=== PATIENT | female | born 1950 | race Caucasian/White ===

== ENCOUNTER → 2020-08-30 09:12 | Outpatient (BNV) | payer MEDICARE, SELFPAY | PROVIDERS: PCP Internal Medicine; Visit Provider Internal Medicine Medical Oncology | DX: E83.110 Hereditary hemochromatosis (principal); I82.511 Chronic embolism and thrombosis of right femoral vein; Z86.2 Personal history of diseases of the blood and blood-forming organs and certain disorders involving the immune mechanism | CPT/HCPCS: 99204; 99212; 99214 ==

== ENCOUNTER 2020-12-17 10:29 | Outpatient (REF) | payer MEDICARE, SELFPAY ==
--- NOTE | ~2020-12-17 | MM_ITS ---
EXAMINATION: MM SCREENING DIGITAL BREAST TOMOSYNTHESIS, BILATERAL CLINICAL INFORMATION: Screening. Asymptomatic. The lifetime risk of breast cancer based on the Tyrer-Cuzick Model is 4%. COMPARISON: Mammography: 10/07/2019, 09/24/2018, 09/21/2017 TECHNIQUE: Digital breast tomosynthesis is performed in both the craniocaudal and mediolateral oblique views along with computer-aided detection (CAD). Synthesized 2D images are generated from the tomosynthesis. Additional bilateral CC views are provided. FINDINGS: There are scattered areas of fibroglandular density (ACR BI-RADS breast composition Category b). There are no significant masses, abnormal calcifications, or other abnormalities. Parenchymal pattern is similar to prior exams. There is no developing density. Incidental small oil cyst with peripheral rim calcification again noted anterior upper outer left breast. There is scattered bilateral benign round and rim calcifications again seen. No significant changes. MM/MM tomosynthesis screening BI IMPRESSION: No mammographic evidence of malignancy. ASSESSMENT: BI-RADS 2: Benign RECOMMENDATION: Routine annual mammography screening. This patient's information was entered into a reminder system with a target due date for their next mammogram.
== END 2020-12-17 10:30 | disposition home or self-care (01) ==
LOC: HO.MAMMO 10:29
PROVIDERS: PCP Internal Medicine; Visit Provider Internal Medicine
DX: Z12.31 Encounter for screening mammogram for malignant neoplasm of breast (principal)
CPT/HCPCS: 77063; 77067

== ENCOUNTER 2021-02-26 08:37 | Outpatient (REF) | payer MEDICARE, SELFPAY ==
--- NOTE | ~2021-02-26 | MM_ITS ---
EXAMINATION: BONE DENSITOMETRY CLINICAL INDICATION: Postmenopausal, estrogen deficient. COMPARISON: This is the patient's baseline examination. TECHNIQUE: Using a [employer] DXA System (software version: 13.1) manufactured by [employer], dual-energy x-ray absorptiometry was performed of the lumbar spine and left hip. The images are of good technical quality. Summary results are attached. FINDINGS: AP SPINE L1-L4: BMD 1.382 g/cm2, Z-score 2.5, T-score 1.7, normal. LEFT FEMUR, NECK: BMD 1.069 g/cm2, Z-score 1.4, T-score 0.2, normal. LEFT FEMUR, TOTAL: BMD 1.094 g/cm2, Z-score 1.7, T-score 0.7, normal. IDENTIFIED RISK FACTORS: Recurrent falls, height loss, thiazide, menopause. HISTORY OF FRACTURE: None listed. MEDICATIONS: Calcium supplements or multivitamin, vitamin D. MM/XR DEXA axial skeleton IMPRESSION: 1. DIAGNOSIS: Normal bone density based on the lowest T-score value of 0.2 in the femoral neck applying World Health Organization criteria. 2. 10-YEAR FRACTURE RISK PREDICTION, FRAX: Major osteoporotic fracture (clinical spine, forearm, hip or shoulder) 6.4%. Hip fracture 0.3%. 3. Treatment Recommendations: NOF guidelines recommend consideration for treatment in postmenopausal women and men age 50 and older presenting with the following: -A hip or vertebral (clinical or morphometric) fracture. -T-score less than or equal to -2.5 at the femoral neck or spine after appropriate evaluation to exclude secondary causes. -Low bone mass at the hip or spine and a 10-year fracture probability by FRAX of greater than or equal to 3% for hip fracture or greater than or equal to 20% for major osteoporotic fracture based on the [place] adapted WHO algorithm. 4. Other Recommendations: All treatment decisions require clinical judgment and consideration of individual patient factors, including patient preferences, comorbidities, previous drug use, risk factors not captured in the FRAX model (e.g. frailty, falls, vitamin D deficiency, increased bone turnover, interval significant decline in bone density) and possible under or overestimation of fracture risk by FRAX. FUTURE SCAN RECOMMENDATION: People with diagnosed cases of osteoporosis or at high risk for fracture should have regular bone mineral density tests. For patients eligible for Medicare, routine testing is allowed once every 2 years. The testing frequency can be increased to one year for patients who have rapidly progressing disease, those who are receiving or discontinuing medical therapy to restore bone mass, or have additional risk factors.
== END 2021-02-26 08:38 | disposition home or self-care (01) ==
LOC: HO.MAMMO 08:37
PROVIDERS: PCP Internal Medicine; Visit Provider Internal Medicine
DX: Z13.820 Encounter for screening for osteoporosis (principal); R29.890 Loss of height; Z79.899 Other long term (current) drug therapy; Z78.0 Asymptomatic menopausal state
CPT/HCPCS: 77080

== ENCOUNTER 2021-04-09 11:53 | Outpatient (REF) | payer MEDICARE, SELFPAY ==
[2021-04-09 12:38] LABS: Basophils Percent Auto 0.5 % (0-2); Imm Gran Abs Auto 0.01 X10*3/uL (0.00-0.03); Imm Gran Pct Auto 0.2 % (0.0-0.4); MANUAL DIFF FLAG SCAN; PLT CLUMP 1; Red Cell Distribution Width 12.7 % (11.0-16.0); SCAN SMEAR FLAG 1
[2021-04-09 12:40] LABS: Eosinophils Absolute Auto 0.1 X10*3/uL (0.0-0.4); Eosinophils Percent Auto 1.9 % (0-4); Hematocrit 42.9 % (37-47); Hemoglobin 14.9 g/dl (12.0-16.0); Lymphocytes Absolute Auto 2.4 X10*3/uL (1.2-4.9); Lymphocytes Percent Auto 37.5 % (20-40); Mean Corpuscular HGB Conc 34.7 g/dl (31.0-35.0); Mean Corpuscular Hemoglobin 31.9 pg (27.0-33.0); Mean Corpuscular Volume 91.9 fL (80-98); Mean Platelet Volume 11.3 fL (9.4-12.3); Monocytes Absolute Auto 0.5 X10*3/uL (0.1-1.2); Monocytes Percent Auto 7.5 % (2-11); Neutrophils Absolute Auto 3.4 X10*3/uL (2.0-8.3); Neutrophils Percent Auto 52.4 % (45-73); Platelet Count 131 X10*3/uL (160-400); Red Blood Count 4.67 X10*6/uL (4.20-5.50); White Blood Count 6.4 X10*3/uL (4.8-10.8)
[2021-04-09 13:39] LABS: Alanine Aminotransferase 25 U/L (0-31); Albumin Level 4.4 g/dL (3.5-5.0); Alkaline Phosphatase 97 U/L (39-117); Anion Gap 13 (12-20); Aspartate Amino Transferase 34 U/L (5-31); Blood Urea Nitrogen 22 mg/dL (9-16); Calcium 9.6 mg/dL (8.4-10.2); Carbon Dioxide 26 mmol/L (22-29); Chloride 105 mmol/L (96-108); Estimated Glomerular Filt Rate 50; Glucose Random 104 mg/dL (60-115); Potassium 4.7 mmol/L (3.3-5.1); Sodium 139 mmol/L (135-145); Total Protein 7.9 g/dL (6.5-8.0)
[2021-04-09 14:01] LABS: Free T4 (Free Thyroxine) 1.02 ng/dL (0.71-1.85); Thyroid Stimulating Hormone 2.16 uIU/mL (0.32-4.0)
[2021-04-10 14:41] LABS: Lyme Abs Screen <0.90 index
== END 2021-04-09 11:54 | disposition home or self-care (01) ==
LOC: HO.LAB 11:53
PROVIDERS: PCP Internal Medicine; Visit Provider Internal Medicine
DX: Z20.822 Contact with and (suspected) exposure to COVID-19 (principal); R53.81 Other malaise; R53.83 Other fatigue; E66.09 Other obesity due to excess calories; Z68.37 Body mass index [BMI] 37.0-37.9, adult; I10 Essential (primary) hypertension
CPT/HCPCS: 80053; 84439; 84443; 85025; 86617; 86618; U0003; U0005

== ENCOUNTER 2021-12-18 10:26 | Outpatient (REF) | payer MEDICARE, SELFPAY ==
--- NOTE | ~2021-12-18 | MM_ITS ---
EXAMINATION: MM SCREENING DIGITAL BREAST TOMOSYNTHESIS, BILATERAL CLINICAL INFORMATION: Screening. Asymptomatic. The lifetime risk of breast cancer based on the Tyrer-Cuzick Model is 4%. COMPARISON: Mammography: 12/17/2020, 10/07/2019, 09/24/2018 TECHNIQUE: Digital breast tomosynthesis is performed in both the craniocaudal and mediolateral oblique views along with computer-aided detection (CAD). Synthesized 2D images are generated from the tomosynthesis. Additional right cleavage view is provided. FINDINGS: There are scattered areas of fibroglandular density (ACR BI-RADS breast composition Category b). There are no significant masses, abnormal calcifications, or other abnormalities. Parenchymal pattern is similar to prior studies and there is no interval developing density or architectural abnormality. Left breast again has incidental oil cyst anterior upper outer quadrant with some scattered rim calcification. There are no significant changes. MM/MM tomosynthesis screening BI IMPRESSION: No mammographic evidence of malignancy. ASSESSMENT: BI-RADS 2: Benign RECOMMENDATION: Routine annual mammography screening. This patient's information was entered into a reminder system with a target due date for their next mammogram.
== END 2021-12-18 10:27 | disposition home or self-care (01) ==
LOC: HO.MAMMO 10:26
PROVIDERS: PCP Internal Medicine; Visit Provider Internal Medicine
DX: Z12.31 Encounter for screening mammogram for malignant neoplasm of breast (principal)
CPT/HCPCS: 77063; 77067

== ENCOUNTER 2022-05-26 05:44 | Outpatient (REF) | payer MEDICARE, SELFPAY ==
--- NOTE | ~2022-05-26 | CT_ITS ---
EXAMINATION: CT ABDOMEN AND PELVIS WITH CONTRAST CLINICAL INFORMATION: Epigastric pain. COMPARISON: None TECHNIQUE: Multidetector volumetric images were obtained from the superior aspect of the liver through the pubic symphysis following administration 85 mL of Omnipaque 350 intravenous contrast. Sagittal and coronal reformatted images were obtained on the technologist's workstation. Oral contrast: No This CT examination was performed using dose optimization techniques as appropriate, variously including the following: *Automated exposure control *Adjustment of mA and/or kV according to patient size (this includes techniques or standardized protocols for targeted exams where dose is matched to indication/reason for exam; i.e. extremities or head) *Use of iterative reconstruction technique DLP: 567 mGy-cm. FINDINGS: LUNG BASES: The heart size is normal. There is subpleural reticular stranding in both lower lobes. There is no consolidation. LIVER, GALLBLADDER, AND BILIARY TREE: The liver is normal in size, shape, and attenuation. No focal hepatic lesion or biliary ductal dilatation is present. The gallbladder is unremarkable with no evidence of radiopaque gallstones, gallbladder wall thickening, or obvious pericholecystic inflammatory changes. PANCREAS: Unremarkable. SPLEEN: Unremarkable. ADRENAL GLANDS: Unremarkable. KIDNEYS AND URETERS: The kidneys are normal in size, shape, and attenuation. No hydronephrosis, hydroureter, or calculi seen. No perinephric stranding. BLADDER: Unremarkable. GASTROINTESTINAL TRACT: Oral contrast opacified small bowel loops and colon appears unremarkable. Appendix is normal caliber. The stomach is nondistended. ABDOMINAL WALL: No significant hernia is appreciated. LYMPH NODES: Normal. VASCULAR: Unremarkable. PELVIC VISCERA: There is no free air or free fluid. The uterus is anteverted and appears unremarkable. No adnexal mass or abnormal size lymph nodes seen. OSSEOUS STRUCTURES: There is vacuum disc phenomena L2-L3, L4-L5 L5/S1 disc level with severe loss of L2-L3 disc height and ventral spondylosis. No aggressive lytic or sclerotic process seen. CT/CT abdomen pelvis w IV con IMPRESSION: No acute intra-abdominal process seen. Degenerative disc changes L2-L3, L4-L5 and L5-S1 disc levels. Fleischner guidelines were followed.
[2022-05-26] MEDS: iohexoL 350 MG/ML 100 ML INFUS..BTL IV (08:53)
[2022-05-26] MEDS: Barium Sulfate Oral (Berry) 450 ML ORAL.SUSP 900 ML PO (08:54)
== END 2022-05-26 05:45 | disposition home or self-care (01) ==
LOC: HO.CT 05:44
PROVIDERS: PCP Internal Medicine; Visit Provider Internal Medicine
DX: R13.10 Dysphagia, unspecified (principal); R83.4 Abnormal immunological findings in cerebrospinal fluid
CPT/HCPCS: 74177; Q9967

== ENCOUNTER 2022-06-30 12:36 | Outpatient (REF) | payer MEDICARE, SELFPAY ==
--- NOTE | ~2022-06-30 | CT_ITS ---
EXAMINATION: CT CHEST WITHOUT CONTRAST CLINICAL INFORMATION: Interstitial lung disease COMPARISON: Previous chest CT and chest x-ray August 2017 TECHNIQUE: Multidetector volumetric CT imaging of the chest was done. Axial MIP volume rendering provided. Sagittal and coronal reformatted images were obtained. This CT examination was performed using dose optimization techniques as appropriate, variously including the following: *Automated exposure control *Adjustment of mA and/or kV according to patient size (this includes techniques or standardized protocols for targeted exams where dose is matched to indication/reason for exam; i.e. extremities or head) *Use of iterative reconstruction technique DLP: 147 mGy-cm FINDINGS: LUNGS: There are increased peripheral interstitial markings with increased peripheral reticulation. This is seen diffusely throughout the lungs but greatest at the lung bases. There is mild traction bronchiolectasis in the lower lobes. There is mild honeycombing seen in the left lower lobe. This is difficult to compare with 2018 exam due to the presence of small left pleural effusion and lingular and left lower lobe atelectasis/airspace disease but is probably slightly increased.. There is question of a a heterogeneous or semisolid partially groundglass attenuation nodule in the left lower lobe. This is best appreciated on sagittal and coronal reconstructed images measuring approximately 1 cm for example coronal reconstructed image 37 and sagittal reconstructed image 38 and axial image 128. This is difficult to compare with previous exam due to atelectasis/consolidation as well. MEDIASTINUM: The mediastinum is normal. CORONARY ARTERY CALCIFICATION: None visualized on this study. PLEURA: There is no pleural effusion. No pleural mass or thickening. AXILLA: No lymphadenopathy. UPPER ABDOMEN: Unremarkable. OSSEOUS STRUCTURES: Degenerative changes of the spine. CT/CT chest wo IV con IMPRESSION: Interstitial lung disease. Appearance would be consistent with IPF/UIP. It is difficult to compare with previous exam from 2018 but is probably slightly increased. Question 1 cm heterogeneous partially groundglass partially solid left lower lobe nodule. Chest CT follow-up in 6 months recommended. Fleischner guidelines were followed.
== END 2022-06-30 12:37 | disposition home or self-care (01) ==
LOC: HO.CT 12:36
PROVIDERS: Visit Provider Internal Medicine
DX: J84.9 Interstitial pulmonary disease, unspecified (principal)
CPT/HCPCS: 71250

== ENCOUNTER 2023-01-21 08:58 | Outpatient (REF) | payer MEDICARE, SELFPAY ==
--- NOTE | ~2023-01-21 | MM_ITS ---
EXAMINATION: MM SCREENING DIGITAL BREAST TOMOSYNTHESIS, BILATERAL CLINICAL INFORMATION: Screening. Asymptomatic. The lifetime risk of breast cancer based on the Tyrer-Cuzick Model is 3%. COMPARISON: Mammography: 12/18/2021, 12/17/2020, 09/29/2019 TECHNIQUE: Digital breast tomosynthesis is performed in both the craniocaudal and mediolateral oblique views along with computer-aided detection (CAD). Synthesized 2D images are generated from the tomosynthesis. FINDINGS: There are scattered areas of fibroglandular density (ACR BI-RADS breast composition Category b). There are no significant masses, abnormal calcifications, or other abnormalities. No architectural abnormality or developing density or significant change from prior studies. The axilla and skin contours are unremarkable. MM/MM tomosynthesis screening BI IMPRESSION: No mammographic evidence of malignancy. ASSESSMENT: BI-RADS 2: Benign RECOMMENDATION: Routine annual mammography screening. This patient's information was entered into a reminder system with a target due date for their next mammogram.
== END 2023-01-21 08:59 | disposition home or self-care (01) ==
LOC: HO.MAMMO 08:58
PROVIDERS: PCP Internal Medicine; Visit Provider Internal Medicine
DX: Z12.31 Encounter for screening mammogram for malignant neoplasm of breast (principal)
CPT/HCPCS: 77063; 77067

== ENCOUNTER 2023-03-13 07:18 | Outpatient (REF) | payer MEDICARE, SELFPAY ==
--- NOTE | ~2023-03-13 | XR_ITS ---
EXAMINATION: XR LUMBOSACRAL SPINE CLINICAL INFORMATION: Numbness and tingling in the lower extremities. Lumbar radiculopathy. COMPARISON: CT abdomen and pelvis 05/26/2022. TECHNIQUE: Four views of the lumbosacral spine. FINDINGS: Again seen is a scoliosis convex to the left. Degenerative changes are present in the spine with disc space narrowing predominantly at L2-L3 with milder narrowing elsewhere. Degenerative changes are present at the facet joints at L4-L5. No bony destructive lesions. Appearances are unchanged when compared to 05/26/2022. XR/XR lumbar spine 2-3V IMPRESSION: Degenerative changes and scoliosis as described above.
== END 2023-03-13 07:19 | disposition home or self-care (01) ==
LOC: HO.XRAY 07:18
PROVIDERS: PCP Internal Medicine; Visit Provider Internal Medicine
DX: R20.0 Anesthesia of skin (principal); R20.2 Paresthesia of skin; M54.16 Radiculopathy, lumbar region
CPT/HCPCS: 72100

== ENCOUNTER 2024-01-25 08:42 | Outpatient (REF) | payer MEDICARE, SELFPAY | END 2024-01-25 08:43 | disposition home or self-care (01) | LOC: HO.MAMMO 08:42 | PROVIDERS: PCP Internal Medicine; Visit Provider Internal Medicine | DX: Z12.31 Encounter for screening mammogram for malignant neoplasm of breast (principal) | CPT/HCPCS: 77063; 77067 ==

== ENCOUNTER → 2024-01-25 09:00 | Outpatient (BNV) | payer MEDICARE, SELFPAY | PROVIDERS: PCP Internal Medicine; Visit Provider Radiology Diagnostic Radiology | DX: Z12.31 Encounter for screening mammogram for malignant neoplasm of breast (principal) | CPT/HCPCS: 77063; 77067 ==

== ENCOUNTER 2024-05-04 11:18 | Emergency (ER) | payer MEDICARE, SELFPAY ==
--- NOTE | ~2024-05-04 | US_ITS ---
EXAMINATION: US ABDOMEN LIMITED CLINICAL INFORMATION: Postprandial pain/vomiting. COMPARISON: Ultrasound abdomen 11/11/2018 TECHNIQUE: Real-time imaging of the gallbladder and common bile duct. FINDINGS: GALLBLADDER: The gallbladder is physiologically distended without evidence of stones, sludge, polyps, wall thickening or pericholecystic fluid. Small intramural echogenic focus with probable comet tail artifact, series 1 image 9. Negative sonographic Angel sign. COMMON BILE DUCT: Normal in caliber measuring 0.4 cm in diameter. US/US abdomen limited IMPRESSION: 1. No cholelithiasis or sonographic evidence of acute cholecystitis. 2. 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 Electronically signed by: Doug Alvarado MD 05/05/2024 09:53 AM EDT
--- NOTE | 2024-05-04 11:24 | ED.NAVMDI ---
HPI - Nausea/Vomiting/Diarrhea General Chief complaint: Nausea/Vomiting/Diarrhea Stated complaint: vomiting-nausea Time Seen by Provider: 05/04/24 19:29 Source: patient Limitations: no limitations History of Present Illness ED Provider: Mounika Hernandez PA-C HPI Narrative: 73-year-old female with a history of chronic abdominal discomfort with chronic nausea and vomiting, ITP, right DVT on rivaroxaban presents with nausea vomiting. Patient states she has been having issues for ?years?. Patient states she has been seen by Gastroenterology, she has been on a PPI intermittently, she states when she stops using the medication she developed symptoms. At this time patient has no abdominal pain, she is here because she states she ?can not eat?. Patient tries to eat any type of food or drink, then subsequently vomits. Denies postprandial pain. Denies fever. Patient has not followed up with her primary care or her prescription benefit specialist for her ongoing issues. Essentially, there was no change in her current symptoms. Associated nausea: Yes Related Data Home Medications ?Medication ?Instructions ?Recorded ?Confirmed ascorbic acid (vitamin C) 500 mg 500 mg PO DAILY 08/30/20 09/02/21 tablet (Vitamin C) bupropion HCl 150 mg 24 hr tablet, 150 tab PO DAILY 08/30/20 09/02/21 extended release bupropion HCl 300 mg 24 hr tablet, 300 tab PO DAILY 08/30/20 09/02/21 extended release cholecalciferol (vitamin D3) 25 25 mcg PO DAILY 08/30/20 09/02/21 mcg (1,000 unit) tablet (Vitamin D3) lisinopril 20 mg tablet 1 tab PO DAILY 08/30/20 09/02/21 magnesium oxide 500 mg PO DAILY 08/30/20 09/02/21 timolol maleate 0.5 % eye drops 1 drp ophthalmic (eye) BID 08/30/20 09/02/21 vitamin B complex 1 cap PO DAILY 08/30/20 09/02/21 amlodipine 5 mg tablet (Norvasc) 5 mg PO DAILY 02/28/21 09/02/21 BuSpar 0.5 tab PO DAILY 09/02/21 09/02/21 Previous Rx's ?Medication ?Instructions ?Recorded rivaroxaban 10 mg tablet 10 mg PO DAILY #90 tabs 12/10/20 Allergies Allergy/AdvReac Type Severity Reaction Status Date / Time ibuprofen [IBUPROFEN] Allergy Unknown HIVES Verified 05/04/24 11:27 Review of Systems Review of Systems: Yes all other systems are reviewed and are negative Constitutional: Constitutional: Denies fatigue and Denies fever(s) Cardiovascular: Cardiovascular: Denies chest pain and Denies dyspnea Respiratory: Respiratory: Denies dyspnea Gastrointestinal: Gastrointestinal: Denies abdominal pain, Reports nausea and Reports vomiting Endocrine: Endocrine: Denies fatigue [facility] Past Medical History Attestation statement: The following information was validated with the patient. Medical History (Updated 05/05/24 @ 00:01 by Sheeba Garay) Glaucoma Chronic idiopathic thrombocytopenia Left ACL tear Depression HTN (hypertension) Right leg DVT Surgical History Hx of tonsillectomy Hx of cataract extraction Family History Family History Mother Heart disease HTN (hypertension) Diabetes Maternal Aunt H/O heart bypass surgery HTN (hypertension) Diabetes Brother S/P triple vessel bypass Stroke Social History Social History Alcohol intake: current Alcohol intake frequency: 0-2 drinks per day Alcohol type: hard liquor Physical Exam Vital Signs: Vital Signs: Last Vital Signs Temp 98.0 F 05/04/24 23:18 Pulse 76 05/04/24 23:18 Resp 18 05/04/24 23:18 BP 156/81 H 05/04/24 23:18 Pulse Ox 98 05/04/24 23:18 O2 Del Method Nasal Cannula 05/04/24 23:18 BMI result Body Mass Index 28.3 Const: Other: Alert, well in appearance Orientation/consciousness: patient oriented x3 Resp: Effort & Inspection: normal respiratory effort Cardio: Other: Normal peripheral perfusion GI: Other: Abdomen is soft, nondistended, obese, no tenderness no guarding Skin: Other: Warm dry no rash Neuro: General: patient oriented x3, no focal motor deficits and CN's II-XI intact bilaterally Psych: Other: Hostile and belligerent Course Course Course Narrative: This is a Rapid Medical Exam performed in triage by Sierra Silva PA-C. Full HPI, ROS and PE to be performed by primary ED provider. 73 yo F w/pmhx ITP, DVT on Xarelto presenting to the ED c/o nausea, vomiting, and abdominal discomfort x few days. +dry mouth. Admits to similar sx over the past few months, was on pills that worked until they didn't. denies suspicious food intake, travel, diarrhea, constipation, Abx use PE: abdomen soft & nontender nondidtended Plan: labs, UA Reevaluation(s) Reevaluation #1: Patient is choosing to leave without completing her assessment. Time: 23:03 Medical Decision Making Medical Decision Making MDM Narrative: 73-year-old female with a history of chronic abdominal discomfort with chronic nausea and vomiting, ITP, right DVT on rivaroxaban presents with nausea vomiting. Patient states she has been having issues for ?years?. Patient states she has been seen by Gastroenterology, she has been on a PPI intermittently, she states when she stops using the medication she developed symptoms. At this time patient has no abdominal pain, she is here because she states she ?can not eat?. Patient tries to eat any type of food or drink, then subsequently vomits. Denies postprandial pain. Denies fever. Patient has not followed up with her primary care or her prescription benefit specialist for her ongoing issues. Essentially, there was no change in her current symptoms. Problem: Ongoing nausea vomiting History: Per patient I have considered the following differential diagnoses: Biliary colic, cholecystitis, gastritis, dysphagia, esophageal dysmotility, esophageal stricture Plan: The patient is clearly eating, she is obese. To note, her assessment began from RME, screening labs obtained and are completely normal. She is not clinically dehydrated and she has no electrolyte abnormalities to suggest starvation. Given she is having postprandial symptoms, I am considering biliary colic, we will order a right upper quadrant ultrasound, it would be atypical given there was no pain associated when she eats. She has not actively refluxing, she does not describe that she is unable to swallow food or drink, a stricture or overall dysmotility is less likely. However, if her assessment is negative, I have already advised that she needs to follow up with her prescription benefit specialist for further assessment, likely endoscopy. She verbalizes understanding I have independently reviewed the following tests: Labs: No leukocytosis, not anemic , No electrolyte abnormality ultrasound right upper quadrant: Patient left before her ultrasound resulted, she stated ?I am sick of waiting?, she was told she could reach out to medical records for results. Lab Data 05/04/24 11:49 05/04/24 11:49 Labs: Lab Results 05/04/24 Range/Units 11:49 WBC 4.7 L (4.8-10.8) X10*3/uL RBC 4.10 L (4.20-5.50) X10*6/uL Hgb 13.8 (12.0-16.0) g/dl Hct 36.9 L (37.0-47.0) % MCV 90.0 (80.0-98.0) fL MCH 33.7 H (27.0-33.0) pg MCHC 37.4 H (31.0-35.0) g/dl RDW 12.1 (11.0-16.0) % Plt Count 127 L (160-400) X10*3/uL MPV 10.2 (9.4-12.3) fL Immature Gran % (Auto) 0.2 (0.0-0.4) % Neut % (Auto) 61.5 (45-73) % Lymph % (Auto) 29.2 (20-40) % [place] % (Auto) 8.0 (2-11) % Eos % (Auto) 0.9 (0-4) % Baso % (Auto) 0.2 (0-2) % Lymph # (Auto) 1.4 (1.2-4.9) X10*3/uL [place] # (Auto) 0.4 (0.1-1.2) X10*3/uL Eos # (Auto) 0.0 (0.0-0.4) X10*3/uL Baso # (Auto) 0.0 (0.0-0.2) X10*3/uL Abs Immat Gran (auto) 0.01 (0.00-0.03) X10*3/uL Absolute Neuts (auto) 2.9 (2.0-8.3) x10*3/uL Absolute Nucleated RBC 0.000 (0.0-0.012) X10*3/uL Nucleated RBC % (auto) 0.0 (0.0-0.2) /100WBC Sodium 141 (135-145) mmol/L Potassium 3.6 (3.3-5.1) mmol/L Chloride 104 (96-108) mmol/L Carbon Dioxide 29 (22-29) mmol/L Anion Gap 12 (12-20) BUN 12 (9-16) mg/dL Creatinine 1.23 (0.5-1.4) mg/dL Estim Creat Clear Calc 34.9 Estimated GFR 43 Random Glucose 119 H (60-115) mg/dL Calcium 9.4 (8.4-10.2) mg/dL Magnesium 2.1 (1.6-2.6) mg/dL Total Bilirubin 0.8 (0.0-1.0) mg/dL Direct Bilirubin 0.3 (0.0-0.5) mg/dL AST 27 (5-31) U/L ALT 14 (0-31) U/L Alkaline Phosphatase 81 (39-117) U/L Total Protein 8.0 (6.5-8.0) g/dL Albumin 4.1 (3.5-5.0) g/dL Lipase 34 (8-78) U/L Discharge Plan Discharge Clinical Impression: Vomiting Patient Disposition: Left Against Medical Advice Prescriptions: No Action rivaroxaban 10 mg Tablet 10 mg PO DAILY Qty: 90 4RF lisinopril 20 mg tablet 1 tab PO DAILY ascorbic acid (vitamin C) [Vitamin C] 500 mg Tablet 500 mg PO DAILY magnesium oxide 500 mg Tablet 500 mg PO DAILY timolol maleate 0.5 % drops 1 drp ophthalmic (eye) BID vitamin B complex Capsule 1 cap PO DAILY bupropion HCl 300 mg tablet extended release 24 hr 300 tab PO DAILY Rx Instructions: 300 mg tab + 150 mg tab = 450 mg total dose bupropion HCl 150 mg tablet extended release 24 hr 150 tab PO DAILY Rx Instructions: 300 mg tab + 150 mg tab = 450 mg total dose cholecalciferol (vitamin D3) [Vitamin D3] 25 mcg (1,000 unit) Tablet 25 mcg PO DAILY amlodipine [Norvasc] 5 mg Tablet 5 mg PO DAILY BuSpar 7.5 mg tablet 0.5 tab PO DAILY Stand Alone Forms: Against Medical Advice Interventions: ED Discharge Assessment Last Done: 05/04/24 23:18 Discharge Date/Time: 05/04/24 23:19 Print Language: Maldivian
[2024-05-04 11:25] VITALS: BP 151/88; PULSE 78; RESP 18; TEMP 36.6; O2SAT 98; BMI 28.3
--- NOTE | 2024-05-04 11:28 | ECG_ITS ---
Test Reason : N, ABD PAIN Blood Pressure : / mmHG Vent. Rate : 069 BPM Atrial Rate : 069 BPM P-R Int : 208 ms QRS Dur : 086 ms QT Int : 412 ms P-R-T Axes : 064 -17 -06 degrees QTc Int : 441 ms Normal sinus rhythm Minimal voltage criteria for LVH, may be normal variant ( R in aVL ) Nonspecific T wave abnormality Inferior infarct (cited on or before 14-AUG-2017) Abnormal ECG When compared with ECG of 14-AUG-2017 18:54, Nonspecific T wave abnormality now evident in Anterior leads Referred By: Sierra Silva Electronically Signed By:DENZEL PAEZ
[2024-05-04 11:53] LABS: MANUAL DIFF FLAG NO
[2024-05-04 12:00] LABS: Basophils Percent Auto 0.2 % (0-2); Eosinophils Percent Auto 0.9 % (0-4); Hematocrit 36.9 % (37.0-47.0); Hemoglobin 13.8 g/dl (12.0-16.0); Imm Gran Abs Auto 0.01 X10*3/uL (0.00-0.03); Imm Gran Pct Auto 0.2 % (0.0-0.4); Lymphocytes Absolute Auto 1.4 X10*3/uL (1.2-4.9); Lymphocytes Percent Auto 29.2 % (20-40); Mean Corpuscular HGB Conc 37.4 g/dl (31.0-35.0); Mean Corpuscular Hemoglobin 33.7 pg (27.0-33.0); Mean Platelet Volume 10.2 fL (9.4-12.3); Monocytes Absolute Auto 0.4 X10*3/uL (0.1-1.2); Neutrophils Absolute Auto 2.9 x10*3/uL (2.0-8.3); Neutrophils Percent Auto 61.5 % (45-73); Platelet Count 127 X10*3/uL (160-400); Red Cell Distribution Width 12.1 % (11.0-16.0); White Blood Count 4.7 X10*3/uL (4.8-10.8)
[2024-05-04 12:10] LABS: Alanine Aminotransferase 14 U/L (0-31); Albumin Level 4.1 g/dL (3.5-5.0); Alkaline Phosphatase 81 U/L (39-117); Anion Gap 12 (12-20); Aspartate Amino Transferase 27 U/L (5-31); Bilirubin Direct 0.3 mg/dL (0.0-0.5); Bilirubin Total 0.8 mg/dL (0.0-1.0); Blood Urea Nitrogen 12 mg/dL (9-16); Calcium 9.4 mg/dL (8.4-10.2); Carbon Dioxide 29 mmol/L (22-29); Chloride 104 mmol/L (96-108); Creatinine Clr Calc Pharmacy 34.9; Estimated Glomerular Filt Rate 43; Glucose Random 119 mg/dL (60-115); Lipase 34 U/L (8-78); Magnesium 2.1 mg/dL (1.6-2.6); Potassium 3.6 mmol/L (3.3-5.1); Sodium 141 mmol/L (135-145)
[2024-05-04 19:30] VITALS: BP 175/81; PULSE 80; RESP 18; O2SAT 97
--- NOTE | 2024-05-04 20:22 | PC.NURSE ---
pt declined urine sample, provider aware.
[2024-05-04 22:00] VITALS: BP 156/81; PULSE 76; RESP 18; TEMP 36.7; O2SAT 98
--- NOTE | 2024-05-04 23:17 | PC.NURSE ---
pt left AMA due to waiting for 12 hours w/o u/s results, provider aware, AMA paperwork signed. explained to pt that she would not be contacted with u/s results but she was welcome to call medical records to get her results and discuss the w PCP/GI specialist.
[2024-05-04 23:18] VITALS: BP 156/81; PULSE 76; RESP 18; TEMP 36.7; O2SAT 98
== END 2024-05-04 23:19 | disposition left against medical advice (07) ==
PROVIDERS: Physician Assistant; Emergency Provider Emergency Medicine; PCP Internal Medicine
DX: R11.2 Nausea with vomiting, unspecified (principal); I10 Essential (primary) hypertension; Z86.718 Personal history of other venous thrombosis and embolism; Z79.01 Long term (current) use of anticoagulants; Z53.29 Procedure and treatment not carried out because of patient's decision for other reasons
CPT/HCPCS: 36415; 76705; 80048; 80076; 83690; 83735; 85025; 93005; 99284; 99285

== ENCOUNTER 2024-05-09 11:23 | Outpatient (REF) | payer MEDICARE, SELFPAY ==
[2024-05-09 12:29] VITALS: BP 133/67; PULSE 71; RESP 16; TEMP 36.5; O2SAT 97
[2024-05-09 12:30] VITALS: BMI 27.6
== END 2024-05-09 11:24 | disposition home or self-care (01) ==
LOC: HO.MS 11:23
PROVIDERS: PCP Internal Medicine; Visit Provider Ophthalmology
PROC: (CPT 66821; principal; 2024-05-09 13:20)
DX: H26.492 Other secondary cataract, left eye (principal)
CPT/HCPCS: 66821

== ENCOUNTER 2024-05-19 13:29 | Emergency (ER) | payer MEDICARE, SELFPAY ==
[2024-05-19] VITALS (10 sets, daily range): BP systolic 89–175; BP diastolic 53–90; PULSE 68–95; RESP 16–28; TEMP 36.6–36.8; O2SAT 81–98; BMI 29.4
--- NOTE | ~2024-05-19 | CT_ITS ---
EXAMINATION: CT HEAD WITHOUT CONTRAST CLINICAL INFORMATION: Dizziness. On blood thinner. COMPARISON: None available. TECHNIQUE: Contiguous axial imaging was performed from the skull base to vertex without intravenous administration of contrast. This CT examination was performed using dose optimization techniques as appropriate, variously including the following: *Automated exposure control *Adjustment of mA and/or kV according to patient size (this includes techniques or standardized protocols for targeted exams where dose is matched to indication/reason for exam; i.e. extremities or head) *Use of iterative reconstruction technique DLP: 608 mGy-cm FINDINGS: There is no acute intracranial hemorrhage. There is no evidence of acute/subacute cerebral or cerebellar infarction. There is no midline shift or mass effect. There is no extra-axial fluid collection. The ventricles are normal in size. The paranasal sinuses and mastoid air cells are clear. CT/CT head/brain wo IV con IMPRESSION: No acute intracranial pathology. Electronically signed by: Tarik Couch DO 05/19/2024 03:37 PM EDT
--- NOTE | ~2024-05-19 | CT_ITS ---
EXAMINATION: CT ABDOMEN AND PELVIS WITH CONTRAST CLINICAL INFORMATION: Chronic nausea and abdominal pain. COMPARISON: CT scan abdomen and pelvis May 26, 2022 TECHNIQUE: Multidetector volumetric images were obtained from the superior aspect of the liver through the pubic symphysis following administration 85 mL of Omnipaque 350 intravenous contrast. Sagittal and coronal reformatted images were obtained on the technologist's workstation. Oral contrast: No This CT examination was performed using dose optimization techniques as appropriate, variously including the following: *Automated exposure control *Adjustment of mA and/or kV according to patient size (this includes techniques or standardized protocols for targeted exams where dose is matched to indication/reason for exam; i.e. extremities or head) *Use of iterative reconstruction technique DLP: 675 mGy-cm FINDINGS: LUNG BASES: Coarse interstitial lung markings in lung bases. Mild bronchial wall thickening at lung bases. No acute airspace disease. LIVER, GALLBLADDER, AND BILIARY TREE: The liver is normal in size, shape, and attenuation. No focal hepatic lesion or biliary ductal dilatation is present. The gallbladder is unremarkable with no evidence of radiopaque gallstones, gallbladder wall thickening, or obvious pericholecystic inflammatory changes. PANCREAS: Unremarkable. SPLEEN: Unremarkable. ADRENAL GLANDS: Unremarkable. KIDNEYS AND URETERS: The kidneys are normal in size, shape, and attenuation. No hydronephrosis, hydroureter, or calculi seen. No perinephric stranding. Small cortical cyst upper pole right kidney. No follow-up imaging recommended. BLADDER: Unremarkable. GASTROINTESTINAL TRACT: No acute abnormality. There is no bowel wall thickening /edema. There is no bowel obstruction. There is a moderate to large volume of stool in the colon. The appendix is normal . The small bowel loops are unremarkable. The stomach is normal. There is no hiatal hernia. ABDOMINAL WALL: No significant hernia is appreciated. LYMPH NODES: Normal. VASCULAR: Unremarkable. PELVIC VISCERA: Unremarkable. OSSEOUS STRUCTURES: Multilevel degenerative spondylosis spine. CT/CT abdomen pelvis w IV con IMPRESSION: 1. No acute abnormality CT scan abdomen pelvis. 2. Moderate to large volume of stool in colon. No acute abnormality of the bowel. Fleischner guidelines were followed. Electronically signed by: Mirza Aparicio MD 05/19/2024 07:59 PM EDT
--- NOTE | 2024-05-19 13:46 | ECG_ITS ---
Test Reason : DIZZINESS Blood Pressure : / mmHG Vent. Rate : 072 BPM Atrial Rate : 072 BPM P-R Int : 204 ms QRS Dur : 082 ms QT Int : 418 ms P-R-T Axes : 074 -17 020 degrees QTc Int : 457 ms Normal sinus rhythm Inferior infarct (cited on or before 14-AUG-2017) Cannot rule out Anterior infarct , age undetermined Abnormal ECG When compared with ECG of 04-MAY-2024 11:37, No significant change was found Referred By: Missy Rojo Electronically Signed By:TEREZA BOCANEGRA MD
--- NOTE | 2024-05-19 14:00 | PC.NURSE ---
pt biba from PCP d/t nausea/dizziness w/unsteady gait x 1 month. made appt w/ pcp - sent by pcp to ED to r/o stroke. upon ED arrival - a&ox4. vss and up to date aside from being slightly hypertensive. nsr on the night monitor. pt pt verbalizes intermittent dizziness that worsens w/ movement, ringing in ears bilaterally, extremely unsteady gait, nausea and decreased PO intake x 1 month. 20gIV placed in the right AC via EMS - IV patent/intact. labs obtained/sent to lab. ekg performed by tech. when pt stood up to ambulate to the restroom, extremely unsteady gait noted. pt took two steps and entire body drifted to the right side. pt held by this RN as well as tech. 2:1 assist needed to ambulate pt to the restroom. UA then obtained/sent to lab. no sob/wob noted. respirations even/unlabored. plan of care ongoing. call rodrigues placed within reach.
--- NOTE | 2024-05-19 14:12 | PC.NURSE ---
pt to CT at this time. plan of care ongoing.
--- NOTE | 2024-05-19 14:16 | ED.DIZZY ---
HPI - Dizziness General Chief Complaint: Dizziness Stated Complaint: NAUSEA/DIZZINESS X 1 MONTH PER EMS Time Seen by Provider: 05/19/24 13:32 Source: patient, EMS and old records reviewed Mode of arrival: EMS Limitations: no limitations History of Present Illness ED Provider: VENECIA GALLARDO Narrative: 73 yo female with PMH of HLD, HTN, chronic ITP, depression, remote DVT in 2018 not on xarelto any longer - at this time here with 1 month of dizziness, bilateral non pulsatile ringing in the ears, and difficulty walking. She has fallen. She has a mild frontal headache as well. No CP/SOB. No preceding event or illness she can think to trigger it. Walking makes it worse. MD elicited complaint: dizziness Onset (ago): month(s) (1) Timing: sudden onset and intermittent Severity: moderate Description: room spinning , off-balance and difficulty walking Context: change in body position History of similar symptoms: No Exacerbating factors: movement/ambulation and change in body position Relieving factors: remaining still Associated symptoms: nausea Associated neuro symptoms: other (difficulty walking) Related Data Home Medications ?Medication ?Instructions ?Recorded ?Confirmed ascorbic acid (vitamin C) 500 mg 500 mg PO DAILY 08/30/20 09/02/21 tablet (Vitamin C) bupropion HCl 150 mg 24 hr tablet, 150 tab PO DAILY 08/30/20 09/02/21 extended release bupropion HCl 300 mg 24 hr tablet, 300 tab PO DAILY 08/30/20 09/02/21 extended release cholecalciferol (vitamin D3) 25 25 mcg PO DAILY 08/30/20 09/02/21 mcg (1,000 unit) tablet (Vitamin D3) lisinopril 20 mg tablet 1 tab PO DAILY 08/30/20 09/02/21 magnesium oxide 500 mg PO DAILY 08/30/20 09/02/21 timolol maleate 0.5 % eye drops 1 drp ophthalmic (eye) BID 08/30/20 09/02/21 vitamin B complex 1 cap PO DAILY 08/30/20 09/02/21 amlodipine 5 mg tablet (Norvasc) 5 mg PO DAILY 02/28/21 09/02/21 BuSpar 0.5 tab PO DAILY 09/02/21 09/02/21 Previous Rx's ?Medication ?Instructions ?Recorded rivaroxaban 10 mg tablet 10 mg PO DAILY #90 tabs 12/10/20 ondansetron 4 mg disintegrating 4 mg PO Q8H PRN nausea and 05/19/24 tablet vomiting #20 tabs Allergies Allergy/AdvReac Type Severity Reaction Status Date / Time ibuprofen [IBUPROFEN] Allergy Unknown HIVES Verified 05/19/24 13:35 Review of Systems Review of Systems: Constitutional : No Fever, No Chills, No Fatigue ENT/Mouth : No sore throat, No Rhinorrhea Eyes: No Eye Pain, No Swelling, No Redness Cardiovascular : No Chest Pain, No SOB, No Dyspnea on Exertion Respiratory : No Cough, No Sputum Gastrointestinal : pos Nausea, No Vomiting, No Diarrhea, No abdominal Pain Genitourinary : No Dysuria, No Urinary Frequency, No Hematuria, Musculoskeletal : No joint pain, No Myalgias, No Joint Swelling Skin : No Skin Lesions, No rash Neuro : No Weakness, No Numbness, pos Dizziness, no Headache Psych : No Anxiety/Panic, No Depression All other systems reviewed and are negative PMFSH Past Medical History Attestation statement: The following information was validated with the patient. Source: old records reviewed Medical History Glaucoma Chronic idiopathic thrombocytopenia Left ACL tear Depression HTN (hypertension) Right leg DVT Surgical History Hx of tonsillectomy Hx of cataract extraction Family History Family History Mother Heart disease HTN (hypertension) Diabetes Maternal Aunt H/O heart bypass surgery HTN (hypertension) Diabetes Brother S/P triple vessel bypass Stroke Social History Social History Alcohol intake: current Alcohol intake frequency: 0-2 drinks per day Alcohol type: hard liquor Smoked in Last 30 Days: No Use of substances other than those prescribed or required for medical reasons: No Advance Directives: No Advance Directives Information Provided: Yes Do you have a plan to hurt others: No Plan Physical Exam Vital Signs: Vital Signs: Last Vital Signs Temp 97.8 F 05/19/24 13:43 Pulse 78 05/19/24 14:23 Resp 16 05/19/24 13:43 BP 113/67 05/19/24 14:23 Pulse Ox 96 05/19/24 13:43 O2 Del Method Room Air 05/19/24 13:43 BMI result Body Mass Index 29.4 Appearance: Alert. Oriented X3. No acute distress. Eyes: Pupils R 3mm, L 4mm she states prior surgery on L eye ENT: Pharynx normal. Neck: Normal inspection. Neck supple. CVS: Normal heart rate and rhythm. Pulses normal. Respiratory: No respiratory distress. Breath sounds normal. Abdomen: Soft and nontender. Skin: Skin warm and dry. Normal skin color. Normal skin turgor. Extremities: No lower extremity edema. No calf ttp abrasion and contusion R elbow Neuro: Oriented X 3. No motor deficit. No sensory deficit. + romberg sign Course Course Course Narrative: + orthostatic hypotension possible cause - will halve her lisinopril to 10mg and her amlodipine to 2.5mg 1 month of symptoms at this time can follow up with PCP for further work up including carotid vessels, ECHO, MRI CT head negative for stroke at this time Reevaluation(s) Reevaluation #1: on discharge patient very nervous about chronic abdominal pain will obtain CT scan Reevaluation #2: signed out to Shira HOGAN Medical Decision Making Medical Decision Making MDM Narrative: 73 yo female with PMH of HLD, HTN, chronic ITP, depression, remote DVT in 2018 no longer on xarelto here with c/o dizziness and ringing in both ears that make it difficult to walk with nausea. She has fallen. She has a persistent frontal headache as well. No GIB symptoms. No CP/SOB. Her PCP saw her today and sent her to ED for stroke work up. At this time will obtain labs, EKG, ortho VS, CT head for mass/ICH, symptoms x 1 month would anticipate seeing a lesion Differential Diagnosis Differential Diagnoses: The differential diagnosis associated with the presentation includes stroke, vertigo, meniere's, orthostatic hypotension, anemia, dizziness Admission/Observation Consideration of admission/observation: Escalation of care including admission/observation considered 1 month of symptoms able to walk - no stroke on CT scan PCP can obtain MRI, ECHO, carotid study - no indication for acute admission Lab Data [facility] Lab Attestation statement: I reviewed the patient's lab results. 05/19/24 13:57 05/19/24 13:57 Labs: Lab Results 10/10/24 Range/Units 13:57 WBC 5.8 (4.8-10.8) X10*3/uL RBC 4.95 D (4.20-5.50) X10*6/uL Hgb 16.3 H (12.0-16.0) g/dl Hct 45.8 D (37.0-47.0) % MCV 92.5 (80.0-98.0) fL MCH 32.9 (27.0-33.0) pg MCHC 35.6 H (31.0-35.0) g/dl RDW 12.4 (11.0-16.0) % Plt Count 131 L (160-400) X10*3/uL MPV 11.1 (9.4-12.3) fL Immature Gran % (Auto) 0.5 H (0.0-0.4) % Neut % (Auto) 48.9 (45-73) % Lymph % (Auto) 40.5 H (20-40) % [place] % (Auto) 8.7 (2-11) % Eos % (Auto) 0.7 (0-4) % Baso % (Auto) 0.7 (0-2) % Lymph # (Auto) 2.3 (1.2-4.9) X10*3/uL [place] # (Auto) 0.5 (0.1-1.2) X10*3/uL Eos # (Auto) 0.0 (0.0-0.4) X10*3/uL Baso # (Auto) 0.0 (0.0-0.2) X10*3/uL Abs Immat Gran (auto) 0.03 (0.00-0.03) X10*3/uL Absolute Neuts (auto) 2.8 (2.0-8.3) x10*3/uL Absolute Nucleated RBC 0.000 (0.0-0.012) X10*3/uL Nucleated RBC % (auto) 0.0 (0.0-0.2) /100WBC Sodium 139 (135-145) mmol/L Potassium 4.6 D (3.3-5.1) mmol/L Chloride 103 (96-108) mmol/L Carbon Dioxide 26 (22-29) mmol/L Anion Gap 15 (12-20) BUN 12 (9-16) mg/dL Creatinine 1.20 (0.5-1.4) mg/dL Estim Creat Clear Calc 37.8 Estimated GFR 44 Random Glucose 87 (60-115) mg/dL Calcium 9.9 (8.4-10.2) mg/dL Magnesium 2.4 (1.6-2.6) mg/dL Total Bilirubin 0.8 (0.0-1.0) mg/dL Direct Bilirubin 0.2 (0.0-0.5) mg/dL AST 40 H (5-31) U/L ALT 20 (0-31) U/L Alkaline Phosphatase 85 (39-117) U/L Troponin I High Sens 3.7 (<3.5-17.0) ng/L Total Protein 8.8 H (6.5-8.0) g/dL Albumin 4.4 (3.5-5.0) g/dL Urine Color Dark Yellow Urine Appearance Clear Urine pH 7.0 (5.0-9.0) Ur Specific [place] <= 1.005 (1.005-1.025) Urine Protein Negative (Neg-Trace) mg/dL Urine Glucose (UA) Negative (Negative) mg/dL Urine Ketones Negative (Negative) mg/dL Urine Blood Negative (Negative) Urine Nitrite Negative (Negative) Ur Leukocyte Esterase Negative (Negative) Independent Interpretation I performed an independent interpretation of an: EKG and CT Scan (no stroke) Interpretation: Rate: 72 Rhythm: NSR [place]: left Normal P waves. Normal ELEANOR. Normal QRS complex. ST T wave : no KIERSTEN, nonspecific ST T wave changes V3-V4 qTC: 457 prior studies: no sig ischemia The study has been interpreted contemporaneously by me. . Radiology Impression Discussion of test interpretation with radiology: I have reviewed the radiologist's reading. Independent Historian Clinical information obtained from an independent historian. History obtained from or confirmed by: [facility] External Record Review External record reviewed: Outpatient record Discharge Plan Discharge Clinical Impression: Orthostatic hypotension, Dizziness, Nausea Patient Disposition: Still a Patient Instructions: Hypotension (ED), Dizziness (ED) Additional Instructions: labs reassuring plt 131 please follow up with your doctor for outpatient ECHO, carotid studies, MRI of the brain at this time your blood pressure is dropping when you stand cut down lisinopril to 10mg daily and amlodipine 2.5mg daily return for any worsening symptoms or concerns. Prescriptions: New ondansetron 4 mg tablet,disintegrating 4 mg PO Q8H PRN (Reason: nausea and vomiting) Qty: 20 0RF No Action rivaroxaban 10 mg Tablet 10 mg PO DAILY Qty: 90 4RF lisinopril 20 mg tablet 1 tab PO DAILY ascorbic acid (vitamin C) [Vitamin C] 500 mg Tablet 500 mg PO DAILY magnesium oxide 500 mg Tablet 500 mg PO DAILY timolol maleate 0.5 % drops 1 drp ophthalmic (eye) BID vitamin B complex Capsule 1 cap PO DAILY bupropion HCl 300 mg tablet extended release 24 hr 300 tab PO DAILY Rx Instructions: 300 mg tab + 150 mg tab = 450 mg total dose bupropion HCl 150 mg tablet extended release 24 hr 150 tab PO DAILY Rx Instructions: 300 mg tab + 150 mg tab = 450 mg total dose cholecalciferol (vitamin D3) [Vitamin D3] 25 mcg (1,000 unit) Tablet 25 mcg PO DAILY amlodipine [Norvasc] 5 mg Tablet 5 mg PO DAILY BuSpar 7.5 mg tablet 0.5 tab PO DAILY Print Language: Sudanese
[2024-05-19 14:22] LABS: MANUAL DIFF FLAG NO
[2024-05-19 14:26] LABS: Appearance Urine Clear; Color Urine Dark Yellow; Glucose Urine UA Negative (Negative); Leukocyte Esterase Urine Negative (Negative); Nitrite Urine Negative (Negative); Specific Gravity - Urine <= 1.005 (1.005-1.025); Urine Blood Negative (Negative); Urine Ketones Negative (Negative); Urine Protein Negative (Neg-Trace)
[2024-05-19 14:28] LABS: Basophils Percent Auto 0.7 % (0-2); Eosinophils Percent Auto 0.7 % (0-4); Hematocrit 45.8 % (37.0-47.0); Hemoglobin 16.3 g/dl (12.0-16.0); Imm Gran Abs Auto 0.03 X10*3/uL (0.00-0.03); Imm Gran Pct Auto 0.5 % (0.0-0.4); Lymphocytes Absolute Auto 2.3 X10*3/uL (1.2-4.9); Lymphocytes Percent Auto 40.5 % (20-40); Mean Corpuscular HGB Conc 35.6 g/dl (31.0-35.0); Mean Corpuscular Hemoglobin 32.9 pg (27.0-33.0); Mean Corpuscular Volume 92.5 fL (80.0-98.0); Mean Platelet Volume 11.1 fL (9.4-12.3); Monocytes Absolute Auto 0.5 X10*3/uL (0.1-1.2); Monocytes Percent Auto 8.7 % (2-11); Neutrophils Absolute Auto 2.8 x10*3/uL (2.0-8.3); Neutrophils Percent Auto 48.9 % (45-73); Platelet Count 131 X10*3/uL (160-400); Red Blood Count 4.95 X10*6/uL (4.20-5.50); Red Cell Distribution Width 12.4 % (11.0-16.0); White Blood Count 5.8 X10*3/uL (4.8-10.8)
[2024-05-19 14:48] LABS: Troponin-I High Sensitivity 3.7 ng/L (<3.5-17.0)
[2024-05-19 14:52] LABS: Alanine Aminotransferase 20 U/L (0-31); Albumin Level 4.4 g/dL (3.5-5.0); Alkaline Phosphatase 85 U/L (39-117); Anion Gap 15 (12-20); Aspartate Amino Transferase 40 U/L (5-31); Bilirubin Direct 0.2 mg/dL (0.0-0.5); Bilirubin Total 0.8 mg/dL (0.0-1.0); Blood Urea Nitrogen 12 mg/dL (9-16); Calcium 9.9 mg/dL (8.4-10.2); Carbon Dioxide 26 mmol/L (22-29); Chloride 103 mmol/L (96-108); Creatinine Clr Calc Pharmacy 37.8; Estimated Glomerular Filt Rate 44; Glucose Random 87 mg/dL (60-115); Magnesium 2.4 mg/dL (1.6-2.6); Potassium 4.6 mmol/L (3.3-5.1); Sodium 139 mmol/L (135-145); Total Protein 8.8 g/dL (6.5-8.0)
--- NOTE | 2024-05-19 17:04 | PC.NURSE ---
pt to CT at this time.
[2024-05-19] MEDS: iohexoL 350 MG/ML 100 ML INFUS..BTL IV (17:09)
== END 2024-05-19 20:48 | disposition home or self-care (01) ==
PROVIDERS: Emergency Provider Emergency Medicine; PCP Internal Medicine
DX: I95.1 Orthostatic hypotension (principal); R42 Dizziness and giddiness; R94.31 Abnormal electrocardiogram [ECG] [EKG]; R11.2 Nausea with vomiting, unspecified; R26.2 Difficulty in walking, not elsewhere classified; R10.2 Pelvic and perineal pain; R51.9 Headache, unspecified; Z79.899 Other long term (current) drug therapy
CPT/HCPCS: 36415; 70450; 74177; 80048; 80076; 81003; 83735; 84484; 85025; 93005; 99284; 99285; Q9967

== ENCOUNTER → 2024-05-19 13:46 | Outpatient (BNV) | payer MEDICARE, SELFPAY | PROVIDERS: Emergency Provider Emergency Medicine; PCP Internal Medicine; Visit Provider Internal Medicine Cardiovascular Disease | DX: R94.31 Abnormal electrocardiogram [ECG] [EKG] (principal) | CPT/HCPCS: 93010 ==

== ENCOUNTER 2024-06-06 10:12 | Outpatient (REF) | payer MEDICARE, SELFPAY ==
[2024-06-06 10:56] VITALS: BP 128/81; PULSE 72; RESP 16; TEMP 36.2; O2SAT 98; BMI 25.4
== END 2024-06-06 10:13 | disposition home or self-care (01) ==
LOC: HO.MS 10:12
PROVIDERS: PCP Internal Medicine; Visit Provider Ophthalmology
PROC: (CPT 66821; principal; 2024-06-06 11:30)
DX: H26.491 Other secondary cataract, right eye (principal)
CPT/HCPCS: 66821

== ENCOUNTER 2024-07-19 16:20 | Emergency (ER) | payer MEDICARE, SELFPAY ==
[2024-07-19] VITALS (7 sets, daily range): BP systolic 128–173; BP diastolic 78–92; PULSE 77–96; RESP 16–18; TEMP 36.2–36.8; O2SAT 97–99; BMI 27.5
--- NOTE | ~2024-07-19 | CT_ITS ---
EXAMINATION: CT HEAD WITHOUT CONTRAST CLINICAL INFORMATION: Transient ischemic attack. Patient on Xarelto. COMPARISON: CT head from 05/19/2024. TECHNIQUE: Contiguous axial imaging was performed from the skull base to vertex without intravenous administration of contrast. This CT examination was performed using dose optimization techniques as appropriate, variously including the following: *Automated exposure control. *Adjustment of mA and/or kV according to patient size (this includes techniques or standardized protocols for targeted exams where dose is matched to indication/reason for exam; i.e. extremities or head). *Use of iterative reconstruction technique. DLP: 673 mGy-cm FINDINGS: There is no evidence of acute intracranial hemorrhage or edematous territorial infarction. Gonzalez-white matter differentiation is preserved. Scattered and partially confluent hypoattenuation in the periventricular and deep white matter are consistent with moderate microangiopathy. Proportional prominence of the ventricles and sulcal spaces without evidence of obstructive hydrocephalus. No abnormal mass effect or midline shift. No extra-axial fluid collections. Calcific atherosclerotic disease of the intracranial internal carotid and vertebral arteries. No hyperdense vessel sign. No acute soft tissue or osseous abnormalities. Mild mucosal thickening of the paranasal sinuses. The mastoid air cells and middle ear cavities are clear. Bilateral lens extractions. CT/CT head/brain wo IV con IMPRESSION: 1. No evidence of acute intracranial hemorrhage or edematous territorial infarction. 2. Moderate underlying microangiopathy and generalized cerebral volume loss. Electronically signed by: Parish Frey DO 07/19/2024 06:26 PM [facility]
--- NOTE | 2024-07-19 16:39 | ECG_ITS ---
Test Reason : WEAKNESS Blood Pressure : / mmHG Vent. Rate : 074 BPM Atrial Rate : 074 BPM P-R Int : 216 ms QRS Dur : 084 ms QT Int : 388 ms P-R-T Axes : 060 -18 000 degrees QTc Int : 430 ms Sinus rhythm with 1st degree A-V block Minimal voltage criteria for LVH, may be normal variant ( R in aVL ) Inferior infarct , age undetermined Abnormal ECG No previous ECGs available Referred By: Generic ED Physician Electronically Signed By:TEREZA BOCANEGRA MD
--- NOTE | 2024-07-19 16:52 | ED.AMS ---
HPI - Altered Mental Status General Chief Complaint: Altered Mental Status Stated Complaint: CONFUSED ,NAUSEA PER EMS Time Seen by Provider: 07/19/24 16:43 Source: patient History of Present Illness ED Provider: HPI narrative: Patient is 73 years old with history of ITP, depression, glaucoma, hypotension, DVT in the right leg taking Xarelto comes here for increased confusion was confused how to use the TV remote been feeling dizzy and confused patient does have orthostatic hypotension patient recently had [facility] for same on arrival in the ER patient feel spacey no recent fall no headache Related Data Home Medications ?Medication ?Instructions ?Recorded ?Confirmed ascorbic acid (vitamin C) 500 mg 500 mg PO DAILY 08/30/20 09/02/21 tablet (Vitamin C) bupropion HCl 150 mg 24 hr tablet, 150 tab PO DAILY 08/30/20 09/02/21 extended release bupropion HCl 300 mg 24 hr tablet, 300 tab PO DAILY 08/30/20 09/02/21 extended release cholecalciferol (vitamin D3) 25 25 mcg PO DAILY 08/30/20 09/02/21 mcg (1,000 unit) tablet (Vitamin D3) lisinopril 20 mg tablet 1 tab PO DAILY 08/30/20 09/02/21 magnesium oxide 500 mg PO DAILY 08/30/20 09/02/21 timolol maleate 0.5 % eye drops 1 drp ophthalmic (eye) BID 08/30/20 09/02/21 vitamin B complex 1 cap PO DAILY 08/30/20 09/02/21 amlodipine 5 mg tablet (Norvasc) 5 mg PO DAILY 02/28/21 09/02/21 BuSpar 0.5 tab PO DAILY 09/02/21 09/02/21 Previous Rx's ?Medication ?Instructions ?Recorded rivaroxaban 10 mg tablet 10 mg PO DAILY #90 tabs 12/10/20 ondansetron 4 mg disintegrating 4 mg PO Q8H PRN nausea and 05/19/24 tablet vomiting #20 tabs Allergies Allergy/AdvReac Type Severity Reaction Status Date / Time ibuprofen [IBUPROFEN] Allergy Unknown HIVES Verified 07/19/24 16:57 Review of Systems Review of Systems: Yes all other systems are reviewed and are negative PMFSH Past Medical History Medical History Glaucoma Chronic idiopathic thrombocytopenia Left ACL tear Depression HTN (hypertension) Right leg DVT Surgical History Hx of tonsillectomy Hx of cataract extraction Family History Family History Mother Heart disease HTN (hypertension) Diabetes Maternal Aunt H/O heart bypass surgery HTN (hypertension) Diabetes Brother S/P triple vessel bypass Stroke Social History Social History Alcohol intake: current Alcohol intake frequency: 0-2 drinks per day Alcohol type: hard liquor Advance Directives: No Advance Directives Information Provided: No Physical Exam ED Vital Signs: Vital Signs - 24 hr 07/19/24 16:51 07/19/24 17:14 07/19/24 17:14 Temperature 97.2 F Pulse Rate 77 96 82 Respiratory Rate 18 Blood Pressure 173/87 H 154/79 H 162/89 H Pulse Oximetry 99 Oxygen Delivery Method Room Air 07/19/24 17:14 07/19/24 18:52 07/19/24 19:57 Temperature 97.9 F 98.2 F Pulse Rate 90 78 77 Respiratory Rate 16 18 Blood Pressure 128/86 130/82 146/78 H Pulse Oximetry 97 97 Oxygen Delivery Method Room Air Room Air 07/19/24 21:26 07/19/24 21:26 07/19/24 21:28 Temperature Pulse Rate 83 83 89 Respiratory Rate Blood Pressure 168/92 H 147/86 H 136/79 Pulse Oximetry Oxygen Delivery Method 07/19/24 22:34 Temperature 98.3 F Pulse Rate 89 Respiratory Rate 16 Blood Pressure 136/79 Pulse Oximetry 98 Oxygen Delivery Method Room Air BMI result Body Mass Index 27.5 Appearance: Alert. Oriented X3. No acute distress. Eyes: PERRLA, No Nystagmus ENT: Pharynx normal. Oral Mucosa moist Neck: Normal inspection. Neck supple. CVS: Normal heart rate and rhythm. Pulses normal. Respiratory: No respiratory distress. Equal air entry bilateral, no wheezing/rales/rhonchi Abdomen: Soft and nontender. Bowel sounds are present, no mass palpable, no CVA tenderness Skin: Skin warm and dry. Normal skin color. Normal skin turgor. Extremities: No lower extremity edema. No calf tenderness Neuro: Oriented X 3. No motor deficit. No sensory deficit.No cerebellar signs , cranial nerves II-XII intact shaky on her feet NIH Stroke Scale Internal: Initial- Upon Arrival Level of Consciousness: Alert Level of Consciousness Questions: Answers both questions correctly Level of Consciousness Commands: Performs both tasks correctly Best Gaze: Normal Visual: No visual loss Facial Palsy: Normal Motor Arm (Right): No drift Motor Arm (Left): No drift Motor Leg (Right): No drift Motor Leg (Left): No drift Limb Ataxia: Absent Sensory: Normal Best Language: No aphasia Dysarthia: Normal Extinction and Inattention: No abnormality Score: 0 Medications Administered Discontinued Medications Generic Name Dose Route Start Last Admin Trade Name Freq PRN Reason Stop Dose Admin Sodium Chloride 1,000 mls @ 999 mls/hr 07/19/24 17:53 07/19/24 20:30 Ns IV 07/19/24 18:53 Infused .Q1H1M ONE Infusion Medical Decision Making Medical Decision Making [facility] Narrative: Patient orthostatic hypotension received IV fluids felt much better history of same in the past prefer to keep the patient for rehab placement as patient lives alone patient does not want to go to rehab or senior care repeat orthostatics much better patient ambulatory to the bathroom without any dizziness at this time patient advised to sit for some time before getting up to go to bathroom also advised to drink plenty of fluids Lab Data [facility] Lab Attestation statement: I reviewed the patient's lab results. 07/19/24 17:23 07/19/24 17:23 Labs: Lab Results 07/19/24 07/19/24 07/19/24 Range/Units 16:58 17:23 18:55 WBC 5.1 (4.8-10.8) X10*3/uL RBC 4.33 (4.20-5.50) X10*6/uL Hgb 14.4 (12.0-16.0) g/dl Hct 39.1 (37.0-47.0) % MCV 90.3 (80.0-98.0) fL MCH 33.3 H (27.0-33.0) pg MCHC 36.8 H (31.0-35.0) g/dl RDW 12.3 (11.0-16.0) % Plt Count 131 L (160-400) X10*3/uL MPV 10.4 (9.4-12.3) fL Immature Gran % (Auto) 0.2 (0.0-0.4) % Neut % (Auto) 61.9 (45-73) % Lymph % (Auto) 29.2 (20-40) % [place] % (Auto) 7.1 (2-11) % Eos % (Auto) 1.2 (0-4) % Baso % (Auto) 0.4 (0-2) % Lymph # (Auto) 1.5 (1.2-4.9) X10*3/uL [place] # (Auto) 0.4 (0.1-1.2) X10*3/uL Eos # (Auto) 0.1 (0.0-0.4) X10*3/uL Baso # (Auto) 0.0 (0.0-0.2) X10*3/uL Abs Immat Gran (auto) 0.01 (0.00-0.03) X10*3/uL Absolute Neuts (auto) 3.1 (2.0-8.3) x10*3/uL Absolute Nucleated RBC 0.000 (0.0-0.012) X10*3/uL Nucleated RBC % (auto) 0.0 (0.0-0.2) /100WBC PT 11.6 (10.9-12.4) SEC INR 1.0 (0.9-1.1) Sodium 138 (135-145) mmol/L Potassium 3.9 (3.3-5.1) mmol/L Chloride 103 (96-108) mmol/L Carbon Dioxide 25 (22-29) mmol/L Anion Gap 14 (12-20) BUN 14 (9-16) mg/dL Creatinine 1.11 (0.5-1.4) mg/dL Estim Creat Clear Calc 42.8 Estimated GFR 48 POC Glucose 119 H (60-115) mg/dL Random Glucose 127 H (60-115) mg/dL Calcium 9.5 (8.4-10.2) mg/dL Total Bilirubin 0.7 (0.0-1.0) mg/dL AST 33 H (5-31) U/L ALT 20 (0-31) U/L Alkaline Phosphatase 88 (39-117) U/L Total Protein 7.8 (6.5-8.0) g/dL Albumin 4.2 (3.5-5.0) g/dL Urine Color Yellow Urine Appearance Clear Urine pH 8.0 (5.0-9.0) Ur Specific [place] 1.010 (1.005-1.025) Urine Protein Negative (Neg-Trace) mg/dL Urine Glucose (UA) Negative (Negative) mg/dL Urine Ketones Negative (Negative) mg/dL Urine Blood Negative (Negative) Urine Nitrite Negative (Negative) Ur Leukocyte Esterase Trace H (Negative) Urine RBC 0-2 (0-2) /HPF Urine WBC 0-5 (0-5) /HPF Ur Squamous Epith Cells 0-2 (0-2) /HPF Urine Bacteria None Seen (None Seen) Hyaline Casts 0-2 (0-2) /LPF Independent Interpretation I performed an independent interpretation of an: EKG and CT Scan Interpretation: Normal sinus rhythm heart rate 74 beats per minute normal interval normal axis no acute STT wave changes no acute ischemia Radiology Impression Discussion of test interpretation with radiology: I have reviewed the radiologist's reading. Radiologist Impression: [place] [id number] CT Scan Report Signed Patient: Audrey Minor MR#: [id number] : 1950 Acct:[id number] Age/Sex: 73 / F ADM Date: 07/19/24 Loc: .ED Attending Dr: Ordering Physician: Papo Ang MD Date of Service: 07/19/24 Procedure(s): CT head/brain wo IV con Accession Number(s): [id number] cc: Physician,Unknown ; Papo Ang MD~ EXAMINATION: CT HEAD WITHOUT CONTRAST CLINICAL INFORMATION: Transient ischemic attack. Patient on Xarelto. COMPARISON: CT head from 05/19/2024. TECHNIQUE: Contiguous axial imaging was performed from the skull base to vertex without intravenous administration of contrast. This CT examination was performed using dose optimization techniques as appropriate, variously including the following: *Automated exposure control. *Adjustment of mA and/or kV according to patient size (this includes techniques or standardized protocols for targeted exams where dose is matched to indication/reason for exam; i.e. extremities or head). *Use of iterative reconstruction technique. DLP: 673 mGy-cm FINDINGS: There is no evidence of acute intracranial hemorrhage or edematous territorial infarction. Gonzalez-white matter differentiation is preserved. Scattered and partially confluent hypoattenuation in the periventricular and deep white matter are consistent with moderate microangiopathy. Proportional prominence of the ventricles and sulcal spaces without evidence of obstructive hydrocephalus. No abnormal mass effect or midline shift. No extra-axial fluid collections. Calcific atherosclerotic disease of the intracranial internal carotid and vertebral arteries. No hyperdense vessel sign. No acute soft tissue or osseous abnormalities. Mild mucosal thickening of the paranasal sinuses. The mastoid air cells and middle ear cavities are clear. Bilateral lens extractions. CT/CT head/brain wo IV con IMPRESSION: 1. No evidence of acute intracranial hemorrhage or edematous territorial infarction. 2. Moderate underlying microangiopathy and generalized cerebral volume loss. Electronically signed by: Parish Frey DO 07/19/2024 06:26 PM [facility] Discharge Plan Discharge Clinical Impression: Dizziness Patient Disposition: Home, Self-Care Instructions: Dizziness (ED) Additional Instructions: Do not stand up quickly Drink plenty of fluids Follow up with your PCP Prescriptions: No Action rivaroxaban 10 mg Tablet 10 mg PO DAILY Qty: 90 4RF lisinopril 20 mg tablet 1 tab PO DAILY ascorbic acid (vitamin C) [Vitamin C] 500 mg Tablet 500 mg PO DAILY magnesium oxide 500 mg Tablet 500 mg PO DAILY timolol maleate 0.5 % drops 1 drp ophthalmic (eye) BID vitamin B complex Capsule 1 cap PO DAILY bupropion HCl 300 mg tablet extended release 24 hr 300 tab PO DAILY Rx Instructions: 300 mg tab + 150 mg tab = 450 mg total dose bupropion HCl 150 mg tablet extended release 24 hr 150 tab PO DAILY Rx Instructions: 300 mg tab + 150 mg tab = 450 mg total dose cholecalciferol (vitamin D3) [Vitamin D3] 25 mcg (1,000 unit) Tablet 25 mcg PO DAILY amlodipine [Norvasc] 5 mg Tablet 5 mg PO DAILY BuSpar 7.5 mg tablet 0.5 tab PO DAILY ondansetron 4 mg tablet,disintegrating 4 mg PO Q8H PRN (Reason: nausea and vomiting) Qty: 20 0RF Interventions: ED Discharge Assessment Last Done: 07/19/24 22:34 Discharge Date/Time: 07/19/24 22:34 Print Language: Sri Lankan
[2024-07-19 17:04] LABS: Glucose, Whole Blood 119 mg/dL (60-115)
[2024-07-19 17:26] LABS: MANUAL DIFF FLAG NO
[2024-07-19 17:46] LABS: Basophils Percent Auto 0.4 % (0-2); Eosinophils Absolute Auto 0.1 X10*3/uL (0.0-0.4); Eosinophils Percent Auto 1.2 % (0-4); Hematocrit 39.1 % (37.0-47.0); Hemoglobin 14.4 g/dl (12.0-16.0); Imm Gran Abs Auto 0.01 X10*3/uL (0.00-0.03); Imm Gran Pct Auto 0.2 % (0.0-0.4); Lymphocytes Absolute Auto 1.5 X10*3/uL (1.2-4.9); Lymphocytes Percent Auto 29.2 % (20-40); Mean Corpuscular HGB Conc 36.8 g/dl (31.0-35.0); Mean Corpuscular Hemoglobin 33.3 pg (27.0-33.0); Mean Corpuscular Volume 90.3 fL (80.0-98.0); Mean Platelet Volume 10.4 fL (9.4-12.3); Monocytes Absolute Auto 0.4 X10*3/uL (0.1-1.2); Monocytes Percent Auto 7.1 % (2-11); Neutrophils Absolute Auto 3.1 x10*3/uL (2.0-8.3); Neutrophils Percent Auto 61.9 % (45-73); Platelet Count 131 X10*3/uL (160-400); Red Blood Count 4.33 X10*6/uL (4.20-5.50); Red Cell Distribution Width 12.3 % (11.0-16.0); White Blood Count 5.1 X10*3/uL (4.8-10.8)
[2024-07-19 17:50] LABS: Albumin Level 4.2 g/dL (3.5-5.0); Anion Gap 14 (12-20); Aspartate Amino Transferase 33 U/L (5-31); Bilirubin Total 0.7 mg/dL (0.0-1.0); Blood Urea Nitrogen 14 mg/dL (9-16); Calcium 9.5 mg/dL (8.4-10.2); Carbon Dioxide 25 mmol/L (22-29); Chloride 103 mmol/L (96-108); Creatinine Clr Calc Pharmacy 42.8; Estimated Glomerular Filt Rate 48; Glucose Random 127 mg/dL (60-115); Potassium 3.9 mmol/L (3.3-5.1); Sodium 138 mmol/L (135-145); Total Protein 7.8 g/dL (6.5-8.0)
[2024-07-19 18:12] LABS: Alanine Aminotransferase 20 U/L (0-31); Alkaline Phosphatase 88 U/L (39-117)
[2024-07-19] MEDS: 0.9 % Sodium Chloride 1,000 ML 999 ML IV (18:53)
--- NOTE | 2024-07-19 18:57 | PC.NURSE ---
vss and up to date at this time. nsr on the secured entrance monitor. pt verbalizing she has to urinate - 2:1 assist out of bed w/ unsteady gait. pt verbalizes no use of assistive devices at home - stating, i use furniture to get around. pt assisted back into bed. bed lujan utilized - UA obtained/sent to lab. IVF administered per provider order. on RA w/o difficulty. no sob/wob noted. respirations even/unlabored. plan of care ongoing. call rodrigues placed within reach.
[2024-07-19 19:03] LABS: Appearance Urine Clear; Color Urine Yellow; Glucose Urine UA Negative (Negative); Leukocyte Esterase Urine Trace (Negative); Nitrite Urine Negative (Negative); UMIC TRIGGER UACC YES; Urine Blood Negative (Negative); Urine Ketones Negative (Negative); Urine Protein Negative (Neg-Trace)
[2024-07-19 19:08] LABS: Bacteria Urine None Seen (None Seen); Hyaline Casts Urine 0-2 /LPF (0-2); RBC Urine 0-2 /HPF (0-2); Squamous Epithelial Cell Urine 0-2 /HPF (0-2); WBC Urine 0-5 /HPF (0-5)
--- NOTE | 2024-07-19 20:03 | MHC.EDTECH ---
This tech took over care of pt at 1900,rounded and introduced self to pt,patient placed on the bedpan,pt urinated a large amount,sagar-care given,vitals taken,pt repositioned to comfort,call rodrigues on reach
--- NOTE | 2024-07-19 21:32 | PC.NURSE ---
repeat orthostatic vs performed. pt tolerated well. denies feeling dizzy/lightheaded w/ exertion/change of position. provider notified/aware of results.
[2024-07-19 21:53] LABS: Prothrombin Time 11.6 SEC (10.9-12.4)
--- OUTSIDE RECORDS SUMMARY | 2024-07-20 22:30 | XMS_ITS ---
Author Organization [facility] Address [address] [place] [address] Care Team Providers Care Satin Finisher Name Role Phone Hernan Cheek MD Primary Care Provider Lenin Duggan Jr [phone] REASON FOR VISIT Patient presents today for vomitting Encounters Encounter Location Date Provider Diagnosis [facility] [address] [place] [address] 05/19/2024 Lenin Doyle Jr PLAN OF TREATMENT Next Appt Details Provider Name:Lenin redd Jr, 09/05/2024 10:40:00 AM, [address], [address], [place], [address],
--- OUTSIDE RECORDS SUMMARY | 2024-07-20 22:30 | XMS_ITS ---
Author Organization [facility] Address [address] [place] [address] Care Team Providers Care Power Equipment Technology Instructor Name Role Phone Hernan Cheek MD Primary Care Provider Lenin Duggan Jr [phone] REASON FOR VISIT Pt no show Encounters Encounter Location Date Provider Diagnosis [facility] [address] [place] [address] 05/19/2024 Lenin Doyle Jr PLAN OF TREATMENT Next Appt Details Provider Name:Lenin redd Jr, 09/05/2024 10:40:00 AM, [address], [address], [place], [address],
--- OUTSIDE RECORDS SUMMARY | 2024-07-20 22:31 | XMS_ITS ---
Author Organization [facility] Address [address] [place] [address] Care Team Providers Care Gasfitter Name Role Phone Hernan Cheek MD Primary Care Provider Lenin Duggan Jr REASON FOR VISIT Patient presents today for epigastric pain Encounters Encounter Location Date Provider Diagnosis [facility] [address] [place] [address] 07/13/2023 Lenin Doyle Jr PLAN OF TREATMENT Next Appt Details Provider Name:Lenin redd Jr, 09/05/2024 10:40:00 AM, [address], [address], [place], [address],
--- OUTSIDE RECORDS SUMMARY | 2024-07-20 22:31 | XMS_ITS | Patient Health Record ---
Author Organization [facility] Address [address] [place] [address] Care Team Providers Care Heel Reducer Name Role Phone Hernan Cheek MD Primary Care Provider Lenin Duggan Jr Unavailable [phone] ALLERGIES Allergen (clinical drug ingredient) Drug/Non Drug Allergy documented on EMR Reaction Allergy Type Onset Date Status ibuprofen Ibuprofen hives Drug Allergy Active REASON FOR REFERRAL Referring Provider First Name Hernan Referring Provider Last Name Ham Referring Provider Speciality Internal M edicine Referred Organization [facility] Referred Provider Lenin Doyle Jr Referred Address [address],[place], [place],[address], Referred Provider Specialty Gastroentero logy Referral Priority Routine MEDICATIONS Medication SIG (Take, Route, Frequency, Duration) Notes Start Date End Date Status buPROPion HCl ER (XL) 450 MG 1 tablet Orally Once a day Active Lisinopril 20 MG 1 tablet Orally Once a day Active Xarelto 10 MG 1 tablet with food O rally Once a day Active Vitamin C 500 MG as directed Orally O nce a day Active NexIUM 40 MG 1 capsule Orally Onc e a day for 30 day(s) 02/17/2023 Active Vitamin D 1000 UNIT 1 tablet Orally Once a day for 30 day(s) Active Vitamin B Complex - as directed Orally o nce a day Active Pantoprazole Sodium 40 MG 1 tablet Orall y Once a day for 30 day(s) 11/14/2022 Active Magnesium 500 MG 1 tablet with a meal Orally Once a day for 30 day(s) Active BuSpar Active IMMUNIZATIONS Vaccine Route Administration Date Status Comme nts Influenza Unknown 11/10/2018 Refused Influenza Unknown 05/25/2019 Refused Influenza Unknown 11/23/2019 Refused Influenza Unknown 07/14/2022 Refused SOCIAL HISTORY Tobacco Use: Social History Observation Description Date Details (start date - stop date) Never Smoker NA - NA Sex Assigned At : Social History Observation Description Sex Assigned At Unknown Tobacco Use/Smoking Question Answer Notes Patient is a nonsmoker Alcohol Screen Question Answer Notes Did you have a drink contain ing alcohol in the past year? Yes How often did you have a dri nk containing alcohol in the past year? 4 or more times a week (4 points) How many drinks did you have on a typical day when you were drinking in the past year? 1 or 2 drinks (0 point) How often did you have 6 or more drinks on one occasion in the past year? Never (0 point) Points 4 Interpretation Positive PROBLEMS Problem Type ICD Code Onset Dates Problem Status W/U Status Risk SNOMED Code Notes Problem Colon cancer screening (Z12.11) Active confirmed 225533126 Problem Epigastric pain (R10.13) Active confirmed 71910856 Problem Gastroesophageal reflux disease with esophagitis (K21.0) Active confirmed 034610971 Encounters Encounter Location Date Provider Diagnosis [facility] [address] [place] [address] [place] [phone] 05/19/2024 Lenin Doyle Jr [facility] [address] [place] [address] [place] [phone] 05/19/2024 Lenin Doyle Jr PLAN OF TREATMENT Future Test Test Name Order Date COLONOSCOPY 06/07/2014 UPPER GI ENDOSCOPY 11/10/2018 Next Appt Details Provider Name:Lenin redd Jr, 09/05/2024 10:40:00 AM, [address] [place] [address], [address], [place], [address], Insurance Providers Payer Name Payer Address Payer Phone Subscriber Number Group Number Insured Name Patient Relationship to Insured Coverage Start Date Coverage End Date [employer] PREF[employer]ED [address] [place] [phone] [id number] [place]OVE Self - patient is the insured MEDICAL (GENERAL) HISTORY Medical History History ICD Code hypertension depression 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
== END 2024-07-19 22:34 | disposition home or self-care (01) ==
PROVIDERS: Emergency Provider Internal Medicine
DX: R42 Dizziness and giddiness (principal); I82.401 Acute embolism and thrombosis of unspecified deep veins of right lower extremity; Z79.01 Long term (current) use of anticoagulants; Z79.899 Other long term (current) drug therapy; Z86.73 Personal history of transient ischemic attack (TIA), and cerebral infarction without residual deficits
CPT/HCPCS: 36415; 70450; 80053; 81001; 82947; 85025; 85610; 93005; 96360; 96361; 99284

== ENCOUNTER → 2024-07-19 16:39 | Outpatient (BNV) | payer MEDICARE, SELFPAY | PROVIDERS: Emergency Provider Internal Medicine; Visit Provider Internal Medicine Cardiovascular Disease | DX: R94.31 Abnormal electrocardiogram [ECG] [EKG] (principal) | CPT/HCPCS: 93010 ==

== ENCOUNTER 2025-01-31 13:26 | Outpatient (REF) | payer MEDICARE, SELFPAY ==
--- NOTE | ~2025-01-31 | XR_ITS ---
EXAMINATION: XR FOOT 3 OR MORE VIEWS RIGHT HISTORY: PAIN IN JOINT INVOLVING RT FOOT AND ANKLE m25.571 COMPARISON: There are no prior studies available for comparison. FINDINGS: Three views of the right foot are submitted. Osseous mineralization is normal. There is a mildly displaced oblique fracture of the 5th metatarsal. No additional fracture is seen. There is no dislocation. 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 The soft tissues are unremarkable. XR/XR foot RT min 3V IMPRESSION: Mildly displaced oblique fracture of the 5th metatarsal. Electronically signed by: Cecil Barbosa MD 01/31/2025 03:04 PM EDT
--- OUTSIDE RECORDS SUMMARY | 2025-01-31 15:31 | XMS_ITS | Patient Health Record ---
Author Organization [facility] Address [address] [place] [address] Care Team Providers Care Paperhanger Supervisor Name Role Phone Hernan Cheek MD Primary Care Provider Lenin Duggan Jr Unavailable Allergies Allergen (clinical drug ingredient) Drug/Non Drug Allergy documented on EMR Reaction Allergy Type Onset Date Status ibuprofen Ibuprofen hives Drug Allergy Active Reason For Referral Referring Provider First Name Hernan Referring Provider Last Name Ham Referring Provider Speciality Internal M edicine Referred Organization [facility] Referred Provider Lenin Doyle Jr Referred Address [address] [facility],[place], [place],[address], Referred Provider Specialty Gastroentero logy Referral Priority Routine Medications Medication SIG (Take, Route, Frequency, Duration) Notes [...] day for 30 day(s) Active BuSpar Active Immunizations Vaccine Route Administration Date Status Comme nts Influenza Unknown 11/10/2018 Refused Influenza Unknown 05/25/2019 Refused Influenza Unknown 11/23/2019 Refused Influenza Unknown 07/14/2022 Refused Social History Tobacco Use: Social History Observation Description Date Details (start date - stop date) Never Smoker NA - NA Tobacco Use/Smoking Question Answer Notes Patient is [...] Never (0 point) Points 4 Interpretation Positive Problems Problem Type SNOMED Code ICD Code Onset Dates Problem Status W/U Status Risk Notes Problem 848738428 Colon cancer screening (Z12.11) Active confirmed Problem 03397839 Epigastric pain (R10.13) Active confirmed Problem 980329276 Gastroesophageal reflux disease with esophagitis (K21.0) Active confirmed Encounters Encounter Location Date Provider Diagnosis [facility] [address] [place] [phone] 05/19/2024 Lenin Doyle Jr [facility] [address] [place] [phone] 09/05/2024 Lenin Doyle Jr Plan Of Treatment Future Test Test Name Order Date COLONOSCOPY 06/07/2014 UPPER GI ENDOSCOPY 11/10/2018 Insurance Providers Payer Name Payer Address Payer Phone Subscriber Number Group Number Insured Name Patient Relationship to Insured Coverage Start Date Coverage End Date [employer] PREF[employer] [address] [place] [id number] MENDOZA GROVE Self - patient is the insured Medical (General) History Medical History History ICD Code hypertension depression 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
[2025-01-31 16:10] LABS: MANUAL DIFF FLAG NO
[2025-01-31 16:16] LABS: Basophils Percent Auto 0.4 % (0-2); Eosinophils Absolute Auto 0.2 X10*3/uL (0.0-0.4); Eosinophils Percent Auto 3.1 % (0-4); Hematocrit 36.7 % (37.0-47.0); Hemoglobin 12.8 g/dl (12.0-16.0); Imm Gran Abs Auto 0.01 X10*3/uL (0.00-0.03); Imm Gran Pct Auto 0.2 % (0.0-0.4); Lymphocytes Percent Auto 36.9 % (20-40); Mean Corpuscular HGB Conc 34.9 g/dl (31.0-35.0); Mean Corpuscular Volume 91.8 fL (80.0-98.0); Mean Platelet Volume 11.9 fL (9.4-12.3); Monocytes Absolute Auto 0.4 X10*3/uL (0.1-1.2); Monocytes Percent Auto 7.5 % (2-11); Neutrophils Absolute Auto 2.8 x10*3/uL (2.0-8.3); Neutrophils Percent Auto 51.9 % (45-73); Platelet Count 138 X10*3/uL (160-400); Red Cell Distribution Width 12.9 % (11.0-16.0); White Blood Count 5.4 X10*3/uL (4.8-10.8)
[2025-01-31 16:42] LABS: Alanine Aminotransferase 14 U/L (0-31); Albumin Level 3.9 g/dL (3.5-5.0); Alkaline Phosphatase 85 U/L (39-117); Anion Gap 15 (12-20); Aspartate Amino Transferase 33 U/L (5-31); Bilirubin Total 0.6 mg/dL (0.0-1.0); Blood Urea Nitrogen 14 mg/dL (9-16); Calcium 9.4 mg/dL (8.4-10.2); Carbon Dioxide 24 mmol/L (22-29); Chloride 106 mmol/L (96-108); Estimated Glomerular Filt Rate 46; Glucose Random 90 mg/dL (60-115); Iron 74 mcg/dL (30-160); Percent Iron Saturation 34 % (15-50); Potassium 4.1 mmol/L (3.3-5.1); Sodium 141 mmol/L (135-145); Total Iron Binding Capacity 217 mcg/dL (228-428); Total Protein 7.6 g/dL (6.5-8.0); Unsaturated Iron Binding 143 ug/dL
[2025-01-31 16:50] LABS: Ferritin 503 ng/mL (10-250); TSH reflex Free T4 1.51 uIU/mL (0.32-4.0)
[2025-01-31 16:58] LABS: Vitamin B12 440 pg/mL (200-900)
== END 2025-01-31 13:27 | disposition home or self-care (01) ==
LOC: HO.HMGCX 13:26
PROVIDERS: PCP Internal Medicine; Visit Provider Internal Medicine
DX: S92.354A Nondisplaced fracture of fifth metatarsal bone, right foot, initial encounter for closed fracture (principal); M25.571 Pain in right ankle and joints of right foot; I10 Essential (primary) hypertension; R42 Dizziness and giddiness; D64.9 Anemia, unspecified; Z91.81 History of falling; X58.XXXA Exposure to other specified factors, initial encounter; Y93.9 Activity, unspecified; Y92.9 Unspecified place or not applicable; Y99.9 Unspecified external cause status
CPT/HCPCS: 36415; 73630; 80053; 82607; 82728; 83540; 84443; 85025; 99202

== ENCOUNTER → 2025-01-31 13:39 | Outpatient (BNV) | payer MEDICARE, SELFPAY | PROVIDERS: PCP Internal Medicine; Visit Provider Radiology Diagnostic Radiology | DX: S92.351A Displaced fracture of fifth metatarsal bone, right foot, initial encounter for closed fracture (principal) | CPT/HCPCS: 73630 ==

== ENCOUNTER 2025-01-31 14:05 | Outpatient (AMB) | payer MEDICARE, SELFPAY ==
--- NOTE | 2025-01-31 14:29 | AM.OFFWIN_ITS ---
Intake Vital Signs 01/31/25 14:40 Height 5 ft 1 in Weight 144 lb 5 oz BMI 27.3 BP 126/62 Blood Pressure Location Rt brachial Position Sitting Respiration 80 H Pulse 80 Temp 97.3 F Temp Source Oral Pulse Oximetry (%) 97 Oxygen Delivery Method Room Air Intake Visit Reasons: EP Pain & swollen RT foot Patient Tobacco Use Status: Never used Tobacco Electronic Service Technician Required: No Allergies ibuprofen (IBUPROFEN) Allergy (Unknown, Verified 01/31/25 14:44) HIVES HPI HPI Comments History of Present Illness Details History of Present Illness - The patient is a 74-year-old female pr esenting with right foot injury with suspected fracture. - patient is here with her brother who d rove her today. - the injury happened last evening and t he patient happened to have a appointment with her primary care doctor this morning which she went to. At that appointment, he ordered an x-ray which was done at this office. The x-ray tech notified the patient's primary care doctor and they recommended she come to the walk-in for follow-up on the x-ray. - The patient reported a balance problem , which led to an incident where she planted her foot flat and turned the other foot/right foot, resulting in severe pain and limping. - The patient has no known history of os teoporosis or osteopenia. - She initially wrapped the foot herself and later had an x-ray confirming the fracture. Physical Exam General: Cooperative, healthy appearing, comfortable, no acute distress and well developed Orientation: Patient oriented x3 Limitations: Limping due to right foot injury Head: Normal to inspection Ears: Hearing grossly normal bilaterally Nose: Normal External nose present Face and sinus: Normal facial exam Eyes: Appearance normal, both eyes and all related structures Neck: Normal visual inspection and Yes full ROM Respiratory: Normal respiratory effort and able to speak in complete sentences. Skin: as below Neuro: Patient oriented x3, limping gait Extremities: 2cm x 5cm area of ecchymosis lateral side right foot; tenderness to palpation of the distal 5th metatarsal, full range of motion in the ankle and the toes, toes are all neurovascularly intact. [facility] Medical History Glaucoma Chronic idiopathic thrombocytopenia Left ACL tear Depression HTN (hypertension) Right leg DVT Surgical History Hx of tonsillectomy Hx of cataract extraction Family History Mother Heart disease HTN (hypertension) Diabetes Maternal Aunt H/O heart bypass surgery HTN (hypertension) Diabetes Brother S/P triple vessel bypass Stroke Social History Alcohol intake: current Alcohol intake frequency: 0-2 drinks per day Alcohol type: hard liquor Patient Tobacco Use Status: Never used Tobacco Review of Systems Const All systems reviewed & are unremarkable except as noted in HPI and below Physical Exam Vital Signs: Last Vital Signs Temp 97.3 F 01/31/25 14:40 Pulse 80 01/31/25 14:40 Resp 80 H 01/31/25 14:40 BP 126/62 01/31/25 14:40 Pulse Ox 97 01/31/25 14:40 Oxygen Delivery Method Room Air 01/31/25 14:40 BMI result Body Mass Index 27.3 Assessment & Plan Assessment & Plan (1) Fracture of fifth metatarsal bone of right foot: Code(s): S92.351A - Displaced fracture of fifth metatarsal bone, right foot, initial encounter for closed fracture Qualifiers: Encounter type: initial encounter Fracture alignment: nondisplaced Fracture type: closed Qualified Code(s): S92.354A - Nondisplaced fracture of fifth metatarsal bone, right foot, initial encounter for closed fracture Plan: Plan - The patient was fitted with an Ortho boot to provide support and aid in healing. - Follow-up with an travel specialist is recommended in one to two weeks to ensure proper healing of the fracture. Pt was advised to call her PCP for this referral. - The patient is advised to use ice and rest the foot, and to avoid weight- bearing activities that could exacerbate the injury. - Tylenol is recommended for pain management due to an allergy to ibuprofen. - The patient is instructed to perform twice daily range of motion exercises to maintain joint flexibility. - Wean off boot over next 1-2 weeks, as tolerated and advised by Orthopedics. - Patient was advised not to drive with the boot and was advised to use extreme caution when showering and I recommended borrowing or purchasing a shower chair for safety. Patient was informed and verbally consented to the use of an ambient scribe for clinic note documentation during this visit. Medications: Discontinued rivaroxaban Discontinued Reason: Patient no longer taking 10 mg PO DAILY 90 tabs 4RF ondansetron Discontinued Reason: Patient no longer taking 4 mg PO Q8H PRN 20 tabs 0RF n ausea and vomiting Coding Level of Care Code New Pt Level 4 (50495) Diagnoses Closed nondisplaced fracture of fifth metatarsal bone of right foot, initial encounter S92.354A Encounter type: initial encounter Fracture alignment: nondisplaced Fracture type: closed
[2025-01-31 14:40] VITALS: BP 126/62; PULSE 80; RESP 80; TEMP 36.3; O2SAT 97; BMI 27.3
== END 2025-01-31 15:32 | disposition home or self-care (01) ==
PROVIDERS: PCP Internal Medicine; Visit Provider Physician Assistant
DX: S92.354A Nondisplaced fracture of fifth metatarsal bone, right foot, initial encounter for closed fracture (principal)

== ENCOUNTER 2025-02-14 08:55 | Outpatient (AMB) | payer MEDICARE, SELFPAY ==
--- OUTSIDE RECORDS SUMMARY | 2025-02-14 09:12 | XMS_ITS | Patient Health Record ---
Author Organization [facility] Address [address] [place] [address] Care Team Providers Care Sheep Farm Worker Name Role Phone Hernan Cheek MD Primary Care Provider Lenin Duggan Jr Unavailable Allergies Allergen (clinical drug ingredient) Drug/Non Drug Allergy documented on EMR Reaction Allergy Type Onset Date Status ibuprofen Ibuprofen hives Drug Allergy Active Reason For Referral Referring Provider First Name Hernan Referring Provider Last Name Ham Referring Provider Speciality Internal M edicine Referred Organization [facility] Referred Provider Lenin Doyle Jr Referred Address [address] [facility],[place],[address], Referred Provider Specialty Gastroentero logy Referral Priority [...] Problem Status W/U Status Risk Notes Problem [id number] Colon cancer screening (Z12.11) Active confirmed Problem 11937099 Epigastric pain (R10.13) Active confirmed Problem 649030187 Gastroesophageal reflux disease with esophagitis (K21.0) Active confirmed Encounters Encounter Location Date Provider Diagnosis [facility] [address] [place] [phone] 05/19/2024 Lenin Doyle Jr [facility] [address] [place] [phone] 09/05/2024 Lenin Doyle Jr Plan Of Treatment Future Test Test Name Order Date COLONOSCOPY 06/07/2014 UPPER GI ENDOSCOPY 11/10/2018 Insurance Providers Payer Name Payer Address Payer Phone Subscriber Number Group Number Insured Name Patient Relationship to Insured Coverage Start Date Coverage End Date [employer] PREF[employer]ED [address] [place] [phone] [id number] MENDOZA GROVE Self - patient is the insured Medical (General) History Medical History History ICD Code hypertension depression 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
--- OUTSIDE RECORDS SUMMARY | 2025-02-14 09:13 | XMS_ITS | Data Portability ---
Author Organization [place] [facility] Address [address] [place] [phone] Care Team Providers Care Supervisor Waterproofing Name Role Phone RADHA NAIK Primary Care Provider [phone] Assessment Encounter Date Assessment Date Assessment LastModified by Organization Details LastModified Time 12/21/2024 12/21/2024 Patient with chronic balance disturbance of likely multifactorial etiology. Patient does seem to have an issue with coordination of her lower extremities based on her Romberg and attempts at Fukuda step testing today. Testing is negative for BPPV. She did have lightheadedness upon sitting upright with Hallpike testing indicative of some element of postural hypotension. Overall, I do not suspect that this represents an inner ear etiology. I think that referral to a neurologist for evaluation of possible movement disorder would be best next step. In addition, reconsideration of her blood pressure medication regimen may also be of use. Would strongly recommend against use of vestibular suppressant such as meclizine as this will only accentuate the problem. I recommended that she work on the vestibular and balance exercises that she was provided by her vestibular therapist as this will help with lower extremity strengthening and improve her balance. [email or web address] Not available 12/21/2024 10:52:55 Plan of Treatment Reminders Order Date Submit Date Provider Last Modified By Organization Details Last Modified Time Details Appointments None record ed. Lab None record ed. Referral None record ed. Procedures None record ed. Surgeries None record ed. Imaging None record ed. Medication Orders None record ed. Patient TargetsNo targets recorded. Patient InstructionsNo instructions recorded. Reason for Referral None Reported. Results Created Date Observation Date Name Description Value Unit Range Abnormal Flag Note LastModifiedBy Organization Detail LastModifiedTime 12/22/1905/28/2024 MRI, brain + brain stem, w/o contr ast No observ ation record ed. [email or web address] Not Available 12/08 10:58:21 12/22/19 25 audio gram No observ ation record ed. BARCODE Not Available 2024 12:04:23 Result Notes None recorded. Problems Name Problem SNOMED Code Status Onset Date Resolution Date Notes Provider Name and Address Organization Details Recorded Time Impacted cerumen in right ear 4592663083042 103 Active 2024 BRET HERNANDEZ MD [address] [facility] [facility], [place], [phone], [facility] 10:19:32 Unsteady when walking 23593388 Active 2024 BRET HERNANDEZ MD [address] [facility], [address] [facility], [place], [address], [place] - [facility] 10:22:13 Sensorineur al hearing loss of bilateral ears 786541646 Active 2024 CHRISTIAN RICHTER [address] [facility],[address] [facility], [place], [address], [place] - [facility] 10:27:06 Bilateral tinnitus 6955794137199 Active 2024 BRET HERNANDEZ MD [address] [facility],[address] [facility], [place], [address], [place] - [facility] 10:47:46 Problem Notes None recorded. Procedures Surgical History Date Name Laterality Status Provider Name and Address Organization Details Recorded Time Comp Audio with Tymps - 82563 & 24814 completed CHRISTIAN RICHTER [address] [facility] [place] [address], [place], [address], [facility] - [facility] 12/21/2024 10:26:54 Cerumen removal with microscope right completed BRET HERNANDEZ MD [address] [facility] [place] [address], [place], [address], [facility] - [facility] 12/21/2024 10:19:23 Imaging Results None recorded. Procedure Notes None recorded. Medical Equipment None Reported. Allergies No known drug allergies Medications Name Sig Start Date Stop Date Status Note LastModified by Organization Details LastModified Time lisinopril 20 mg tablet TAKE ONE TABLET BY MOUTH EVERY DAY 12/19 completed Not Available Not Available Not Available meclizine 12.5 mg tablet TAKE 1 OR 2 TABLETS BY MOUTH EVERY 8 HOURS NEEDED FOR VERTIGO. 12/19 completed Not Available Not Available Not Available amlodipine 5 mg tablet TAKE ONE TABLET BY MOUTH 5MG) EVERY DAY IN THE MORNING active Not Available Not Available No t Available prednisolon e acetate 1 % eye drops,suspe nsion INSTILL 1 DROP IN SURGICAL EYE 4 TIMES A DAY FOR 4 DAYS; BRING MEDICATIO N UNOPENED TO SURGERY. 12/19 completed Not Available Not Available Not Available dextroamphe tamine-amph etamine ER 20 mg 24hr capsule,ext end release TAKE 1 CAPSULE BY MOUTH DAILY 12/19 completed Not Available Not Available Not Available meclizine 25 mg tablet TAKE ONE TABLET BY MOUTH EVERY 6 HOURS NEEDED FOR DIZZINESS 12/19 completed Not Available Not Available Not Available lisinopril 10 mg tablet TAKE ONE TABLET BY MOUTH EVERY DAY active Not Available Not Available No t Available dextroamphe tamine-amph etamine ER 10 mg 24hr capsule,ext end release TAKE 1 CAPSULE BY MOUTH DAILY 12/19 completed Not Available Not Available Not Available timolol maleate 0.5 % eye drops INSTILL 1 DROP INTO IN EACH EYE EVERY MORNING active Not Available Not Available No t Available ondansetron 4 mg disintegrat ing tablet DISSOLVE ONE TABLET BY MOUTH EVERY 8 HOURS NEEDED FOR NAUSEA 12/19 completed Not Available Not Available Not Available Sodium Fluoride 5000 Plus 1.1 % dental cream BRUSH FOR 2 MINUTES AT BEDTIME. SPIT OUT, DO NOT RINSE 12/19 completed Not Available Not Available Not Available Vitals Date Recorded Body height Body weight Provider Name and Address Organization Details Last Updated DateTime 12/21/2024 157.48 cm 44034 g Demi Butcher [place] [facility] 12/21/2024 10:02:19 Social History None recorded. Functional Status None recorded. Mental Status None recorded. Family History Nothing Reported. Medical History Condition Response Hearing Loss N Hypertension Y Gynecological HistoryNo gynecological history recorded. Obstetrics History GPAL:G 0 P 0 0 0 0 Past Encounters Encounter ID Performer Location Encounter Start Date Encounter Closed Date Diagnosis/Indication Diagnosis SNOMED-CT Code Diagnosis ICD10 Code Diagnosis Note [id number] BRET HERNANDEZ MD [facility] [address] [address] 12/21/2024 08:39:50 12/21/2024 11:38:46 Impacted cerumen in right ear [id number] 917599 H61.21 Excess cerumen disimpacte d from the right ear canal. Unsteady when walking 22 937851 R26.81 Sensorineu ral hearing loss of bilateral ears 941048400 H90.3 Audiologic al evaluation results: Mild to moderate sensorineu ral hearing loss with fair word recognitio n, bilaterall y.Tympanom etry:Right Ear:Type ALeft Ear:Type APatient's audiogram shows bilateral moderate sensorineu ral hearing loss with well maintained speech discrimina tion. There is enough hearing loss to affect day-to-day hearing performanc e. We discussed in detail the pros and cons of amplificat ion (hearing aids). We discussed the connection between untreated hearing loss and increased risk of dementia, falling and accidents. After full discussion , the patient expressed interest in learning more about amplificat ion options. Accordingl y we will set them up for a hearing aid evaluation . Patient is medically cleared for amplificat ion bilaterall y. Bilateral tinnitus 51492 66758 102 H93.13 Today we discussed the pathophysi ology of tinnitus and the absence of consistent ly successful pharmacolo gic treatments for tinnitus. We discussed masking strategies to decrease awareness of the tinnitus, including using a white noise machine, music, or television . We discussed how exposure to loud noise can worsen tinnitus so I recommende d hearing protection . We also discussed other ways to potentiall y help reduce awareness of tinnitus including avoidance of caffeine, salty meals and NSAIDs.In light of the underlying sensorineu ral hearing loss, the patient may want to further consider amplificat ion. This would not only help with hearing, but can also be instrument al in acting as a masking source to help reduce the awareness of tinnitus. Health Concerns Section Related Observation LastModified by Organization Detai ls LastModified Time None Recorded Concern Status LastModified by Organization Details LastModified Time None Recorded Advance Directives Directive None Recorded Payers Insurance Date Sequence Insurance Name Policy Number Policy Juarez Covered Member ID Juarez Member ID Guarantor Name 01/23/2025 1 [facility] - MEDICARE PREFERRED (MEDICARE REPLACEMENT HMO) ALMITA Minor [id number] Audrey Garcia [place] Notes Date Note Type Note Provider Name and Address Organization Details Recorded Time 12/21/2024 text/html Patient referred for evaluation of balance disturbance. Patient has been evaluated at [facility] in the past for vestibular therapy. Patient did go through a course of vestibular therapy. She was okay about doing her exercises at home but she is not doing them anymore.Patient reports that she has been having problems with her balance for about 10 months. She finds that her symptoms mostly occur while she is up on her feet and ambulatory. She has sensation that she will occasionally have dizziness that will make her fall. When she is walking around the house she has to hold onto furniture so that she does not tip over. She denies any numbness, tingling, or pain in her lower back, lower extremities or feet. Patient finds that she is mostly symptomatic while she is up on her feet, though she will still have some residual sensation of motion when she is sitting down. She reports difficulty with rapid head movements in general, feeling like her eyes have to catch up when she moves her head quickly. She does notice a sensation of lightheadedness and wooziness when she stands up too quickly.Patient did have MRI scan of the brain without contrast back in May 2024 which was negative for intracranial pathology other than some white matter changes consistent with her age. BRET HERNANDEZ MD [address] [place] [address], [phone], [facility] - [facility] 12/21/2024 10:53:40 OBGyn Episode No OBEpisode recorded.
--- OUTSIDE RECORDS SUMMARY | 2025-02-14 09:13 | XMS_ITS | Clinical Summary ---
Author Organization [facility] Address [address] [place] [address] Care Team Providers Care Shipping Weigher Name Role Phone Unavailable Primary Care Provider Unavailabl e Social History Tobacco Use Types Packs/Day Years Used Date Smoking Tobacco: Never Assessed Comments Unknown Sex and Gender Information Value Date Recorded Sex Assigned at Not on file Legal Sex Female 4:19 PM EDT Gender Identity Not on file Sexual Orientation Not on file Plan of Treatment Health Maintenance Due Date Last Done Comments Hepatitis C Virus Screening 1950 DTaP/Tdap/Td Vaccines (1 - Tdap) 1967 Pneumococcal Vaccines 50+ (1 of 1 - PCV) 1998 Zoster (Shingles) Vaccine (1 of 2) 1998 RSV Vaccine 60 years and older and Patients (1 - 1-dose 75+ series) 2023 COVID-19 Vaccine ( - 2023-2 5 season) 2024 11/01/2020, 10/04/2020 Hepatitis B Vaccines Aged Out No long er eligible based on patient's age to complete this topic
--- NOTE | 2025-02-14 09:21 | MHC.OFFVIS ---
Vital Signs 02/14/25 09:23 Height 5 ft 1 in Weight 144 lb BMI 27.2 Handedness Right Intake Visit Reasons: FC-RT foot metatarsal displaced fx Intake Note: Audrey is a 74 year old female who presents today for a evaluation of her right foot injury, DOI 01/31/25. Patient reports that her foot turned when she was getting up from a sitting position. She mentions that she is not having pain, however on the top of her foot is tender. IMPRESSION: Mildly displaced oblique fracture of the 5th metatarsal. Allergies ibuprofen (IBUPROFEN) Allergy (Unknown, Verified 02/14/25 09:27) HIVES HPI HPI FC-RT foot metatarsal displaced fx: Details: Ms. Minor is a 74 year old female who presents today for a evaluation of a right foot injury that she sustained on 01/31/25. Patient reports that her ankle inverted when she was getting up from a seated position. She mentions that she is not having pain, but reports some discomfort or sensitivity on the top of the foot. IMPRESSION: Mildly displaced oblique fracture of the 5th metatarsal. [facility] Medical History Glaucoma Chronic idiopathic thrombocytopenia Left ACL tear Depression HTN (hypertension) Right leg DVT Surgical History Hx of tonsillectomy Hx of cataract extraction Family History Mother Heart disease HTN (hypertension) Diabetes Maternal Aunt H/O heart bypass surgery HTN (hypertension) Diabetes Brother S/P triple vessel bypass Stroke Social History (Updated 02/14/25 @ 09:23 by Geoffrey Kingston) Alcohol intake: current Alcohol intake frequency: 0-2 drinks per day Alcohol type: hard liquor Patient Tobacco Use Status: Never used Tobacco Current occupational status: retired Review of Systems Const All systems reviewed & are unremarkable except as noted in HPI and below Physical Exam Vital Signs: BMI result Body Mass Index 27.2 Extrem Other: Right ankle: Mild edema and resolving ecchymosis on the top of the foot. Patient is able to demonstrate dorsiflexion, plantar flexion, pronation and supination. Negative anterior drawer. Sensation intact. Pedal Pulse intact. Office Procedures AMB Fracture Care Fracture Billing Code: Fracture Billing Code Assessment & Plan Assessment & Plan (1) Fracture of fifth metatarsal bone of right foot: Code(s): S92.351A - Displaced fracture of fifth metatarsal bone, right foot, initial encounter for closed fracture Category: Medical Qualifiers: Encounter type: initial encounter Fracture type: closed Fracture alignment: nondisplaced Qualified Code(s): S92.354A - Nondisplaced fracture of fifth metatarsal bone, right foot, initial encounter for closed fracture Plan Ms. Minor is a 74 year old female who presents today for a evaluation of a right foot injury that she sustained on 01/31/25. Patient reports that her ankle inverted when she was getting up from a seated position. She mentions that she is not having pain, but reports some discomfort or sensitivity on the top of the foot. While the office today, the patient is not experiencing any pain with ambulation. She does have some sensitivity to the top of the foot. There is no evidence of an open fracture at this time. She reports that the short walking boot that was given to her is causing some discomfort involving the top of her foot. I recommended that she can switch to a supportive walking sneaker. Should she have any increase in pain she should revert back to using the walking boot. I would like to see her back in 4 weeks with repeat x-rays, sooner if needed. X-rays of the right foot obtained on 01/31/2025 IMPRESSION: Mildly displaced oblique fracture of the 5th metatarsal. Orders: Orders XR foot RT min 3V Today M79.673 - Pain in unspecified foot Coding Level of Care Code New Pt Level 4 (38865) Diagnoses Closed nondisplaced fracture of fifth metatarsal bone of right foot, initial encounter S92.354A Encounter type: initial encounter Fracture type: closed Fracture alignment: nondisplaced CPT Codes Fracture Care - Fracture Billing Code: Fracture Billing Code ([id number])
[2025-02-14 09:23] VITALS: BMI 27.2
== END 2025-02-14 09:53 | disposition home or self-care (01) ==
LOC: HO.HOS 08:55
PROVIDERS: PCP Internal Medicine; Visit Provider Physician Assistant
DX: S92.354A Nondisplaced fracture of fifth metatarsal bone, right foot, initial encounter for closed fracture (principal)
CPT/HCPCS: 99203

== ENCOUNTER → 2025-02-14 08:58 | Outpatient (BNV) | payer MEDICARE, SELFPAY | PROVIDERS: Visit Provider Radiology Diagnostic Radiology | DX: S92.351A Displaced fracture of fifth metatarsal bone, right foot, initial encounter for closed fracture (principal) | CPT/HCPCS: 73630 ==

== ENCOUNTER 2025-02-14 10:28 | Outpatient (REF) | payer MEDICARE, SELFPAY ==
--- NOTE | ~2025-02-14 | XR_ITS ---
CLINICAL HISTORY: M79.673 - Pain in unspecified foot 3 view right foot Comparison: CR/SR - XR FOOT RT MIN 3V - 01/31/25 13:52 EDT Findings: Oblique fracture of the diaphysis and neck of the 5th metatarsal. Mild displacement at the fracture site, similar to the prior study. No interval changes of healing. 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 No ankle effusion. No radiopaque foreign body. IMPRESSION: Subacute fracture of the 5th metatarsal without interval changes of healing. This document has been electronically signed by: Lyubov Ortiz MD on 02/15/2025 16:32:00
--- OUTSIDE RECORDS SUMMARY | 2025-02-15 11:20 | XMS_ITS | Patient Health Record ---
Author Organization [facility] Address [address] [place] [address] Care Team Providers Care Perinatal Educator Name Role Phone Hernna Cheek MD Primary Care Provider Lenin Duggan Jr Unavailable [phone] Allergies Allergen (clinical drug ingredient) Drug/Non Drug Allergy documented on EMR Reaction Allergy Type Onset Date Status ibuprofen Ibuprofen hives Drug Allergy Active Reason For Referral Referring Provider First Name Hernan Referring Provider Last Name Ham Referring Provider Speciality Internal M edicine Referred Organization [facility] Referred Provider Lenin Doyle Jr Referred Address [address] [facility],[place], [place],[address], Referred Provider Specialty Gastroentero logy Referral Priority [...] Problem Status W/U Status Risk Notes Problem 917301097 Colon cancer screening (Z12.11) Active confirmed Problem 27306228 Epigastric pain (R10.13) Active confirmed Problem 113065252 Gastroesophageal reflux disease with esophagitis (K21.0) Active confirmed Encounters Encounter Location Date Provider Diagnosis [facility] [address] [place] [phone] 05/19/2024 Lenin Doyle Jr [facility] [address] [place] [phone] 09/05/2024 Lenin Doyle Jr Plan Of Treatment Future Test Test Name Order Date COLONOSCOPY 06/07/2014 UPPER GI ENDOSCOPY 11/10/2018 Insurance Providers Payer Name Payer Address Payer Phone Subscriber Number Group Number Insured Name Patient Relationship to Insured Coverage Start Date Coverage End Date [employer] P[employer] [address] [place] [phone] [id number] MENDOZA GROVE Self - patient is the insured Medical (General) History Medical History History ICD Code hypertension depression 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
--- OUTSIDE RECORDS SUMMARY | 2025-02-15 11:21 | XMS_ITS | Clinical Summary ---
Author Organization [facility] Address [address] [place] [address] Care Team Providers Care Sales Agent Protective Service Name Role Phone Unavailable Primary Care Provider [...]
--- OUTSIDE RECORDS SUMMARY | 2025-02-15 11:21 | XMS_ITS ---
Author Name [facility] Organization Unknown Problems Problem Status Onset Date Problem Type Date of Resoluti on Source Dizziness and giddiness active EncounterDiagnosisAct [facility]
--- OUTSIDE RECORDS SUMMARY | 2025-02-15 11:21 | XMS_ITS | Data Portability ---
Author Organization [place] [facility] Address [address] [place] [phone] Care Team Providers Care Grommet Man Name Role Phone RADHA NAIK Primary Care Provider [phone] Assessment Encounter Date Assessment Date Assessment LastModified [...] lower extremity strengthening and improve her balance. [email or web address] Not available 12/21/2024 10:52:55 Plan of Treatment [...] contr ast No observ ation record ed. [email or web address] Not Available 12/08 10:58:21 12/22/19 25 audio gram No observ ation record ed. BARCODE Not Available 2024 12:04:23 Result Notes None recorded. Problems Name Problem SNOMED Code Status Onset Date Resolution Date Notes Provider Name and Address Organization Details Recorded Time Impacted cerumen in right ear [id number] 103 Active 2024 BRET HERNANDEZ MD [address] [facility] [facility], [place], [address], [facility] [place] 10:19:32 Unsteady when walking 11727354 Active 2024 BRET HERNANDEZ MD [address] [facility] [facility], [place], [address], [place] [facility] [place] 10:22:13 Sensorineur al hearing loss of bilateral ears 806493283 Active 2024 CHRISTIAN RICHTER [address] [facility] [facility], [place], [address], [place] - [facility] 10:27:06 Bilateral tinnitus 2897098839573 Active 2024 BRET HERNANDEZ MD [address] [facility] [facility], [place], [address], [place] [facility] 10:47:46 Problem Notes None recorded. Procedures Surgical History Date Name Laterality Status Provider Name and Address Organization Details Recorded Time Comp Audio with Tymps - 21749 & 42836 completed CHRISTIAN RICHTER [address] [facility] [place] [address], [place], [address], [facility] 12/21/2024 10:26:54 Cerumen removal with microscope right completed BRET HERNANDEZ MD [address] [facility] [place] [address], [place], [address], [facility] [place] 12/21/2024 10:19:23 Imaging Results None recorded. Procedure [...] Details Last Updated DateTime 12/21/2024 157.48 cm 53236 g Demi Butcher [place] [facility] 12/21/2024 10:02:19 Social History None recorded. Functional Status None recorded. Mental Status None recorded. Family History Nothing Reported. Medical History Condition Response Hearing Loss N Hypertension Y Gynecological HistoryNo gynecological history recorded. Obstetrics History GPAL:G 0 P 0 0 0 0 Past Encounters Encounter ID Performer Location Encounter Start Date Encounter Closed Date Diagnosis/Indication Diagnosis SNOMED-CT Code Diagnosis ICD10 Code Diagnosis Note [id number] BRET HERNANDEZ MD [facility] [address] [address] 12/21/2024 08:39:50 12/21/2024 11:38:46 Impacted cerumen in right ear [id number] 282095 H61.21 Excess cerumen disimpacte d from the right ear canal. Unsteady when walking 22 706753 R26.81 Sensorineu ral hearing loss of bilateral ears 830592808 H90.3 Audiologic al evaluation results: Mild to [...] for amplificat ion bilaterall y. Bilateral tinnitus 63315 61585 102 H93.13 Today we discussed the pathophysi [...] Juarez Member ID Guarantor Name 01/23/2025 1 [facility] - MEDICARE PREFERRED (MEDICARE REPLACEMENT HMO) ALMITA Minor [id number] Audrey Garcia [place] Notes Date Note Type Note Provider Name and Address Organization Details Recorded Time 12/21/2024 text/html Patient referred for evaluation of balance disturbance. Patient has been evaluated at [facility] in the past for vestibular [...] consistent with her age. BRET HERNANDEZ MD [address] [place] [address], [phone], [facility] 12/21/2024 10:53:40 OBGyn Episode No OBEpisode recorded.
== END 2025-02-14 10:29 | disposition home or self-care (01) ==
LOC: HO.HOSX 10:28
PROVIDERS: Visit Provider Physician Assistant
DX: M79.671 Pain in right foot (principal); S92.354A Nondisplaced fracture of fifth metatarsal bone, right foot, initial encounter for closed fracture; X50.9XXA Other and unspecified overexertion or strenuous movements or postures, initial encounter
CPT/HCPCS: 73630; 99202

== ENCOUNTER 2025-03-17 08:03 | Outpatient (REF) | payer MEDICARE, SELFPAY ==
--- NOTE | ~2025-03-17 | XR_ITS ---
CLINICAL HISTORY: M79.673 - Pain in unspecified foot Radiographs of the right foot, 3 views Comparison: DX - XR FOOT RT MIN 3V - 02/14/25 08:58 EDT CR/SR - XR FOOT RT MIN 3V - 01/31/25 13:52 EDT Findings: Obliquely oriented fracture of the 5th metatarsal involving the diaphysis and distal metaphysis. Displacement measures up to 3 mm, unchanged. There is some callus formation. No dislocation. Moderate degenerative change. Small calcaneal spur. Bone mineralization is normal. Soft tissue swelling. Impression: Healing fracture of the 5th metatarsal. This document has been electronically signed by: Skylar Vasquez MD on 03/17/2025 17:06:25
== END 2025-03-17 08:04 | disposition home or self-care (01) ==
LOC: HO.HOSX 08:03
PROVIDERS: Visit Provider Physician Assistant
DX: S92.354A Nondisplaced fracture of fifth metatarsal bone, right foot, initial encounter for closed fracture (principal)
CPT/HCPCS: 73630; 99212

== ENCOUNTER 2025-03-17 11:34 | Outpatient (AMB) | payer MEDICARE, SELFPAY ==
--- OUTSIDE RECORDS SUMMARY | 2025-03-17 11:37 | XMS_ITS | Patient Health Record ---
Author Organization [facility] Address [address] [place] [address] Care Team Providers Care Hospital Nurse Name Role Phone Hernan Cheek MD Primary Care Provider Lenin Duggan Jr Unavailable Allergies Allergen (clinical drug ingredient) Drug/Non Drug Allergy documented on EMR Reaction Allergy Type Onset Date Status ibuprofen Ibuprofen hives Drug Allergy Active Reason For Referral Referring Provider First Name Hernan Referring Provider Last Name Ham Referring Provider Speciality Internal M edicine Referred Organization [facility] Referred Provider Lenin Doyle Jr Referred Address [address] [facility],[place], [place],[address], Referred Provider Specialty Gastroentero logy Referral Priority [...] Problem Status W/U Status Risk Notes Problem 907420801 Colon cancer screening (Z12.11) Active confirmed Problem 50031683 Epigastric pain (R10.13) Active confirmed Problem 234898632 Gastroesophageal reflux disease with esophagitis (K21.0) Active confirmed Encounters Encounter Location Date Provider Diagnosis [facility] [address] [place] [phone] 05/19/2024 Lenin Doyle Jr [facility] [address] [place] [phone] 09/05/2024 Lenin oDyle Jr Plan Of Treatment Future Test Test Name Order Date COLONOSCOPY 06/07/2014 UPPER GI ENDOSCOPY 11/10/2018 Insurance Providers Payer Name Payer Address Payer Phone Subscriber Number Group Number Insured Name Patient Relationship to Insured Coverage Start Date Coverage End Date [employer] PREF[employer]ED [address] [place] [phone] [id number] MENDOZA GROVE Self - patient is the insured Medical (General) History Medical History History ICD Code hypertension depression 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
--- OUTSIDE RECORDS SUMMARY | 2025-03-17 11:37 | XMS_ITS | Clinical Summary ---
Author Organization [facility] Address [address] [place] [address] Care Team Providers Care Digester Capper Name Role Phone Unavailable Primary Care Provider [...]
--- NOTE | 2025-03-17 11:39 | MHC.OFFVIS ---
Vital Signs 03/17/25 11:40 Height 5 ft 1 in Weight 144 lb BMI 27.2 Intake Visit Reasons: OV-Right foot metatarsal displaced FX-w/xrays Intake Note: Audrey is a 74 year old female who presents today for a evaluation of her right fifth metatarsal bone fx, DOI 01/31/25. Patient reports she is doing better and she is not having pain at the moment. Allergies ibuprofen (IBUPROFEN) Allergy (Unknown, Verified 03/17/25 11:40) HIVES HPI HPI OV-Right foot metatarsal displaced FX-w/xrays: Details: Patient is a 74-year-old female who presents to the office today for routine follow-up status post right foot 5th metatarsal fracture. She presents today in a sandal. She is not experiencing any pain at this time. She has mostly resume back to normal activities. No additional complaints. [facility] Medical History Glaucoma Chronic idiopathic thrombocytopenia Left ACL tear Depression HTN (hypertension) Right leg DVT Surgical History Hx of tonsillectomy Hx of cataract extraction Family History Mother Heart disease HTN (hypertension) Diabetes Maternal Aunt H/O heart bypass surgery HTN (hypertension) Diabetes Brother S/P triple vessel bypass Stroke Social History Alcohol intake: current Alcohol intake frequency: 0-2 drinks per day Alcohol type: hard liquor Patient Tobacco Use Status: Never used Tobacco Current occupational status: retired Review of Systems Const All systems reviewed & are unremarkable except as noted in HPI and below Physical Exam Vital Signs: BMI result Body Mass Index 27.2 Extrem Other: Right ankle: Mild edema and resolving ecchymosis on the top of the foot. No tenderness to palpation of the 5th metatarsal over the fracture site. Patient is able to demonstrate dorsiflexion, plantar flexion, pronation and supination. Negative anterior drawer. Sensation intact. Pedal Pulse intact. Assessment & Plan Assessment & Plan (1) Fracture of fifth metatarsal bone of right foot: Code(s): S92.351A - Displaced fracture of fifth metatarsal bone, right foot, initial encounter for closed fracture Category: Medical Qualifiers: Encounter type: initial encounter Fracture type: closed Fracture alignment: nondisplaced Qualified Code(s): S92.354A - Nondisplaced fracture of fifth metatarsal bone, right foot, initial encounter for closed fracture Plan Patient is a 74-year-old female who presents to the office today for routine follow-up status post right foot 5th metatarsal fracture. She presents today in a sandal. She is not experiencing any pain at this time. She has mostly resume back to normal activities. No additional complaints. While in the office today, patient is not experiencing any pain and physical exam is benign. She may resume back to normal activities as tolerated using pain as her guide. Should she experiencing any increase in pain she will reach out to our office. Otherwise she will follow up PRN. X-rays of the right foot which were obtained while in the office today and were reviewed by me, Teresa Helton PA-C, revealed routine healing 5th metatarsal fracture. Orders: Orders XR foot RT min 3V Today M79.673 - Pain in unspecified foot Coding Level of Care Code Est Pt Level 3 (06351) Diagnoses Closed nondisplaced fracture of fifth metatarsal bone of right foot, initial encounter S92.354A Encounter type: initial encounter Fracture type: closed Fracture alignment: nondisplaced
[2025-03-17 11:40] VITALS: BMI 27.2
== END 2025-03-17 12:01 | disposition home or self-care (01) ==
LOC: HO.HOS 11:35
PROVIDERS: PCP Internal Medicine; Visit Provider Physician Assistant
DX: S92.354A Nondisplaced fracture of fifth metatarsal bone, right foot, initial encounter for closed fracture (principal)
CPT/HCPCS: 99213

== ENCOUNTER → 2025-03-17 11:36 | Outpatient (BNV) | payer MEDICARE, SELFPAY | PROVIDERS: Visit Provider Radiology Diagnostic Radiology | DX: S92.351A Displaced fracture of fifth metatarsal bone, right foot, initial encounter for closed fracture (principal) | CPT/HCPCS: 73630 ==

== ENCOUNTER 2025-05-10 06:59 | Inpatient (IN) | payer MEDICARE, SELFPAY ==
--- OUTSIDE RECORDS SUMMARY | 2024-05-19 09:35 | XMS_ITS ---
Author Organization [facility] Address [address] [place] [phone] Care Team Providers Care Tile Helper Name Role Phone Ham TAVERAS, Hernan Primary Care Provider Lenin Duggan Jr REASON FOR VISIT Patient presents today for vomitting Encounters Encounter Location Date Provider Diagnosis [facility] [address] [place] [phone] 05/19/2024 Lenin Doyle Jr Plan Of Treatment No Information Progress Notes * CRISTINAANTMENDOZA NAQVI CDOB: (74 yo F)Acc No.[id number]:05/19/2024 Progress Notes Patient: MENDOZA FLORES Provider: Ashley Doyle MD :1950 A ge:73 Y S ex:Female Date:05/19/2024 Address:[address] [place] [address], [id number] Pcp:Hernan Cheek MD Subjective: * Chief Complaints: * 1 . Patient presents today for vomitting. * Medical History: Objective: * Vitals: Assessment: Plan: * Treatment: * * The named appointment provid er may or may not be the originator of this progress note, and it is not deemed complete until electronically signed by the appointment provider. Sign off status: Pending * Provider: Ashley Doyle MD Date: Generated for Printi ng/Faxing/eTransmitting on: 07:48 AM EDT
--- OUTSIDE RECORDS SUMMARY | 2024-09-05 06:40 | XMS_ITS ---
Author Organization [facility] Address [address] [place] [address] Care Team Providers Care Public Relations Specialist Name Role Phone Ham TAVERAS, Hernan Primary Care Provider Lenin Duggan Jr REASON FOR VISIT Patient presents today for epigastric pain Encounters Encounter Location Date Provider Diagnosis [facility] [address] [place] [phone] 09/05/2024 Lenin Doyle Jr Plan Of Treatment No Information Progress Notes * MENDOZA YUN CDOB: (74 yo F)Acc No.[id number]:09/05/2024 Progress Notes Patient: MENDOZA FLORES Provider: Ashley Doyle MD :1950 A ge:74 Y S ex:Female Date:09/05/2024 Address:[address] [place] [address], [id number] Pcp:Hernan Cheek MD Subjective: * Chief Complaints: [...] 0 09/05/2024 Generated for Anaya devi/Juliana/eTransmitting on: 07:47 AM EDT
--- NOTE | ~2025-05-10 | MR_ITS ---
CLINICAL HISTORY: Worsening jaundice after ERCP, R O CBD stone MR abdomen without contrast MR MRCP Comparison: 05/10/2025 Findings: Interval resolution of common bile duct dilatation. There is new pneumobilia including gas within the common bile duct. There is no residual common bile duct stone or common bile duct dilatation. There are multiple gallstones within the gallbladder. There is gas within the gallbladder lumen. Gallbladder is poorly distended. There is prominence of the gallbladder wall. There is no pericholecystic fluid. There is edema of the pancreatic mesentery. No associated fluid collection or pancreatic duct dilatation. Unremarkable liver, spleen, adrenal glands and kidneys. No bowel edema or dilatation. No focal bone lesion. Impression: 1. There is pneumobilia, compatible with recent ERCP. 2. No biliary dilatation or choledocholithiasis. 3. There is edema of the pancreatic mesentery suggesting a mild degree of pancreatitis. 4. There is cholelithiasis. There is associated thickening of the gallbladder wall which may be on the basis of underdistention but acute cholecystitis is also considered. This document has been electronically signed by: Lyubov Ortiz MD on 05/13/2025 18:31:44
--- NOTE | ~2025-05-10 | MR_ITS ---
EXAMINATION: MRCP HISTORY: gallstone pancreatitis COMPARISON: Correlation is made with abdominal CT and ultrasound examinations performed earlier in the day. TECHNIQUE: Axial gradient echo in and out of phase T1, axial T2 and fat suppressed T2, and coronal haste T2 with fat saturation images were obtained through the abdomen. 3D MRCP Reconstructed images and thick slab imaging of the biliary tree were obtained. FINDINGS: The examination is somewhat degraded by patient motion. There is no significant signal loss within the liver on opposed phase imaging to suggest steatosis. There is mild intrahepatic biliary ductal dilatation. The gallbladder is distended and demonstrates intraluminal calculi. There is a small amount pericholecystic fluid. The common bile duct is dilated measuring up to 9 mm in diameter. There is a suggestion of a hypointense calculus at the ampulla. The spleen, pancreas, and adrenals are unremarkable without intravenous contrast material. There is a 10 mm probable cyst at the upper pole of the right kidney. There is a small amount of perinephric fluid bilaterally. No ascites or retroperitoneal lymphadenopathy is identified in the upper abdomen. MR/MR MRCP IMPRESSION: 1. Cholelithiasis and pericholecystic fluid. Findings may represent acute cholecystitis. Please see report of the abdominal ultrasound examination performed earlier in the day. 2. Dilated common bile duct with probable choledocholithiasis at the ampulla. Electronically signed by: Cecil Barbosa MD 05/10/2025 03:30 PM EDT
--- NOTE | ~2025-05-10 | XR_ITS ---
CLINICAL HISTORY: SEPSIS [place] 1 view chest x-ray Comparison: None provided Findings: Evaluation of the lungs is mildly limited by rotation. There is no consolidative process. Relative haziness overlying the left lower lung is felt to most likely be secondary to rotation and overlying soft tissues. Normal size heart. No acute fracture. IMPRESSION: 1. No acute findings. This document has been electronically signed by: Lyubov Ortiz MD on 05/14/2025 17:37:09
--- NOTE | ~2025-05-10 | XR_ITS ---
CLINICAL HISTORY: fever sepsis workup 1 view abdomen Comparison: CT/[place]/SR - CT ABDOMEN PELVIS WITH IV CONTRAST - 05/10/25 08:37 EDT Findings: No pneumoperitoneum or pneumatosis. No bowel dilatation. Minimal fecal retention within the colon. No abnormal calcifications. No acute fractures. IMPRESSION: Nonspecific bowel gas pattern without evidence of an obstructive process. This document has been electronically signed by: Lyubov Ortiz MD on 05/14/2025 17:35:51
--- NOTE | ~2025-05-10 | US_ITS ---
EXAMINATION: US ABDOMEN LIMITED CLINICAL INFORMATION: Emesis, abnormal laboratory results. COMPARISON: None available. TECHNIQUE: Real-time imaging of the right upper quadrant abdominal viscera. FINDINGS: LIVER: The liver is normal in size. The liver contour is normal. Parenchymal echogenicity is normal. No focal hepatic lesion. There is no intrahepatic biliary duct dilatation seen. Main portal vein is patent with normal direction of flow. Demonstrates a continuous venous waveform. GALLBLADDER: The gallbladder wall measures 7 millimeters thick. There is trace pericholecystic fluid. There is an echogenic focus with posterior acoustic shadowing consistent with gallstone. COMMON BILE DUCT: Normal in caliber measuring 0.8 cm in diameter. US/US abdomen limited IMPRESSION: Possible cholecystitis. There is cholelithiasis, gallbladder wall thickening, and pericholecystic fluid. The extrahepatic bile duct is 8 mm diameter which is borderline enlarged for patient age. Electronically signed by: Vidal Carpenter MD 05/10/2025 10:46 AM EDT
--- NOTE | ~2025-05-10 | FL_ITS ---
EXAMINATION: FL GUIDANCE ONLY HISTORY: ERCP COMPARISON: Correlation is made with an MRCP dated 05/10/2025. TECHNIQUE: Fluoroscopy time: 3 minutes, 20.7 seconds. Cumulative Dose: 41.204 mGy. DAP: 17.923 Gycm2 Images: 12. FINDINGS: Fluoroscopic spot films from an ERCP demonstrate a normal caliber common bile duct. No definite filling defects are identified. Multiple balloon sweeps were made. FL/FL guidance in OR IMPRESSION: Fluoroscopy during procedure. Please see procedure report for additional information. Electronically signed by: Cecil Barbosa MD 05/12/2025 07:14 AM EDT
--- NOTE | ~2025-05-10 | CT_ITS ---
EXAMINATION: CT ABDOMEN PELVIS WITH IV CONTRAST HISTORY: upper abd tenderness, vomiting COMPARISON: Comparison is made with the prior examination dated 05/19/2024. TECHNIQUE: CT scan of the abdomen and pelvis was performed following administration of 85 mL Omnipaque 350 using standard departmental protocol. Coronal and sagittal reformatted images were generated and reviewed. Oral contrast material was not administered at the request of the referring physician. This CT exam was performed with one or more of the following dose reduction techniques: automated exposure control, adjustment of the mA and/or kV according to patient size, use of iterative reconstruction technique. DLP: 520 mGy-cm FINDINGS: LOWER CHEST: The visualized lung bases are clear. There is no pleural effusion. CARDIOVASCULATURE: The heart is normal in size. There is no pericardial effusion. LIVER: The liver is normal in size and contour. No liver mass is identified. The hepatic and portal veins are patent. GALLBLADDER / BILE DUCTS: The gallbladder is distended. There are no calcified gallstones. There is a small amount of pericholecystic fluid. There is mild intra and extrahepatic biliary ductal dilatation. SPLEEN: The spleen is normal in size. No focal splenic lesion is identified. PANCREAS: The pancreas is unremarkable in appearance. ADRENAL GLANDS: Within normal limits. KIDNEYS/RETROPERITONEUM: No renal calculi are identified. There is no hydronephrosis. There is a probable subcentimeter cyst at the upper pole of the right kidney. LYMPH NODES: No abdominal or pelvic lymphadenopathy. VASCULATURE: The abdominal aorta is normal in caliber. MESENTERY/PERITONEUM: No free fluid. No masses. There is no free intraperitoneal gas. STOMACH: The stomach is collapsed, limiting evaluation. SMALL BOWEL: The small bowel is normal in caliber. COLON: The colon is unremarkable. APPENDIX: Normal. URINARY BLADDER/PELVIC ORGANS: The urinary bladder is collapsed, limiting evaluation. The uterus is unremarkable. BONES / SOFT TISSUES: There is levoscoliosis and degenerative disc disease of the spine. CT/CT abdomen pelvis w IV con IMPRESSION: Distended gallbladder a small amount of pericholecystic fluid. Mild intra and extrahepatic biliary ductal dilatation. Findings could represent acute cholecystitis or choledocholithiasis. Abdominal ultrasound and/or MRCP should be considered. Electronically signed by: Cecil Barbosa MD 05/10/2025 09:03 AM EDT RP
--- NOTE | 2025-05-10 06:59 | ED.GENADULT ---
HPI - General Adult General Chief complaint: Nausea/Vomiting/Diarrhea Stated complaint: VOMITTING SINCE LAST NIGHT Source: patient, EMS, RN notes reviewed and old records reviewed Mode of arrival: EMS Limitations: no limitations History of Present Illness ED Provider: Ha GALLARDO narrative: Patient is a 74-year-old female with history of chronic abdominal pain, ITP, HTN, DVT in the past not currently anticoagulated presenting to the emergency department with complaint of upper abdominal pain, nausea and vomiting after eating chicken eriki masala last night. She reports that she had multiple bowel movements but states they were all normal and were not diarrhea. Denies fevers. Denies hematemesis, hematochezia, melena. States current symptoms feel different from her chronic abdominal pain and vomiting. complaint: abdominal pain Onset (ago): hour(s) Related Data Home Medications ?Medication ?Instructions ?Recorded ?Confirmed bupropion HCl 300 mg 24 hr tablet, 300 tab PO DAILY 08/30/20 09/02/21 extended release cholecalciferol (vitamin D3) 25 25 mcg PO DAILY 08/30/20 09/02/21 mcg (1,000 unit) tablet (Vitamin D3) lisinopril 20 mg tablet 1 tab PO DAILY 08/30/20 09/02/21 magnesium oxide 500 mg PO DAILY 08/30/20 09/02/21 timolol maleate 0.5 % eye drops 1 drp ophthalmic (eye) BID 08/30/20 09/02/21 vitamin B complex 1 cap PO DAILY 08/30/20 09/02/21 Allergies Allergy/AdvReac Type Severity Reaction Status Date / Time ibuprofen (IBUPROFEN) Allergy Unknown HIVES Verified 05/10/25 07:06 Review of Systems Review of Systems: As per HPI Yes all other systems are reviewed and are negative Constitutional: Constitutional: Reports as per HPI PMFSH Past Medical History Medical History Glaucoma Chronic idiopathic thrombocytopenia Left ACL tear Depression HTN (hypertension) Right leg DVT Surgical History Hx of tonsillectomy Hx of cataract extraction Family History Family History Mother Heart disease HTN (hypertension) Diabetes Maternal Aunt H/O heart bypass surgery HTN (hypertension) Diabetes Brother S/P triple vessel bypass Stroke Social History Social History Alcohol intake: current Alcohol intake frequency: 0-2 drinks per day Alcohol type: hard liquor Patient Tobacco Use Status: Never used Tobacco Smoked in Last 30 Days: No Use of substances other than those prescribed or required for medical reasons: No Advance Directives: Yes Advance Directives Information Provided: No Advance Directives on File: No Current occupational status: retired Physical Exam ED Vital Signs: Vital Signs - 24 hr 05/10/25 07:03 05/10/25 07:50 05/10/25 09:52 Temperature 97.9 F Pulse Rate 72 70 96 Respiratory Rate 18 16 18 Blood Pressure 176/80 H 175/72 H 125/68 Pulse Oximetry 99 96 97 Oxygen Delivery Method Room Air Room Air Room Air 05/10/25 11:09 Temperature Pulse Rate Respiratory Rate 20 Blood Pressure Pulse Oximetry Oxygen Delivery Method BMI result Body Mass Index 27.4 Vital signs have been reviewed and appear to be correct. Blood pressure elevated. Heart rate normal. Respiratory rate normal. Temperature normal. Oxygen saturation normal. Const General: cooperative, healthy appearing and no acute distress Orientation/consciousness: oriented to person, oriented to place, oriented to time and patient oriented x3 Limitations: no limitations HENMT Head: Yes normocephalic and Yes atraumatic Ears: external ears normal General nose exam: Normal external nose present Face and sinus: Yes face symmetric Mouth: oropharynx normal and moist mucous membranes Throat: Yes uvula midline Eyes Pupils: Equal, round and reactive pupils present Neck Neck: Yes normal visual inspection and Yes supple Resp Effort & Inspection: normal respiratory effort and able to speak in complete sentences Auscultation: clear to auscultation bilaterally Cardio Rate: regular rate Rhythm: regular rhythm Heart sounds: S1 normal heart sound present and S2 normal heart sound present GI Palpation (GI): Soft to palpation, Tenderness to palpation present (GI) in the LUQ, no guarding and No Rebound tenderness present Auscultation: normoactive bowel sounds General: Yes no CVA tenderness Back/Spine/Pelvis Back: no CVA tenderness Skin General skin exam: elasticity normal and turgor normal Neuro General: oriented to person, oriented to place, oriented to time, patient oriented x3, moves all extremities, no focal motor deficits and CN's II-XI intact bilaterally Cranial nerves: Yes Equal, round and reactive pupils present Cognition (Neuro): normal cognition Extrem General: Yes full ROM, Yes no pedal edema and Yes no calf tenderness Psych Mental Status: mental status grossly normal Affect: normal affect Thought process: Normal thought process present Medications Administered Discontinued Medications Generic Name Dose Route Start Last Admin Trade Name Woodq PRN Reason Stop Dose Admin Hydromorphone HCl 0.5 mg 05/10/25 11:02 05/10/25 11:09 Hydromorphone Hcl 0.5 Mg/0.5 Ml Syringe IVPUSH 05/10/25 11:03 0.5 mg ONCE ONE Administration Protocol Sodium Chloride 1,000 mls @ 999 mls/hr 05/10/25 07:30 05/10/25 09:35 Ns IV 05/10/25 08:30 Infused .Q1H1M JENNA Infusion Acetaminophen 1,000 mg in 100 mls @ 400 mls/hr 05/10/25 07:22 05/10/25 08:26 Ofirmev IV 05/10/25 07:36 Infused ONCE ONE Infusion Iohexol 85 ml 05/10/25 08:48 05/10/25 08:52 Iohexol 350 Mg/Ml 100 Ml Infus..Btl IV 05/10/25 08:49 85 ml ONCE ONE Administration Morphine Sulfate 4 mg 05/10/25 08:40 05/10/25 09:00 Morphine Sulfate 4 Mg/Ml Cartridge IVPUSH 05/10/25 08:41 4 mg ONCE ONE Administration Protocol Ondansetron HCl 4 mg 05/10/25 07:22 05/10/25 07:28 Ondansetron Hcl 4 Mg/2 Ml Vial IVPUSH 05/10/25 07:23 4 mg ONCE ONE Administration Medical Decision Making Medical Decision Making MDM Narrative: Patient is a 74-year-old female with history of chronic abdominal pain, ITP, HTN, DVT in the past not currently anticoagulated presenting to the emergency department with complaint of upper abdominal pain, nausea and vomiting after eating chicken tiki masala last night. On exam patient is awake, A+Ox3, BP elevated, VS otherwise WNL, afebrile, normal neurological exam without focal deficits, physical exam findings as above. Given reported symptoms and physical exam findings, initial differential includes but is not limited to food poisoning, gastroenteritis, GERD. Less likely pancreatitis but will obtain CT abdomen pelvis due to left upper quadrant tenderness. Labs notable for leukocytosis, elevated Tbili, elevated transaminases, elevated alk phos and elevated lipase raising concern for possible cholecystitis, cholelithiasis/choledocolithiasis. Less likely cholangitis as patient is afebrile, no jaundice noted. CT A/P notable for noteable for GB distention with pericholecystic fluid and ductal dilatation. My interpretation is in agreement with the radiologist's interpretation. RUQ U/S ordered. U/S notable for cholelithiasis, GB wall thickening, and pericholecystic fluid, 8mm extrahepatic bile duct. [place] text to guerrero Mclaughlin. Patient seen by guerrero Mclaughlin who is recommending medical admission with surgical consult, MRCP and possible ERCP. Patient initially requesting transfer to [facility] due to her insurance, however, discussed with patient that [facility] cannot perform ERCP. Patient ultimately agreeable to admission here. Differential Diagnosis Differential Diagnoses: The differential diagnosis associated with the presentation includes as per [facility] Admission/Observation Consideration of admission/observation: Escalation of care including admission/observation considered Consult Healthcare Provider Management of the patient was discussed with: Hospitalist and Head Of Insight (guerrero Mclaughlin) Lab Data [facility] Lab Attestation statement: I reviewed the patient's lab results. as per [facility] 05/10/25 07:12 05/10/25 07:12 Labs: Lab Results 05/10/25 05/10/25 05/10/25 Range/Units 07:12 09:11 10:51 WBC 15.7 H (4.8-10.8) X10*3/uL RBC 4.42 (4.20-5.50) X10*6/uL Hgb 14.6 (12.0-16.0) g/dl Hct 39.0 (37.0-47.0) % MCV 88.2 (80.0-98.0) fL MCH 33.0 (27.0-33.0) pg MCHC 37.4 H (31.0-35.0) g/dl RDW 12.8 (11.0-16.0) % Plt Count 161 (160-400) X10*3/uL MPV 10.8 (9.4-12.3) fL Immature Gran % (Auto) 0.4 (0.0-0.4) % Neut % (Auto) 86.2 H (45-73) % Lymph % (Auto) 7.0 L (20-40) % [place] % (Auto) 6.3 (2-11) % Eos % (Auto) 0.0 (0-4) % Baso % (Auto) 0.1 (0-2) % Lymph # (Auto) 1.1 L (1.2-4.9) X10*3/uL [place] # (Auto) 1.0 (0.1-1.2) X10*3/uL Eos # (Auto) 0.0 (0.0-0.4) X10*3/uL Baso # (Auto) 0.0 (0.0-0.2) X10*3/uL Abs Immat Gran (auto) 0.07 H (0.00-0.03) X10*3/uL Absolute Neuts (auto) 13.5 H (2.0-8.3) x10*3/uL Absolute Nucleated RBC 0.000 (0.0-0.012) X10*3/uL Nucleated RBC % (auto) 0.0 (0.0-0.2) /100WBC PT 11.4 (10.9-12.4) SEC INR 1.0 (0.9-1.1) Sodium 141 (135-145) mmol/L Potassium 3.7 (3.3-5.1) mmol/L Chloride 103 (96-108) mmol/L Carbon Dioxide 25 (22-29) mmol/L Anion Gap 17 (12-20) BUN 20 H (9-16) mg/dL Creatinine 0.83 (0.5-1.4) mg/dL Estim Creat Clear Calc 50.1 Estimated GFR > 60 Random Glucose 155 H (60-115) mg/dL Calcium 9.4 (8.4-10.2) mg/dL Magnesium 1.8 (1.6-2.6) mg/dL Total Bilirubin 3.9 H (0.0-1.0) mg/dL Direct Bilirubin 2.4 H (0.0-0.5) mg/dL AST 1505 H (5-31) U/L ALT 1376 H (0-31) U/L Alkaline Phosphatase 313 H (39-117) U/L Troponin I High Sens 5.3 (<3.5-17.0) ng/L Total Protein 8.2 H (6.5-8.0) g/dL Albumin 4.2 (3.5-5.0) g/dL Lipase 113 H (8-78) U/L Urine Color Dark Yellow Urine Appearance Clear Urine pH 6.0 (5.0-9.0) Ur Specific [place] >= 1.030 H (1.005-1.025) Urine Protein Trace (Neg-Trace) mg/dL Urine Glucose (UA) Negative (Negative) mg/dL Urine Ketones Negative (Negative) mg/dL Urine Blood Negative (Negative) Urine Nitrite Negative (Negative) Ur Leukocyte Esterase Negative (Negative) COVID-19 (ANDREW) Negative (Negative) COVID-19 Clin Com See Note Hepatitis A IgM Ab Nonreactive (Nonreactive) Hep Bs Antigen Negative (Negative) Hep Bs Antibody NONREACTIVE (Nonreactive) Hep B Core Total Ab Nonreactive (Nonreactive) Hepatitis C Ab (EIA) Nonreactive (Nonreactive) Influenza Type A (DUNCAN) Negative (Negative) Influenza Type B (DUNCAN) Negative (Negative) Influenza A & B Note See Note Independent Interpretation I performed an independent interpretation of an: Ultrasound and CT Scan Interpretation: CT A/P noteable for GB distention with pericholecystic fluid and ductal dilatation. U/S notable for cholelithiasis, GB wall thickening, and pericholecystic fluid, 8mm extrahepatic bile duct Radiology Impression Discussion of test interpretation with radiology: I have reviewed the radiologist's reading. Radiologist Impression: CT/CT abdomen pelvis w IV con IMPRESSION: Distended gallbladder a small amount of pericholecystic fluid. Mild intra and extrahepatic biliary ductal dilatation. Findings could represent acute cholecystitis or choledocholithiasis. Abdominal ultrasound and/or MRCP should be considered. US/US abdomen limited IMPRESSION: Possible cholecystitis. There is cholelithiasis, gallbladder wall thickening, and pericholecystic fluid. The extrahepatic bile duct is 8 mm diameter which is borderline enlarged for patient age. External Record Review External record reviewed: Inpatient record, Office record and Outpatient record Critical Care Time Critical Care Time Critical Care Time: Yes Total Critical Care Time: 47 Attestation: I have personally provided critical care time exclusive of time spent on separately billable procedures. Time includes review of lab data, radiology results, discussion with consultants, and monitoring for potential decompensation. Intervention performed as documented. Discharge Plan Discharge Patient Disposition: Admitted As Inpatient Print Language: Faroese
[2025-05-10 07:03] VITALS: BP 168/92; BP 176/80; PULSE 72; PULSE 74; RESP 18; TEMP 36.6; O2SAT 100; O2SAT 99; BMI 27.4
--- NOTE | 2025-05-10 07:03 | ECG_ITS ---
Test Reason : abd pain Blood Pressure : */* mmHG Vent. Rate : 75 BPM Atrial Rate : * BPM P-R Int : * ms QRS Dur : 86 ms QT Int : 382 ms P-R-T Axes : * -24 -9 degrees QTcB Int : 426 ms Normal sinus rhythm Minimal voltage criteria for LVH, may be normal variant ( R in aVL ) Nonspecific T wave abnormality Abnormal ECG When compared with ECG of 19-Jul-2024 16:51, Nonspecific T wave abnormality now evident in Anterior leads Referred By: Kely Bonner Electronically Signed By: RUBY SAENZ
[2025-05-10 07:20] LABS: Hematocrit 39.0 % (37.0-47.0); Hemoglobin 14.6 g/dl (12.0-16.0); Imm Gran Abs Auto 0.07 X10*3/uL (0.00-0.03); Imm Gran Pct Auto 0.4 % (0.0-0.4); Lymphocytes Absolute Auto 1.1 X10*3/uL (1.2-4.9); MANUAL DIFF FLAG NO; Mean Corpuscular HGB Conc 37.4 g/dl (31.0-35.0); Mean Corpuscular Hemoglobin 33.0 pg (27.0-33.0); Mean Corpuscular Volume 88.2 fL (80.0-98.0); NRBC Abs Auto 0.000 X10*3/uL (0.0-0.012); NRBC Pct Auto 0.0 /100WBC (0.0-0.2); Platelet Count 161 X10*3/uL (160-400); Red Blood Count 4.42 X10*6/uL (4.20-5.50); White Blood Count 15.7 X10*3/uL (4.8-10.8)
[2025-05-10 07:29] LABS: INTERNATIONAL NORM RATIO 1.0 (0.9-1.1); Prothrombin Time 11.4 SEC (10.9-12.4)
[2025-05-10 07:38] LABS: COVID-19 Test Negative (Negative); IDNOW Serial# 55D5AD1C; IDNOW Serial# 58CA691E; Influenza B2 Negative (Negative)
[2025-05-10 07:44] LABS: Troponin-I High Sensitivity 5.3 ng/L (<3.5-17.0)
--- OUTSIDE RECORDS SUMMARY | 2025-05-10 07:48 | XMS_ITS | Data Portability ---
Author Organization [place] [facility], Allergy Address [address] [place] [phone] Care Team Providers Care Tactical/Mobile Watch Officer Name Role Phone RADHA NAIK Primary Care Provider Assessment Encounter Date Assessment Date Assessment LastModified [...] lower extremity strengthening and improve her balance. Not available 12/21/2024 10:52:55 Plan of Treatment [...] contr ast No observ ation record ed. [email or web address] Not Available 12/08 10:58:21 12/22/19 25 audio gram No observ ation record ed. BARCODE Not Available 2024 12:04:23 Result Notes None recorded. Problems Name Problem SNOMED Code Status Onset Date Resolution Date Notes Provider Name and Address Organization Details Recorded Time Impacted cerumen in right ear 5308356106820 103 Active 2024 BRET HERNANDEZ MD [address] [facility],[address] [facility], [place], [address], [facility] - [facility] [place] 10:19:32 Unsteady when walking 96866679 Active 2024 BRET HERNANDEZ MD [address] [facility], [address] [facility], [place], [address], [place] - [facility] [place] 10:22:13 Sensorineur al hearing loss of bilateral ears 482251879 Active 2024 CHRISTIAN RICHTER [address] [facility],[address] [facility], [place], [address], [place] - [facility] [place] 10:27:06 Bilateral tinnitus 3676784943412 Active 2024 BRET HERNANDEZ MD [address] [facility],[address] [facility], [place], [address], [place] [facility] [place] 10:47:46 Problem Notes None recorded. Procedures Surgical History Date Name Laterality Status Provider Name and Address Organization Details Recorded Time Comp Audio with Tymps - 13819 & 73325 completed CHRISTIAN RICHTER [address] [facility] [address], [place], [address], [facility] - [facility] [place] 12/21/2024 10:26:54 Cerumen removal with microscope right completed BRET HERNANDEZ MD [address] [facility] [place] [address], [place], [address], [facility] - [facility] [place] 12/21/2024 10:19:23 Imaging Results None recorded. Procedure [...] Details Last Updated DateTime 12/21/2024 157.48 cm 43416 g Demi Butcher [place] [facility] 12/21/2024 10:02:19 Social History None recorded. Functional Status None recorded. Mental Status None recorded. Family History Nothing Reported. Medical History Condition Response Hearing Loss N Hypertension Y Gynecological HistoryNo gynecological history recorded. Obstetrics History GPAL:G 0 P 0 0 0 0 Past Encounters Encounter ID Performer Location Encounter Start Date Encounter Closed Date Diagnosis/Indication Diagnosis SNOMED-CT Code Diagnosis ICD10 Code Diagnosis IMO Codes Diagnosis Note [id number] BRET HERNANDEZ MD [facility] [address] [address] 12/21/2024 08:39:50 12/21/2024 11:38:46 Impacted cerumen in right ear 8848367534 055817 H61.21 8480410 Excess cerumen disimpacte d from the right ear canal. Unsteady when walking 22 096241 R26.81 8564013020 Sensorineu ral hearing loss of bilateral ears 401400738 H90.3 88400822 Audiologic al evaluation results: Mild to moderate [...] for amplificat ion bilaterall y. Bilateral tinnitus 40863 54941 102 H93.13 [id number] Today we discussed the pathophysi ology of [...] Juarez Member ID Guarantor Name 01/23/2025 1 [facility] - MEDICARE PREFERRED (MEDICARE REPLACEMENT HMO) ALMITA Garcia Guadalupeantonino [id number] 01 Audrey Garcia Iván Notes Date Note Type Note Provider Name and Address Organization Details Recorded Time 12/21/2024 text/html Patient referred for evaluation of balance disturbance. Patient has been evaluated at [facility] in the past for vestibular therapy. Patient [...] consistent with her age. BRET HERNANDEZ MD [address] [place] [address], [address], [place] - [facility] 12/21/2024 10:53:40 OBGyn Episode No OBEpisode recorded.
--- OUTSIDE RECORDS SUMMARY | 2025-05-10 07:48 | XMS_ITS | Encounter Summary ---
Author Organization [facility] Address [address] [facility] [address] [place] [phone] Phone Care Team Providers Care Mask Layout Designer Name Role Phone Hernan Cheek MD Primary Care Provider [phone] Sydni Parr MD Unavailable Enmanuel Abel MD Unavailable Ros Joseph MD Unavailable Rod Kowalski MD Unavailable Encounter Details Date Type Department Care Team (Late st Contact Info) Description 04/19/2024 Procedure Pass [facility], [address] [address] Social History Tobacco Use Types Packs/Day Years Used Date Smoking Tobacco: Never Smokeless Tobacco: Never Alcohol Use Standard Drinks/Week Comments Yes 0 (1 standard drink = 0.6 oz pure alcohol) 2 glasses kahlua every 2-3 nights Education Answer Date Recorded Are you interested in more education? Not on ai e 12/05/2022 Are you concerned about learning? Not on file 12/05/2022 No 12/05/2022 No 12/05/2022 Digital Access Answer Date Recorded No 01/02/2023 No 01/02/2023 Reliable internet access at home? Not on file 01/02/2023 Device with a working camera? Not on file Intimate Partner Violence Answer Date R ecorded Denied Basic Needs Not on file 10/23/2023 In the past 12 months have y ou been in a relationship with a person who hurts, threatens, or tries to control you? No 10/23/2023 Worried food would run out Not on file 10/22 In the past 12 months have y ou been in a relationship with a person who hurts, threatens, or tries to control you? No 10/23/2023 Comments No Sex and Gender Information Value Date Recorded Sex Assigned at Not on file Legal Sex Female 10:05 PM EDT Gender Identity Not on file Sexual Orientation Not on file documented as of this encounter Plan of Treatment Upcoming Encounters Date Type Department Care Team (Late st Contact Info) Description 07/07/2025 2:30 PM EST Office Visit [facility] [place] Internal Medicine [address] [place] [address] Hernan Cheek MD [address] [place] [address] documented as of this encounter Visit Diagnoses Not on filedocumented in this encounter Additional Health Concerns Assessment Noted Time PHQ-2 Depression Total Score: 0 10/23/19 24 9:43 AM EDT documented as of this encounter Care Teams Mask Layout Designer Relationship Specialty Start Date End Date Hernan Cheek MD [address] [place] [address] PCP - General Internal Medicine 05/24/20 Sydni Parr MD [address] [place] [address] Ophthalmology 07/30/20 Enmanuel Abel MD [address] [place] [address] Dr BURCH [address] [place] [address] Ophthalmology 07/30/20 Ros Joseph MD [address] [place] [address] Internal Medicine 07/30/20 Rod Kowalski MD [address] [place] [address], [address] [place] [address] [email or web address] Psychiatry 07/30/20 documented as of this encounter Additional Source Comments The information contained in this document represents components of the legal health record. It is not the complete legal health record.[facility]
--- OUTSIDE RECORDS SUMMARY | 2025-05-10 07:48 | XMS_ITS | Encounter Summary ---
Author Organization [facility] Address [address] [facility] [address] [place] [address] Phone Care Team Providers Care Acquisitions Logistics Analyst Name Role Phone Hernan Cheek MD Primary Care Provider Kaiser Hernandez Unavailable [phone] Hernan Cheek MD Unavailable Brice Thibodeaux MD Unavailable Cha Thomas MEDICAL INSURANCE COLLECTOR Unavailable [phone] Delmy Russell MEDICAL INSURANCE COLLECTOR Unavailable [phone] Miguel Martinez MD Unavailable Hernan Cheek MD Primary Care Provider [phone] Sydni Parr MD Unavailable Enmanuel Abel MD Unavailable Ros Joseph MD Unavailable Rod Kowalski MD Unavailable Encounter Details Date Type Department Care Team (Latest Contact Info) Description 09/29/2017 Transcribe Orders [facility] [address] [place] [address] Toby Antoine MD [address] [facility], [address] [place], [place] [id number] [email or web address] Interstitial lung disease (Primary Dx) Social History Tobacco Use Types Packs/Day Years Used Date Smoking Tobacco: Never Smokeless Tobacco: Never Alcohol Use Standard Drinks/Week Comments Yes 5 (1 standard drink = 0.6 oz pur e alcohol) Comments Unknown Sex and Gender Information Value Date Recorded Sex Assigned at Not on file Legal Sex Female 10:05 PM EDT Gender Identity Not on file Sexual Orientation Not on file documented as of this encounter Plan of Treatment Upcoming Encounters Date Type Department Care Team (Late st Contact Info) Description 07/07/2025 2:30 PM EST Office Visit [facility] Internal Medicine [address] [place], [place] [phone] Hernan Cheek MD [address] [place] [id number] [email or web address] documented as of this encounter Visit Diagnoses Diagnosis Interstitial lung disease- Primary Postinflammatory pulmonary fibrosis documented in this encounter Additional Health Concerns Infection Onset Date Last Indicated Resolved Time CoV-Risk 04/09/2021 04/09/2021 04/19/2021 1:24 AM EDT CoV-Presumed 05/14/2022 05/14/2022 06/04/2022 1:23 AM EDT Assessment Noted Time PHQ-2 Depression Total Score: 0 08/28/19 18 3:32 PM EST documented as of this encounter Care Teams Acquisitions Logistics Analyst Relationship Specialty Start Date End Date Hernan Cheek MD [address] [place] [address] PCP - General 05/26/17 05/23/20 Hernan Cheek MD [address] [place] [address] PCP - General Internal Medicine 05/24/20 Kaiser Hernandez PA [address] [place] [address] Historical LMR Provider 05/28/17 Hernan Cheek MD [address] [place] [address] Historical LMR Provider 05/28/17 02/28/19 Brice Thibodeaux MD [address] [place] [address] Historical LMR Provider 05/28/1704/08 Cha Thomas NP [address] [place] [address] Historical LMR Provider 05/28/17 Delmy Russell NP [address] [place] [address] [address] [place] [address] Historical LMR Provider 05/28/17 02/28/19 [place] [address] Historical LMR Provider 05/28/17 1 Sydni Parr MD [address] [place] [address] Ophthalmology 07/30/20 Enmanuel Abel MD [address] [place] [address] Ophthalmology 07/30/20 Ros Joseph MD [address] [place] [address] Internal Medicine 07/30/20 Rod Kowalski MD [address] [place] [address], [address] [place] [address] [email or web address] Psychiatry 07/30/20 documented as of this encounter Additional Source Comments The information contained in this document represents components of the legal health record. It is not the complete legal health record.[facility]
--- OUTSIDE RECORDS SUMMARY | 2025-05-10 07:48 | XMS_ITS | Encounter Summary ---
Author Organization [facility] Address [address] [facility] [address] [place] [address] Phone Care Team Providers Care Gear Technician Name Role Phone Hernan Cheek MD Primary Care Provider [phone] Sydni Parr MD Unavailable Enmanuel Abel MD Unavailable Ros Joseph MD Unavailable Rod Kowalski MD Unavailable Encounter Details Date Type Department Care Team (Late st Contact Info) Description 08/18/2024 Procedure Pass Non-Invasive Cardiology [address] [place] [address] Social History Tobacco Use Types Packs/Day Years Used Date Smoking Tobacco: Never Smokeless Tobacco: Never Alcohol Use Standard Drinks/Week Comments Yes 0 (1 standard drink = 0.6 oz pur e alcohol) 2-3 Kahlua nightly Education Answer Date Recorded Are you interested [...] Description 07/07/2025 2:30 PM EST Office Visit [facility] Internal Medicine [address] [place] [address] Hernan Cheek MD 40 [place] [address] documented as of this encounter Visit Diagnoses Not on filedocumented in this encounter Additional Health Concerns Assessment Noted Time PHQ-2 Depression Total Score: 0 10/23/19 24 9:43 AM EDT documented as of this encounter Care Teams Gear Technician Relationship Specialty Start Date End Date Hernan Cheek MD [address] [place] [address] PCP - General Internal Medicine 05/24/20 Sydni Parr MD [address] [place] [address] Ophthalmology 07/30/20 Enmanuel Abel MD [address] [place] [address] [place] [address] Ophthalmology 07/30/20 Ros Joseph MD [address] [place] [address] Internal Medicine 07/30/20 Rod Kowalski MD [address] [place] [address], [address] [place] [address] [email or web address] Psychiatry 07/30/20 documented as of this encounter Additional Source Comments The information contained in this document represents components of the legal health record. It is not the complete legal health record.[facility]
--- OUTSIDE RECORDS SUMMARY | 2025-05-10 07:48 | XMS_ITS | Patient Health Record ---
Author Organization [facility] Address [address] [place] [address] Care Team Providers Care Lot Worker Name Role Phone Hernan Cheek MD Primary Care Provider Lenin Duggan Jr Unavailable [phone] Allergies Allergen (clinical drug ingredient) Drug/Non Drug Allergy documented on EMR Reaction Allergy Type Onset Date Status ibuprofen Ibuprofen hives Drug Allergy Active Reason For Referral Referring Provider First Name Hernan Referring Provider Last Name Ham Referring Provider Speciality Internal M edicine Referred Organization [facility] Referred Provider Lenin Doyle Jr Referred Address [address] [facility],[place], [place],[address], Referred Provider Specialty Gastroentero logy Referral Priority [...] Problem Status W/U Status Risk Notes Problem [id number] Colon cancer screening (Z12.11) Active confirmed Problem [id number] Epigastric pain (R10.13) Active confirmed Problem [id number] Gastroesophageal reflux disease with esophagitis (K21.0) Active confirmed Encounters Encounter Location Date Provider Diagnosis [facility] [address] [place] [phone] 05/19/2024 Lenin Doyle Jr [facility] [address] [place] [phone] 09/05/2024 Lenin Doyle Jr Plan Of Treatment Future Test Test Name Order Date COLONOSCOPY 06/07/2014 UPPER GI ENDOSCOPY 11/10/2018 Insurance Providers Payer Name Payer Address Payer Phone Subscriber Number Group Number Insured Name Patient Relationship to Insured Coverage Start Date Coverage End Date [employer] PREF[employer]ED [address] [place] [phone] [id number] [place] Self - patient is the insured Medical (General) History Medical History History ICD Code hypertension depression 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
--- OUTSIDE RECORDS SUMMARY | 2025-05-10 07:49 | XMS_ITS | Encounter Summary ---
Author Organization [facility] Address [address] [facility] [address] [place] [address] Phone Care Team Providers Care Catalytic Converter Operator Name Role Phone Hernan Cheek MD Primary Care Provider [phone] Sydni Parr MD Unavailable Enmanuel Abel MD Unavailable Ros Joseph MD Unavailable [phone] Rod Kowalski MD Unavailable Encounter Details Date Type Department Care Team (Late st Contact Info) Description 07/13/2023 Transcribe Orders [facility] Lab [address] [place] [address] Ricardo Thompson MD [address] [place] [phone] [email or web address] Social History Tobacco Use Types Packs/Day Years [...] with a working camera? Not on file Comments No Sex and Gender Information Value Date Recorded Sex Assigned at Not on file Legal Sex Female 10:05 PM EDT Gender Identity Not on file Sexual Orientation Not on file documented as of this encounter Plan of Treatment Upcoming Encounters Date Type Department Care Team (Late st Contact Info) Description 07/07/2025 2:30 PM EST Office Visit [facility] Internal Medicine [address] [place], [place] [id number] Hernan Cheek MD 40 [place] [address] [email or web address] documented as of this encounter Visit Diagnoses Not on filedocumented in this encounter Additional Health Concerns Assessment Noted Time PHQ-2 Depression Total Score: 0 09/01/19 23 9:06 AM EST documented as of this encounter Care Teams Catalytic Converter Operator Relationship Specialty Start Date End Date Hernan Cheek MD 40 [place] [address] [email or web address] PCP - General Internal Medicine 05/24/20 Sydni Parr MD [address] [place] [address] Ophthalmology 07/30/20 Enmanuel Abel MD [address] [place] [address] [phone] Ophthalmology 07/30/20 Ros Joseph MD [address] [place] [address] Internal Medicine 07/30/20 Rod Kowalski MD [address] [place] [address], [address] [place] [address] [email or web address] Psychiatry 07/30/20 documented as of this encounter Additional Source Comments The information contained in this document represents components of the legal health record. It is not the complete legal health record.[facility]
--- OUTSIDE RECORDS SUMMARY | 2025-05-10 07:49 | XMS_ITS | Encounter Summary ---
Author Organization [facility] Address [address] [facility] [address] [place] [address] Phone Care Team Providers Care Radarman Name Role Phone Hernan Cheek MD Primary Care Provider [phone] Sydni Parr MD Unavailable Enmanuel Abel MD Unavailable [phone] Ros Joseph MD Unavailable [phone] Rod Kowalski MD Unavailable [phone] Encounter Details Date Type Department Care Team (Late st Contact Info) Description 04/28/2025 Orders Only [facility] Internal Medicine [address] [place] [address] Provider, MD Adry [address] [place] [address] Social History Tobacco Use Types Packs/Day Years Used Date Smoking Tobacco: Never Smokeless Tobacco: Never Alcohol Use Standard Drinks/Week Comments Not Currently 0 (1 standard drink = 0.6 oz pur e alcohol) last drink 08/2024 Education Answer Date Recorded Are you interested in more education? Not on ai e 12/05/2022 Are you concerned about learning? Not on file 12/05/2022 No 12/05/2022 No 12/05/2022 Digital Access Answer Date Recorded No 01/02/2023 No 01/02/2023 Reliable internet access at home? Not on file 01/02/2023 Device with a working camera? Not on file Intimate Partner Violence Answer Date R ecorded Are you denied basic needs s uch as food, clothing, or medical care? No 01/16/2025 In the past 12 months have y ou been in a relationship with a person who hurts, threatens, or tries to control you? No 01/16/2025 Are you denied basic needs s uch as food, clothing, or medical care? No 01/16/2025 In the past 12 months have y ou been in a relationship with a person who hurts, threatens, or tries to control you? No 01/16/2025 Comments No Sex and Gender Information Value Date Recorded Sex Assigned at Not on file Legal Sex Female 10:05 PM EDT Gender Identity Not on file Sexual Orientation Not on file documented as of this encounter Plan of Treatment Upcoming Encounters Date Type Department Care Team (Late st Contact Info) Description 07/07/2025 2:30 PM EST Office Visit [facility] Internal Medicine [address] [place] [address] Hernan Cheek MD 40 [place] [address] [email or web address] documented as of this encounter Procedures Procedure Name Priority Date/Time Associated Diagnosis Comments OUTSIDE XR SPINE REPORT ONLY Routine 04/25/2025 1:52 PM EDT documented in this encounter Results * Outside XR Spine Report Only (04/25/2025 1:52 PM EDT) us Historical Provider MD LARSON XR SPINE Final Res ult documented in this encounter Visit Diagnoses Not on filedocumented in this encounter Additional Health Concerns Assessment Noted Time PHQ-2 Depression Total Score: 0 10/23/19 24 9:43 AM EDT documented as of this encounter Care Teams Radarman Relationship Specialty Start Date End Date Hernan Cheek MD [address] [place] [address] PCP - General Internal Medicine 05/24/20 Sydni Parr MD [address] [address] Ophthalmology 07/30/20 Enmanuel Abel MD [address] [place] [address] Ophthalmology 07/30/20 Ros Joseph MD [address] [place] [address] Internal Medicine 07/30/20 Rod Kowalski MD [address] [place] [address], [facility] [address] [place] [address] [email or web address] Psychiatry 07/30/20 documented as of this encounter Additional Source Comments The information contained in this document represents components of the legal health record. It is not the complete legal health record.[facility]
--- OUTSIDE RECORDS SUMMARY | 2025-05-10 07:49 | XMS_ITS | Encounter Summary ---
Author Organization [facility] Address [address] [facility] [address] [place] [address] Phone Care Team Providers Care Capture Manager Name Role Phone Hernan Cheek MD Primary Care Provider Sydni Parr MD Unavailable Enmanuel Abel MD Unavailable Ros Joseph MD Unavailable Rod Kowalski MD Unavailable [phone] Encounter Details Date Type Department Care Team (Late st Contact Info) Description 01/16/2025 Procedure Pass [facility] Endoscopy Admitting Dept Virtual Department [address] [place] [address] Social History Tobacco Use Types Packs/Day Years Used Date Smoking Tobacco: Never Smokeless Tobacco: Never Alcohol Use Standard Drinks/Week Comments Yes 0 (1 standard drink = 0.6 oz pur e alcohol) 2-3 x weekly [employer] Education Answer Date Recorded Are you interested [...] Description 07/07/2025 2:30 PM EST Office Visit [facility] Internal Medicine [address] [place] [address] Hernan Cheek MD [address] [place] [address] documented as of this encounter Visit Diagnoses Not on filedocumented in this encounter Additional Health Concerns Assessment Noted Time PHQ-2 Depression Total Score: 0 10/23/19 24 9:43 AM EDT documented as of this encounter Care Teams Capture Manager Relationship Specialty Start Date End Date Hernan Cheek MD [address] [place] [address] PCP - General Internal Medicine 05/24/20 Sydni Parr MD [address] [place] [address] Ophthalmology 07/30/20 Enmanuel Abel MD [address] [place] [address] [facility] [place] [address] Ophthalmology 07/30/20 Ros Joseph MD [address] [place] [address] Internal Medicine 07/30/20 Rod Kowalski MD [address] [place] [address], [facility] [address] [place] [address] [email or web address] Psychiatry 07/30/20 documented as of this encounter Additional Source Comments The information contained in this document represents components of the legal health record. It is not the complete legal health record.[facility]
--- OUTSIDE RECORDS SUMMARY | 2025-05-10 07:49 | XMS_ITS | Clinical Summary ---
Author Organization [facility] Address [address] [facility] [address] [place] [phone] Phone Care Team Providers Care Guide Cruise Name Role Phone Hernan Cheek MD Primary Care Provider [phone] Sydni Parr MD Unavailable Enmanuel Abel MD Unavailable Ros Joseph MD Unavailable [phone] Rod Kowalski MD Unavailable Allergies Active Allergy Reactions Criticality Noted Date Comments Ibuprofen Hives 08/27/2017 Medications buPROPion (WELLBUTRIN XL) 300 MG ER 24 hr tablet Take 600 mg by mouth every morning. Active b complex vitamins capsule Take 1 capsule by mouth daily. Active timolol (TIMOPTIC) 0.5 % ophthalmic solutionIndicatio ns:malignant glaucoma Place 1 drop into each eye daily. 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 Active magnesium citrate 125 mg Cap Take 250 mg by mouth daily. Active meclizine (ANTIVERT) 25 mg tabletIndications :Dizzy TAKE ONE TABLET BY MOUTH EVERY 6 HOURS NEEDED FOR DIZZINESS 30 tablet 1 Active SODIUM FLUORIDE 5000 PLUS 1.1 % Crea 024 Active ondansetron (ZOFRAN-ODT) 4 MG disintegrating tabletIndications :Nausea and vomiting, unspecified vomiting type Take 1 tablet (4 mg total) by mouth every 8 (eight) hours as needed for nausea. 30 tablet 1 025 Active omeprazole (PRILOSEC) 20 MG tablet Take 20 mg by mouth every morning. Active dextroamphetamine /amphetamine (ADDERALL ORAL) Take 10-20 mg by mouth daily as needed. Active amLODIPine (NORVASC) 2.5 MG tabletIndications :Essential hypertension Take 1 tablet (2.5 mg total) by mouth daily. 30 tablet 2 025 Active gabapentin (NEURONTIN) 100 MG capsule Take 100 mg by mouth nightly at bedtime. 025 Active cyclobenzaprine (FLEXERIL) 5 MG tabletIndications :Cervicalgia Take 1 tablet (5 mg total) by mouth 2 (two) times a day as needed (neck pain). 20 tablet 025 Active lidocaine (LIDODERM) 5 %Indications:Cerv icalgia Place 1 patch onto the skin daily. Remove & Discard patch within 12 hours or as directed by 10 patch 025 Active predniSONE (DELTASONE) 10 MG tabletIndications :Cervicalgia 4 tablets daily with food for 5 days 20 tablet 025 Active oxyCODONE 5 MG immediate release tabletIndications :Cervicalgia,Arth ralgia of shoulder, unspecified laterality Partial fill ok 2 tablets p.o. q8 hours prn neck and shoulder pain 30 tablet 025 Active lisinopril (ZESTRIL) 10 MG tabletIndications :Essential hypertension 10mg (1 tablet) in the morning and 10mg (1 tablet) in the afternoon. 90 tablet 025 Active lisinopril (PRINIVIL,ZESTRIL ) 20 MG tabletIndications :Essential hypertension Take 1 tablet (20 mg total) by mouth daily. 90 tablet 3 024 Discontinued(D ose adjustment) lisinopril (ZESTRIL) 10 MG tabletIndications :Essential hypertension 10mg (1 tablet) in the morning and 10mg (1 tablet) in the afternoon. 90 tablet 3 025 2024 Discontinued(R eorder) oxyCODONE 5 MG immediate release tabletIndications :Cervicalgia Take 1 tablet (5 mg total) by mouth 2 (two) times a day as needed for pain (specific location in comments) (in neck). Partial fill ok 15 tablet 025 2024 Discontinued Active Problems Problem Noted Date Diagnosed Date Postmenopausal 03/30/2025 Assessment & Plan (03/30/2025 10:37 AM EDT): She notes a recent toe fracture for which a DEXA scan was ordered by her PCP for osteoporosis screening. She is not sure if she should continue forward with a DEXA screening. Discussed indications for bone density screening including being a postmenopausal female over the age of 65. Discussed the risk versus benefits of getting it done. Discussed the risk versus benefits of treatment of osteoporosis. Advised that she can always do calcium and vitamin D3 supplementation and weightbearing exercises. She is planning on moving forward with getting the DEXA scan. Mitral valve insufficiency 01/31/2025 Dehydration 05/19/2024 Assessment & Plan (05/19/2024 12:39 PM EDT): She has been vomiting for several day. Now orthostatic- [place] [facility] [place] Falling 05/19/2024 Assessment & Plan (05/19/2024 1:58 PM EDT): This is a 73 yr old female who previously was well living along in the community who pres for eval for falling N/V for several days dating back to approx 05/04/24. She is dehydrated, falling at home. + romberg on exam. Gait abnormality. Some poor memory- not recalling that I am concerned for a stroke and why we are sending to ER- We need to rule out for acute CVA, she will go to ER via ambulance [place] [facility] Dizzy 05/19/2024 Assessment & Plan (05/19/2024 1:58 PM EDT): She is orthostatic and falling at home- was previously healthy and well living alone in the community. Sending via ambulance to ED, [facility] [place] for acute CVA, IVF and further work up Hearing loss of right ear due to cerumen impacti on 10/22/2022 Assessment & Plan (10/22/2022 10:00 AM EDT): Cerumen impaction positive right ear and with the patient's consent irrigation plus instrumentation performed to remove stringy dry elastic wax strands. There was not a large amount but after the wax was removed and no bleeding within the ear canal, eardrum could be seen behind a thin layer of wax. Patient advised on the right ear to apply 5 drops of hydrogen peroxide 3% solution and let sit for 30 minutes repeat daily for 3 to 4 days. She can do the same on the left-hand side and it is less necessary on that side but will reduce the wax buildup that was there which was minimal. Bronchospasm with bronchitis, acute 10/22/2022 Assessment & Plan (10/22/2022 10:02 AM EDT): Bronchitis with bronchospasm and some. Sinus pressure, Z-Brian prescribed, albuterol 2 puffs every 6 hours as needed, patient may also take the albuterol scheduled at night. Recommend Robitussin-DM 4-5 times a day as needed to break up phlegm and suppress cough. No rales heard so we will hold off on getting a chest x-ray, she has an appointment with her provider in February and then she had remarked also with pulmonology regarding PFTs that were taken previously. Interestingly her hearing improved remarkably when cerumen was removed though I told her it might improve even more once her upper respiratory symptoms subside given eustachian tube dysfunction with hearing impairment. So once the respiratory illness is completely subsided her hearing will be 100%. Obesity, Class II, BMI 35-39.9 01/28/2021 Cellulitis of left lower extremity 05/24/2020 Acute deep vein thrombosis ( DVT) of proximal vein of lower extremity 12/18/2017 Impaired fasting glucose 12/18/2017 Age-related cataract of both eyes 10/16/2017 Malaise and fatigue 10/16/2017 Cough 08/28/2017 Depression 08/28/2017 Essential hypertension 08/28/2017 Assessment & Plan (03/30/2025 10:36 AM EDT): She has had recent blood pressure medication adjustments and is currently taking lisinopril 10 mg in the morning and 10 mg before bed and it continues to note that her blood pressure is elevated. She did bring in her blood pressure cuff into the office today and we compared her blood pressure cuff reading to the an office blood pressure cuff reading and they were consistent. She is placing the blood pressure cuff appropriately on her arm. Blood pressure in the office today was 156/92. Given her consistent elevated blood pressure readings at home with systolics ranging between the 130s to 140s and diastolics in the high 80s and low 90s, I do believe that making a medication adjustment is appropriate. We discussed increasing her lisinopril dosage versus adding on an additional medication at this time she would like to initiate amlodipine 2.5 mg daily. Advised that she should continue monitoring her blood pressure at home and be cautious of symptoms of hypotension which include dizziness and syncope. Will follow-up in 4 weeks to see how she is doing on this new blood pressure medication regimen. Side effects of amlodipine including lower extremity edema discussed, she has been on this medication before and tolerated it well. Gastroesophageal reflux disease 08/28/2017 History of sleep apnea 08/28/2017 Old anterior cruciate ligament disruption 2017 Disorder involving thrombocytopenia 08/28/2017 Peripheral venous insufficiency 08/28/2017 Tendinitis of right wrist 08/28/2017 Resolved Problems Problem Noted Date Diagnosed Date Resolved Date Chronic renal failure, stage 3 (moderate) 08/28/2017 07/30/2020 Encounters Date Type Department Care Team Description 05/01/2025 4:30 PM EDT Office Visit [facility] Internal Medicine [address] [place] [address] Hernan Cheek MD Essential hypertension (Primary Dx); Impaired fasting glucose; Gastroesophageal reflux disease without esophagitis 05/01/2025 3:37 PM EDT - 05/01/2025 11:59 PM EDT Hospital Encounter [facility] [address] [place] [address] Hernan Cheek MD Discharge Disposition: Home or Self Care 04/30/2025 Refill [facility] Internal Medicine [address] [place] [address] Hernan Cheek MD Medication Refill 04/28/2025 Orders Only [facility] Internal Medicine [address] [place] [address] ProviderAdry MD 04/26/2025 Telephone [facility] Internal [facility] [address] [place] [address] Hernan Cheek MD Referral (Ophthalmology ) 04/25/2025 Telephone [facility] Internal [facility] [address] [place] [address] Mary Jo Woodson, [facility] memory problems 04/24/2025 Telephone [facility] Internal [facility] [address] [place] [address] Mary Jo Woodson, [facility] Dizziness; off balance 04/20/2025 Telephone [facility] [address] [place] [address] Hernan Cheek MD Right shoulder pain 04/20/2025 Telephone [facility] Internal [facility] [address] [place] [address] Gutierrez, Leon Medication Prior Authorization (Lidocaine 5% patches.) 04/18/2025 Telephone [facility] [address] [place] [address] Mary Jo Woodson, [facility] Follow-up 04/17/2025 3:30 PM EDT Office Visit [facility] Internal [facility] [address] [place] [address] Hernan Cheek MD Cervicalgia (Primary Dx); Benign essential hypertension 04/05/2025 9:51 AM EDT - 04/05/2025 11:59 PM EDT Hospital Encounter [facility] [address] [place] [address] Michele Kowalski MD Discharge Disposition: Home or Self Care 03/30/2025 10:20 AM EDT Office Visit [facility] Internal Medicine [address] [place] [address] Lacie Goodrich PA-C Essential hypertension (Primary Dx); Postmenopausal 03/16/2025 Telephone [facility] Internal Medicine [address] [place] [address] Hernan Cheek MD bone density 02/17/2025 7:09 AM EDT - 02/17/2025 11:59 PM EDT Hospital Encounter [address] [address] Hernan Cheek MD Discharge Disposition: Home or Self Care 02/17/2025 Telephone [facility] Internal Medicine [address] [place] [address] Hernan Cheek MD [facility] gastro referral request 02/08/2025 Telephone [facility] Internal Medicine [address] [place] [address] Ruby Stroud, RN referrals 01/31/2025 Procedure Pass [address] [address] from Last 3 Months Immunizations Immunization Administration Dates Next Due COVID-19 (Pre-06/01) Moderna Vaccine, mRNA, PF 0 11/01/2020,10/04/2020 Pneumococcal conjugate PCV13 09/27/2014 Pneumococcal polysaccharide PPSV23 09/08/2016 RSV Vaccine (monovalent, adjuvanted) 10/26/2023 Tdap 09/15/2022,11/18/2011 Zoster live 11/18/2011 Zoster recombinant 06/25/2023,04/22/2023 Family History Medical History Relation Comments Diabetes Father from complications of diabetes Heart failure Maternal Aunt Cardiovascular disease Mother Diabetes Mother Hypertension Mother at age 83 Breast cancer Niece Liver cancer Niece Relation Status Comments Brother Alive Father Maternal Aunt Alive Mother Niece Alive Social History Tobacco Use Types Packs/Day Years Used Date Smoking Tobacco: Never Smokeless Tobacco: Never Tobacco Cessation:Counseling Given: Not Answered Alcohol Use Standard Drinks/Week Comments Not Currently [...] on file Sexual Orientation Not on file Last Filed Vital Signs Vital Sign Reading Time Taken Comments Blood Pressure 124/82 05/01/2025 4:27 PM EDT Pulse 80 05/01/2025 4:27 PM EDT Temperature 36.2 C (97.2 F) 05/01/2025 4:27 PM EDT Respiratory Rate 13 05/01/2025 4:27 PM EDT Oxygen Saturation 98% 05/01/2025 4:27 PM EDT Inhaled Oxygen Concentration - - Weight 67.3 kg (148 lb 6.4 oz) 05/01/2025 4:27 P M EDT Height 152.4 cm (5') 05/01/2025 4:27 PM EDT Body Mass Index 28.98 05/01/2025 4:27 PM EDT Plan of Treatment Upcoming Encounters Date Type Department Care Team (Late st Contact Info) Description 07/07/2025 2:30 PM EST Office Visit [facility] Internal Medicine [address] [place] [address] Hernan Cheek MD [address] [place] [address] [email or web address] Health Maintenance Due Date Last Done Comments DEPRESSION SCREENING 10/22/2024 10/23/2023 COVID-19 VACCINE ( season) 2025 11/20/2022, 06/11/2021, 11/01/2020, Additional history exists CREATININE LEVEL 10/27/2025 10/27/2024, 11/2024, 05/04/2024, Additional history exists POTASSIUM LEVEL 10/27/2025 10/27/2024, 11/2024, 05/04/2024, Additional history exists BLOOD PRESSURE 10/29/2025 05/01/2025 LIPID PANEL 10/22/2028 10/23/2023, 08/11, 02/13/2022, Additional history exists FOLLOW UP BONE DENSITY TESTING 03/17/2030 03/17/2025, 02/26/2021, 08/21/1999 Adult Td,Tdap Booster 09/15/2032 09/15/2022, 012 PNEUMOCOCCAL VACCINES (50+ years) Completed 09/08/2016, 09/27/2014 HEPATITIS C SCREENING Completed 07/24/2020, 018 ZOSTER VACCINES Completed 06/25/2023, 04/10, 11/18/2011 RSV VACCINE Completed 10/26/2023 OSTEOPOROSIS SCREENING INITIAL (ONE-TIME) Completed 03/17/2025, 02/26/2021, 08/21/1999 SMOKING STATUS SCREENING (Once After 26 Yrs) Completed 05/01/2025 HEPATITIS A VACCINES Aged Out No long er eligible based on patient's age to complete this topic HIB VACCINES Aged Out No longer eligi ble based on patient's age to complete this topic MENINGOCOCCAL VACCINES (ACWY) Aged Out No longer eligible based on patient's age to complete this topic MENINGOCOCCAL VACCINES (B) Aged Out N o longer eligible based on patient's age to complete this topic Medical Devices Not on file Procedures Procedure Name Priority Date/Time Associated Diagnosis Comments LYME SCREEN WITH REFLEX TO WESTERN BLOT, BLOOD Routine 05/01/2025 3:38 PM EDT Dizziness Pain in joints OUTSIDE XR SPINE REPORT ONLY Routine 04/25/2025 1:52 PM EDT MONOCLONAL PROTEIN STUDY, SERUM Routine 04/05/2025 10:13 AM EDT Neuropathy TISSUE TRANSGLUTAMINASE IGA Routine 04/05/2025 10:13 AM EDT Neuropathy BD DXA SCREENING Routine 03/17/2025 7:16 PM EDT Postmenopausal estrogen deficiency MRI BRAIN (INTERNAL AUDITORY CANAL) WITH AND WITHOUT CONTRAST Routine 02/17/2025 9:35 AM EDT Dizziness and giddiness [place] BASIC METABOLIC PANEL Routine 10/27/2024 11:29 AM EDT Primary hypertension LIPID PANEL Routine 10/23/2023 11:44 AM EDT Essential hypertension HEPATITIS C ANTIBODY, QUALITATIVE Routine 07/24/2020 8:27 AM EST Need for hepatitis C screening test from Last 3 Months or Most Recently Relevant to Health Maintenance Results * Lyme Screen with Reflex to Immunoblot, Blood (05/01/2025 3:38 PM EDT) Lyme AB IgG Negative Negative [facility] Lyme AB IgM Negative Negative [facility] Blood 05/01/2025 3:38 PM EDT 05/01/2025 3:40 PM EDT us Hernan Cheek MD LAB BLOOD ORDERABLES Final Re sult [facility] [address] [place] [address] * Outside XR Spine Report Only (04/25/2025 1:52 PM EDT) us Historical Provider [place] XR SPINE Final Res ult * (ABNORMAL) Monoclonal protein study, serum (04/05/2025 10:13 AM EDT) M-protein GK Test component not applicable or not reported. g/dL [facility]/[address] M-protein GL Test component not applicable or not reported. g/dL [facility]/[address] M-protein AK Test component not applicable or not reported. g/dL [facility] DR M-protein AL Test component not applicable or not reported. g/dL [facility] DR M-protein MK Test component not applicable or not reported. g/dL [facility]/[address] M-protein ML Test component not applicable or not reported. g/dL [facility] DR Glycosylation Test component not applicable or not reported. [facility] DR Flag, M-protein Isotype Negative Negative [facility] DR QMPTS Interpretation No monoclonal protein detected. [facility] Comment: (NOTE) ADDITIONAL INFORMATION The submitted sample was assayed by five separate immunopurifications for IgG, IgA, IgM, kappa and lambda. The result reflects the findings of either no monoclonal protein detected or those monoclonal immunoglobulins that were detected. This test was developed and its performance characteristics determined by [facility] in a manner consistent with CLIA requirements. This test has not been cleared or approved by the U.S. Food and Drug Administration. IgA 530(H) 61 - 356 mg/dL [facility] DR IgM 177 37 - 286 mg/dL [facility] DR IgG 1,520 767 - 1,590 mg/dL [facility] DR Therapeutic Antibody Administered? Unknown [facility] Comment:Corrected on 04/07 A T 1127: previously reported as [facility] Blood 04/05/2025 10:1 3 AM EDT 04/05/2025 10:20 AM EDT Michele Kowalski MD LAB BLOOD ORDERABLES Edited Result - Final Performing Organization Address City/[facility]/ZIP Co de Phone Number [facility] [place] [address] * Tissue transglutaminase IgA (04/05/2025 10:13 AM EDT) TTG IGA ANTIBODY <1.2 <4.0 (Negative) U/mL [facility] Blood 04/05/2025 10:1 3 AM EDT 04/05/2025 10:20 AM EDT us Michele Kowalski MD LAB BLOOD ORDERABLES Final R esult Performing Organization Address [facility] Co de Phone Number [facility] [place] [address] * MRI BRAIN (INTERNAL AUDITORY CANAL) WITH AND WITHOUT CONTRAST (02/17/2025 9:35 AM EDT) Anatomical Region Laterality Modality Head Magnetic Resonan ce 02/17/2025 4:23 PM EDT Impressions 02/17/2025 4:32 PM EDT 1. No cochlear or retrocochlear mass lesion or abnormal enhancement. 2. Probable moderate chronic small vessel disease similar to May 28, 2024. Narrative 02/17/2025 4:32 PM EDT MRI BRAIN (INTERNAL AUDITORY CANAL) WITH AND WITHOUT CONTRAST Referring clinician's provided indication for this examination in [facility]: * Dizziness, persistent/recurrent, cardiac or vascular cause suspected; * Vertigo, central TECHNIQUE: Multi-sequence, multi-planar MRI of the brain including high resolution images of the temporal bones was performed before and after intravenous contrast. COMPARISON: MRI brain May 28, 2024 FINDINGS: Internal Auditory Canals, Cerebellopontine Angles, and Intracranial 7th and 8th Nerve Complexes: Normal. No cerebellopontine angle or internal auditory canal mass. Inner Ear Structures: Normal. Preserved signal in the labyrinth. No MRI evidence for an inner ear anomaly. Brain Parenchyma: No evidence of acute infarct, mass, hemorrhage or abnormal enhancement. There are scattered foci of T2 hyperintensity in the white matter, likely a manifestation of chronic small vessel disease. Ventricular System and Extra-Axial Spaces: Normal. No evidence of midline shift or hydrocephalus. Miscellaneous: None. Procedure Note Tavo Pierre, DO - 02/17/2025 MRI BRAIN (INTERNAL AUDITORY CANAL) WITH AND WITHOUT CONTRAST Referring clinician's provided indication for this examination in Epic: *Dizziness, persistent/recurrent, cardiac or vascular cause suspected; *Vertigo, central TECHNIQUE: Multi-sequence, multi-planar MRI of the brain including highresolution images of the temporal bones was performed before and afterintravenous contrast. COMPARISON: MRI brain May 28, 2024 FINDINGS: Internal Auditory Canals, Cerebellopontine Angles, and Intracranial 7thand 8th Nerve Complexes: Normal. No cerebellopontine angle or internalauditory canal mass. Inner Ear Structures: Normal. Preserved signal in the labyrinth. No MRIevidence for an inner ear anomaly. Brain Parenchyma: No evidence of acute infarct, mass, hemorrhage orabnormal enhancement. There are scattered foci of T2 hyperintensity in thewhite matter, likely a manifestation of chronic small vessel disease. Ventricular System and Extra-Axial Spaces: Normal. No evidence of midlineshift or hydrocephalus. Miscellaneous: None. IMPRESSION: 1. No cochlear or retrocochlear mass lesion or abnormal enhancement. 2. Probable moderate chronic small vessel disease similar to May. Hernan Cheek MD IM MR HEAD/NECK Final Result * (ABNORMAL) Basic metabolic panel (10/27/2024 11:29 AM EDT) SODIUM 142 133 - 146 mmol/L [facility] CHLORIDE 102 96 - 108 mmol/L [facility] POTASSIUM 4.0 3.3 - 5.1 mmol/L [facility] CO2 29 21 - 35 mmol/L [facility] BUN 14 6 - 19 mg/dL [facility] CREATININE 1.10 0.5 - 1.5 mg/dL [facility] GLUCOSE 93 70 - 99 mg/dL [facility] CALCIUM 9.7 8.4 - 10.3 mg/dL [facility] EGFR 52(L) >59 mL/min/1.7 3m2 [facility] Comment:Estimated glomerular filtration rate calculated using the CKD-EPI refit equation. ANION GAP 15 10 - 20 mmol/L [facility] Blood 10/27/2024 11:2 9 AM EDT 10/27/2024 11:33 AM EDT us Hernan Cheek MD LAB BLOOD ORDERABLES Final Re sult Performing Organization Address City/[facility]/ZIP Co de Phone Number [address] [phone] * (ABNORMAL) Lipid panel (10/23/2023 11:44 AM EDT) HDL 58 mg/dL [facility] Comment: Interpretation <40 mg/dL: Low HDL cholesterol (major risk factor for CHD) Greater than or equal to 60 mg/dL: High HDL cholesterol ( negative risk factor for CHD) HDL - cholesterol is affected by a number of factors, e.g. smoking, excerise, hormones, sex and age. CHOLESTEROL 175 0 - 240 mg/dL [facility] TRIGLYCERIDES 112 30 - 160 mg/dL [facility] LDL 95 50 - 129 mg/dL [facility] Comment: LDL levels in terms of risk for coronary heart disease: <100 mg/dL: Optimal 100-129 mg/dL: Near or above optimal 130-159 mg/dL: Borderline high 160-189 mg/dL: High >190 mg/dL: Very High CARDIAC RISK RATIO 3.0(L) 3.3 - 4.4 [facility] Blood 10/23/2023 11:4 4 AM EDT 10/23/2023 11:46 AM EDT us Hernan Cheek MD LAB BLOOD ORDERABLES Final Re sult Performing Organization Address City/[facility]/ZIP Co de Phone Number [address] [address] * DXA Screening (02/26/2021) Anatomical Region Laterality Modality Bone Density Bone Density us Hernan Cheek MD IMG BD BONE DENSITY DEXA Edit ed Result - Final * Hepatitis C antibody, qualitative (07/24/2020 8:27 AM EST) HCV NON-REACTIV E NON-REACTI VE [facility] Blood 07/24/2020 8:27 AM EST 07/24/2020 8:31 AM EST us Hernan Cheek MD LAB BLOOD ORDERABLES Final Re sult [facility] Organization Address City/State/ZIP Co de Phone Number [address] [address] from Last 3 Months or Most Recently Relevant to Health Maintenance Insurance [employer] Care Teams Guide Cruise Relationship Specialty Start Date End Date Hernan Cheek MD [address] [place] [address] PCP - General Internal Medicine 05/24/20 Sydni Parr MD [address] [place] [address] Ophthalmology 07/30/20 Enmanuel Abel MD [address] [place] [address] Ophthalmology 07/30/20 Ros Joseph MD [address] [place] [address] Internal Medicine 07/30/20 Rod Kowalski MD [address] [place] [address], [address] [place] [address] Psychiatry 07/30/20 Additional Source Comments The information contained in this document represents components of the legal health record. It is not the complete legal health record.[facility]
--- OUTSIDE RECORDS SUMMARY | 2025-05-10 07:49 | XMS_ITS | Encounter Summary ---
Author Organization [facility] Address [address] [facility] [address] [place] [phone] Phone Care Team Providers Care Mandolin Repair Person Name Role Phone Hernan Cheek MD Primary Care Provider Sydni Parr MD Unavailable Enmanuel Abel MD Unavailable Ros Joseph MD Unavailable [phone] Rod Kowalski MD Unavailable [phone] Encounter Details Date Type Department Care Team (Late st Contact Info) Description 01/31/2025 Procedure Pass [facility], [address] [address] Social History Tobacco Use Types Packs/Day Years [...] Description 07/07/2025 2:30 PM EST Office Visit [facility] Internal Medicine [address] [place] [address] Hernan Cheek MD [address] [place] [address] documented as of this encounter Visit Diagnoses Not on filedocumented in this encounter Additional Health Concerns Assessment Noted Time PHQ-2 Depression Total Score: 0 10/23/19 24 9:43 AM EDT documented as of this encounter Care Teams Mandolin Repair Person Relationship Specialty Start Date End Date Hernan Cheek MD [address] [place] [address] PCP - General Internal Medicine 05/24/20 Sydni Parr MD [address] [place] [address] Ophthalmology 07/30/20 Enmanuel Abel MD [address] [place] [address] [facility] [address] Ophthalmology 07/30/20 Ros Joseph MD [address] [place] [address] Internal Medicine 07/30/20 Rod Kowalski MD [address] [place] [address], [facility] [address] [place] [address] [email or web address] Psychiatry 07/30/20 documented as of this encounter Additional Source Comments The information contained in this document represents components of the legal health record. It is not the complete legal health record.[facility]
--- OUTSIDE RECORDS SUMMARY | 2025-05-10 07:49 | XMS_ITS | Encounter Summary ---
Author Organization [facility] Address [address] [facility] [address] [place] [address] Phone Care Team Providers Care Automatic Developer Name Role Phone Hernan Cheek MD Primary Care Provider Sydni Parr MD Unavailable Enmanuel Abel MD Unavailable Ros Joseph MD Unavailable [phone] Rod Kowalski MD Unavailable Encounter Details Date Type Department Care Team (Late st Contact Info) Description 12/08/2022 Procedure Pass [facility], Ct Scan - [address] [address] Social History Tobacco Use Types Packs/Day Years [...] on file 12/05/2022 No 12/05/2022 No 12/05/2022 Comments No Sex and Gender Information Value Date Recorded Sex Assigned at Not on file Legal Sex Female 10:05 PM EDT Gender Identity Not on file Sexual Orientation Not on file documented as of this encounter Plan of Treatment Upcoming Encounters Date Type Department Care Team (Late st Contact Info) Description 07/07/2025 2:30 PM EST Office Visit [facility] Internal Medicine [address] [place], [place] [phone] Hernan Cheek MD [address] [place] [address] documented as of this encounter Visit Diagnoses Not on filedocumented in this encounter Additional Health Concerns Assessment Noted Time PHQ-2 Depression Total Score: 0 09/01/19 23 9:06 AM EST documented as of this encounter Care Teams Automatic Developer Relationship Specialty Start Date End Date Hernan Cheek MD [address] [place] [address] PCP - General Internal Medicine 05/24/20 Sydni Parr MD [address] [place] [address] Ophthalmology 07/30/20 Enmanuel Abel MD [address] [place] [address] Ophthalmology 07/30/20 Ros Joseph MD [address] [place] [address] Internal Medicine 07/30/20 Rod Kowalski MD [address] [place] [address], [address] [place] [address] Psychiatry 07/30/20 documented as of this encounter Additional Source Comments The information contained in this document represents components of the legal health record. It is not the complete legal health record.[facility]
--- OUTSIDE RECORDS SUMMARY | 2025-05-10 07:49 | XMS_ITS | Clinical Summary ---
Author Organization [facility] Address [address] [place] [address] Care Team Providers Care Care Aid Name Role Phone Unavailable Primary Care Provider Unavailabl e Social History Tobacco Use Types Packs/Day Years Used Date Smoking Tobacco: Never Assessed Comments Unknown Sex and Gender Information Value Date Recorded Sex Assigned at Not on file Legal Sex Female 4:19 PM EDT Gender Identity Not on file Sexual Orientation Not on file Plan of Treatment Health Maintenance Due Date Last Done Comments Advance Care Planning 1950 Hepatitis C Virus Screening 1950 DTaP/Tdap/Td Vaccines (1 - Tdap) 1967 Pneumococcal Vaccines 50+ (1 of 1 - PCV) 1998 Zoster (Shingles) Vaccine (1 of 2) 1998 RSV Vaccine 60 years and older and Patients (1 - 1-dose 75+ series) 2023 COVID-19 Vaccine (3 - 2024-2 6 season) 2025 11/01/2020, 10/04/2020 Hepatitis B Vaccines Aged Out No long er eligible based on patient's age to complete this topic
--- OUTSIDE RECORDS SUMMARY | 2025-05-10 07:49 | XMS_ITS | Encounter Summary ---
Author Organization [facility] Address [address] [facility] [address] [place] [address] Phone Care Team Providers Care Informatic[employer] Mdm Developer Name Role Phone Hernan Cheek MD Primary Care Provider Sydni Parr MD Unavailable [phone] Enmanuel Abel MD Unavailable Ros Joseph MD Unavailable [phone] Rod Kowalski MD Unavailable Encounter Details Date Type Department Care Team (Late st Contact Info) Description 10/27/2024 Procedure Pass [facility] [address] [place] [address] Social History Tobacco Use Types Packs/Day Years [...] Description 07/07/2025 2:30 PM EST Office Visit [facility] Internal Medicine [address] [place], [place] [phone] Hernan Cheek MD [address] [place] [address] documented as of this encounter Visit Diagnoses Not on filedocumented in this encounter Additional Health Concerns Assessment Noted Time PHQ-2 Depression Total Score: 0 10/23/19 24 9:43 AM EDT documented as of this encounter Care Teams Informatic[employer] Mdm Developer Relationship Specialty Start Date End Date Hernan Cheek MD [address] [place] [address] PCP - General Internal Medicine 05/24/20 Sydni Parr MD [address] [place] [address] Ophthalmology 07/30/20 Enmanuel Abel MD [address] [place] [address] [place] [address] Ophthalmology 07/30/20 Ros Joseph MD [address] [place] [address] Internal Medicine 07/30/20 Rod Kowalski MD [address] [place] [address], [address] [place] [address] [email or web address] Psychiatry 07/30/20 documented as of this encounter Additional Source Comments The information contained in this document represents components of the legal health record. It is not the complete legal health record.[facility]
[2025-05-10 07:50] VITALS: BP 175/72; PULSE 70; RESP 16; O2SAT 96
[2025-05-10 07:53] LABS: Alanine Aminotransferase 1376 U/L (0-31); Albumin Level 4.2 g/dL (3.5-5.0); Alkaline Phosphatase 313 U/L (39-117); Anion Gap 17 (12-20); Aspartate Amino Transferase 1505 U/L (5-31); Blood Urea Nitrogen 20 mg/dL (9-16); Calcium 9.4 mg/dL (8.4-10.2); Carbon Dioxide 25 mmol/L (22-29); Chloride 103 mmol/L (96-108); Creatinine Clr Calc Pharmacy 50.1; Estimated Glomerular Filt Rate > 60; Lipase 113 U/L (8-78); Magnesium 1.8 mg/dL (1.6-2.6); Potassium 3.7 mmol/L (3.3-5.1); Sodium 141 mmol/L (135-145); Total Protein 8.2 g/dL (6.5-8.0)
[2025-05-10] MEDS: iohexoL 350 MG/ML 100 ML INFUS..BTL 85 ML IV (08:52)
[2025-05-10 09:52] VITALS: BP 125/68; PULSE 96; RESP 18; O2SAT 97
[2025-05-10 09:54] LABS: HBS Num1 0.00 mIU/mL (0-7.99); HBc Num1 0.10 S/CO (0.00-0.79); HBsAGNum1 0.38 S/CO (0.00-0.99); Hepatitis A Antibody IgM 0.17 Index (0-0.79); Hepatitis B Surface Antigen Negative (Negative); ~HepC Num1 0.08 S/CO (0.00-0.79); ~Hepatitis A Antibody IgM Nonreactive (Nonreactive); ~Hepatitis B Surface Antibody NONREACTIVE (Nonreactive); ~Hepatitis C Antibody Nonreactive (Nonreactive)
--- NOTE | 2025-05-10 10:18 | PC.NURSE ---
Presents from home via EMS for N/V and upper ABD pain that started after dinner last night. Reporting frequent BMs but not diarrhea. Alert and oriented, ambulatory at home with no assistive devices. Denying fevers, CP, SOB.
[2025-05-10 11:06] LABS: Appearance Urine Clear; Glucose Urine UA Negative (Negative); PH 6.0 (5.0-9.0); Specific Gravity - Urine >= 1.030 (1.005-1.025)
[2025-05-10 11:09] VITALS: RESP 20
--- NOTE | 2025-05-10 11:47 | PM.CNGS ---
History of Present Illness Consult details Consult date: 05/10/25 Requesting physician: Kely Bonner Narrative: 74-year-old female with history of chronic abdominal pain, ITP, HTN, DVT in the past not currently anticoagulated who presented to the ED with complaints of upper abdominal pain and vomiting. She reports she ate tinae neves from [employer] last night for dinner and shortly developed epigastric abdominal pain. She then developed nausea and vomiting. She was unable to keep any oral intake down including pepto bismol and tylenol she was trying to take for the pain. She reports having a few normal bowel movements last night. She denies fevers, chills, diarrhea, hematemesis. Due to the severity of the pain and inability to tolerate oral intake she presented to the ED for evaluation. Work up in the ED included CBC, BMP, LFTs which was significant for a leukocytosis of 15.7, and significantly elevated liver enzymes with total/direct bilirubin of 3.9/2.4, AST/ALT 1505/1376, lipase 113. CT scan abd pelvis showed cholelithiasis, mild gallbladder wall thickening and pericholecystic fluid with dilated intra and extrahepatic ducts. This was confirmed with ABD US. Hepatitis panel negative. She reports feeling improved with pain meds here and currently denies abd pain. She denies prior episodes of similar pain. She does report chronic nausea. She had an upper endoscopy at [facility] two months ago which she states was unrevealing. Her GI provider started her on omeprazole which she reports has not been helping her symptoms. She denies prior abdominal surgery. [facility] Past Medical History Medical History Glaucoma Chronic idiopathic thrombocytopenia Left ACL tear Depression HTN (hypertension) Right leg DVT Family History Family History Mother Heart disease HTN (hypertension) Diabetes Maternal Aunt H/O heart bypass surgery HTN (hypertension) Diabetes Brother S/P triple vessel bypass Stroke Surgical History Surgical History Hx of tonsillectomy Hx of cataract extraction Social History Social History Alcohol intake: current Alcohol intake frequency: 0-2 drinks per day Alcohol type: hard liquor Patient Tobacco Use Status: Never used Tobacco Smoked in Last 30 Days: No Use of substances other than those prescribed or required for medical reasons: No Advance Directives: Yes Advance Directives Information Provided: No Advance Directives on File: No Current occupational status: retired Meds Allergies Allergy/AdvReac Type Severity Reaction Status Date / Time ibuprofen (IBUPROFEN) Allergy Unknown HIVES Verified 05/10/25 07:06 Home Medications ?Medication ?Instructions ?Recorded ?Confirmed ?Last Taken ?Type bupropion HCl 300 mg 24 hr tablet, 300 tab PO DAILY 08/30/20 09/02/21 Unknown History extended release cholecalciferol (vitamin D3) 25 25 mcg PO DAILY 08/30/20 09/02/21 Unknown History mcg (1,000 unit) tablet (Vitamin D3) lisinopril 20 mg tablet 1 tab PO DAILY 08/30/20 09/02/21 Unknown History magnesium oxide 500 mg PO DAILY 08/30/20 09/02/21 Unknown History timolol maleate 0.5 % eye drops 1 drp ophthalmic (eye) BID 08/30/20 09/02/21 Unknown History vitamin B complex 1 cap PO DAILY 08/30/20 09/02/21 Unknown History Physical Exam Vital Signs: Vital Signs: Last Vital Signs Temp 97.9 F 05/10/25 07:03 Pulse 96 05/10/25 09:52 Resp 20 05/10/25 11:09 BP 125/68 05/10/25 09:52 Pulse Ox 97 05/10/25 09:52 O2 Del Method Room Air 05/10/25 09:52 BMI result Body Mass Index 27.4 Const: General: comfortable, no acute distress and alert Orientation/consciousness: patient oriented x3 Eyes: Sclerae: scleral abnormal (icteric) Resp: Effort & Inspection: normal respiratory effort, able to speak in complete sentences and not tachypneic GI: Other: markedly corpulent abdomen Inspection: No distended and No scar Palpation (GI): Soft to palpation, nontender, no guarding and not rigid Percussion: Yes normal to percussion Skin: General skin exam: no rashes or lesions noted Neuro: General: patient oriented x3 and moves all extremities Results Labs 05/10/25 07:12 05/10/25 07:12 Labs: Abnormal lab results 05/10/25 05/10/25 Range/Units 07:12 10:51 WBC 15.7 H (4.8-10.8) X10*3/uL MCHC 37.4 H (31.0-35.0) g/dl Neut % (Auto) 86.2 H (45-73) % Lymph % (Auto) 7.0 L (20-40) % Lymph # (Auto) 1.1 L (1.2-4.9) X10*3/uL Abs Immat Gran (auto) 0.07 H (0.00-0.03) X10*3/uL Absolute Neuts (auto) 13.5 H (2.0-8.3) x10*3/uL BUN 20 H (9-16) mg/dL Random Glucose 155 H (60-115) mg/dL Total Bilirubin 3.9 H (0.0-1.0) mg/dL Direct Bilirubin 2.4 H (0.0-0.5) mg/dL AST 1505 H (5-31) U/L ALT 1376 H (0-31) U/L Alkaline Phosphatase 313 H (39-117) U/L Total Protein 8.2 H (6.5-8.0) g/dL Lipase 113 H (8-78) U/L Ur Specific [place] >= 1.030 H (1.005-1.025) Short CBC 05/10/25 Range/Units 07:12 WBC 15.7 H (4.8-10.8) X10*3/uL Hgb 14.6 (12.0-16.0) g/dl Hct 39.0 (37.0-47.0) % Plt Count 161 (160-400) X10*3/uL BMP 05/10/25 07:12 Sodium 141 Potassium 3.7 Chloride 103 Carbon Dioxide 25 BUN 20 H Creatinine 0.83 Calcium 9.4 Liver Function 05/10/25 Range/Units 07:12 Total Bilirubin 3.9 H (0.0-1.0) mg/dL Direct Bilirubin 2.4 H (0.0-0.5) mg/dL AST 1505 H (5-31) U/L ALT 1376 H (0-31) U/L Alkaline Phosphatase 313 H (39-117) U/L Albumin 4.2 (3.5-5.0) g/dL Urine 05/10/25 Range/Units 10:51 Urine Color Dark Yellow Urine Appearance Clear Urine pH 6.0 (5.0-9.0) Ur Specific [place] >= 1.030 H (1.005-1.025) Urine Protein Trace (Neg-Trace) mg/dL Urine Glucose (UA) Negative (Negative) mg/dL All other labs normal. Imaging Abdomen CT scan report/results: report reviewed and image reviewed Abdominal ultrasound report/results: report reviewed and image reviewed Additional studies: labs reviewed Assessment and Plan (1) Gallstone pancreatitis: Status: Acute Plan 74-year-old female with history of chronic abdominal pain, ITP, HTN, DVT in the past not currently anticoagulated presenting with epigastric abd pain and vomiting found to have gallstones, dilated biliary ducts with significantly elevated LFTs and mildly elevated lipase suggestive of gallstone pancreatitis. Recommend admission to hospitalist service with MRI and GI consult for possible ERCP pending results, trending LFTs. She does have mild gallbladder wall thickening on imaging however her abdomen is currently benign and nontender. Unsure if this is due to to acute cholecystitis or secondary. She did state [facility] is out of network and she has to be admitted to [facility] and this was discussed with the ED provider. Will continue to follow if she is admitted to [facility]. Procedures Date of Service Date of Service: 05/10/25
--- NOTE | 2025-05-10 13:24 | P.DS_ITS ---
DS: Providers Provider Date of Service: 05/10/25 Date of discharge: 05/10/25 Primary care physician: Hernan Cheek MD DS: Diagnosis Discharge Diagnosis (1) Gallstone pancreatitis: Status: Acute Physical Exam Vital Signs: Vital Signs: Last Vital Signs Temp 97.9 F 05/10/25 07:03 Pulse 96 05/10/25 09:52 Resp 20 05/10/25 11:09 BP 125/68 05/10/25 09:52 Pulse Ox 97 05/10/25 09:52 O2 Del Method Room Air 05/10/25 09:52 BMI result Body Mass Index 27.4 DS: Data Data Completed and Pending Labs on day of discharge: Laboratory Results - last 24 hr 05/10/25 05/10/25 05/10/25 07:12 09:11 10:51 WBC 15.7 H RBC 4.42 Hgb 14.6 Hct 39.0 MCV 88.2 MCH 33.0 MCHC 37.4 H RDW 12.8 Plt Count 161 MPV 10.8 Immature Gran % (Auto) 0.4 Neut % (Auto) 86.2 H Lymph % (Auto) 7.0 L [place] % (Auto) 6.3 Eos % (Auto) 0.0 Baso % (Auto) 0.1 Lymph # (Auto) 1.1 L [place] # (Auto) 1.0 Eos # (Auto) 0.0 Baso # (Auto) 0.0 Abs Immat Gran (auto) 0.07 H Absolute Neuts (auto) 13.5 H Absolute Nucleated RBC 0.000 Nucleated RBC % (auto) 0.0 PT 11.4 INR 1.0 Sodium 141 Potassium 3.7 Chloride 103 Carbon Dioxide 25 Anion Gap 17 BUN 20 H Creatinine 0.83 Estim Creat Clear Calc 50.1 Estimated GFR > 60 Random Glucose 155 H Calcium 9.4 Magnesium 1.8 Total Bilirubin 3.9 H Direct Bilirubin 2.4 H AST 1505 H ALT 1376 H Alkaline Phosphatase 313 H Troponin I High Sens 5.3 Total Protein 8.2 H Albumin 4.2 Lipase 113 H Urine Color Dark Yellow Urine Appearance Clear Urine pH 6.0 Ur Specific [place] >= 1.030 H Urine Protein Trace Urine Glucose (UA) Negative Urine Ketones Negative Urine Blood Negative Urine Nitrite Negative Ur Leukocyte Esterase Negative COVID-19 (ANDREW) Negative COVID-19 Clin Com See Note Hepatitis A IgM Ab Nonreactive Hep Bs Antigen Negative Hep Bs Antibody NONREACTIVE Hep B Core Total Ab Nonreactive Hepatitis C Ab (EIA) Nonreactive Influenza Type A (DUNCAN) Negative Influenza Type B (DUNCAN) Negative Influenza A & B Note See Note Discharge Plan Discharge Clinical Impression: Pancreatitis due to biliary obstruction Patient Disposition: Admitted As Inpatient Print Language: Burkinan
--- NOTE | 2025-05-10 13:25 | P.HPHOSP_ITS ---
<Statement entered by Maral Barragan MD - 05/10/25 21:32> Pt has obstructive pathophysiology and MRCP suggestive of Choledocholithiasis 2/2 biiliary obs Pt agreeable to staying in pt and getting rx here GI consulted Surgery consulted Escalate abx to Zosyn Aggressive fluid hydration NPO form midnight for possible ERCP in the AM Daily trend LFTs Will check Synthetic liver dysfunction with INR daily HTN Hold all home meds in the setting of sepsis , will resume when appropriate History of Present Illness Date of Service: 05/10/25 Chief Complaint: abdominal pain 74-year-old woman with a history of chronic abdominal pain presenting to the ER with complaints of upper abdominal pain with accompanying nausea and vomiting after eating chicken T, Dunia last night. She reported that she had multiple bowel movements but were not watered and she would not consider them diarrhea. She denied any fever, chills, chest pain, shortness of breath. Abdominal ultrasound showing possible cholecystitis with bile duct of 8 mm diameter. She was noted to have an elevated, total bilirubin 3.9, AST 1505, ALT 1376, alk phos 313, lipase 113. Patient was treated with IV fluids, Zofran, Tylenol, morphine, hydromorphone in the ER. Plan will be to admit patient for further management and treatment of gallstone pancreatitis Review of Systems 2 Review of Systems: Denies any recent fever chills or decrease in appetite respiratory denies any shortness of breath or cough cardiovascular denied chest pain gastrointestinal see HPI genitourinary denies any dysuria frequency or hematuria musculoskeletal denies any joint pain or swelling neuropsych denies any weakness or seizures all other systems reviewed are negative [facility] Medical History Glaucoma Chronic idiopathic thrombocytopenia Left ACL tear Depression HTN (hypertension) Right leg DVT Family History Mother Heart disease HTN (hypertension) Diabetes Maternal Aunt H/O heart bypass surgery HTN (hypertension) Diabetes Brother S/P triple vessel bypass Stroke Surgical History Hx of tonsillectomy Hx of cataract extraction Social History Household Members: None Housing: Condominium Do you presently have visiting nurse or other home services: No Alcohol intake: current Alcohol intake frequency: 0-2 drinks per day Alcohol type: hard liquor Patient Tobacco Use Status: Never used Tobacco Smoked in Last 30 Days: No Use of substances other than those prescribed or required for medical reasons: No Currently Displaying Signs/Symptoms of Drug Intoxication Withdrawal: No Have you been hit, kicked, punched, or otherwise hurt by someone within the past year? If so, by whom?: No Do you feel safe in your current relationship?: No Current Relationship Is there a partner from a previous relationship who is making you feel unsafe now?: No Are you made to feel afraid or neglected: No Advance Directives: Yes Advance Directives Information Provided: No Advance Directives on File: No Advance Directives Date on File: 05/10/25 Do you have a plan to hurt others: No Plan Recently lost weight without trying: No How much weight loss: Not applicable Eating poorly because of decreased appetite: No Nutrition screen score: 0 Nutrition Risks: No Nutritional Risk Patient : No : No Poor oral hygiene: No Current occupational status: retired [employer] Allergies Allergy/AdvReac Type Severity Reaction Status Date / Time ibuprofen (IBUPROFEN) Allergy Unknown HIVES Verified 05/10/25 07:06 Active Medications: Current Medications Acetaminophen (Acetaminophen 325 Mg Tablet) 650 mg PO Q6H PRN PRN Reason: Pain, Mild 1-3,fever,headache Ondansetron HCl (Ondansetron Hcl 4 Mg/2 Ml Vial) 4 mg IVPUSH Q8H PRN PRN Reason: Nausea and Vomiting Home Medications ?Medication ?Instructions ?Recorded ?Confirmed ?Last Taken ?Type bupropion HCl 300 mg 24 hr tablet, 600 mg PO DAILY 05/10/25 05/09/25 History extended release cholecalciferol (vitamin D3) 25 25 mcg PO DAILY 05/10/25 05/09/25 History mcg (1,000 unit) tablet (Vitamin D3) timolol maleate 0.5 % eye drops 1 drp ophthalmic (eye) DAILY 08/30/20 05/10/25 05/09/25 History vitamin B complex 1 cap PO DAILY 08/30/20 1009/0305/09/25 History amlodipine 2.5 mg tablet 2.5 mg PO DAILY 05/10/2509/0305/09/25 History bismuth subsalicylate 262 mg/15 mL 524 mg PO Q30M PRN Abdominal 05/10/25 05/10/25 Unknown History oral suspension (Pepto-Bismol) Discomfort gabapentin 100 mg capsule 100 mg PO BEDTIME 05/10/25 1 05/09/25 History lisinopril 10 mg tablet 10 mg PO BID 05/10/2505/09/25 History magnesium oxide 250 mg PO DAILY 05/10/2509/0305/09/25 History omeprazole 20 mg capsule,delayed 20 mg PO DAILY@0630 1 05/10/25 05/09/25 History release Physical Exam 2 Vital Signs and Narrative: Vital Signs: Last Vital Signs Temp 97.9 F 05/10/25 07:03 Pulse 96 05/10/25 09:52 Resp 20 05/10/25 11:09 BP 125/68 05/10/25 09:52 Pulse Ox 97 05/10/25 09:52 O2 Del Method Room Air 05/10/25 09:52 BMI result Body Mass Index 27.4 Appearing in no acute distress head is normocephalic atraumatic eyes pupils are PERRLA sclera is anicteric mouth throat mucous membranes are intact and moist neck is supple no lymphadenopathy, no JVD noted lung sounds are clear to auscultation heart regular rate rhythm, clear S1, S2 positive bowel sounds, abdomen is soft, diffuse tenderness neuro patient is alert x3, no focal deficits Results Labs 05/10/25 07:12 05/10/25 07:12 Labs: Laboratory Results - last 24 hr 05/10/25 05/10/25 05/10/25 07:12 09:11 10:51 MCV 88.2 MCH 33.0 MCHC 37.4 H RDW 12.8 Plt Count 161 MPV 10.8 Immature Gran % (Auto) 0.4 Neut % (Auto) 86.2 H Lymph % (Auto) 7.0 L Wayne % (Auto) 6.3 Eos % (Auto) 0.0 Baso % (Auto) 0.1 Lymph # (Auto) 1.1 L Wayne # (Auto) 1.0 Eos # (Auto) 0.0 Baso # (Auto) 0.0 Abs Immat Gran (auto) 0.07 H Absolute Neuts (auto) 13.5 H Absolute Nucleated RBC 0.000 Nucleated RBC % (auto) 0.0 PT 11.4 INR 1.0 Anion Gap 17 Estim Creat Clear Calc 50.1 Estimated GFR > 60 Random Glucose 155 H Calcium 9.4 Magnesium 1.8 Total Bilirubin 3.9 H Direct Bilirubin 2.4 H AST 1505 H ALT 1376 H Alkaline Phosphatase 313 H Troponin I High Sens 5.3 Total Protein 8.2 H Albumin 4.2 Lipase 113 H Urine Color Dark Yellow Urine Appearance Clear Urine pH 6.0 Ur Specific Stevenson >= 1.030 H Urine Protein Trace Urine Glucose (UA) Negative Urine Ketones Negative Urine Blood Negative Urine Nitrite Negative Ur Leukocyte Esterase Negative COVID-19 (ANDREW) Negative COVID-19 Clin Com See Note Hepatitis A IgM Ab Nonreactive Hep Bs Antigen Negative Hep Bs Antibody NONREACTIVE Hep B Core Total Ab Nonreactive Hepatitis C Ab (EIA) Nonreactive Influenza Type A (DUNCAN) Negative Influenza Type B (DUNCAN) Negative Influenza A & B Note See Note Imaging Radiologist's Impressions: Impressions Abdomen/Pelvis CT 05/10/25 08:37 IMPRESSION: Distended gallbladder a small amount of pericholecystic fluid. Mild intra and extrahepatic biliary ductal dilatation. Findings could represent acute cholecystitis or choledocholithiasis. Abdominal ultrasound and/or MRCP should be considered. Electronically signed by: Cecil Barbosa MD 05/10/2025 09:03 AM [employer] [facility] [employer] Abdomen Ultrasound 05/10/25 10:07 IMPRESSION: Possible cholecystitis. There is cholelithiasis, gallbladder wall thickening, and pericholecystic fluid. The extrahepatic bile duct is 8 mm diameter which is borderline enlarged for patient age. Electronically signed by: Vidal Carpenter MD 05/10/2025 10:46 AM EDT [facility] [employer] [facility] Assessment and Plan (1) Gallstone pancreatitis: Status: Acute Plan 74-year-old woman admitted with abdominal pain secondary to gallstone pancreatitis Gallstone pancreatitis Abdominal ultrasound showing cholecystitis with 8 mm bile duct GI consultation Keep NPO for MRCP Pain management Trend liver enzymes Empiric Rocephin Leukocytosis Likely secondary to cholecystitis, no sepsis Hypertension Continue amlodipine, lisinopril Glaucoma Continue timolol GERD Continue PPI Mental health Continue home medications DVT prophylaxis with pneumatic compression boots Full code Quality Stroke Does the patient have a stroke diagnosis?: No VTE Prior VTE?: No VTE Risk Level:: Medical - moderate - high VTE Device Contraindication: N/A - Device Ordered VTE Drug Contraindication: Treatment Not Indicated
--- NOTE | 2025-05-10 14:34 | PHA.MEDREC ---
Addendum entered by Lily Mejia RPh 05/10/25 14:51: reviewed by [facility] Original Note: Pharmacy Consult ? Medication Reconciliation Pharmacy has completed the medication reconciliation. Spoke with pt and she confirmed her medications.
--- NOTE | 2025-05-10 14:41 | PC.NURSE ---
Pt off unit at MRI
[2025-05-10 15:43] VITALS: BMI 27.7
[2025-05-10 16:00] VITALS: BP 114/72; PULSE 101; RESP 18; TEMP 36.2; O2SAT 97
--- NOTE | 2025-05-10 18:18 | ECG_ITS ---
Test Reason : sepsis workup Blood Pressure : */* mmHG Vent. Rate : 111 BPM Atrial Rate : 111 BPM P-R Int : 200 ms QRS Dur : 78 ms QT Int : 326 ms P-R-T Axes : 47 -22 37 degrees QTcB Int : 443 ms Sinus tachycardia with Premature atrial complexes Minimal voltage criteria for LVH, may be normal variant ( R in aVL ) Inferior infarct , age undetermined Possible Anterior infarct , age undetermined Abnormal ECG When compared with ECG of 10-May-2025 07:14, Increase in ventricular rate Referred By: Maral Barragan Electronically Signed By: RUBY SAENZ
[2025-05-10 19:31] LABS: INTERNATIONAL NORM RATIO 1.2 (0.9-1.1); Prothrombin Time 13.3 SEC (10.9-12.4)
[2025-05-10 20:00] VITALS: BP 106/54; PULSE 99; RESP 18; TEMP 36.4; O2SAT 97
--- NOTE | 2025-05-10 20:06 | PHA.PROG ---
Admission Date/Time: May 10, 2025 13:21 Indication: Empiric therapy Weight in k.6 kg Adjusted body weight in Kg: [place] body weight in Kg: Obesity Dosing Indication % IBW: Serum Creatinine - Last 168 Hours 05/10/25 07:12 Creatinine 0.83 Estimated CrCl and GFR - Last 168 Hours 05/10/25 07:12 Estim Creat Clear Calc 50.1 Estimated GFR > 60 Vancomycin Loading Dose: 1500 mg Current Vancomycin Dosing Regimen: 1250 mg Q24H Vancomycin Monitoring using AUC goal of 400 - 600 range with trough as surrogate marker: Predicted AUC 482 and trough 13.7 Date and Time for next Vancomycin Level to be drawn: 05/12 @1800 after the second dose Pharmacist Comments on Vancomycin Plan: Vancomycin dosing will take advantage of [employer] as a clinical decision support tool that uses Bayesian modeling to calculate individual patient's pharmacokinetic parameters and forecast the patient's drug concentration time course with the target goal AUC 24 range of 400 - 600 mg/L/hr.
[2025-05-11] VITALS (8 sets, daily range): BP systolic 119–165; BP diastolic 58–88; PULSE 83–99; RESP 14–18; TEMP 36.1–36.6; O2SAT 94–100
[2025-05-11 06:12] LABS: MANUAL DIFF FLAG NO
[2025-05-11 06:22] LABS: Hematocrit 29.8 % (37.0-47.0); Hemoglobin 10.9 g/dl (12.0-16.0); Imm Gran Abs Auto 0.15 X10*3/uL (0.00-0.03); Imm Gran Pct Auto 1.0 % (0.0-0.4); Lymphocytes Absolute Auto 1.8 X10*3/uL (1.2-4.9); Mean Corpuscular HGB Conc 36.6 g/dl (31.0-35.0); Mean Corpuscular Hemoglobin 32.7 pg (27.0-33.0); Mean Corpuscular Volume 89.5 fL (80.0-98.0); NRBC Abs Auto 0.000 X10*3/uL (0.0-0.012); NRBC Pct Auto 0.0 /100WBC (0.0-0.2); Platelet Count 80 X10*3/uL (160-400); Red Blood Count 3.33 X10*6/uL (4.20-5.50); White Blood Count 15.6 X10*3/uL (4.8-10.8)
[2025-05-11 06:27] LABS: INTERNATIONAL NORM RATIO 1.4 (0.9-1.1); Prothrombin Time 16.5 SEC (10.9-12.4)
[2025-05-11 06:37] LABS: Alanine Aminotransferase 708 U/L (0-31); Albumin Level 2.8 g/dL (3.5-5.0); Alkaline Phosphatase 221 U/L (39-117); Anion Gap 12 (12-20); Aspartate Amino Transferase 394 U/L (5-31); Blood Urea Nitrogen 19 mg/dL (9-16); Calcium 7.8 mg/dL (8.4-10.2); Carbon Dioxide 25 mmol/L (22-29); Chloride 106 mmol/L (96-108); Creatinine Clr Calc Pharmacy 39.4; Estimated Glomerular Filt Rate 50; Lipase 35 U/L (8-78); Magnesium 1.7 mg/dL (1.6-2.6); Potassium 4.1 mmol/L (3.3-5.1); Sodium 139 mmol/L (135-145); Total Protein 5.5 g/dL (6.5-8.0)
--- NOTE | 2025-05-11 06:41 | PM.PNGS ---
Subjective Subjective Date of Service: 05/11/25 <Ginna Chin - Last Filed: 05/11/25 07:30> 05/11/25 <Lissette Monique PA-C - Last Filed: 05/11/25 08:02> 05/11/25 <Michele Wilhelm MD - Last Filed: 05/11/25 15:28> Interval history: Patient is a 74 year old female with PMHx of chronic ITP, HTN, history of DVT not currently anticoagulanted who presented to ER on 05/10/25 with 1 day history of nausea, vomiting, and epigastric ABD pain and subsequently admitted for acute gallstone pancreatitis and cholecystitis on 05/10. She reports she slept well overnight, though has a mild headache, she frequently has tension headaches at baseline. Reports no abdominal pain since admission yesterday 05/10. Denies nausea, vomiting, or diarrhea since her admission. Her last BM was 05/09 at home. She has been passing gas. Urinating without issue. Ambulating OOB with walker. Denies feeling fevers, chills, shortness of breath, chest pain, or any other symptoms. She states that [facility] [place] her is no longer a concern; she is amenable to being treated here. <Ginna Chin Last Filed: 05/11/25 07:30> Physical Exam Exam: Exam: Comfortable, sitting in recliner, in no acute distress. <Ginna Chin Last Filed: 05/11/25 07:30> Vital Signs: Vital Signs: Last Vital Signs Temp 97.3 F 05/11/25 03:20 Pulse 98 05/11/25 03:20 Resp 18 05/11/25 03:20 BP 119/58 L 05/11/25 03:20 Pulse Ox 95 05/11/25 03:20 O2 Del Method Room Air 05/11/25 03:20 BMI result Body Mass Index 27.7 <Ginna Chin Last Filed: 05/11/25 07:30> Const: Orientation/consciousness: patient oriented x3 <Ginna [facility] Last Filed: 05/11/25 07:30> Eyes: Sclerae: scleral abnormal (icteric) <Lissette Monique PA-C - Last Filed: 05/11/25 08:02> Resp: Effort & Inspection: normal respiratory effort and able to speak in complete sentences <gopal [facility] Last Filed: 05/11/25 07:30> GI: Inspection: Yes normal to inspection and No distended <[facility] Last Filed: 05/11/25 07:30> Palpation (GI): Soft to palpation, not firm, nontender, no guarding and not rigid <[facility] Last Filed: 05/11/25 07:30> Skin: General skin exam: no rashes or lesions noted <[facility] Last Filed: 05/11/25 07:30> General skin exam: jaundice <Lissette Monique PA-C - Last Filed: 05/11/25 08:02> Neuro: General: patient oriented x3 <gopal [facility] Last Filed: 05/11/25 07:30> Objective Data Active Medications Acetaminophen (Acetaminophen 325 Mg Tablet) 650 mg PO Q6H PRN PRN Reason: Pain, Mild 1-3,fever,headache Bupropion HCl (Bupropion Hcl Xl 300 Mg Tab.Er.24h) 600 mg PO DAILY [facility] Gabapentin (Gabapentin 100 Mg Capsule) 100 mg PO BEDTIME [facility] Last Admin: 05/10/25 20:29 Dose: 100 mg Documented By: RONAN Hydromorphone HCl (Hydromorphone Hcl 0.5 Mg/0.5 Ml Syringe) 0.5 mg IVPUSH Q3H PRN; Protocol PRN Reason: Pain, Severe (Pain Scale 7-10) Last Admin: 05/10/25 16:10 Dose: 0.5 mg Documented By: MILTON Sodium Chloride (Ns) 1,000 mls @ 100 mls/hr IVCONT .Q10H [facility] Last Infusion: 05/11/25 06:09 Dose: 0 mls/hr Documented By: RONAN Piperacillin Sod/Tazobactam (Sod 3.375 gm/ Sodium Chloride) 50 mls @ 100 mls/hr IV Q6H [facility] Last Infusion: 05/11/25 06:39 Dose: Infused Documented By: MADELAINE Vancomycin HCl 1,250 mg/ (Sodium Chloride) 250 mls @ 166.667 mls/hr IV Q24H [facility] Omeprazole (Omeprazole 20 Mg Capsule.) 20 mg PO DAILY@0630 [facility] Last Admin: 05/11/25 06:05 Dose: 20 mg Documented By: RONAN Ondansetron HCl (Ondansetron Hcl 4 Mg/2 Ml Vial) 4 mg IVPUSH Q8H PRN PRN Reason: Nausea and Vomiting Oxycodone HCl (Oxycodone Hcl Immed Release 5 Mg Tablet) 5 mg PO Q4H PRN PRN Reason: Pain, Moderate(Pain Scale 4-6) Pharmacy Consult (Consult Rx Vancomycin Dosing) 1 each MISCELLANE DAILY PRN PRN Reason: Consult order Timolol Maleate (Timolol Maleate 0.5 % Oph Sarita 5 Ml Drbtl) 1 drop EYE-BOTH DAILY [facility] <Ginna Chin - Last Filed: 05/11/25 07:30> Labs CBC & Chem 7: 05/11/25 05:25 05/11/25 05:25 <Ginna Chin - Last Filed: 05/11/25 07:30> Labs: Laboratory Results - last 24 hr 05/10/25 05/10/25 05/10/25 07:12 09:11 10:51 MCV 88.2 MCH 33.0 MCHC 37.4 H RDW 12.8 Plt Count 161 MPV 10.8 Immature Gran % (Auto) 0.4 Neut % (Auto) 86.2 H Lymph % (Auto) 7.0 L [place] % (Auto) 6.3 Eos % (Auto) 0.0 Baso % (Auto) 0.1 Lymph # (Auto) 1.1 L [place] # (Auto) 1.0 Eos # (Auto) 0.0 Baso # (Auto) 0.0 Abs Immat Gran (auto) 0.07 H Absolute Neuts (auto) 13.5 H Absolute Nucleated RBC 0.000 Nucleated RBC % (auto) 0.0 PT 11.4 INR 1.0 Anion Gap 17 Estim Creat Clear Calc 50.1 Estimated GFR > 60 Random Glucose 155 H Calcium 9.4 Magnesium 1.8 Total Bilirubin 3.9 H Direct Bilirubin 2.4 H AST 1505 H ALT 1376 H Alkaline Phosphatase 313 H Troponin I High Sens 5.3 Total Protein 8.2 H Albumin 4.2 Lipase 113 H Urine Color Dark Yellow Urine Appearance Clear Urine pH 6.0 Ur Specific [place] >= 1.030 H Urine Protein Trace Urine Glucose (UA) Negative Urine Ketones Negative Urine Blood Negative Urine Nitrite Negative Ur Leukocyte Esterase Negative COVID-19 (ANDREW) Negative COVID-19 Clin Com See Note Hepatitis A IgM Ab Nonreactive Hep Bs Antigen Negative Hep Bs Antibody NONREACTIVE Hep B Core Total Ab Nonreactive Hepatitis C Ab (EIA) Nonreactive Influenza Type A (DUNCAN) Negative Influenza Type B (DUNCAN) Negative Influenza A & B Note See Note 05/10/25 05/11/25 19:07 05:25 MCV 89.5 MCH 32.7 MCHC 36.6 H RDW 13.7 Plt Count 80 L D MPV 11.8 Immature Gran % (Auto) 1.0 H Neut % (Auto) 79.9 H Lymph % (Auto) 11.2 L [place] % (Auto) 7.2 Eos % (Auto) 0.6 Baso % (Auto) 0.1 Lymph # (Auto) 1.8 [place] # (Auto) 1.1 Eos # (Auto) 0.1 Baso # (Auto) 0.0 Abs Immat Gran (auto) 0.15 H Absolute Neuts (auto) 12.4 H Absolute Nucleated RBC 0.000 Nucleated RBC % (auto) 0.0 PT 13.3 H 16.5 H D INR 1.2 H 1.4 H Anion Gap 12 Estim Creat Clear Calc 39.4 Estimated GFR 50 Random Glucose 67 Calcium 7.8 L D Magnesium 1.7 Total Bilirubin 6.1 H Direct Bilirubin 4.9 H AST 394 H ALT 708 H Alkaline Phosphatase 221 H Troponin I High Sens Total Protein 5.5 L Albumin 2.8 L Lipase 35 Urine Color Urine Appearance Urine pH Ur Specific [place] Urine Protein Urine Glucose (UA) Urine Ketones Urine Blood Urine Nitrite Ur Leukocyte Esterase COVID-19 (ANDREW) COVID-19 Clin Com Hepatitis A IgM Ab Hep Bs Antigen Hep Bs Antibody Hep B Core Total Ab Hepatitis C Ab (EIA) Influenza Type A (DUNCAN) Influenza Type B (DUNCAN) Influenza A & B Note <Ginna Chin - Last Filed: 05/11/25 07:30> Procedures Date of Service Date of Service: 05/11/25 <Ginna Chin - Last Filed: 05/11/25 07:30> 05/11/25 <Lissette Monique PA-C - Last Filed: 05/11/25 08:02> 05/11/25 <Michele Wilhelm MD - Last Filed: 05/11/25 15:28> Progress Note: A&P Assessment and plan (1) Gallstone pancreatitis: Status: Acute <Ginna Chin - Last Filed: 05/11/25 07:30> Assessment and Plan: Patient is a 74 year old female with PMHx of HTN, chronic ITP, history of DVT not on anticoagulants admitted for acute gallstone pancreatitis and cholecystitis. On admission, CMP significant for elevated AST/ALT 1505/1376, elevated total and direct bilirubin at 3.9 and 2.4, mildly elevated lipase 113; hepatitis panel negative; CBC with leukocytosis at 15.7. Abdominal CT scan on 05/10 showed cholelithiasis, gallbladder wall thickening, and pericholecystic fluid, with ABD US with borderline bile duct dilatation to 8 mm. MRCP suggesting choledocholithiasis with obstruction at ampulla. Repeat CMP showing increased total and direct bilirubin of 6.1 and 4.9, decreased AST/ALT 394/708, lipase resolved at 35; repeat CBC showing leukocytosis at 15.6, H/H decreased to 10.9/29.8 (previously 14.6/39), platelets decreased to 80 (previously 161) this AM, likely result of IV fluid resuscitation yesterday with chronic ITP, continue to monitor. Patient overall appears to be doing well, denies any N/V or epigastric pain since admission, tolerating NPO, ambulating OOB without issue. Pain is well-controlled with PRN IV hydromorphone (last administered yesterday afternoon), and PO acetaminophen and oxycodone. Abdominal exam benign this AM. GI consulted for ERCP this AM. Continue to follow for recommended laparoscopic cholecystectomy. Continue IV Zosyn and Vancomycin. <Ginna Chin - Last Filed: 05/11/25 07:30> Patient is a 74 year old female with PMHx of HTN, chronic ITP, history of DVT not on anticoagulants admitted for acute gallstone pancreatitis and cholecystitis. On admission, CMP significant for elevated AST/ALT 1505/1376, elevated total and direct bilirubin at 3.9 and 2.4, mildly elevated lipase 113; hepatitis panel negative; CBC with leukocytosis at 15.7. Abdominal CT scan on 05/10 showed cholelithiasis, gallbladder wall thickening, and pericholecystic fluid, with ABD US with borderline bile duct dilatation to 8 mm. MRCP suggesting choledocholithiasis with obstruction at ampulla. Repeat CMP showing increased total and direct bilirubin of 6.1 and 4.9, decreased AST/ALT 394/708, lipase resolved at 35; repeat CBC showing leukocytosis at 15.6, H/H decreased to 10.9/29.8 (previously 14.6/39), platelets decreased to 80 (previously 161) this AM, likely result of IV fluid resuscitation yesterday with chronic ITP, continue to monitor. Patient overall appears to be doing well, denies any N/V or epigastric pain since admission, tolerating NPO, ambulating OOB without issue. Pain is well-controlled with PRN IV hydromorphone (last administered yesterday afternoon), and PO acetaminophen and oxycodone. Abdominal exam benign this AM. GI consulted for ERCP this AM. Continue to follow for recommended laparoscopic cholecystectomy. Continue IV Zosyn and Vancomycin. Agree with above assessment and plan by Ginna Chin. Patient admitted with gallstone pancreatitis, found to have stone at ampulla on MRCP. Bilirubin is trending up this morning. GI was consulted and plan is for ERCP today. She is clinically appearing well. Abd is benign. We did discuss proceeding with laparoscopic cholecystectomy during her admission to prevent recurrence once her labs have improved. She is nervous about having surgery and would like to speak with her family. Will continue to follow. <Lissette Monique PA-C - Last Filed: 05/11/25 08:02> Time Spent With Patient Time: Total time managing care of this patient today ____ minutes. <Ginna Carrillo Last Filed: 05/11/25 07:30> Quality Stroke Does the patient have a stroke diagnosis?: No <Ginna Carrillo Last Filed: 05/11/25 07:30> VTE Prior VTE?: No <Ginna Carrillo Last Filed: 05/11/25 07:30> VTE Risk Level:: Medical - moderate - high <Ginna Carrillo Last Filed: 05/11/25 07:30> VTE Device Contraindication: N/A - Device Ordered <Ginna Carrillo Last Filed: 05/11/25 07:30> VTE Drug Contraindication: Treatment Not Indicated <Ginna Carrillo Last Filed: 05/11/25 07:30>
--- NOTE | 2025-05-11 07:27 | P.PNIM_ITS ---
Subjective Subjective Date of Service: 05/11/25 Interval History: Patient is witty Patient underwent ERCP We will continue IV antibiotics based on clinical response tomorrow Thankfully abdomen benign without any signs of cholangitis Was given a dose of vitamin K IV due to elevated PT INR If clinically improving, we will likely discharge her tomorrow Review of Systems Review of Systems: Yes all other systems are reviewed and are negative Physical Exam 2 Exam: Exam: General: AOx3, no acute distress Resp: CTA bilaterally CVS: S1, S2, RRR GI: +BS, NT, no distention, benign abdomen compared to yesterday Skin: Warm, dry Neuro: Motor grossly intact bilaterally Extremities: No edema Psych: Appropriate affect Vital Signs: Vital Signs: Last Vital Signs Temp 97.3 F 05/11/25 03:20 Pulse 98 05/11/25 03:20 Resp 18 05/11/25 03:20 BP 119/58 L 05/11/25 03:20 Pulse Ox 95 05/11/25 03:20 O2 Del Method Room Air 05/11/25 03:20 BMI result Body Mass Index 27.7 Objective Data Active Medications Acetaminophen (Acetaminophen 325 Mg Tablet) 650 mg PO Q6H PRN PRN Reason: Pain, Mild 1-3,fever,headache Bupropion HCl (Bupropion Hcl Xl 300 Mg Tab.Er.24h) 600 mg PO DAILY [facility] Gabapentin (Gabapentin 100 Mg Capsule) 100 mg PO BEDTIME [facility] Last Admin: 05/10/25 20:29 Dose: 100 mg Documented By: RONAN Hydromorphone HCl (Hydromorphone Hcl 0.5 Mg/0.5 Ml Syringe) 0.5 mg IVPUSH Q3H PRN; Protocol PRN Reason: Pain, Severe (Pain Scale 7-10) Last Admin: 05/10/25 16:10 Dose: 0.5 mg Documented By: MILTON Sodium Chloride (Ns) 1,000 mls @ 100 mls/hr IVCONT .Q10H [facility] Last Admin: 05/11/25 06:44 Dose: 100 mls/hr Documented By: MADELAINE Piperacillin Sod/Tazobactam (Sod 3.375 gm/ Sodium Chloride) 50 mls @ 100 mls/hr IV Q6H [facility] Last Infusion: 05/11/25 06:39 Dose: Infused Documented By: MADELAINE Vancomycin HCl 1,250 mg/ (Sodium Chloride) 250 mls @ 166.667 mls/hr IV Q24H [facility] Omeprazole (Omeprazole 20 Mg Capsule.Dr) 20 mg PO DAILY@0630 [facility] Last Admin: 05/11/25 06:05 Dose: 20 mg Documented By: RONAN Ondansetron HCl (Ondansetron Hcl 4 Mg/2 Ml Vial) 4 mg IVPUSH Q8H PRN PRN Reason: Nausea and Vomiting Oxycodone HCl (Oxycodone Hcl Immed Release 5 Mg Tablet) 5 mg PO Q4H PRN PRN Reason: Pain, Moderate(Pain Scale 4-6) Pharmacy Consult (Consult Rx Vancomycin Dosing) 1 each MISCELLANE DAILY PRN PRN Reason: Consult order Timolol Maleate (Timolol Maleate 0.5 % Oph Sarita 5 Ml Drbtl) 1 drop EYE-BOTH DAILY [facility] Labs 05/11/25 05:25 05/11/25 05:25 Labs: Laboratory Results - last 24 hr 05/10/25 05/10/25 05/10/25 07:12 09:11 10:51 MCV MCH MCHC RDW Plt Count MPV Immature Gran % (Auto) Neut % (Auto) Lymph % (Auto) [place] % (Auto) Eos % (Auto) Baso % (Auto) Lymph # (Auto) [place] # (Auto) Eos # (Auto) Baso # (Auto) Abs Immat Gran (auto) Absolute Neuts (auto) Absolute Nucleated RBC Nucleated RBC % (auto) PT 11.4 INR 1.0 Anion Gap 17 Estim Creat Clear Calc 50.1 Estimated GFR > 60 Random Glucose 155 H Calcium 9.4 Magnesium 1.8 Total Bilirubin 3.9 H Direct Bilirubin 2.4 H AST 1505 H ALT 1376 H Alkaline Phosphatase 313 H Troponin I High Sens 5.3 Total Protein 8.2 H Albumin 4.2 Lipase 113 H Urine Color Dark Yellow Urine Appearance Clear Urine pH 6.0 Ur Specific [place] >= 1.030 H Urine Protein Trace Urine Glucose (UA) Negative Urine Ketones Negative Urine Blood Negative Urine Nitrite Negative Ur Leukocyte Esterase Negative COVID-19 (ANDREW) Negative COVID-19 Clin Com See Note Hepatitis A IgM Ab Nonreactive Hep Bs Antigen Negative Hep Bs Antibody NONREACTIVE Hep B Core Total Ab Nonreactive Hepatitis C Ab (EIA) Nonreactive Influenza Type A (DUNCAN) Negative Influenza Type B (DUNCAN) Negative Influenza A & B Note See Note 05/10/25 05/11/25 19:07 05:25 MCV 89.5 MCH 32.7 MCHC 36.6 H RDW 13.7 Plt Count 80 L D MPV 11.8 Immature Gran % (Auto) 1.0 H Neut % (Auto) 79.9 H Lymph % (Auto) 11.2 L [place] % (Auto) 7.2 Eos % (Auto) 0.6 Baso % (Auto) 0.1 Lymph # (Auto) 1.8 [place] # (Auto) 1.1 Eos # (Auto) 0.1 Baso # (Auto) 0.0 Abs Immat Gran (auto) 0.15 H Absolute Neuts (auto) 12.4 H Absolute Nucleated RBC 0.000 Nucleated RBC % (auto) 0.0 PT 13.3 H 16.5 H D INR 1.2 H 1.4 H Anion Gap 12 Estim Creat Clear Calc 39.4 Estimated GFR 50 Random Glucose 67 Calcium 7.8 L D Magnesium 1.7 Total Bilirubin 6.1 H Direct Bilirubin 4.9 H AST 394 H ALT 708 H Alkaline Phosphatase 221 H Troponin I High Sens Total Protein 5.5 L Albumin 2.8 L Lipase 35 Urine Color Urine Appearance Urine pH Ur Specific [place] Urine Protein Urine Glucose (UA) Urine Ketones Urine Blood Urine Nitrite Ur Leukocyte Esterase COVID-19 (ANDREW) COVID-19 Clin Com Hepatitis A IgM Ab Hep Bs Antigen Hep Bs Antibody Hep B Core Total Ab Hepatitis C Ab (EIA) Influenza Type A (DUNCAN) Influenza Type B (DUNCAN) Influenza A & B Note Assessment and Plan (1) Gallstone pancreatitis: Status: Acute Plan Patient is a 74-year-old female with prior history of ITP, DVT on Xarelto in 2018 and 2021 currently not on any blood thinners as she likely completed treatment was admitted for acute abdominal pain secondary to gallstone pancreatitis Right upper quadrant pain, likely secondary to biliary obstruction, underwent ERCP by GI Due to concerning sepsis, escalated IV antibiotics Conjugated bilirubinemia up trending LFTs downtrending Has required multiple IV pain medications since admission, a dose of IV vitamin K, underwent MRCP right upper quadrant ultrasound which revealed obstructive pathology, GI and surgery consulted for possible choledocholithiasis, thankfully she seems to be responding to IV antibiotics and ERCP did not show any obstructive pathology Given worsening conjugated hyperbilirubinemia, we will recheck labs in the a.m. and continue IV Zosyn for anaerobic coverage and deescalate based on labs and response tomorrow Remote history of DVT likely provoked Patient not currently on any antibiotics DVT prophylaxis with Lovenox while inpatient Acute thrombocytopenia Likely in the setting of sepsis, less likely hit This note is constructed using voice recognition software. While every effort has been made to ensure accuracy, steel detailer errors may have been included. . Patient is at risk of decompensation and KAREN and multi organ failure requiring continued observation, hence we will continue to need inpatient stay for at least another 1-2 days Quality Stroke Does the patient have a stroke diagnosis?: No VTE Prior VTE?: No VTE Risk Level:: Medical - moderate - high VTE Device Contraindication: N/A - Device Ordered VTE Drug Contraindication: Treatment Not Indicated
[2025-05-11] MEDS: timoloL maleate 0.5 % Oph Sol 5 ML DRBTL 1 DROP EYE-BOTH (09:42)
--- NOTE | 2025-05-11 12:56 | MHC.CM.PN ---
IMM delivered. Patient lives in a condo alone. Functionally independent. Uses a walker PRN, says she feels unsteady at times. PCP Hernan Cheek MD Reports she has an HCP naming her brother, Cruz, as HCA. Copy requested. DP: Goal is home self care. She is not interested in home services. Brother will transport. CM will continue to follow.
--- NOTE | 2025-05-11 14:38 | PC.NURSE ---
20g left ac. patent no leaking.
[2025-05-11] MEDS: Lactated Ringers 1,000 ML 50 ML IVCONT (14:39)
--- NOTE | 2025-05-11 14:57 | MHC.SHP ---
Pre-Procedural Eval Section A - 24 Hr Update-Section A only Date of Service: 05/11/25 The patient is an INPATIENT: Yes The patient has been examined within 24 hours of the surgical procedure. The History & Physical has been completed within 30 days and I have reviewed it.: Yes Section B - Complete if H&P > 30 days Chief Complaint: gallstone pancreatitis Allergies: Allergies Allergy/AdvReac Type Severity Reaction Status Date / Time ibuprofen (IBUPROFEN) Allergy Unknown HIVES Verified 05/10/25 07:06 Plan I have reviewed the history and physical and performed a pertinent physical examination on my patient. No changes have occurred unless specified. Time Spent With Patient Time: Total time managing care of this patient today ____ minutes.
--- NOTE | 2025-05-11 14:57 | PM.EVENT ---
Event Note Date of Service: 05/11/25 Event Note: DM-Synaqob-Lntt note dictated-History from the patient and EMR Imp: Choledocholithiasis with associated jaundice and mild pancreatitis. She presently appears comfortable with a benign abdomen. There are no clinical signs of cholangitis, although she does have a slightly elevated WBC count. Rec: ERCP prior to CCY. Full consent obtained from the patient, as well as her brother Cruz who is at the bedside, including risks of bleeding, perforation, cholangitis, and pancreatitis. Continue NPO and antibiotics. Dose of IV Vit K for slightly elevated PT/INR. F/U labs. D/W patient and her brother in detail. They are comfortable with this plan. Thanks Time Spent With Patient Time: Total time managing care of this patient today ____ minutes.
--- NOTE | 2025-05-11 18:47 | P.CONAN_ITS ---
HPI - Anesthesia Eval Consult details Narrative: Common bileact obstruction PMFSH Active Problems Active Problems: All Active Problems Pancreatitis due to biliary obstruction (Acute) Gallstone pancreatitis (Acute) Fracture of fifth metatarsal bone of right foot (Acute) Chronic ITP (idiopathic thrombocytopenia) (Acute) Right leg DVT (Acute) Past Medical History Medical History Glaucoma Chronic idiopathic thrombocytopenia Left ACL tear Depression HTN (hypertension) Right leg DVT Family History Family History Mother Heart disease HTN (hypertension) Diabetes Maternal Aunt H/O heart bypass surgery HTN (hypertension) Diabetes Brother S/P triple vessel bypass Stroke Family history of problems with anesthesia: No Surgical History Surgical History Hx of tonsillectomy Hx of cataract extraction History of Problems with Anesthesia: No Social History Social History Household Members: None Housing: Condominium Do you presently have visiting nurse or other home services: No Alcohol intake: current Alcohol intake frequency: holidays/special occasions only Alcohol type: hard liquor Patient Tobacco Use Status: Never used Tobacco Smoked in Last 30 Days: No Use of substances other than those prescribed or required for medical reasons: No Currently Displaying Signs/Symptoms of Drug Intoxication Withdrawal: No Have you been hit, kicked, punched, or otherwise hurt by someone within the past year? If so, by whom?: No Do you feel safe in your current relationship?: No Current Relationship Is there a partner from a previous relationship who is making you feel unsafe now?: No Are you made to feel afraid or neglected: No Advance Directives: Yes Advance Directives Information Provided: No Advance Directives on File: No Advance Directives Date on File: 05/10/25 Do you have a plan to hurt others: No Plan Recently lost weight without trying: No How much weight loss: Not applicable Eating poorly because of decreased appetite: No Nutrition screen score: 0 Nutrition Risks: No Nutritional Risk Patient : No : No Poor oral hygiene: No service: No Current occupational status: retired Meds Allergies Allergy/AdvReac Type Severity Reaction Status Date / Time ibuprofen (IBUPROFEN) Allergy Unknown HIVES Verified 05/10/25 07:06 Active Medications: Current Medications Acetaminophen (Acetaminophen 325 Mg Tablet) 650 mg PO Q6H PRN PRN Reason: Pain, Mild 1-3,fever,headache Bupropion HCl (Bupropion Hcl Xl 300 Mg Tab.Er.24h) 600 mg PO DAILY [facility] Last Admin: 05/11/25 07:44 Dose: Not Given Gabapentin (Gabapentin 100 Mg Capsule) 100 mg PO BEDTIME [facility] Last Admin: 05/10/25 20:29 Dose: 100 mg Hydromorphone HCl (Hydromorphone Hcl 0.5 Mg/0.5 Ml Syringe) 0.5 mg IVPUSH Q3H PRN; Protocol PRN Reason: Pain, Severe (Pain Scale 7-10) Last Admin: 05/10/25 16:10 Dose: 0.5 mg Sodium Chloride (Ns) 1,000 mls @ 100 mls/hr IVCONT .Q10H [facility] Last Infusion: 05/11/25 18:20 Dose: Infused Piperacillin Sod/Tazobactam (Sod 3.375 gm/ Sodium Chloride) 50 mls @ 100 mls/hr IV Q6H [facility] Last Infusion: 05/11/25 13:15 Dose: Infused Lactated Ringer's (Lr) 1,000 mls @ 50 mls/hr IVCONT .Q20H [facility] Last Admin: 05/11/25 14:39 Dose: 50 mls/hr Omeprazole (Omeprazole 20 Mg Capsule.Dr) 20 mg PO DAILY@0630 [facility] Last Admin: 05/11/25 06:05 Dose: 20 mg Ondansetron HCl (Ondansetron Hcl 4 Mg/2 Ml Vial) 4 mg IVPUSH Q8H PRN PRN Reason: Nausea and Vomiting Oxycodone HCl (Oxycodone Hcl Immed Release 5 Mg Tablet) 5 mg PO Q4H PRN PRN Reason: Pain, Moderate(Pain Scale 4-6) Pharmacy Consult (Consult Rx Vancomycin Dosing) 1 each MISCELLANE DAILY PRN PRN Reason: Consult order Timolol Maleate (Timolol Maleate 0.5 % Oph Sarita 5 Ml Drbtl) 1 drop EYE-BOTH DAILY [facility] Last Admin: 05/11/25 09:42 Dose: 1 drop Home Medications ?Medication ?Instructions ?Recorded ?Confirmed ?Last Taken ?Type bupropion HCl 300 mg 24 hr tablet, 600 mg PO DAILY 05/10/25 05/09/25 History extended release cholecalciferol (vitamin D3) 25 25 mcg PO DAILY 05/10/25 05/09/25 History mcg (1,000 unit) tablet (Vitamin D3) timolol maleate 0.5 % eye drops 1 drp ophthalmic (eye) DAILY 08/30/20 05/10/25 05/09/25 History vitamin B complex 1 cap PO DAILY 08/30/20 10/09/0305/09/25 History amlodipine 2.5 mg tablet 2.5 mg PO DAILY 05/10/2509/0305/09/25 History bismuth subsalicylate 262 mg/15 mL 524 mg PO Q30M PRN Abdominal 05/10/25 05/10/25 Unknown History oral suspension (Pepto-Bismol) Discomfort gabapentin 100 mg capsule 100 mg PO BEDTIME 05/10/25 1 05/09/25 History lisinopril 10 mg tablet 10 mg PO BID 05/10/2505/09/25 History magnesium oxide 250 mg PO DAILY 05/10/2509/0305/09/25 History omeprazole 20 mg capsule,delayed 20 mg PO DAILY@0630 1 05/10/25 05/09/25 History release Exam Height,Weight and Vital Signs: Height 5 ft 1 in Weight 66.6 kg Last Vital Signs Temp 97.1 F 05/11/25 14:34 Pulse 94 05/11/25 14:34 Resp 16 05/11/25 14:34 BP 133/69 05/11/25 14:34 Pulse Ox 95 05/11/25 14:34 O2 Del Method Room Air 05/11/25 14:34 Pertinent Lab Results Pertinent Lab Results: Laboratory Tests 05/10/25 05/10/25 05/10/25 07:12 09:11 10:51 WBC 15.7 H RBC 4.42 Hgb 14.6 Hct 39.0 MCV 88.2 MCH 33.0 MCHC 37.4 H RDW 12.8 Plt Count 161 MPV 10.8 Immature Gran % (Auto) 0.4 Neut % (Auto) 86.2 H Lymph % (Auto) 7.0 L [place] % (Auto) 6.3 Eos % (Auto) 0.0 Baso % (Auto) 0.1 Lymph # (Auto) 1.1 L [place] # (Auto) 1.0 Eos # (Auto) 0.0 Baso # (Auto) 0.0 Abs Immat Gran (auto) 0.07 H Absolute Neuts (auto) 13.5 H Absolute Nucleated RBC 0.000 Nucleated RBC % (auto) 0.0 PT 11.4 INR 1.0 Sodium 141 Potassium 3.7 Chloride 103 Carbon Dioxide 25 Anion Gap 17 BUN 20 H Creatinine 0.83 Estim Creat Clear Calc 50.1 Estimated GFR > 60 Random Glucose 155 H Calcium 9.4 Magnesium 1.8 Total Bilirubin 3.9 H Direct Bilirubin 2.4 H AST 1505 H ALT 1376 H Alkaline Phosphatase 313 H Troponin I High Sens 5.3 Total Protein 8.2 H Albumin 4.2 Lipase 113 H Urine Color Dark Yellow Urine Appearance Clear Urine pH 6.0 Ur Specific [place] >= 1.030 H Urine Protein Trace Urine Glucose (UA) Negative Urine Ketones Negative Urine Blood Negative Urine Nitrite Negative Ur Leukocyte Esterase Negative COVID-19 (ANDREW) Negative COVID-19 Clin Com See Note Hepatitis A IgM Ab Nonreactive Hep Bs Antigen Negative Hep Bs Antibody NONREACTIVE Hep B Core Total Ab Nonreactive Hepatitis C Ab (EIA) Nonreactive Influenza Type A (DUNCAN) Negative Influenza Type B (DUNCAN) Negative Influenza A & B Note See Note 05/10/25 05/11/25 19:07 05:25 WBC 15.6 H RBC 3.33 L D Hgb 10.9 L D Hct 29.8 L D MCV 89.5 MCH 32.7 MCHC 36.6 H RDW 13.7 Plt Count 80 L D MPV 11.8 Immature Gran % (Auto) 1.0 H Neut % (Auto) 79.9 H Lymph % (Auto) 11.2 L [place] % (Auto) 7.2 Eos % (Auto) 0.6 Baso % (Auto) 0.1 Lymph # (Auto) 1.8 [place] # (Auto) 1.1 Eos # (Auto) 0.1 Baso # (Auto) 0.0 Abs Immat Gran (auto) 0.15 H Absolute Neuts (auto) 12.4 H Absolute Nucleated RBC 0.000 Nucleated RBC % (auto) 0.0 PT 13.3 H 16.5 H D INR 1.2 H 1.4 H Sodium 139 Potassium 4.1 Chloride 106 Carbon Dioxide 25 Anion Gap 12 BUN 19 H Creatinine 1.06 Estim Creat Clear Calc 39.4 Estimated GFR 50 Random Glucose 67 Calcium 7.8 L D Magnesium 1.7 Total Bilirubin 6.1 H Direct Bilirubin 4.9 H AST 394 H ALT 708 H Alkaline Phosphatase 221 H Troponin I High Sens Total Protein 5.5 L Albumin 2.8 L Lipase 35 Urine Color Urine Appearance Urine pH Ur Specific [place] Urine Protein Urine Glucose (UA) Urine Ketones Urine Blood Urine Nitrite Ur Leukocyte Esterase COVID-19 (ANDREW) COVID-19 Clin Com Hepatitis A IgM Ab Hep Bs Antigen Hep Bs Antibody Hep B Core Total Ab Hepatitis C Ab (EIA) Influenza Type A (DUNCAN) Influenza Type B (DUNCAN) Influenza A & B Note Airway Mallampati Class: II TM Dist: >3cm Neck ROM: Full Loose/Missing/Broken Teeth: No Heart: RRR Lungs: CTA Assessment and Plan Assessment Anesthesia Assessment: Anesthesia Plan Discussed and Chart Reviewed Final Anesthetic Review Family History of Problems with Anesthesia: No History of Problems with Anesthesia: No NPO: Yes ASA Class: III Final Preanesthetic Review: No Changes in Pt Med Stat, Meds/Allgs Chart Reviewed, Consent Obtained/Reviewed and Anes Risks/Benef Reviewed Patient Risk: Intermediate Procedure Risk: Low Anesthetic Plan Anesthetic Plan: GA Disposition: Standard PACU
--- NOTE | 2025-05-11 20:12 | P.BOP_ITS ---
Brief Operative Note Date of Service: 05/11/25 Pre-op diagnosis: Choledocholithiasis Post-op diagnosis: other (Same) Procedure: ERCP with sphincterotomy Surgeon: Cecil Rodriguez MD Anesthesia: GETA Was an Concrete Rubber used for this Procedure?: No Estimated blood loss (mL): 0 Pathology: none sent Condition: stable Disposition: PACU
--- NOTE | 2025-05-11 20:14 | PM.EVENT ---
Event Note Date of Service: 05/11/25 Event Note: [id number] note dictated Findings: 1. Normal major papilla 2. Selective cholangiograms revealed questionable distal CBD filling defects and mildly dilated extrahepatic bile duct with normal intrahepatic ducts; the cystic duct and GB did not fill. 3. Performed an approximately 8-10mm sphincterotomy with good drainage of bile and dye noted, but no purulence 4. Duct swept with a 12mm balloon multiple times but no definite stones were removed 5. F/U Cholangiograms were negative for any filling defects, other than occasional air bubbles---the CBD appeared definitely decompressed and there was excellent drainage of contrast--the 12mm balloon pulled easily into the duodenum 6. The pancreatic duct was not injected nor cannulated Imp: Negative cholangiograms---? passed CBD stone Rec:F/U labs, Lap CCY per surgery. No aspirin, NSAIDs, or other blood thinners for 1 week. If not having surgery tomorrow her diet can be advanced as tolerated. D/W patient and her brother, Cruz. Thanks Time Spent With Patient Time: Total time managing care of this patient today ____ minutes.
--- NOTE | 2025-05-11 21:40 | OP_ITS ---
DATE OF SERVICE: 05/11/2025 SURGEON: Cecil Rodriguez MD INDICATIONS: The patient presents for evaluation of gallstone pancreatitis, elevated LFTs, and MRCP with suspicion of common duct stone. Full consent has been obtained from her for this, including risks of bleeding and perforation. PREOPERATIVE DIAGNOSIS: POSTOPERATIVE DIAGNOSIS: PROCEDURE PERFORMED: Endoscopic retrograde cholangiopancreatography with sphincterotomy. ESTIMATED BLOOD LOSS: COMPLICATIONS: ANESTHESIA: General anesthesia and glucagon 0.5 mg IV x 2 doses. ASSISTANTS: SPECIMENS: PREOPERATIVE DIAGNOSES: Choledocholithiasis, gallstone pancreatitis, elevated LFTs. POSTOPERATIVE DIAGNOSES: Choledocholithiasis, gallstone pancreatitis, elevated LFTs, cholangiograms negative for common duct stones. DESCRIPTION OF PROCEDURE: The patient was placed in the semiprone position. The Exalt single use duodenoscope was passed into the posterior oropharynx and upper esophagus. The scope was entered into the stomach and advanced to the pylorus. The duodenum was cannulated to the descending portion. The region of the major papilla was visualized and appeared normal. There was no mass nor ulceration. Using a CSRware triple lumen sphincterotome, a selective cannulation of the biliary tree was obtained over a straight guidewire on the first attempt. . The pancreatic duct was not cannulated. Selective cholangiograms at that point revealed good filling of both the intrahepatic and extrahepatic bile ducts. The intrahepatic bile ducts appeared normal. The extrahepatic bile duct appeared to be mildly dilated with questionable filling defects in the distal portion. The cystic duct and gallbladder did not fill. I performed an approximately 8 to 10 mm sphincterotomy over the guidewire without any immediate complication. There was excellent drainage of bile and dye noted, but no purulence. I then used a balloon catheter over the guidewire to cannulate the biliary tree selectively. Selective cholangiograms did not reveal any definitive filling defects at that point. The bile duct was swept numerous times with the balloon inflated at 12 mm. The balloon itself pulled easily into the duodenum, but no stones were visualized. Followup cholangiograms revealed good filling of both the intrahepatic and extrahepatic bile ducts and again no filling defects were noted. The extrahepatic bile duct appeared to be definitively decompressed and once the balloon was removed, there was excellent drainage of contrast material. Once there was certainty that there were no filling defects noted in the bile duct, I opted to terminate the procedure. Of note, the pancreatic duct was not cannulated nor injected with contrast. Again, the cystic duct and gallbladder did not fill. The scope was withdrawn from the patient. She tolerated the procedure well and was returned to the recovery area in stable condition. IMPRESSION: Essentially normal ERCP other than some slight dilatation of the extrahepatic bile duct. No evidence of common duct stones noted. Nonfilling of the gallbladder and cystic duct noted. PLAN: The patient will be observed overnight. She has been seen by surgery and will be scheduled for a laparoscopic cholecystectomy. She should not receive any aspirin, NSAIDs, nor any other blood thinners for 1 week. She will have followup laboratories in the morning as well. This has been discussed with the patient and her brother, Cruz. MD SHAMEKA Luna/SRINIVAS / [id number] MTDD
--- NOTE | 2025-05-11 22:21 | PC.NURSE ---
Addendum entered by Luann Daly RN 05/12/25 05:25: Nursing music supervisor Priscila mcnair. Addendum entered by Luann Daly RN 05/11/25 23:37: Initial dressing taken off left cheek for skin integrity documentation and a picture, new applied, non adherent pad followed by a gauze and tegaderm. Wound consult also entered in computer. 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 Per PACU report (copy in patients chart) patient sustained those injuries while in prone position for procedure. Patient is stable , no pain at this time, was able to swallow her meds well. Pictures taken , see computer.
--- NOTE | 2025-05-11 23:12 | HO.SKINPHOTO ---
Location: left cheek Category: skin tear Stage: Length: Width: Depth: cm Location: Category: Stage: Length: Width: Depth: cm Location: Category: Stage: Length: Width: Depth: cm Location: Category: Stage: Length: Width: Depth: cm Location: Category: Stage: Length: Width: Depth: cm Location: Category: Stage: Length: Width: Depth: cm
--- NOTE | 2025-05-11 23:16 | HO.SKINPHOTO ---
Location: upper lip Category: Stage: Length: Width: Depth: cm Location:right cheek Category: Stage: Length: Width: Depth: cm Location: Category: Stage: Length: Width: Depth: cm Location: Category: Stage: Length: Width: Depth: cm Location: Category: Stage: Length: Width: Depth: cm Location: Category: Stage: Length: Width: Depth: cm
[2025-05-12 00:05] LABS: INTERNATIONAL NORM RATIO 1.4 (0.9-1.1); Prothrombin Time 16.5 SEC (10.9-12.4)
--- NOTE | 2025-05-12 01:32 | CONS_ITS ---
DATE OF SERVICE: 05/11/2025 REASON FOR CONSULTATION: Elevated LFTs, jaundice, pancreatitis, and gallstones. HISTORY OF PRESENT ILLNESS: Patient is a 74-year-old female who was well up until the day prior to admission when she began developing some fairly severe upper abdominal pain. This was associated with some nausea and vomiting. She describes that prior to that she had been feeling well, but had been having some intermittent symptoms of mild upper GI complaints. She describes having undergone an upper endoscopy at [facility] earlier this year without much in the way of any findings by her description. She was unaware of any previous gallbladder or liver disease in herself. In any event, she was doing well up until the day prior to admission when the severe pain started. This persisted through the night and finally prompted her to come to the ER yesterday. Since admission, she has been found to have some mild pancreatitis based on laboratories and imaging studies. She has been found to have markedly elevated LFTs as well. Over the course of the 24 hours in the hospital, she has actually been feeling better with less abdominal pain. She has been n.p.o. today and is hungry. She has been afebrile. She denies any history of alcohol intake of any significance. She denies any known family history of liver disease or pancreatic disease. She has not been using any significant amounts of NSAIDs. She does not smoke. She denies any prior history of ulcer disease. She does take omeprazole daily. MEDICATIONS AT HOME: Include amlodipine, bupropion, vitamin D, gabapentin, lisinopril, omeprazole, eyedrops, and vitamins. Medications here in the hospital include acetaminophen p.r.n., bupropion, gabapentin, Dilaudid p.r.n., omeprazole, Zofran p.r.n., oxycodone p.r.n., IV Zosyn, IV vancomycin, and timolol eyedrops. PAST MEDICAL HISTORY: She has a history of DVT, ITP, hypertension, trouble with her balance for which she is using gabapentin, reflux, and glaucoma. She denies history of [place], diabetes, stroke, or lung disease. She denies any surgeries. She does have a history of depression. SOCIAL HISTORY: She is single and lives by herself. She does not smoke nor use of any significant alcohol. FAMILY HISTORY: Negative for GI malignancy, liver disease, or pancreatic disease. REVIEW OF SYSTEMS: CONSTITUTIONAL: Up until becoming ill, she was feeling well with good energy, good appetite. SKIN: No rash. No pruritus. CARDIAC: No chest pains. PULMONARY: No coughing or hemoptysis. GI: As above. She denies any associated hematemesis, coffee-ground emesis, melena, nor hematochezia. URINARY: No dysuria. No hematuria. NEUROLOGIC: No headache or seizures. She does have balance issues. PHYSICAL EXAMINATION: GENERAL: Patient is pleasant, alert, but jaundiced female. She appears comfortable. VITAL SIGNS: Have been stable and she has been afebrile. SKIN: Warm and dry. No obvious spider angiomata. NECK: Supple without lymphadenopathy. CARDIAC: Normal S1, S2. ABDOMEN: Soft, nondistended. Normal bowel sounds, nontender without organomegaly or mass. LABORATORY DATA: Her MRCP from yesterday describes mild intrahepatic biliary ductal dilatation with a distended gallbladder and gallstones. There was a small amount of pericholecystic fluid as well. The common bile duct measured about 9 mm and appeared to have a distal common duct stone. Pancreas appeared normal. Abdominal ultrasound described a gallstone in the gallbladder as well with some pericholecystic fluid. There was no sign of any portal vein thrombosis. Her white count was 15.7 yesterday and 15.6 today. Hemoglobin yesterday was 14.6 and today is 10.9. Platelets went from 161,000 yesterday to 80,000 today. PT was 13.3 yesterday with INR 1.2 and today PT is 16.5 with INR 1.4. Normal electrolytes. BUN 19, creatinine 1.1. In January, she had a normal liver profile. Yesterday upon arrival in the ER, she had a total bilirubin 3.9, direct bilirubin 2.4, AST 1505, ALT 1276, and alkaline phosphatase of 313. The total bilirubin today has gone up to 6.1 with a direct bilirubin of 4.9, but the other liver enzymes have improved with an AST down to 394, ALT down to 708, and alkaline phosphatase down to 221. Her lipase was 113 yesterday and 35 today. IMPRESSION: Given the patient's clinical history, this certainly seems quite consistent with a common duct stone. The fact that her pain has resolved quickly and all the liver enzymes have improved, although she has remained more jaundiced, may speak for a passage of a common duct stone. However, given the MRCP findings and her clinical history, I would recommend ERCP for further evaluation to rule out any other common duct stones and to perform sphincterotomy with stone removal if possible. I would recommend we do this prior to her undergoing cholecystectomy. I did review that procedure in detail with the patient, as well as with her brother, Cruz, who was at the bedside, and obtained full consent for the procedure, including risks of bleeding, perforation, cholangitis, and pancreatitis. In the meantime, she will continue on IV antibiotics and supportive care. She will receive a dose of IV vitamin K. She will remain n.p.o. for the time being. Given the patient's allergy to ibuprofen, she will not be able to receive the usual indomethacin suppository prior to the ERCP. According to the medical record, she gets hives from the ibuprofen and therefore I would not want to give her indomethacin. This has all been reviewed in detail with the patient and her brother. They are comfortable with the plan. Thank you for the consultation. MD SHAMEKA Luna/SRINIVAS / [id number] VALENTIN
[2025-05-12 03:45] VITALS: BP 115/56; PULSE 77; RESP 18; TEMP 36.3; O2SAT 95
[2025-05-12 06:25] LABS: NRBC Abs Auto 0.000 X10*3/uL (0.0-0.012); NRBC Pct Auto 0.0 /100WBC (0.0-0.2); PLT CLUMP 1; SCAN SMEAR FLAG 1
[2025-05-12 06:27] LABS: Hematocrit 30.6 % (37.0-47.0); Hemoglobin 11.1 g/dl (12.0-16.0); Imm Gran Abs Auto 0.09 X10*3/uL (0.00-0.03); Imm Gran Pct Auto 1.0 % (0.0-0.4); Lymphocytes Absolute Auto 1.1 X10*3/uL (1.2-4.9); MANUAL DIFF FLAG SCAN; Mean Corpuscular HGB Conc 36.3 g/dl (31.0-35.0); Mean Corpuscular Hemoglobin 32.9 pg (27.0-33.0); Mean Corpuscular Volume 90.8 fL (80.0-98.0); Red Blood Count 3.37 X10*6/uL (4.20-5.50)
[2025-05-12 06:28] LABS: White Blood Count 9.0 X10*3/uL (4.8-10.8)
--- NOTE | 2025-05-12 06:42 | PM.PNGS ---
Subjective Subjective Date of Service: 05/12/25 <Ginna Chin - Last Filed: 05/12/25 08:20> 05/12/25 <Lissette Monique PA-C - Last Filed: 05/12/25 08:36> 05/15/25 <Michele Wilhelm MD - Last Filed: 05/15/25 08:38> Interval history: Patient is a 74 year old female with PMHx of chronic ITP, HTN, history of DVT not currently anticoagulanted who presented to ER on 05/10/25 with 1 day history of nausea, vomiting, and epigastric ABD pain and subsequently admitted for acute gallstone pancreatitis and cholecystitis on 05/10. This is POD#1 s/p ERCP and sphincterotomy with findings of dilatation of common bile duct, no stones present, and no filling of cystic duct and gallbladder. No acute events overnight. Patient feels well overall. Denies nausea, vomiting, ABD pain, shortness of breath, chest pain, or any other symptoms. Getting OOB to use the bathroom and ambulate. Urinating without issue. Has not had BM since 05/09, she has been passing gas. Endorses feeling hungry. Tolerating clear liquid diet well, had lemon ice cup yesterday without issue. Headaches have been intermittent but consistent with her baseline, she admits to have taken 1 extra strength Excedrin that she brought from home on the evening of 05/10 after admission, which does contain aspirin, she mentions she had not communicated this to the care team. She feels the caffeine component of the Excedrin is most effective for her headaches. She states she would prefer to pursue care at [facility] for recommended laparoscopic cholecystectomy. <Ginna Chin - Last Filed: 05/12/25 08:20> Physical Exam Vital Signs: Vital Signs: Last Vital Signs Temp 97.3 F 05/12/25 03:45 Pulse 77 05/12/25 03:45 Resp 18 05/12/25 03:45 BP 115/56 L 05/12/25 03:45 Pulse Ox 95 05/12/25 03:45 O2 Del Method Room Air 05/12/25 03:45 BMI result Body Mass Index 27.7 <Ginna Chin - Last Filed: 05/12/25 08:20> Const: Other: Comfortable appearing, in bed, in no acute distress. <[facility] Last Filed: 05/12/25 08:20> Orientation/consciousness: patient oriented x3 <[facility] Last Filed: 05/12/25 08:20> Resp: Effort & Inspection: normal respiratory effort and able to speak in complete sentences <[facility] Last Filed: 05/12/25 08:20> GI: Inspection: Yes normal to inspection <[facility] Last Filed: 05/12/25 08:20> Palpation (GI): Soft to palpation, not firm, nontender, no guarding and not rigid <[facility] Last Filed: 05/12/25 08:20> Skin: Other: Small areas of ecchymoses present circumorally and on right nasal bridge. <[facility] Last Filed: 05/12/25 08:20> General skin exam: jaundice <Lissette Monique PA-C - Last Filed: 05/12/25 08:36> Neuro: General: patient oriented x3 <[facility] Last Filed: 05/12/25 08:20> Objective Data Active Medications Acetaminophen (Acetaminophen 325 Mg Tablet) 650 mg PO Q6H PRN PRN Reason: Pain, Mild 1-3,fever,headache Bupropion HCl (Bupropion Hcl Xl 300 Mg Tab.Er.24h) 600 mg PO DAILY [facility] Last Admin: 05/11/25 07:44 Dose: Not Given Documented By: MADELAINE Non-Admin Reason: NPO Gabapentin (Gabapentin 100 Mg Capsule) 100 mg PO BEDTIME [facility] Last Admin: 05/11/25 22:01 Dose: 100 mg Documented By: RONAN Hydromorphone HCl (Hydromorphone Hcl 0.5 Mg/0.5 Ml Syringe) 0.5 mg IVPUSH Q3H PRN; Protocol PRN Reason: Pain, Severe (Pain Scale 7-10) Last Admin: 05/10/25 16:10 Dose: 0.5 mg Documented By: MILTON Sodium Chloride (Ns) 1,000 mls @ 100 mls/hr IVCONT .Q10H [facility] Last Infusion: 05/12/25 01:31 Dose: 100 mls/hr Documented By: RONAN Piperacillin Sod/Tazobactam (Sod 3.375 gm/ Sodium Chloride) 50 mls @ 100 mls/hr IV Q6H [facility] Last Admin: 05/12/25 06:17 Dose: 100 mls/hr Documented By: RONAN Lactated Ringer's (Lr) 1,000 mls @ 50 mls/hr IVCONT .Q20H [facility] Last Infusion: 05/11/25 20:59 Dose: 0 mls/hr Documented By: RONAN Naloxone HCl (Naloxone Hcl 0.4 Mg/Ml Vial) 0.04 mg IVPUSH Q5M PRN PRN Reason: Excessive sedation or RR < 8 Omeprazole (Omeprazole 20 Mg Capsule.Dr) 20 mg PO DAILY@0630 [facility] Last Admin: 05/12/25 06:17 Dose: 20 mg Documented By: RONAN Ondansetron HCl (Ondansetron Hcl 4 Mg/2 Ml Vial) 4 mg IVPUSH Q8H PRN PRN Reason: Nausea and Vomiting Oxycodone HCl (Oxycodone Hcl Immed Release 5 Mg Tablet) 5 mg PO Q4H PRN PRN Reason: Pain, Moderate(Pain Scale 4-6) Timolol Maleate (Timolol Maleate 0.5 % Oph Sarita 5 Ml Drbtl) 1 drop EYE-BOTH DAILY [facility] Last Admin: 05/11/25 09:42 Dose: 1 drop Documented By: MADELAINE <Ginna Chin - Last Filed: 05/12/25 08:20> Labs CBC & Chem 7: 05/15/25 05:35 05/15/25 05:35 <Ginna Chin - Last Filed: 05/12/25 08:20> Labs: Laboratory Results - last 24 hr 05/11/25 23:44 PT 16.5 H INR 1.4 H <Ginna Chin - Last Filed: 05/12/25 08:20> Procedures Date of Service Date of Service: 05/12/25 <Ginna Chin - Last Filed: 05/12/25 08:20> 05/12/25 <Lissette Monique PA-C - Last Filed: 05/12/25 08:36> 05/15/25 <Michele Wilhelm MD - Last Filed: 05/15/25 08:38> Progress Note: A&P Assessment and plan (1) Chronic ITP (idiopathic thrombocytopenia): Status: Acute <Ginna Chin - Last Filed: 05/12/25 08:20> (2) Gallstone pancreatitis: Status: Acute <Ginna Chin - Last Filed: 05/12/25 08:20> Assessment and Plan: Patient is a 74 year old female with PMHx of HTN, chronic ITP, and DVT not currently on antigoagulants, admitted for acute gallstone pancreatitis and cholecystitis on 05/10 after a 1 day history of nausea, vomiting, and epigastric pain. POD#1 s/p ERCP, with findings of dilatation of common bile duct, no stones present, and no filling of cystic duct and gallbladder. Abdomen is benign. Tolerating clear liquid diet without issue. Ambulating OOB. Pain is well controlled with PO acetaminophen and oxycodone, IV hydromorphone has not been needed since 05/10. Clinically appears to be doing well. On CMP, AST/ALT continue to be elevated but downtrending at 156/410, total bilirubin increasing to 8.9 this AM. Lipase has since resolved. In setting of elevated PT INR, she was given a dose of vitamin K IV yesterday. CBC significant for low platelets at 67 this AM, possibly dilutional, however has history of ITP and she did admit this AM to bringing Extra Strength Excedrin (contains 250 mg aspirin) and has taken it since her admission on 05/10, states she has not previously mentioned this to any providers or staff. Communicated importance of avoiding NSAIDs, including aspirin which is present in Excedrin, before and after ERCP for 1 week, and any home medications brought with her should be communicated to her care team as this can affect outcomes. Laparoscopic cholecystectomy is recommended. She did report feeling strongly about pursuing care at [facility] for laparoscopic cholecystectomy and leaving [facility] today. Consider switching from IV Zosyn to Augmentin PO if patient leaving AMA. <Ginna Carrillo Last Filed: 05/12/25 08:20> Patient is a 74 year old female with PMHx of HTN, chronic ITP, and DVT not currently on antigoagulants, admitted for acute gallstone pancreatitis and cholecystitis on 05/10 after a 1 day history of nausea, vomiting, and epigastric pain. POD#1 s/p ERCP, with findings of dilatation of common bile duct, no stones present, and no filling of cystic duct and gallbladder. Abdomen is benign. Tolerating clear liquid diet without issue. Ambulating OOB. Pain is well controlled with PO acetaminophen and oxycodone, IV hydromorphone has not been needed since 05/10. Clinically appears to be doing well. On CMP, AST/ALT continue to be elevated but downtrending at 156/410, total bilirubin increasing to 8.9 this AM. Lipase has since resolved. In setting of elevated PT INR, she was given a dose of vitamin K IV yesterday. CBC significant for low platelets at 67 this AM, possibly dilutional, however has history of ITP and she did admit this AM to bringing Extra Strength Excedrin (contains 250 mg aspirin) and has taken it since her admission on 05/10, states she has not previously mentioned this to any providers or staff. Communicated importance of avoiding NSAIDs, including aspirin which is present in Excedrin, before and after ERCP for 1 week, and any home medications brought with her should be communicated to her care team as this can affect outcomes. Laparoscopic cholecystectomy is recommended. She did report feeling strongly about pursuing care at [facility] for laparoscopic cholecystectomy and leaving [facility] today. Consider switching from IV Zosyn to Augmentin PO if patient leaving [place]. Agree with above assessment and plan by Giuseppe CHOPRA. She underwent ERCP with sphincterotomy yesterday for gallstone pancreatitis. She is noticeably more jaundice this morning with uptrending bilirubin however transaminases cont to improve. ?Secondary to edema at sphincterotomy site- will await GI input. Her platelets are also downtrending and she admitted to taking home excedrin. I did stress the importance of staying in the hospital for numerous reasons including to ensure her labs are improving and as well as for a laparoscopic cholecystectomy to prevent recurrence. She is tenatively on the schedule on 05/15 if she choses to stay and her bilirubin improves by then. Will continue to follow. <Lissette Monique PA-C - Last Filed: 05/12/25 08:36> Time Spent With Patient Time: Total time managing care of this patient today ____ minutes. <Ginna Chin - Last Filed: 05/12/25 08:20> Quality Stroke Does the patient have a stroke diagnosis?: No <Ginna Chin - Last Filed: 05/12/25 08:20> VTE Prior VTE?: No <Ginna Chin Filed: 05/12/25 08:20> VTE Risk Level:: Medical - moderate - high <Ginna Chin Filed: 05/12/25 08:20> VTE Device Contraindication: N/A - Device Ordered <Ginna Chin Filed: 05/12/25 08:20> VTE Drug Contraindication: Treatment Not Indicated <Ginna Chin Filed: 05/12/25 08:20>
[2025-05-12 06:52] LABS: Platelet Count 67 X10*3/uL (160-400)
[2025-05-12 06:53] LABS: Alanine Aminotransferase 410 U/L (0-31); Albumin Level 2.7 g/dL (3.5-5.0); Alkaline Phosphatase 211 U/L (39-117); Aspartate Amino Transferase 156 U/L (5-31); Blood Urea Nitrogen 13 mg/dL (9-16); Calcium 8.3 mg/dL (8.4-10.2); Creatinine Clr Calc Pharmacy 51.6; Estimated Glomerular Filt Rate > 60; Total Protein 5.5 g/dL (6.5-8.0)
[2025-05-12 07:01] LABS: Anion Gap 10 (12-20); Carbon Dioxide 25 mmol/L (22-29); Chloride 108 mmol/L (96-108); Potassium 3.1 mmol/L (3.3-5.1); Sodium 140 mmol/L (135-145)
[2025-05-12] MEDS: buPROPion HCl XL 300 MG TAB.ER.24H 600 MG PO (07:16)
--- NOTE | 2025-05-12 07:16 | P.PNIM_ITS ---
Subjective Subjective Date of Service: 05/12/25 Interval History: Patient was quite upset that she is a ?add on? to the surgical list Surgical PA Elisabet was at the bedside this morning during the interaction She appears to have upper lip hematoma-likely from the intubation post anesthesia - bruising of upper lip and left lower cheek skin tear since procedure She apparently is ?popping Excedrin? which is not on her medication list, advised the staff to remove that from patient is belongings and secured it elsewhere as patient's leukocytosis/ITP puts her at risk of severe thrombocytopenia and medication interaction She appears to have multiple sites with ecchymosis likely from thrombocytopenia (from stress/current hospitalization) Patient appears more jaundiced with up trending conjugated hyperbilirubinemia compared to yesterday, quite agitated Ammonia WNL, hence would not initiate lactulose Surgery team on board, she will likely need cholecystectomy to relieve her jaundice Patient threatened to leave AMA this afternoon, was briefly redirectable High-risk of leaving AMA Review of Systems Review of Systems: Yes all other systems are reviewed and are negative Physical Exam 2 Exam: Exam: General: Visibly very jaundiced, AOx3, agitated and angry that ?she has an add on to the surgical case? she wanted to go to [facility] ?as they would not treat me as an add on ? Resp: CTA bilaterally CVS: S1, S2, RRR GI: Abdomen appears to be protuberant, however bowel sounds sluggish, Skin: Icteric appearing, multiple sites of bruising from the upper lip, cheek chin areas of IV lines in the arms forearms and legs-in the setting of ITP/ thrombocytopenia this is concerning Neuro: Motor grossly intact bilaterally Psych: Angry, belligerent, threatening to leave AMA, very difficult to redirect Vital Signs: Vital Signs: Last Vital Signs Temp 97.3 F 05/12/25 03:45 Pulse 77 05/12/25 03:45 Resp 18 05/12/25 03:45 BP 115/56 L 05/12/25 03:45 Pulse Ox 95 05/12/25 03:45 O2 Del Method Room Air 05/12/25 03:45 BMI result Body Mass Index 27.7 Const: Other: Comfortable appearing, in bed, in no acute distress. Orientation/consciousness: patient oriented x3 Resp: Effort & Inspection: normal respiratory effort and able to speak in complete sentences GI: Inspection: Yes normal to inspection Palpation (GI): Soft to palpation, not firm, nontender, no guarding and not rigid Skin: Other: Small areas of ecchymoses present circumorally and on right nasal bridge. General skin exam: jaundice Neuro: General: patient oriented x3 Objective Data Active Medications Acetaminophen (Acetaminophen 325 Mg Tablet) 650 mg PO Q6H PRN PRN Reason: Pain, Mild 1-3,fever,headache Bupropion HCl (Bupropion Hcl Xl 300 Mg Tab.Er.24h) 600 mg PO DAILY [facility] Last Admin: 05/11/25 07:44 Dose: Not Given Documented By: DABDread Non-Admin Reason: NPO Gabapentin (Gabapentin 100 Mg Capsule) 100 mg PO BEDTIME [facility] Last Admin: 05/11/25 22:01 Dose: 100 mg Documented By: RONAN Hydromorphone HCl (Hydromorphone Hcl 0.5 Mg/0.5 Ml Syringe) 0.5 mg IVPUSH Q3H PRN; Protocol PRN Reason: Pain, Severe (Pain Scale 7-10) Last Admin: 05/10/25 16:10 Dose: 0.5 mg Documented By: MILTON Sodium Chloride (Ns) 1,000 mls @ 100 mls/hr IVCONT .Q10H [facility] Last Infusion: 05/12/25 01:31 Dose: 100 mls/hr Documented By: RONAN Piperacillin Sod/Tazobactam (Sod 3.375 gm/ Sodium Chloride) 50 mls @ 100 mls/hr IV Q6H [facility] Last Infusion: 05/12/25 06:49 Dose: Infused Documented By: RONAN Lactated Ringer's (Lr) 1,000 mls @ 50 mls/hr IVCONT .Q20H [facility] Last Admin: 05/12/25 07:01 Dose: Not Given Documented By: MARÍA Non-Admin Reason: IV Running Naloxone HCl (Naloxone Hcl 0.4 Mg/Ml Vial) 0.04 mg IVPUSH Q5M PRN PRN Reason: Excessive sedation or RR < 8 Omeprazole (Omeprazole 20 Mg Capsule.Dr) 20 mg PO DAILY@0630 [facility] Last Admin: 05/12/25 06:17 Dose: 20 mg Documented By: RONAN Ondansetron HCl (Ondansetron Hcl 4 Mg/2 Ml Vial) 4 mg IVPUSH Q8H PRN PRN Reason: Nausea and Vomiting Oxycodone HCl (Oxycodone Hcl Immed Release 5 Mg Tablet) 5 mg PO Q4H PRN PRN Reason: Pain, Moderate(Pain Scale 4-6) Timolol Maleate (Timolol Maleate 0.5 % Oph Sarita 5 Ml Drbtl) 1 drop EYE-BOTH DAILY [facility] Last Admin: 05/11/25 09:42 Dose: 1 drop Documented By: MADELAINE Labs 05/12/25 05:42 05/12/25 05:42 Labs: Laboratory Results - last 24 hr 05/11/25 05/12/25 23:44 05:42 MCV 90.8 MCH 32.9 MCHC 36.3 H RDW 13.7 Plt Count 67 L MPV 12.0 Immature Gran % (Auto) 1.0 H Neut % (Auto) 75.6 H Lymph % (Auto) 12.2 L Parker % (Auto) 8.8 Eos % (Auto) 2.3 Baso % (Auto) 0.1 Lymph # (Auto) 1.1 L Parker # (Auto) 0.8 Eos # (Auto) 0.2 Baso # (Auto) 0.0 Abs Immat Gran (auto) 0.09 H Absolute Neuts (auto) 6.8 Absolute Nucleated RBC 0.000 Nucleated RBC % (auto) 0.0 Smear Tech's Comments VERIFIED PT 16.5 H INR 1.4 H Anion Gap 10 L Estim Creat Clear Calc 51.6 Estimated GFR > 60 Random Glucose 74 Calcium 8.3 L D Total Bilirubin 8.9 H AST 156 H ALT 410 H Alkaline Phosphatase 211 H Total Protein 5.5 L Albumin 2.7 L Assessment and Plan (1) Gallstone pancreatitis: Status: Acute Plan Patient is a 74-year-old female with prior history of ITP, presumed provoked DVT not on any blood thinners as she likely completed treatment was admitted for acute abdominal pain secondary to gallstone pancreatitis. POD#1 s/p ERCP and sphincterotomy with findings of dilatation of CBD no stones present, and no filling of cystic duct and gallbladder RUQ pain likely secondary to gallstone pancreatitis, s/p ERCP on 05/11/2025 Up trending bilirubin with downtrending LFTs and resolved lipase questionable sphincterotomy site edema with passage of CBD stone Care has been challenging as the patient appears to be quite noncompliant and threatening to leave AMA since even prior to admission. Her up trending conjugated bilirubinemia and downtrending LFTs could suggest that she likely had passed a CBD stone as Dr. Rodriguez did not find any gallstones or filling defect of the cystic duct or gallbladder However she does appear significantly jaundiced with significantly jaundice/icteric and agitated. Given risk of decompensation secondary to sepsis, we will continue IV Zosyn for broad-spectrum coverage She is able to tolerate clear liquid diet thus far Thankfully GI following We will continue to trend daily CBC, CMP, INR We will check electrolytes and replete to goal Monitor on tele Surgery team on board-patient added to surgical list as on 05/15/2025. Noncompliance to medication-patient refusing tele, threatening to leave AMA even prior to admission multiple times, with long discussions about need for compliance and continued care. Self administration of Excedrin documented-we were not aware that the patient was taking this and was notified only this a.m.. Advised the patient that multiple medications are monitored and carefully titrated given patient's multiple medical comorbidities to prevent any contraindications or adverse reactions History of ITP -downtrending platelets, with multiple areas of ecchymosis from minimal trauma-upper lip, cheek, areas of IV lines in the arms in the forearms and thighs are indicative of resurgence of ITP We will continue to trend platelets daily, and only transfuse if needed or symptomatic bleeding noted We will consider steroids for the treatment of ITP if thrombocytopenia worsens Synthetic dysfunction in the setting of shock liver-given vitamin K x1 Has required multiple IV pain medications since admission, a dose of IV vitamin K, underwent MRCP right upper quadrant ultrasound which revealed obstructive pathology, GI and surgery consulted for possible choledocholithiasis, thankfully she seems to be responding to IV antibiotics and ERCP did not show any obstructive pathology Given worsening conjugated hyperbilirubinemia, we will recheck labs in the a.m. and continue IV Zosyn for anaerobic coverage and deescalate based on labs and response tomorrow DVT prophylaxis with Lovenox while inpatient We will hold if thrombocytosis downtrending-less than 30 or if symptomatic This note is constructed using voice recognition software. While every effort has been made to ensure accuracy, seed laboratory assistant errors may have been included. . Patient is at risk of decompensation and [facility] and multi organ failure requiring continued hosp, hence we will continue to need inpatient stay for at least another 2-3 days Quality Stroke Does the patient have a stroke diagnosis?: No VTE Prior VTE?: No VTE Risk Level:: Medical - moderate - high VTE Device Contraindication: N/A - Device Ordered VTE Drug Contraindication: Treatment Not Indicated
[2025-05-12] MEDS: timoloL maleate 0.5 % Oph Sol 5 ML DRBTL 1 DROP EYE-BOTH (07:18)
[2025-05-12 07:57] VITALS: BP 156/72; PULSE 77; RESP 18; TEMP 36.2; O2SAT 96
--- NOTE | 2025-05-12 08:39 | HO.POSTANES ---
Post Anesthesia Evaluation Post Anesthesia Evaluation Date of Service: 05/12/25 Vital Signs: Vital Signs Temp Pulse Resp BP Pulse Ox O2 Del Method 05/12/25 07:57 97.2 F 77 18 156/72 H 96 Room Air 05/12/25 03:45 97.3 F 77 18 115/56 L 95 Room Air Anesthesia: General Mental Status: Awake Pain Control: Satisfactory Nausea/Vomiting: None Hydration: Adequate Anesthesia-Related Issues: No Anes. Related Issues (she has bruising of upper lip and left lower cheek skin tear since procedure)
[2025-05-12 08:58] LABS: INTERNATIONAL NORM RATIO 1.2 (0.9-1.1); Prothrombin Time 14.1 SEC (10.9-12.4)
[2025-05-12 09:05] LABS: Ammonia 26 umol/L (13-55)
--- NOTE | 2025-05-12 12:33 | MHC.CM.PN ---
Patient not medically cleared for dc. CM will continue to follow.
--- NOTE | 2025-05-12 12:56 | HO.WOUND ---
Addendum entered by Kalie Barraza RN 05/12/25 13:38: added: picture of left cheek, linear area of purpura, small scab. Right nose with clustered area of intact purpura. Original Note: Wound Consult: Initial 74 yr old female admitted to [facility] on 05/10/25- See progress notes and H&P for detailed history. Wound consult placed for upper lip and left cheek. Patient agreeable to assessment and photo documentation. Patient with recent endoscopic procedure with intubation <1 hour. Patient noted with bruising and skin tear after procedure. Left cheek Etiology: skin tear, MARSI (medical adhesive related injury) Measurements: 1cm x 1.2cm x 0.1cm Wound Bed: moist red Drainage / Odor: small sanguineous Edges: ? open Sagar wound: ? No Induration, Fluctuance or Warmth noted Pain: none Goals of Treatment: ? moist healing with xeroform, skin prep for prevention of further skin injuries Etiology: bruising/swelling over top lip, irregular with diffuse edges not typical pressure presentation - likely top down injury in the setting of increased PT/INR and decreased platelets with intubation and endoscopic procedure. Measurements: cm x cm x cm Wound Bed: intact red/purple bruising, bruising does not extend into mucosa of upper lip - teeth are intact. swelling noted to right side of upper lip, bruising noted to left side Drainage / Odor: none Edges: ? irregular, diffuse Sagar wound: ? No Induration, Fluctuance or Warmth noted Pain: none Goals of Treatment: ? moisturizer of note, patient with other scattered areas of bruising and purpura to body. Recommendations: 1. Turn and Reposition every 2 hours and as needed for patient comfort. Use pillows or wedges to support off loading positions. 2. Off Load all bony prominences with use of pillows and heel boots if needed. Apply Preventative foams where needed. 3. Monitor for incontinence and moisture control, use barrier creams when needed for prevention and treatment. 4. Provide adequate and supplemental nutrition. 5. Order or Continue low air loss mattress. 6. When applicable maintain blood glucose levels per Providers order. Left cheek: cleanse with saline, apply skin prep sagar wound, apply thin layer of vaseline, cover with xeroform and bandaid, change daily and PRN. Lips: routine oral care with lip moisturizer Re-consult wound care Nurse for wound deterioration or wound changes.
--- NOTE | 2025-05-12 14:01 | PC.NURSE ---
pt wants to be d/c, MD and Surgery team notified.
--- NOTE | 2025-05-12 14:20 | PC.NURSE ---
Patient agrees to stay at this time.
[2025-05-12 15:32] VITALS: BP 160/90; PULSE 92; RESP 20; TEMP 37.6; O2SAT 99
--- NOTE | 2025-05-12 16:05 | PC.NURSE ---
Pt experience notified patient is upset and would like to speak to them about not getting surgery today. Question if she understands why she can't have surgery today even after PA came to beside and spoke to the patient.
--- NOTE | 2025-05-12 19:15 | PM.GIPN ---
Subjective Subjective Date of Service: 05/12/25 Interval History: Feeling better. Denies abdominal pain. Apetitie only fair. Denies N/V. Critical Care Time (minutes): 0 Physical Exam Vital Signs: Vital Signs: Last Vital Signs Temp 99.7 F 05/12/25 15:32 Pulse 92 05/12/25 15:32 Resp 20 05/12/25 15:32 BP 160/90 H 05/12/25 15:32 Pulse Ox 99 05/12/25 15:32 O2 Del Method Room Air 05/12/25 15:32 BMI result Body Mass Index 27.7 Const: General: cooperative, healthy appearing, comfortable, no acute distress, well developed, alert and awake HEENT: Other: + Icterus GI: Other: Abd-Soft, NT, +BS, no mass Skin: General skin exam: jaundice Objective Data Labs 05/12/25 05:42 05/12/25 05:42 Labs: Laboratory Results - last 24 hr 05/11/25 05/12/25 05/12/25 23:44 05:42 08:44 WBC 9.0 RBC 3.37 L Hgb 11.1 L Hct 30.6 L MCV 90.8 MCH 32.9 MCHC 36.3 H RDW 13.7 Plt Count 67 L MPV 12.0 Immature Gran % (Auto) 1.0 H Neut % (Auto) 75.6 H Lymph % (Auto) 12.2 L [place] % (Auto) 8.8 Eos % (Auto) 2.3 Baso % (Auto) 0.1 Lymph # (Auto) 1.1 L [place] # (Auto) 0.8 Eos # (Auto) 0.2 Baso # (Auto) 0.0 Abs Immat Gran (auto) 0.09 H Absolute Neuts (auto) 6.8 Absolute Nucleated RBC 0.000 Nucleated RBC % (auto) 0.0 Smear Tech's Comments VERIFIED PT 16.5 H 14.1 H INR 1.4 H 1.2 H Sodium 140 Potassium 3.1 L D Chloride 108 Carbon Dioxide 25 Anion Gap 10 L BUN 13 Creatinine 0.81 Estim Creat Clear Calc 51.6 Estimated GFR > 60 Random Glucose 74 Calcium 8.3 L D Total Bilirubin 8.9 H AST 156 H ALT 410 H Alkaline Phosphatase 211 H Ammonia 26 Total Protein 5.5 L Albumin 2.7 L Random Vancomycin 05/12/25 17:52 WBC RBC Hgb Hct MCV MCH MCHC RDW Plt Count MPV Immature Gran % (Auto) Neut % (Auto) Lymph % (Auto) [place] % (Auto) Eos % (Auto) Baso % (Auto) Lymph # (Auto) [place] # (Auto) Eos # (Auto) Baso # (Auto) Abs Immat Gran (auto) Absolute Neuts (auto) Absolute Nucleated RBC Nucleated RBC % (auto) Smear Tech's Comments PT INR Sodium Potassium Chloride Carbon Dioxide Anion Gap BUN Creatinine Estim Creat Clear Calc Estimated GFR Random Glucose Calcium Total Bilirubin AST ALT Alkaline Phosphatase Ammonia Total Protein Albumin Random Vancomycin 3.4 L Imaging ERCP: Radiologist's impression: HISTORY: ERCP COMPARISON: Correlation is made with an MRCP dated 05/10/2025. TECHNIQUE: Fluoroscopy time: 3 minutes, 20.7 seconds. Cumulative Dose: 41.204 mGy. DAP: 17.923 Gycm2 Images: 12. FINDINGS: Fluoroscopic spot films from an ERCP demonstrate a normal caliber common bile duct. No definite filling defects are identified. Multiple balloon sweeps were made. FL/FL guidance in OR IMPRESSION: Fluoroscopy during procedure. Please see procedure report for additional information. Electronically signed by: Cecil Barbosa MD 05/12/2025 07:14 AM EDT RP Procedures Date of Service Date of Service: 05/12/25 Progress Note: A&P Assessment and plan (1) Gallstone pancreatitis: Status: Acute Assessment and Plan: Imp/Recs: She seems stable and comfortable after last evening's ERCP. The TBili has risen but the other LFT's are markedly improved. I suspect the high TBili is due to some cholestasis given no evidence of obstruction on the ERCP. Hopefully we will see improvement in the TBili. F/U labs in the AM. I agree with plans for Lap CCY. D/W patient in detail and she is comfortable with this plan. Thanks Time Spent With Patient Time: Total time managing care of this patient today ____ minutes. Quality Stroke Does the patient have a stroke diagnosis?: No VTE Prior VTE?: No VTE Risk Level:: Medical - moderate - high VTE Device Contraindication: N/A - Device Ordered VTE Drug Contraindication: Treatment Not Indicated
[2025-05-12 20:00] VITALS: BP 179/83; PULSE 90; RESP 18; TEMP 37.9; O2SAT 96
[2025-05-12 22:41] VITALS: BP 139/66; TEMP 37.1
[2025-05-13 02:46] VITALS: BP 139/69; PULSE 76; RESP 18; TEMP 36.6; O2SAT 96
[2025-05-13 06:15] LABS: MANUAL DIFF FLAG NO
[2025-05-13 06:21] LABS: Hematocrit 33.6 % (37.0-47.0); Hemoglobin 12.4 g/dl (12.0-16.0); Imm Gran Abs Auto 0.20 X10*3/uL (0.00-0.03); Imm Gran Pct Auto 2.4 % (0.0-0.4); Lymphocytes Absolute Auto 0.8 X10*3/uL (1.2-4.9); Mean Corpuscular HGB Conc 36.9 g/dl (31.0-35.0); Mean Corpuscular Hemoglobin 33.2 pg (27.0-33.0); Mean Corpuscular Volume 89.8 fL (80.0-98.0); NRBC Abs Auto 0.000 X10*3/uL (0.0-0.012); NRBC Pct Auto 0.0 /100WBC (0.0-0.2); Red Blood Count 3.74 X10*6/uL (4.20-5.50); White Blood Count 8.2 X10*3/uL (4.8-10.8)
[2025-05-13 06:25] LABS: Platelet Count 72 X10*3/uL (160-400)
[2025-05-13 06:30] LABS: INTERNATIONAL NORM RATIO 1.1 (0.9-1.1); Prothrombin Time 12.7 SEC (10.9-12.4)
[2025-05-13 06:42] LABS: Alanine Aminotransferase 289 U/L (0-31); Albumin Level 3.0 g/dL (3.5-5.0); Alkaline Phosphatase 238 U/L (39-117); Anion Gap 11 (12-20); Aspartate Amino Transferase 86 U/L (5-31); Blood Urea Nitrogen 7 mg/dL (9-16); Calcium 8.2 mg/dL (8.4-10.2); Carbon Dioxide 24 mmol/L (22-29); Chloride 105 mmol/L (96-108); Creatinine Clr Calc Pharmacy 62.3; Estimated Glomerular Filt Rate > 60; Potassium 3.3 mmol/L (3.3-5.1); Sodium 137 mmol/L (135-145); Total Protein 6.2 g/dL (6.5-8.0)
--- NOTE | 2025-05-13 07:17 | HO.PM.IMPN ---
Subjective Subjective Date of Service: 05/13/25 Interval History: Conjugated hyperbilirubinemia continues to worsen Patient agreeable to staying Patient agreeable not to take any medications without prior approval Synthetic functions being monitored Review of Systems Review of Systems: Yes all other systems are reviewed and are negative Physical Exam Exam: Exam: General: Visibly very jaundiced, which is worsening, AOx3, continues to be agitated, requiring less convincing as she is able to see her lab results Resp: CTA bilaterally CVS: S1, S2, RRR GI: Abdomen appears to be protuberant, however bowel sounds sluggish, Skin: Icteric appearing, multiple sites of bruising from the upper lip, cheek chin areas of IV lines in the arms forearms and legs-in the setting of ITP/ thrombocytopenia this is concerning Neuro: Motor grossly intact bilaterally Psych: Angry, belligerent, very difficult to redirect Vital Signs: Vital Signs: Last Vital Signs Temp 99.7 F 05/12/25 15:32 Pulse 92 05/12/25 15:32 Resp 20 05/12/25 15:32 BP 160/90 H 05/12/25 15:32 Pulse Ox 99 05/12/25 15:32 O2 Del Method Room Air 05/12/25 15:32 BMI result Body Mass Index 27.7 Objective Data Active Medications Acetaminophen (Acetaminophen 325 Mg Tablet) 650 mg PO Q6H PRN PRN Reason: Pain, Mild 1-3,fever,headache Last Admin: 05/12/25 20:39 Dose: 650 mg Documented By: MILTON Amlodipine Besylate (Amlodipine Besylate 2.5 Mg Tablet) 7.5 mg PO BEDTIME JENNA; Protocol Last Admin: 05/12/25 20:38 Dose: 7.5 mg Documented By: MILTON Bupropion HCl (Bupropion Hcl Xl 300 Mg Tab.Er.24h) 600 mg PO DAILY JENNA Last Admin: 05/12/25 07:16 Dose: 600 mg Documented By: MARÍA Gabapentin (Gabapentin 100 Mg Capsule) 100 mg PO BEDTIME JENNA Last Admin: 05/12/25 20:06 Dose: 100 mg Documented By: MILTON Hydromorphone HCl (Hydromorphone Hcl 0.5 Mg/0.5 Ml Syringe) 0.5 mg IVPUSH Q3H PRN; Protocol PRN Reason: Pain, Severe (Pain Scale 7-10) Last Admin: 05/10/25 16:10 Dose: 0.5 mg Documented By: MILTON Lactated Ringer's (Lr) 1,000 mls @ 50 mls/hr IVCONT .Q20H [facility] On Hold: 05/12/25 19:55 Last Admin: 05/12/25 07:01 Dose: Not Given Documented By: MARÍA Non-Admin Reason: IV Running Piperacillin Sod/Tazobactam (Sod 3.375 gm/ Sodium Chloride) 50 mls @ 100 mls/hr IV Q6H [facility] Last Infusion: 05/13/25 06:27 Dose: Infused Documented By: MILTON Ketorolac Tromethamine (Ketorolac Tromethamine 15 Mg/Ml Vial) 15 mg IVPUSH Q6H [facility] Stop: 05/17/25 23:59 Last Admin: 05/13/25 03:32 Dose: Not Given Documented By: MILTON Non-Admin Reason: Patient Refused Naloxone HCl (Naloxone Hcl 0.4 Mg/Ml Vial) 0.04 mg IVPUSH Q5M PRN PRN Reason: Excessive sedation or RR < 8 Omeprazole (Omeprazole 20 Mg Capsule.Dr) 20 mg PO DAILY@0630 [facility] Last Admin: 05/13/25 05:45 Dose: 20 mg Documented By: MILTON Ondansetron HCl (Ondansetron Hcl 4 Mg/2 Ml Vial) 4 mg IVPUSH Q8H PRN PRN Reason: Nausea and Vomiting Last Admin: 05/13/25 05:51 Dose: 4 mg Documented By: MILTON Oxycodone HCl (Oxycodone Hcl Immed Release 5 Mg Tablet) 5 mg PO Q4H PRN PRN Reason: Pain, Moderate(Pain Scale 4-6) Timolol Maleate (Timolol Maleate 0.5 % Oph Sarita 5 Ml Drbtl) 1 drop EYE-BOTH DAILY [facility] Last Admin: 05/12/25 07:18 Dose: 1 drop Documented By: MARÍA Labs 05/13/25 05:45 05/13/25 05:45 Labs: Laboratory Results - last 24 hr 05/12/25 05/12/25 05/13/25 08:44 17:52 05:45 MCV 89.8 MCH 33.2 H MCHC 36.9 H RDW 13.6 Plt Count 72 L MPV 12.1 Immature Gran % (Auto) 2.4 H Neut % (Auto) 75.0 H Lymph % (Auto) 10.0 L [place] % (Auto) 10.6 Eos % (Auto) 1.9 Baso % (Auto) 0.1 Lymph # (Auto) 0.8 L [place] # (Auto) 0.9 Eos # (Auto) 0.2 Baso # (Auto) 0.0 Abs Immat Gran (auto) 0.20 H Absolute Neuts (auto) 6.2 Absolute Nucleated RBC 0.000 Nucleated RBC % (auto) 0.0 PT 14.1 H 12.7 H INR 1.2 H 1.1 Anion Gap 11 L Estim Creat Clear Calc 62.3 Estimated GFR > 60 Random Glucose 170 H Calcium 8.2 L Total Bilirubin 11.6 H Direct Bilirubin 8.2 H AST 86 H ALT 289 H Alkaline Phosphatase 238 H Ammonia 26 Total Protein 6.2 L Albumin 3.0 L Random Vancomycin 3.4 L Assessment and Plan (1) Gallstone pancreatitis: Status: Acute Plan Patient is a 74-year-old female with prior history of ITP, presumed provoked DVT not on any blood thinners as she likely completed treatment was admitted for acute abdominal pain secondary to gallstone pancreatitis. POD#1 s/p ERCP and sphincterotomy with findings of dilatation of CBD no stones present, and no filling of cystic duct and gallbladder RUQ pain likely secondary to gallstone pancreatitis, s/p ERCP on 05/11/2025 Up trending conjugated bilirubin with downtrending LFTs and resolved lipase questionable sphincterotomy site edema with passage of CBD stone Care has been challenging as the patient appears to be quite noncompliant and threatening to leave AMA since even prior to admission. Her up trending conjugated bilirubinemia and downtrending LFTs could suggest that she likely had passed a CBD stone as Dr. Rodriguez did not find any gallstones or filling defect of the cystic duct or gallbladder However she does appear significantly jaundiced with significantly jaundice/icteric and agitated. Zosyn de-escalated to Augmentin given downtrending leukocytosis and hemodynamic stability-patient is now hypertensive and we are having to reintroduce her home antihypertensives She is able to tolerate clear liquid diet thus far Thankfully GI following We will continue to trend daily CBC, CMP, INR We will check electrolytes and replete to goal Monitor on tele Surgery team on board-patient added to surgical list as on 05/15/2025. Noncompliance to medication-patient refusing tele, threatening to leave AMA even prior to admission multiple times, with long discussions about need for compliance and continued care. Self administration of Excedrin documented-we were not aware that the patient was taking this and was notified only this a.m.. Advised the patient that multiple medications are monitored and carefully titrated given patient's multiple medical comorbidities to prevent any contraindications or adverse reactions History of ITP -downtrending platelets, with multiple areas of ecchymosis from minimal trauma-upper lip, cheek, areas of IV lines in the arms in the forearms and thighs are indicative of resurgence of ITP We will continue to trend platelets daily, and only transfuse if needed or symptomatic bleeding noted We will consider steroids for the treatment of ITP if thrombocytopenia worsens Synthetic dysfunction in the setting of shock liver-given vitamin K x1 on 05/11/2025 DVT prophylaxis with SCD boots given downtrending thrombocytopenia This note is constructed using voice recognition software. While every effort has been made to ensure accuracy, pad tufter errors may have been included. . Patient is at risk of decompensation and LONG TERM and multi organ failure requiring continued hosp, hence we will continue to need inpatient stay for at least another 2-3 days Quality Stroke Does the patient have a stroke diagnosis?: No VTE Prior VTE?: No VTE Risk Level:: Medical - moderate - high VTE Device Contraindication: N/A - Device Ordered VTE Drug Contraindication: Treatment Not Indicated
[2025-05-13 08:00] VITALS: BP 144/66; PULSE 83; RESP 19; TEMP 36.6; O2SAT 95
[2025-05-13] MEDS: buPROPion HCl XL 300 MG TAB.ER.24H 600 MG PO (10:01)
[2025-05-13] MEDS: timoloL maleate 0.5 % Oph Sol 5 ML DRBTL 1 DROP EYE-BOTH (10:03)
--- NOTE | 2025-05-13 11:23 | PM.EVENT ---
Event Note Date of Service: 05/13/25 Event Note: GI-Course noted re: worsening jaundice despite continued improvement of other LFT's and ERCP findings. Still suspect cholestasis but will order a MRCP for further evaluation to R/O a retained CBD stone and biliary obstruction. Hoepefully it can be done today. Thanks Time Spent With Patient Time: Total time managing care of this patient today ____ minutes.
[2025-05-13 15:52] VITALS: BP 149/80; PULSE 85; RESP 18; TEMP 36.9; O2SAT 96
--- NOTE | 2025-05-13 18:12 | PM.PNGS ---
Subjective Subjective Date of Service: 05/13/25 Interval history: pt says shes feeling blah no nausea no abdominal pain she is extremely yellow /jaundiced Physical Exam Vital Signs: Vital Signs: Last Vital Signs Temp 98.5 F 05/13/25 15:52 Pulse 85 05/13/25 15:52 Resp 18 05/13/25 15:52 BP 149/80 H 05/13/25 15:52 Pulse Ox 96 05/13/25 15:52 O2 Del Method Room Air 05/13/25 15:52 BMI result Body Mass Index 27.7 Const: Other: looks tired not in pain General: cooperative Eyes: Other: very jaundiced GI: Other: abdomen is soft nontender maybe mild tenderness to very deep palpation in right upper quadrant but no guarding or peritoneal signs. Skin: Other: jaundiced Objective Data Active Medications Acetaminophen (Acetaminophen 325 Mg Tablet) 650 mg PO Q6H PRN PRN Reason: Pain, Mild 1-3,fever,headache Last Admin: 05/12/25 20:39 Dose: 650 mg Documented By: MILTON Acetaminophen/Butalbital/Caffeine (Butalb/Acetamin/Caff 50/325/40 Tablet) 1 tab PO Q4H PRN PRN Reason: Headache Amlodipine Besylate (Amlodipine Besylate 2.5 Mg Tablet) 7.5 mg PO BEDTIME JENNA; Protocol Last Admin: 05/12/25 20:38 Dose: 7.5 mg Documented By: MILTON Amoxicillin/Clavulanate Potassium (Amoxicillin/Potassium Clav 875 Mg Tablet) 875 mg PO Q12H JENNA Stop: 05/17/25 10:44 Last Admin: 05/13/25 10:41 Dose: 875 mg Documented By: GEOFFREY Bupropion HCl (Bupropion Hcl Xl 300 Mg Tab.Er.24h) 600 mg PO DAILY JENNA Last Admin: 05/13/25 10:01 Dose: 600 mg Documented By: GEOFFREY Gabapentin (Gabapentin 100 Mg Capsule) 100 mg PO BEDTIME JENNA Last Admin: 05/12/25 20:06 Dose: 100 mg Documented By: MILTON Hydromorphone HCl (Hydromorphone Hcl 0.5 Mg/0.5 Ml Syringe) 0.5 mg IVPUSH Q3H PRN; Protocol PRN Reason: Pain, Severe (Pain Scale 7-10) Last Admin: 05/10/25 16:10 Dose: 0.5 mg Documented By: MILTON Lactated Ringer's (Lr) 1,000 mls @ 50 mls/hr IVCONT .Q20H [facility] On Hold: 05/12/25 19:55 Last Admin: 05/12/25 07:01 Dose: Not Given Documented By: MARÍA Non-Admin Reason: IV Running Ketorolac Tromethamine (Ketorolac Tromethamine 15 Mg/Ml Vial) 15 mg IVPUSH Q6H [facility] Stop: 05/17/25 23:59 Last Admin: 05/13/25 14:30 Dose: Not Given Documented By: GEOFFREY Non-Admin Reason: Patient Refused Naloxone HCl (Naloxone Hcl 0.4 Mg/Ml Vial) 0.04 mg IVPUSH Q5M PRN PRN Reason: Excessive sedation or RR < 8 Omeprazole (Omeprazole 20 Mg Capsule.Dr) 20 mg PO DAILY@0630 [facility] Last Admin: 05/13/25 05:45 Dose: 20 mg Documented By: MILTON Ondansetron HCl (Ondansetron Hcl 4 Mg/2 Ml Vial) 4 mg IVPUSH Q8H PRN PRN Reason: Nausea and Vomiting Last Admin: 05/13/25 14:21 Dose: 4 mg Documented By: CAROLYNN Oxycodone HCl (Oxycodone Hcl Immed Release 5 Mg Tablet) 5 mg PO Q4H PRN PRN Reason: Pain, Moderate(Pain Scale 4-6) Timolol Maleate (Timolol Maleate 0.5 % Oph Sarita 5 Ml Drbtl) 1 drop EYE-BOTH DAILY [facility] Last Admin: 05/13/25 10:03 Dose: 1 drop Documented By: GEOFFREY Labs 05/13/25 05:45 05/13/25 05:45 Labs: Laboratory Results - last 24 hr 05/12/25 05/13/25 17:52 05:45 MCV 89.8 MCH 33.2 H MCHC 36.9 H RDW 13.6 Plt Count 72 L MPV 12.1 Immature Gran % (Auto) 2.4 H Neut % (Auto) 75.0 H Lymph % (Auto) 10.0 L [place] % (Auto) 10.6 Eos % (Auto) 1.9 Baso % (Auto) 0.1 Lymph # (Auto) 0.8 L [place] # (Auto) 0.9 Eos # (Auto) 0.2 Baso # (Auto) 0.0 Abs Immat Gran (auto) 0.20 H Absolute Neuts (auto) 6.2 Absolute Nucleated RBC 0.000 Nucleated RBC % (auto) 0.0 PT 12.7 H INR 1.1 Anion Gap 11 L Estim Creat Clear Calc 62.3 Estimated GFR > 60 Random Glucose 170 H Calcium 8.2 L Total Bilirubin 11.6 H Direct Bilirubin 8.2 H AST 86 H ALT 289 H Alkaline Phosphatase 238 H Total Protein 6.2 L Albumin 3.0 L Random Vancomycin 3.4 L Procedures Date of Service Date of Service: 05/13/25 Progress Note: A&P Assessment and plan (1) Gallstone pancreatitis: Status: Acute Assessment and Plan: Pt is s/p ERCP for known choledocholithiasis but ERCP 2 days ago did not show any duct stones - sphincterotmy done - pts lfts other than bili slowly decreasing but tbili increasing and pt increasingly jaundiced p--11.6 GI recommending repeat MRCP so will follow along She has been tolerating po diet without any increased abdo pain. Time Spent With Patient Time: Total time managing care of this patient today ____ minutes. Quality Stroke Does the patient have a stroke diagnosis?: No VTE Prior VTE?: No VTE Risk Level:: Medical - moderate - high VTE Device Contraindication: N/A - Device Ordered VTE Drug Contraindication: Treatment Not Indicated
[2025-05-13 20:00] VITALS: BP 160/79; PULSE 90; RESP 18; TEMP 36.9; O2SAT 95
--- NOTE | 2025-05-13 21:37 | PM.EVENT ---
Event Note Date of Service: 05/13/25 Event Note: GI-MRCP reviewed--no sign of biliary obstruction or CBD stones Will recheck LFTs in AM. Thanks Time Spent With Patient Time: Total time managing care of this patient today ____ minutes.
[2025-05-14 03:40] VITALS: BP 135/73; PULSE 88; RESP 16; TEMP 36.9; O2SAT 96
[2025-05-14 07:15] LABS: MANUAL DIFF FLAG NO
[2025-05-14 07:22] VITALS: BP 109/68; PULSE 81; RESP 14; TEMP 37.2; O2SAT 96
--- NOTE | 2025-05-14 07:27 | HO.PM.IMPN ---
Subjective Subjective Date of Service: 05/14/25 Interval History: Thankfully patient is T bili has plateaued Patient spiked a low-grade fever in the late afternoon of 05/14/2025-sepsis workup initiated Please for hollow Patient's antibiotics have been escalated back to Zosyn given concern for cholangitis GI and surgery on board-patient to get cholecystectomy tomorrow she is on schedule We will check labs in the morning Review of Systems Review of Systems: Yes Unobtainable due to mental condition and Unobtainable due to mental status Physical Exam Exam: Exam: General: Visibly very jaundiced, which is worsening, AOx3 Resp: CTA bilaterally CVS: S1, S2, RRR GI: Abdomen appears to be protuberant, however bowel sounds sluggish, no right upper quadrant tenderness Skin: Icteric appearing, multiple sites of bruising from the upper lip, cheek chin areas of IV lines in the arms forearms and legs-in the setting of ITP/ thrombocytopenia this is concerning Neuro: Motor grossly intact bilaterally Psych: Angry, belligerent, very difficult to redirect Vital Signs: Vital Signs: Last Vital Signs Temp 98.9 F 05/14/25 07:22 Pulse 81 05/14/25 07:22 Resp 14 05/14/25 07:22 BP 109/68 05/14/25 07:22 Pulse Ox 96 05/14/25 07:22 O2 Del Method Room Air 05/14/25 07:22 BMI result Body Mass Index 27.7 Objective Data Active Medications Acetaminophen (Acetaminophen 325 Mg Tablet) 650 mg PO Q6H PRN PRN Reason: Pain, Mild 1-3,fever,headache Last Admin: 05/12/25 20:39 Dose: 650 mg Documented By: MILTON Acetaminophen/Butalbital/Caffeine (Butalb/Acetamin/Caff 50/325/40 Tablet) 1 tab PO Q4H PRN PRN Reason: Headache Amlodipine Besylate (Amlodipine Besylate 2.5 Mg Tablet) 7.5 mg PO BEDTIME JENNA; Protocol Last Admin: 05/13/25 20:44 Dose: 7.5 mg Documented By: MILTON Amoxicillin/Clavulanate Potassium (Amoxicillin/Potassium Clav 875 Mg Tablet) 875 mg PO Q12H JENNA Stop: 05/17/25 10:44 Last Admin: 05/13/25 23:05 Dose: 875 mg Documented By: MILTON Bupropion HCl (Bupropion Hcl Xl 300 Mg Tab.Er.24h) 600 mg PO DAILY [facility] Last Admin: 05/13/25 10:01 Dose: 600 mg Documented By: GEOFFREY Gabapentin (Gabapentin 100 Mg Capsule) 100 mg PO BEDTIME [facility] Last Admin: 05/13/25 20:45 Dose: 100 mg Documented By: MILTON Hydromorphone HCl (Hydromorphone Hcl 0.5 Mg/0.5 Ml Syringe) 0.5 mg IVPUSH Q3H PRN; Protocol PRN Reason: Pain, Severe (Pain Scale 7-10) Last Admin: 05/10/25 16:10 Dose: 0.5 mg Documented By: MILTON Lactated Ringer's (Lr) 1,000 mls @ 50 mls/hr IVCONT .Q20H [facility] On Hold: 05/12/25 19:55 Last Admin: 05/12/25 07:01 Dose: Not Given Documented By: MARÍA Non-Admin Reason: IV Running Ketorolac Tromethamine (Ketorolac Tromethamine 15 Mg/Ml Vial) 15 mg IVPUSH Q6H [facility] Stop: 05/17/25 23:59 Last Admin: 05/14/25 03:32 Dose: Not Given Documented By: RONAN Non-Admin Reason: Patient Refused Naloxone HCl (Naloxone Hcl 0.4 Mg/Ml Vial) 0.04 mg IVPUSH Q5M PRN PRN Reason: Excessive sedation or RR < 8 Omeprazole (Omeprazole 20 Mg Capsule.Dr) 20 mg PO DAILY@0630 [facility] Last Admin: 05/14/25 05:30 Dose: 20 mg Documented By: MILTON Ondansetron HCl (Ondansetron Hcl 4 Mg/2 Ml Vial) 4 mg IVPUSH Q8H PRN PRN Reason: Nausea and Vomiting Last Admin: 05/13/25 14:21 Dose: 4 mg Documented By: CAROLYNN Oxycodone HCl (Oxycodone Hcl Immed Release 5 Mg Tablet) 5 mg PO Q4H PRN PRN Reason: Pain, Moderate(Pain Scale 4-6) Timolol Maleate (Timolol Maleate 0.5 % Oph Sarita 5 Ml Drbtl) 1 drop EYE-BOTH DAILY JENNA Last Admin: 05/13/25 10:03 Dose: 1 drop Documented By: GEOFFREY Labs 05/14/25 06:25 05/14/25 16:21 Assessment and Plan (1) Gallstone pancreatitis: Status: Acute Plan Patient is a 74-year-old female with prior history of ITP, presumed provoked DVT not on any blood thinners as she likely completed treatment was admitted for acute abdominal pain secondary to gallstone pancreatitis. POD#1 s/p ERCP and sphincterotomy with findings of dilatation of CBD no stones present, and no filling of cystic duct and gallbladder, however she continues to have up trending conjugated bilirubinemia and underwent a repeat MRCP on 05/13/2025 and is now spiking a low-grade fever concerning for cholangitis. Sepsis workup initiated, GI and surgery notified. RUQ pain likely secondary to gallstone pancreatitis, s/p ERCP on 05/11/2025 repeat MRCP on 05/13/2025 without any obstructive obvious pathology Up trending conjugated bilirubin with downtrending LFTs and resolved lipase questionable sphincterotomy site edema with passage of CBD stone Care has been challenging as the patient appears to be quite noncompliant and threatening to leave AMA since even prior to admission. Her up trending conjugated bilirubinemia and downtrending LFTs could suggest that she likely had passed a CBD stone as Dr. Rodriguez did not find any gallstones or filling defect of the cystic duct or gallbladder However she does appear significantly jaundiced with significantly jaundice/icteric and agitated. She is able to tolerate clear liquid diet thus far Thankfully GI and surgery following We will continue to trend daily CBC, CMP, INR We will check electrolytes and replete to goal Monitor on tele Low-grade fever Broad-spectrum sepsis workup initiated-we will need to follow Re-initiated Zosyn(from p.o. antibiotics as this is concerning for cholangitis) However [place] thankfully is now downtrending Surgery team on board-patient added to surgical list as on 05/15/2025 for cholecystectomy Noncompliance to medication-patient refusing tele, threatening to leave AMA even prior to admission multiple times, with long discussions about need for compliance and continued care. Self administration of Excedrin documented-we were not aware that the patient was taking this and was notified later.. Advised the patient that multiple medications are monitored and carefully titrated given patient's multiple medical comorbidities to prevent any contraindications or adverse reactions History of ITP -downtrending platelets, with multiple areas of ecchymosis from minimal trauma-upper lip, cheek, areas of IV lines in the arms in the forearms and thighs are indicative of resurgence of ITP We will continue to trend platelets daily, and only transfuse if needed or symptomatic bleeding noted We will consider steroids for the treatment of ITP if thrombocytopenia worsens Synthetic dysfunction in the setting of shock liver-given vitamin K x1 on 05/11/2025 DVT prophylaxis with SCD boots given downtrending thrombocytopenia This note is constructed using voice recognition software. While every effort has been made to ensure accuracy, linux systems engineer errors may have been included. . Patient is at risk of decompensation and KAREN and multi organ failure requiring continued hosp, hence we will continue to need inpatient stay for at least another 2-3 days Quality Stroke Does the patient have a stroke diagnosis?: No VTE Prior VTE?: No VTE Risk Level:: Medical - moderate - high VTE Device Contraindication: N/A - Device Ordered VTE Drug Contraindication: Treatment Not Indicated
[2025-05-14 07:31] LABS: Hematocrit 30.5 % (37.0-47.0); Hemoglobin 11.4 g/dl (12.0-16.0); INTERNATIONAL NORM RATIO 1.2 (0.9-1.1); Imm Gran Abs Auto 0.12 X10*3/uL (0.00-0.03); Imm Gran Pct Auto 1.2 % (0.0-0.4); Lymphocytes Absolute Auto 1.2 X10*3/uL (1.2-4.9); Mean Corpuscular HGB Conc 37.4 g/dl (31.0-35.0); Mean Corpuscular Hemoglobin 32.9 pg (27.0-33.0); Mean Corpuscular Volume 87.9 fL (80.0-98.0); NRBC Abs Auto 0.000 X10*3/uL (0.0-0.012); NRBC Pct Auto 0.0 /100WBC (0.0-0.2); Prothrombin Time 13.8 SEC (10.9-12.4); Red Blood Count 3.47 X10*6/uL (4.20-5.50); White Blood Count 10.1 X10*3/uL (4.8-10.8)
[2025-05-14 07:34] LABS: Platelet Count 67 X10*3/uL (160-400)
[2025-05-14 08:41] LABS: Alanine Aminotransferase 179 U/L (0-31); Albumin Level 2.8 g/dL (3.5-5.0); Alkaline Phosphatase 203 U/L (39-117); Anion Gap 11 (12-20); Aspartate Amino Transferase 52 U/L (5-31); Blood Urea Nitrogen 8 mg/dL (9-16); Calcium 8.1 mg/dL (8.4-10.2); Carbon Dioxide 25 mmol/L (22-29); Chloride 100 mmol/L (96-108); Creatinine Clr Calc Pharmacy 62.3; Estimated Glomerular Filt Rate > 60; Potassium 2.6 mmol/L (3.3-5.1); Sodium 133 mmol/L (135-145); Total Protein 5.9 g/dL (6.5-8.0)
[2025-05-14] MEDS: buPROPion HCl XL 300 MG TAB.ER.24H 600 MG PO (08:45)
[2025-05-14] MEDS: timoloL maleate 0.5 % Oph Sol 5 ML DRBTL 1 DROP EYE-BOTH (08:45)
[2025-05-14] MEDS: Potassium Chloride/H20 10 MEQ/100 ML PIGGYBACK 100 MEQ IV ×4 (09:31→13:24)
[2025-05-14] MEDS: Potassium Chloride ER 20 MEQ TAB.ER.PRT 40 MEQ PO (09:31)
--- NOTE | 2025-05-14 15:19 | PM.PNGS ---
Subjective Subjective Date of Service: 05/15/25 Interval history: Patient is feeling okay today little more optimistic as her T bili is stable at 11. She is not extremely hungry denies any abdominal pain no nausea or vomiting no fevers or chills. Physical Exam Vital Signs: Vital Signs: Last Vital Signs Temp 98.9 F 05/14/25 07:22 Pulse 81 05/14/25 07:22 Resp 14 05/14/25 07:22 BP 109/68 05/14/25 07:22 Pulse Ox 96 05/14/25 07:22 O2 Del Method Room Air 05/14/25 07:22 BMI result Body Mass Index 27.7 Const: Other: Very jaundice General: cooperative, healthy appearing, comfortable and no acute distress GI: Other: Abdomen is soft nondistended nontender obese Skin: Other: Extremely jaundice Objective Data Active Medications Acetaminophen (Acetaminophen 325 Mg Tablet) 650 mg PO Q6H PRN PRN Reason: Pain, Mild 1-3,fever,headache Last Admin: 05/12/25 20:39 Dose: 650 mg Documented By: MILTON Acetaminophen/Butalbital/Caffeine (Butalb/Acetamin/Caff 50/325/40 Tablet) 1 tab PO Q4H PRN PRN Reason: Headache Amlodipine Besylate (Amlodipine Besylate 2.5 Mg Tablet) 7.5 mg PO BEDTIME JENNA; Protocol Last Admin: 05/13/25 20:44 Dose: 7.5 mg Documented By: MILTON Amoxicillin/Clavulanate Potassium (Amoxicillin/Potassium Clav 875 Mg Tablet) 875 mg PO Q12H [facility]ENNA Stop: 05/17/25 10:44 Last Admin: 05/14/25 09:31 Dose: 875 mg Documented By: GEOFFREY Bupropion HCl (Bupropion Hcl Xl 300 Mg Tab.Er.24h) 600 mg PO DAILY JENNA Last Admin: 05/14/25 08:45 Dose: 600 mg Documented By: GEOFFREY Gabapentin (Gabapentin 100 Mg Capsule) 100 mg PO BEDTIME JENNA Last Admin: 05/13/25 20:45 Dose: 100 mg Documented By: MILTON Hydromorphone HCl (Hydromorphone Hcl 0.5 Mg/0.5 Ml Syringe) 0.5 mg IVPUSH Q3H PRN; Protocol PRN Reason: Pain, Severe (Pain Scale 7-10) Last Admin: 05/10/25 16:10 Dose: 0.5 mg Documented By: MILTON Lactated Ringer's (Lr) 1,000 mls @ 50 mls/hr IVCONT .Q20H [facility] On Hold: 05/12/25 19:55 Last Admin: 05/12/25 07:01 Dose: Not Given Documented By: MARÍA Non-Admin Reason: IV Running Ketorolac Tromethamine (Ketorolac Tromethamine 15 Mg/Ml Vial) 15 mg IVPUSH Q6H [facility] Stop: 05/17/25 23:59 Last Admin: 05/14/25 14:53 Dose: Not Given Documented By: GEOFFREY Non-Admin Reason: Patient Refused Naloxone HCl (Naloxone Hcl 0.4 Mg/Ml Vial) 0.04 mg IVPUSH Q5M PRN PRN Reason: Excessive sedation or RR < 8 Omeprazole (Omeprazole 20 Mg Capsule.Dr) 20 mg PO DAILY@0630 [facility] Last Admin: 05/14/25 05:30 Dose: 20 mg Documented By: MILTON Ondansetron HCl (Ondansetron Hcl 4 Mg/2 Ml Vial) 4 mg IVPUSH Q8H PRN PRN Reason: Nausea and Vomiting Last Admin: 05/13/25 14:21 Dose: 4 mg Documented By: CAROLYNN Oxycodone HCl (Oxycodone Hcl Immed Release 5 Mg Tablet) 5 mg PO Q4H PRN PRN Reason: Pain, Moderate(Pain Scale 4-6) Timolol Maleate (Timolol Maleate 0.5 % Oph Sarita 5 Ml Drbtl) 1 drop EYE-BOTH DAILY [facility] Last Admin: 05/14/25 08:45 Dose: 1 drop Documented By: GEOFFREY Labs 05/14/25 16:21 05/14/25 16:21 Labs: Laboratory Results - last 24 hr 05/14/25 06:25 MCV 87.9 MCH 32.9 MCHC 37.4 H RDW 13.4 Plt Count 67 L MPV 12.1 Immature Gran % (Auto) 1.2 H Neut % (Auto) 72.3 Lymph % (Auto) 12.1 L [place] % (Auto) 12.6 H Eos % (Auto) 1.5 Baso % (Auto) 0.3 Lymph # (Auto) 1.2 [place] # (Auto) 1.3 H Eos # (Auto) 0.2 Baso # (Auto) 0.0 Abs Immat Gran (auto) 0.12 H Absolute Neuts (auto) 7.3 Absolute Nucleated RBC 0.000 Nucleated RBC % (auto) 0.0 PT 13.8 H INR 1.2 H Anion Gap 11 L Estim Creat Clear Calc 62.3 Estimated GFR > 60 Random Glucose 113 Calcium 8.1 L Total Bilirubin 11.2 H Direct Bilirubin 8.0 H AST 52 H ALT 179 H Alkaline Phosphatase 203 H Total Protein 5.9 L Albumin 2.8 L Imaging MRI - abdomen: Radiologist's impression: [address] [address] Magnetic Resonance Report Signed Patient: Audrey Minor MR#: [id number] : 1950 Acct:[id number] Age/Sex: 74 / F ADM Date: 05/10/25 Loc: [facility] [id number]: Maral Barragan MD Ordering Physician: Cecil Rodriguez MD Date of Service: 05/13/25 Procedure(s): MR MRCP Accession Number(s): [id number] cc: Hernan Cheek MD; Cecil Rodriguez MD~ Reason for Exam: Worsening jaundice after ERCP, R/O CBD stone CLINICAL HISTORY: Worsening jaundice after ERCP, R O CBD stone MR abdomen without contrast MR MRCP Comparison: 05/10/2025 Findings: Interval resolution of common bile duct dilatation. There is new pneumobilia including gas within the common bile duct. There is no residual common bile duct stone or common bile duct dilatation. There are multiple gallstones within the gallbladder. There is gas within the gallbladder lumen. Gallbladder is poorly distended. There is prominence of the gallbladder wall. There is no pericholecystic fluid. There is edema of the pancreatic mesentery. No associated fluid collection or pancreatic duct dilatation. Unremarkable liver, spleen, adrenal glands and kidneys. No bowel edema or dilatation. No focal bone lesion. Impression: 1. There is pneumobilia, compatible with recent ERCP. 2. No biliary dilatation or choledocholithiasis. 3. There is edema of the pancreatic mesentery suggesting a mild degree of pancreatitis. 4. There is cholelithiasis. There is associated thickening of the gallbladder wall which may be on the basis of underdistention but acute cholecystitis is also considered. This document has been electronically signed by: Lyubov Ortiz MD on 05/13/2025 18:31:44 Dictated By: Lyubov Ortiz MD Signed By: <Electronically signed by Lyubov Ortiz MD in OV> 05/13/251831 DD/ 30 TD/TT: 05/13/251830 [employer] Manager: Procedures Date of Service Date of Service: 05/15/25 Progress Note: A&P Assessment and plan (1) Gallstone pancreatitis: Status: Acute Assessment and Plan: 74-year-old female with gallstone pancreatitis improved from the pancreatitis picture. She had ERCP which did not reveal a notable obstructive stone despite being seen on imaging preprocedure. Postprocedure her LFTs continue to somewhat improved but her T bili yaquelin to 11. Patient not extremely symptomatic. Today T bili is stable. Yesterday she underwent MRCP to rule out any obstructive pathology that may have been missed her changed and this all looked relatively okay. The gallbladder also looked not very remarkable. GI following in feeling that this is all due to cholestasis and should improve. Patient is amenable to undergoing cholecystectomy here at [facility] with our team. Currently is tentatively on the schedule for Thursday and I think this is appropriate. (2) Jaundice: Status: Acute Time Spent With Patient Time: Total time managing care of this patient today ____ minutes. Quality Stroke Does the patient have a stroke diagnosis?: No VTE Prior VTE?: No VTE Risk Level:: Medical - moderate - high VTE Device Contraindication: N/A - Device Ordered VTE Drug Contraindication: Treatment Not Indicated
[2025-05-14 15:32] VITALS: BP 119/55; PULSE 81; RESP 16; TEMP 38.7; O2SAT 95
[2025-05-14 16:51] LABS: Alanine Aminotransferase 158 U/L (0-31); Albumin Level 2.9 g/dL (3.5-5.0); Alkaline Phosphatase 207 U/L (39-117); Anion Gap 12 (12-20); Aspartate Amino Transferase 48 U/L (5-31); Blood Urea Nitrogen 8 mg/dL (9-16); Calcium 8.2 mg/dL (8.4-10.2); Carbon Dioxide 20 mmol/L (22-29); Chloride 103 mmol/L (96-108); Creatinine Clr Calc Pharmacy 59.7; Estimated Glomerular Filt Rate > 60; Potassium 4.4 mmol/L (3.3-5.1); Sodium 131 mmol/L (135-145); Total Protein 6.0 g/dL (6.5-8.0)
[2025-05-14 17:05] LABS: MANUAL DIFF FLAG NO
[2025-05-14 17:40] VITALS: TEMP 36.3
--- NOTE | 2025-05-14 17:49 | P.PNGI_ITS ---
Subjective Subjective Date of Service: 05/14/25 Interval History: Course noted. Denies any abdominal pain at the present time. Eager to have the CCY and get home. Critical Care Time (minutes): 0 Physical Exam 2 Vital Signs: Vital Signs: Last Vital Signs Temp 97.4 F 05/14/25 17:40 Pulse 81 05/14/25 15:32 Resp 16 05/14/25 15:32 BP 119/55 L 05/14/25 15:32 Pulse Ox 95 05/14/25 15:32 O2 Del Method Room Air 05/14/25 15:32 BMI result Body Mass Index 27.7 Const: General: cooperative, comfortable, no acute distress, well developed, alert and awake Eyes: Sclerae: scleral abnormal (Icteric) GI: Other: Abd-Soft, NT, Nondistended, no mass Objective Data Labs 05/14/25 06:25 05/14/25 16:21 Labs: Laboratory Results - last 24 hr 05/14/25 05/14/25 06:25 16:21 WBC 10.1 RBC 3.47 L Hgb 11.4 L Hct 30.5 L MCV 87.9 MCH 32.9 MCHC 37.4 H RDW 13.4 Plt Count 67 L MPV 12.1 Immature Gran % (Auto) 1.2 H Neut % (Auto) 72.3 Lymph % (Auto) 12.1 L [place] % (Auto) 12.6 H Eos % (Auto) 1.5 Baso % (Auto) 0.3 Lymph # (Auto) 1.2 [place] # (Auto) 1.3 H Eos # (Auto) 0.2 Baso # (Auto) 0.0 Abs Immat Gran (auto) 0.12 H Absolute Neuts (auto) 7.3 Absolute Nucleated RBC 0.000 Nucleated RBC % (auto) 0.0 Hold Purple Top SEE NOTE PT 13.8 H INR 1.2 H Sodium 133 L 131 L Potassium 2.6 L* D 4.4 D Chloride 100 103 Carbon Dioxide 25 20 L Anion Gap 11 L 12 BUN 8 L 8 L Creatinine 0.67 0.70 Estim Creat Clear Calc 62.3 59.7 Estimated GFR > 60 > 60 Random Glucose 113 112 Lactic Acid 1.2 Calcium 8.1 L 8.2 L Total Bilirubin 11.2 H 10.1 H Direct Bilirubin 8.0 H AST 52 H 48 H ALT 179 H 158 H Alkaline Phosphatase 203 H 207 H Total Protein 5.9 L 6.0 L Albumin 2.8 L 2.9 L Imaging MRI - abdomen: Radiologist's impression: Ordering Physician: Cecil Rodriguez MD Date of Service: 05/13/25 Procedure(s): MR MRCP Accession Number(s): [id number] cc: Hernan Cheek MD; Cecil Rodriguez MD~ Reason for Exam: Worsening jaundice after ERCP, R/O CBD stone CLINICAL HISTORY: Worsening jaundice after ERCP, R O CBD stone MR abdomen without contrast MR MRCP Comparison: 05/10/2025 Findings: Interval resolution of common bile duct dilatation. There is new pneumobilia including gas within the common bile duct. There is no residual common bile duct stone or common bile duct dilatation. There are multiple gallstones within the gallbladder. There is gas within the gallbladder lumen. Gallbladder is poorly distended. There is prominence of the gallbladder wall. There is no pericholecystic fluid. There is edema of the pancreatic mesentery. No associated fluid collection or pancreatic duct dilatation. Unremarkable liver, spleen, adrenal glands and kidneys. No bowel edema or dilatation. No focal bone lesion. Impression: 1. There is pneumobilia, compatible with recent ERCP. 2. No biliary dilatation or choledocholithiasis. 3. There is edema of the pancreatic mesentery suggesting a mild degree of pancreatitis. 4. There is cholelithiasis. There is associated thickening of the gallbladder wall which may be on the basis of underdistention but acute cholecystitis is also considered. This document has been electronically signed by: Lyubov Ortiz MD on 05/13/2025 18:31 Procedures Date of Service Date of Service: 05/14/25 Progress Note: A&P Assessment and plan (1) Gallstone pancreatitis: Status: Acute (2) Jaundice: Status: Acute (3) Choledocholithiasis: Status: Acute Plan Imp: Overall she appears stable and improved regarding her previous abdominal pain and subsequent jaundice. I believe the jaundice was a resolving cholestatic process in relation to the previous biliary obstruction. The TBili seems to have plateaued and is beginning to decrease, while the other LFT's have markedly improved. Rec: Continue to observe, F/U labs, avoid hepatotoxic drugs. Timing of CCY as per surgery. I don't think she needs to remain on a standing dose of an antibiotic at this time. Given the negative MRI last evening and her benign abdomen presently, I do not think she needs a CT scan today either. D/W patient in detail and she is comfortable with this plan. Thanks Time Spent With Patient Time: Total time managing care of this patient today ____ minutes. Quality Stroke Does the patient have a stroke diagnosis?: No VTE Prior VTE?: No VTE Risk Level:: Medical - moderate - high VTE Device Contraindication: N/A - Device Ordered VTE Drug Contraindication: Treatment Not Indicated
[2025-05-14 18:07] LABS: Hematocrit 29.2 % (37.0-47.0); Hemoglobin 11.2 g/dl (12.0-16.0); Imm Gran Abs Auto 0.12 X10*3/uL (0.00-0.03); Imm Gran Pct Auto 1.1 % (0.0-0.4); Lymphocytes Absolute Auto 1.6 X10*3/uL (1.2-4.9); Mean Corpuscular Hemoglobin 33.6 pg (27.0-33.0); Mean Corpuscular Volume 87.7 fL (80.0-98.0); NRBC Abs Auto 0.020 X10*3/uL (0.0-0.012); NRBC Pct Auto 0.2 /100WBC (0.0-0.2); Red Blood Count 3.33 X10*6/uL (4.20-5.50); SCAN SMEAR FLAG 1; White Blood Count 10.7 X10*3/uL (4.8-10.8)
[2025-05-14 18:08] LABS: Mean Corpuscular HGB Conc 38.4 g/dl (31.0-35.0); PLT ABN DIST 1; Platelet Count 76 X10*3/uL (160-400)
[2025-05-14 18:35] LABS: Appearance Urine Clear; Glucose Urine UA Negative (Negative); PH 7.5 (5.0-9.0); Specific Gravity - Urine <= 1.005 (1.005-1.025)
[2025-05-14 19:36] VITALS: BP 105/58; PULSE 70; RESP 16; TEMP 36.2; O2SAT 97
[2025-05-14 21:54] VITALS: BP 122/58
[2025-05-15] VITALS (10 sets, daily range): BP systolic 123–147; BP diastolic 58–74; PULSE 63–89; RESP 15–20; TEMP 36–37.2; O2SAT 94–100
[2025-05-15 05:51] LABS: MANUAL DIFF FLAG NO
[2025-05-15 05:56] LABS: Hematocrit 29.0 % (37.0-47.0); Hemoglobin 10.6 g/dl (12.0-16.0); Imm Gran Abs Auto 0.20 X10*3/uL (0.00-0.03); Imm Gran Pct Auto 1.8 % (0.0-0.4); Lymphocytes Absolute Auto 1.4 X10*3/uL (1.2-4.9); Mean Corpuscular HGB Conc 36.6 g/dl (31.0-35.0); Mean Corpuscular Hemoglobin 32.9 pg (27.0-33.0); Mean Corpuscular Volume 90.1 fL (80.0-98.0); NRBC Abs Auto 0.020 X10*3/uL (0.0-0.012); NRBC Pct Auto 0.2 /100WBC (0.0-0.2); Platelet Count 77 X10*3/uL (160-400); Red Blood Count 3.22 X10*6/uL (4.20-5.50); White Blood Count 10.9 X10*3/uL (4.8-10.8)
[2025-05-15 06:13] LABS: Alanine Aminotransferase 127 U/L (0-31); Albumin Level 2.7 g/dL (3.5-5.0); Alkaline Phosphatase 200 U/L (39-117); Anion Gap 11 (12-20); Aspartate Amino Transferase 47 U/L (5-31); Blood Urea Nitrogen 9 mg/dL (9-16); Calcium 7.9 mg/dL (8.4-10.2); Carbon Dioxide 22 mmol/L (22-29); Chloride 103 mmol/L (96-108); Creatinine Clr Calc Pharmacy 58.0; Estimated Glomerular Filt Rate > 60; Potassium 3.7 mmol/L (3.3-5.1); Sodium 132 mmol/L (135-145); Total Protein 5.8 g/dL (6.5-8.0)
[2025-05-15 06:23] LABS: INTERNATIONAL NORM RATIO 1.2 (0.9-1.1); Prothrombin Time 14.2 SEC (10.9-12.4)
--- NOTE | 2025-05-15 06:40 | P.PNGS_ITS ---
Subjective Subjective Date of Service: 05/16/25 Interval history: Patient is a 74 year old female with PMHx of chronic ITP, HTN, history of DVT not currently anticoagulanted who presented to ER on 05/10/25 with 1 day history of nausea, vomiting, and epigastric ABD pain and subsequently admitted for acute gallstone pancreatitis and cholecystitis on 05/10. She is s/p ERCP and sphincterotomy on 05/10 and MRCP on 05/13 with findings of dilatation of common bile duct, no stones present, and no filling of cystic duct and gallbladder. No acute events overnight. Patient feels well overall. Denies nausea, vomiting, ABD pain, shortness of breath, chest pain, or any other symptoms. Getting OOB to use the bathroom and ambulate with 1 assist. Urinating without issue. Reports last BM was around 2 days ago, small amount of nonbloody hard stool. She has been passing gas. Endorses feeling hungry, tolerating NPO. Amenable to tentative cholecystectomy today. Physical Exam 2 Vital Signs: Vital Signs: Last Vital Signs Temp 97.3 F 05/15/25 03:54 Pulse 89 05/15/25 03:54 Resp 16 05/15/25 03:54 BP 133/65 05/15/25 03:54 Pulse Ox 98 05/15/25 03:54 O2 Del Method Room Air 05/15/25 03:54 BMI result Body Mass Index 27.7 Const: Other: Patient sitting up in bed, comfortable appearing and cooperative, in no acute distress. Resp: Effort & Inspection: normal respiratory effort and able to speak in complete sentences GI: Palpation (GI): Soft to palpation, not firm, nontender, no guarding and not rigid Skin: Other: Mildly jaundiced and icteric General skin exam: no rashes or lesions noted Psych: Other: Alert and oriented x3. Objective Data Active Medications Acetaminophen (Acetaminophen 325 Mg Tablet) 650 mg PO Q6H PRN PRN Reason: Pain, Mild 1-3,fever,headache Last Admin: 05/14/25 15:50 Dose: 650 mg Documented By: GEOFFREY Acetaminophen/Butalbital/Caffeine (Butalb/Acetamin/Caff 50/325/40 Tablet) 1 tab PO Q4H PRN PRN Reason: Headache Amlodipine Besylate (Amlodipine Besylate 2.5 Mg Tablet) 7.5 mg PO BEDTIME [facility]; Protocol Last Admin: 05/14/25 21:54 Dose: 7.5 mg Documented By: BRIDGET Bupropion HCl (Bupropion Hcl Xl 300 Mg Tab.Er.24h) 600 mg PO DAILY [facility] Last Admin: 05/14/25 08:45 Dose: 600 mg Documented By: GEOFFREY Gabapentin (Gabapentin 100 Mg Capsule) 100 mg PO BEDTIME [facility] Last Admin: 05/14/25 21:54 Dose: 100 mg Documented By: BRIDGET Hydromorphone HCl (Hydromorphone Hcl 0.5 Mg/0.5 Ml Syringe) 0.5 mg IVPUSH Q3H PRN; Protocol PRN Reason: Pain, Severe (Pain Scale 7-10) Last Admin: 05/10/25 16:10 Dose: 0.5 mg Documented By: MILTON Lactated Ringer's (Lr) 1,000 mls @ 50 mls/hr IVCONT .Q20H [facility] On Hold: 05/12/25 19:55 Last Admin: 05/12/25 07:01 Dose: Not Given Documented By: MARÍA Non-Admin Reason: IV Running Piperacillin Sod/Tazobactam (Sod 3.375 gm/ Sodium Chloride) 50 mls @ 100 mls/hr IV Q6H [facility] Last Infusion: 05/15/25 05:38 Dose: Infused Documented By: BRIDGET Ketorolac Tromethamine (Ketorolac Tromethamine 15 Mg/Ml Vial) 15 mg IVPUSH Q6H [facility] Stop: 05/17/25 23:59 Last Admin: 05/15/25 03:28 Dose: Not Given Documented By: BRIDGET Non-Admin Reason: Patient Refused Naloxone HCl (Naloxone Hcl 0.4 Mg/Ml Vial) 0.04 mg IVPUSH Q5M PRN PRN Reason: Excessive sedation or RR < 8 Omeprazole (Omeprazole 20 Mg Capsule.Dr) 20 mg PO DAILY@0630 [facility] Last Admin: 05/14/25 05:30 Dose: 20 mg Documented By: MILTON Ondansetron HCl (Ondansetron Hcl 4 Mg/2 Ml Vial) 4 mg IVPUSH Q8H PRN PRN Reason: Nausea and Vomiting Last Admin: 05/13/25 14:21 Dose: 4 mg Documented By: CAROLYNN Oxycodone HCl (Oxycodone Hcl Immed Release 5 Mg Tablet) 5 mg PO Q4H PRN PRN Reason: Pain, Moderate(Pain Scale 4-6) Timolol Maleate (Timolol Maleate 0.5 % Oph Sarita 5 Ml Drbtl) 1 drop EYE-BOTH DAILY [facility] Last Admin: 05/14/25 08:45 Dose: 1 drop Documented By: GEOFFREY Labs 05/15/25 05:35 05/15/25 05:35 Labs: Laboratory Results - last 24 hr 05/14/25 05/14/25 05/14/25 06:25 16:21 18:23 MCV 87.9 87.7 MCH 32.9 33.6 H MCHC 37.4 H 38.4 H RDW 13.4 13.7 Plt Count 67 L 76 L MPV 12.1 13.3 H Immature Gran % (Auto) 1.2 H 1.1 H Neut % (Auto) 72.3 68.7 Lymph % (Auto) 12.1 L 14.6 L [place] % (Auto) 12.6 H 13.6 H Eos % (Auto) 1.5 1.6 Baso % (Auto) 0.3 0.4 Lymph # (Auto) 1.2 1.6 [place] # (Auto) 1.3 H 1.5 H Eos # (Auto) 0.2 0.2 Baso # (Auto) 0.0 0.0 Abs Immat Gran (auto) 0.12 H 0.12 H Absolute Neuts (auto) 7.3 7.4 Absolute Nucleated RBC 0.000 0.020 H Nucleated RBC % (auto) 0.0 0.2 Hold Purple Top SEE NOTE PT 13.8 H INR 1.2 H Anion Gap 11 L 12 Estim Creat Clear Calc 62.3 59.7 Estimated GFR > 60 > 60 Random Glucose 113 112 Lactic Acid 1.2 Calcium 8.1 L 8.2 L Total Bilirubin 11.2 H 10.1 H Direct Bilirubin 8.0 H AST 52 H 48 H ALT 179 H 158 H Alkaline Phosphatase 203 H 207 H Total Protein 5.9 L 6.0 L Albumin 2.8 L 2.9 L Urine Color Dark Yellow Urine Appearance Clear Urine pH 7.5 Ur Specific [place] <= 1.005 Urine Protein Negative Urine Glucose (UA) Negative Urine Ketones Negative Urine Blood Negative Urine Nitrite Negative Ur Leukocyte Esterase Negative 05/15/25 05:35 MCV 90.1 MCH 32.9 MCHC 36.6 H RDW 13.3 Plt Count 77 L MPV 11.8 Immature Gran % (Auto) 1.8 H Neut % (Auto) 73.5 H Lymph % (Auto) 12.4 L [place] % (Auto) 10.2 Eos % (Auto) 1.6 Baso % (Auto) 0.5 Lymph # (Auto) 1.4 [place] # (Auto) 1.1 Eos # (Auto) 0.2 Baso # (Auto) 0.1 Abs Immat Gran (auto) 0.20 H Absolute Neuts (auto) 8.0 Absolute Nucleated RBC 0.020 H Nucleated RBC % (auto) 0.2 Hold Purple Top PT 14.2 H INR 1.2 H Anion Gap 11 L Estim Creat Clear Calc 58.0 Estimated GFR > 60 Random Glucose 100 Lactic Acid Calcium 7.9 L Total Bilirubin 8.2 H Direct Bilirubin 5.9 H AST 47 H ALT 127 H Alkaline Phosphatase 200 H Total Protein 5.8 L Albumin 2.7 L Urine Color Urine Appearance Urine pH Ur Specific [place] Urine Protein Urine Glucose (UA) Urine Ketones Urine Blood Urine Nitrite Ur Leukocyte Esterase Procedures Date of Service Date of Service: 05/16/25 Progress Note: A&P Assessment and plan Plan Patient is a 74 year old female with PMHx of chronic ITP, HTN, history of DVT not currently anticoagulanted who was admitted on 05/10/25 for acute gallstone pancreatitis and cholecystitis, with ERCP with findings of dilatation of common bile duct, no stones present in biliary tract, and no filling of cystic duct and gallbladder and MRCP suggesting mild pancreatitis and cholecystitis with cholelithiasis. CXR and KUB on 05/14 with no acute findings. Urinalysis within normal limits. Venous blood cultures pending. Infectious workup initiated over the weekend due to worsening jaundice and agitation, concern for cholangitis, IV Zosyn re-initiated from PO Augmentin. Total and direct bilirubin are downtrending, 8.2 and 5.9, AST / ALT improving to 47 / 127 this AM. Clinically appears to have improved since yesterday, alert and oriented this AM, mildly jaundiced. Denies pain. Ambulating OOB with 1 assist. Abdomen continues to be benign. Patient remains amenable to recieving treatment for cholecystitis. Continue IV Zosyn. Continue NPO with plan for laparoscopic cholecystectomy today. Time Spent With Patient Time: Total time managing care of this patient today ____ minutes. Quality Stroke Does the patient have a stroke diagnosis?: No VTE Prior VTE?: No VTE Risk Level:: Medical - moderate - high VTE Device Contraindication: N/A - Device Ordered VTE Drug Contraindication: Treatment Not Indicated
--- NOTE | 2025-05-15 07:13 | P.PNIM_ITS ---
Subjective Subjective Date of Service: 05/15/25 Interval History: Patient to get cholecystectomy today T bili downtrending Patient appears less jaundiced Patient needs short-term rehab, patient to deconditioned to go back home, patient refusing Review of Systems Review of Systems: Yes all other systems are reviewed and are negative Physical Exam 2 Exam: Exam: Patient walked with physical therapy and had significant distress, falls She ideally should be going to short-term rehab-however patient deferring rehab placement Agreeable to going home with [facility] General: Visibly very jaundiced,, AOx3 Resp: CTA bilaterally CVS: S1, S2, RRR GI: Abdomen appears to be protuberant, however bowel sounds sluggish, no right upper quadrant tenderness Skin: Icteric appearing, multiple sites of bruising from the upper lip, cheek chin areas of IV lines in the arms forearms and legs-in the setting of ITP/ thrombocytopenia this is concerning Neuro: Motor grossly intact bilaterally Psych: poor insight overall Vital Signs: Vital Signs: Last Vital Signs Temp 97.3 F 05/15/25 03:54 Pulse 89 05/15/25 03:54 Resp 16 05/15/25 03:54 BP 133/65 05/15/25 03:54 Pulse Ox 98 05/15/25 03:54 O2 Del Method Room Air 05/15/25 03:54 BMI result Body Mass Index 27.7 Objective Data Active Medications Acetaminophen (Acetaminophen 325 Mg Tablet) 650 mg PO Q6H PRN PRN Reason: Pain, Mild 1-3,fever,headache Last Admin: 05/14/25 15:50 Dose: 650 mg Documented By: GEOFFREY Acetaminophen/Butalbital/Caffeine (Butalb/Acetamin/Caff 50/325/40 Tablet) 1 tab PO Q4H PRN PRN Reason: Headache Amlodipine Besylate (Amlodipine Besylate 2.5 Mg Tablet) 7.5 mg PO BEDTIME JENNA; Protocol Last Admin: 05/14/25 21:54 Dose: 7.5 mg Documented By: BRIDGET Bupropion HCl (Bupropion Hcl Xl 300 Mg Tab.Er.24h) 600 mg PO DAILY [facility] Last Admin: 05/14/25 08:45 Dose: 600 mg Documented By: GEOFFREY Gabapentin (Gabapentin 100 Mg Capsule) 100 mg PO BEDTIME JENNA Last Admin: 05/14/25 21:54 Dose: 100 mg Documented By: BRIDGET Hydromorphone HCl (Hydromorphone Hcl 0.5 Mg/0.5 Ml Syringe) 0.5 mg IVPUSH Q3H PRN; Protocol PRN Reason: Pain, Severe (Pain Scale 7-10) Last Admin: 05/10/25 16:10 Dose: 0.5 mg Documented By: MILTON Lactated Ringer's (Lr) 1,000 mls @ 50 mls/hr IVCONT .Q20H [facility] On Hold: 05/12/25 19:55 Last Admin: 05/12/25 07:01 Dose: Not Given Documented By: MARÍA Non-Admin Reason: IV Running Piperacillin Sod/Tazobactam (Sod 3.375 gm/ Sodium Chloride) 50 mls @ 100 mls/hr IV Q6H [facility] Last Infusion: 05/15/25 05:38 Dose: Infused Documented By: BRIDGET Ketorolac Tromethamine (Ketorolac Tromethamine 15 Mg/Ml Vial) 15 mg IVPUSH Q6H [facility] Stop: 05/17/25 23:59 Last Admin: 05/15/25 03:28 Dose: Not Given Documented By: BRIDGET Non-Admin Reason: Patient Refused Naloxone HCl (Naloxone Hcl 0.4 Mg/Ml Vial) 0.04 mg IVPUSH Q5M PRN PRN Reason: Excessive sedation or RR < 8 Omeprazole (Omeprazole 20 Mg Capsule.Dr) 20 mg PO DAILY@0630 [facility] Last Admin: 05/14/25 05:30 Dose: 20 mg Documented By: MILTON Ondansetron HCl (Ondansetron Hcl 4 Mg/2 Ml Vial) 4 mg IVPUSH Q8H PRN PRN Reason: Nausea and Vomiting Last Admin: 05/13/25 14:21 Dose: 4 mg Documented By: CAROLYNN Oxycodone HCl (Oxycodone Hcl Immed Release 5 Mg Tablet) 5 mg PO Q4H PRN PRN Reason: Pain, Moderate(Pain Scale 4-6) Timolol Maleate (Timolol Maleate 0.5 % Oph Sarita 5 Ml Drbtl) 1 drop EYE-BOTH DAILY [facility] Last Admin: 05/14/25 08:45 Dose: 1 drop Documented By: GEOFFREY Labs 05/15/25 05:35 05/15/25 05:35 Labs: Laboratory Results - last 24 hr 05/14/25 05/14/25 05/14/25 06:25 16:21 18:23 MCV 87.9 87.7 MCH 32.9 33.6 H MCHC 37.4 H 38.4 H RDW 13.4 13.7 Plt Count 67 L 76 L MPV 12.1 13.3 H Immature Gran % (Auto) 1.2 H 1.1 H Neut % (Auto) 72.3 68.7 Lymph % (Auto) 12.1 L 14.6 L Knox % (Auto) 12.6 H 13.6 H Eos % (Auto) 1.5 1.6 Baso % (Auto) 0.3 0.4 Lymph # (Auto) 1.2 1.6 Knox # (Auto) 1.3 H 1.5 H Eos # (Auto) 0.2 0.2 Baso # (Auto) 0.0 0.0 Abs Immat Gran (auto) 0.12 H 0.12 H Absolute Neuts (auto) 7.3 7.4 Absolute Nucleated RBC 0.000 0.020 H Nucleated RBC % (auto) 0.0 0.2 Hold Purple Top SEE NOTE PT 13.8 H INR 1.2 H Anion Gap 11 L 12 Estim Creat Clear Calc 62.3 59.7 Estimated GFR > 60 > 60 Random Glucose 113 112 Lactic Acid 1.2 Calcium 8.1 L 8.2 L Total Bilirubin 11.2 H 10.1 H Direct Bilirubin 8.0 H AST 52 H 48 H ALT 179 H 158 H Alkaline Phosphatase 203 H 207 H Total Protein 5.9 L 6.0 L Albumin 2.8 L 2.9 L Urine Color Dark Yellow Urine Appearance Clear Urine pH 7.5 Ur Specific Lucien <= 1.005 Urine Protein Negative Urine Glucose (UA) Negative Urine Ketones Negative Urine Blood Negative Urine Nitrite Negative Ur Leukocyte Esterase Negative 05/15/25 05:35 MCV 90.1 MCH 32.9 MCHC 36.6 H RDW 13.3 Plt Count 77 L MPV 11.8 Immature Gran % (Auto) 1.8 H Neut % (Auto) 73.5 H Lymph % (Auto) 12.4 L Knox % (Auto) 10.2 Eos % (Auto) 1.6 Baso % (Auto) 0.5 Lymph # (Auto) 1.4 Knox # (Auto) 1.1 Eos # (Auto) 0.2 Baso # (Auto) 0.1 Abs Immat Gran (auto) 0.20 H Absolute Neuts (auto) 8.0 Absolute Nucleated RBC 0.020 H Nucleated RBC % (auto) 0.2 Hold Purple Top PT 14.2 H INR 1.2 H Anion Gap 11 L Estim Creat Clear Calc 58.0 Estimated GFR > 60 Random Glucose 100 Lactic Acid Calcium 7.9 L Total Bilirubin 8.2 H Direct Bilirubin 5.9 H AST 47 H ALT 127 H Alkaline Phosphatase 200 H Total Protein 5.8 L Albumin 2.7 L Urine Color Urine Appearance Urine pH Ur Specific Lucien Urine Protein Urine Glucose (UA) Urine Ketones Urine Blood Urine Nitrite Ur Leukocyte Esterase Assessment and Plan (1) Gallstone pancreatitis: Status: Acute Plan Patient is a 74-year-old female with prior history of ITP, presumed provoked DVT not on any blood thinners as she likely completed treatment was admitted for acute abdominal pain secondary to gallstone pancreatitis. POD#1 s/p ERCP and sphincterotomy with findings of dilatation of CBD no stones present, and no filling of cystic duct and gallbladder, however she continues to have up trending conjugated bilirubinemia and underwent a repeat MRCP on 05/13/2025 and is now spiking a low-grade fever concerning for cholangitis. Sepsis workup initiated, GI and surgery notified. RUQ pain likely secondary to gallstone pancreatitis, s/p ERCP on 05/11/2025 repeat MRCP on 05/13/2025 without any obstructive obvious pathology Up trending conjugated bilirubin with downtrending LFTs and resolved lipase questionable sphincterotomy site edema with passage of CBD stone CCY today Her up trending conjugated bilirubinemia and downtrending LFTs could suggest that she likely had passed a CBD stone as Dr. Rodriguez did not find any gallstones or filling defect of the cystic duct or gallbladder However she does appear significantly jaundiced with significantly jaundice/icteric and occasionsal agitated. Thankfully GI and surgery following We will continue to trend daily CBC, CMP, INR We will check electrolytes and replete to goal Monitor on tele Low-grade fever 05/14/25 - workup thus far unrevealing , will DC all abx as co-mx with GI &Surgery do not believe she needs standing abx DC abx workup thus far unrevealing , will DC all abx as co-mx with GI &Surgery do not believe she needs standing abx However Cata callahan thankfully is now downtrending Surgery team on board-patient added to surgical list today for cholecystectomy Noncompliance to medication-patient refusing tele, threatening to leave AMA even prior to admission multiple times, with long discussions about need for compliance and continued care. Self administration of Excedrin documented-we were not aware that the patient was taking this and was notified later.. Advised the patient that multiple medications are monitored and carefully titrated given patient's multiple medical comorbidities to prevent any contraindications or adverse reactions History of ITP -downtrending platelets, with multiple areas of ecchymosis from minimal trauma-upper lip, cheek, areas of IV lines in the arms in the forearms and thighs are indicative of resurgence of ITP We will continue to trend platelets daily, and only transfuse if needed or symptomatic bleeding noted We will consider steroids for the treatment of ITP if thrombocytopenia worsens Synthetic dysfunction in the setting of shock liver-given vitamin K x1 on 05/11/2025 DVT prophylaxis with SCD boots given downtrending thrombocytopenia This note is constructed using voice recognition software. While every effort has been made to ensure accuracy, induction machine operator errors may have been included. . Patient is at risk of decompensation and FPC and multi organ failure requiring continued hosp, CCY today and hence we will continue to need inpatient stay for at least another 1-2 days Quality Stroke Does the patient have a stroke diagnosis?: No VTE Prior VTE?: No VTE Risk Level:: Medical - moderate - high VTE Device Contraindication: N/A - Device Ordered VTE Drug Contraindication: Treatment Not Indicated
--- NOTE | 2025-05-15 08:03 | HO.ANESPROP2 ---
Documented by User: Sierra Sanchez NP 05/15/25 08:09 HPI - Anesthesia Eval Consult details Narrative: 74 yr old female for cholecystectomy s/p ERCP 05/11/25 with GA ETT 7.0; she did sustain left cheek skin tear, lip bruising. INR is 1.2 on 05/15/25 Chronic ITP: platelets at 77 today 05/15/25; discharged from Dr. Joseph in 2021 to be followed by her PCP. [facility] Active Problems Active Problems: All Active Problems Choledocholithiasis (Acute) Jaundice (Acute) Pancreatitis due to biliary obstruction (Acute) Gallstone pancreatitis (Acute) Fracture of fifth metatarsal bone of right foot (Acute) Chronic ITP (idiopathic thrombocytopenia) (Acute) Right leg DVT (Acute) Past Medical History Medical History Glaucoma Chronic idiopathic thrombocytopenia Left ACL tear Depression HTN (hypertension) Right leg DVT Family History Family History Mother Heart disease HTN (hypertension) Diabetes Maternal Aunt H/O heart bypass surgery HTN (hypertension) Diabetes Brother S/P triple vessel bypass Stroke Family history of problems with anesthesia: No Surgical History Surgical History Hx of tonsillectomy Hx of cataract extraction History of Problems with Anesthesia: No Social History Social History Household Members: None Housing: Condominium Do you presently have visiting nurse or other home services: No Alcohol intake: current Alcohol intake frequency: holidays/special occasions only Alcohol type: hard liquor Patient Tobacco Use Status: Never used Tobacco Advance Directives Date on File: 05/10/25 service: No Current occupational status: retired Meds Allergies Allergy/AdvReac Type Severity Reaction Status Date / Time ibuprofen (IBUPROFEN) Allergy Unknown HIVES Verified 05/10/25 07:06 Active Medications: Current Medications Acetaminophen (Acetaminophen 325 Mg Tablet) 650 mg PO Q6H PRN PRN Reason: Pain, Mild 1-3,fever,headache Last Admin: 05/14/25 15:50 Dose: 650 mg Acetaminophen/Butalbital/Caffeine (Butalb/Acetamin/Caff 50/325/40 Tablet) 1 tab PO Q4H PRN PRN Reason: Headache Amlodipine Besylate (Amlodipine Besylate 2.5 Mg Tablet) 7.5 mg PO BEDTIME [facility]; Protocol Last Admin: 05/14/25 21:54 Dose: 7.5 mg Bupropion HCl (Bupropion Hcl Xl 300 Mg Tab.Er.24h) 600 mg PO DAILY [facility] Last Admin: 05/15/25 07:56 Dose: Not Given Gabapentin (Gabapentin 100 Mg Capsule) 100 mg PO BEDTIME [facility] Last Admin: 05/14/25 21:54 Dose: 100 mg Hydromorphone HCl (Hydromorphone Hcl 0.5 Mg/0.5 Ml Syringe) 0.5 mg IVPUSH Q3H PRN; Protocol PRN Reason: Pain, Severe (Pain Scale 7-10) Last Admin: 05/10/25 16:10 Dose: 0.5 mg Lactated Ringer's (Lr) 1,000 mls @ 50 mls/hr IVCONT .Q20H [facility] On Hold: 05/12/25 19:55 Last Infusion: 05/12/25 07:01 Dose: Infused Piperacillin Sod/Tazobactam (Sod 3.375 gm/ Sodium Chloride) 50 mls @ 100 mls/hr IV Q6H [facility] Last Infusion: 05/15/25 05:38 Dose: Infused Ketorolac Tromethamine (Ketorolac Tromethamine 15 Mg/Ml Vial) 15 mg IVPUSH Q6H [facility] Stop: 05/17/25 23:59 Last Admin: 05/15/25 07:56 Dose: Not Given Naloxone HCl (Naloxone Hcl 0.4 Mg/Ml Vial) 0.04 mg IVPUSH Q5M PRN PRN Reason: Excessive sedation or RR < 8 Omeprazole (Omeprazole 20 Mg Capsule.Dr) 20 mg PO DAILY@0630 [facility] Last Admin: 05/15/25 06:30 Dose: Not Given Ondansetron HCl (Ondansetron Hcl 4 Mg/2 Ml Vial) 4 mg IVPUSH Q8H PRN PRN Reason: Nausea and Vomiting Last Admin: 05/13/25 14:21 Dose: 4 mg Oxycodone HCl (Oxycodone Hcl Immed Release 5 Mg Tablet) 5 mg PO Q4H PRN PRN Reason: Pain, Moderate(Pain Scale 4-6) Timolol Maleate (Timolol Maleate 0.5 % Oph [place]ita 5 Ml Drbtl) 1 drop EYE-BOTH DAILY JENNA Last Admin: 05/14/25 08:45 Dose: 1 drop Home Medications ?Medication ?Instructions ?Recorded ?Confirmed ?Last Taken ?Type bupropion HCl 300 mg 24 hr tablet, 600 mg PO DAILY 08/30/20 05/10/25 05/09/25 History extended release cholecalciferol (vitamin D3) 25 25 mcg PO DAILY 08/30/20 05/10/25 05/09/25 History mcg (1,000 unit) tablet (Vitamin D3) timolol maleate 0.5 % eye drops 1 drp ophthalmic (eye) DAILY 08/30/20 05/10/25 05/09/25 History vitamin B complex 1 cap PO DAILY 08/30/20 05/10/25 05/09/25 History amlodipine 2.5 mg tablet 2.5 mg PO DAILY 05/10/25 05/10/25 05/09/25 History bismuth subsalicylate 262 mg/15 mL 524 mg PO Q30M PRN Abdominal 05/10/25 05/10/25 Unknown History oral suspension (Pepto-Bismol) Discomfort gabapentin 100 mg capsule 100 mg PO BEDTIME 05/10/25 05/10/25 05/09/25 History lisinopril 10 mg tablet 10 mg PO BID 05/10/25 05/10/25 05/09/25 History magnesium oxide 250 mg PO DAILY 05/10/25 05/10/25 05/09/25 History omeprazole 20 mg capsule,delayed 20 mg PO DAILY@0630 05/10/25 05/10/25 05/09/25 History release Exam Height,Weight and Vital Signs: Height 5 ft 1 in Weight 66.6 kg Last Vital Signs Temp 97.3 F 05/15/25 07:35 Pulse 72 05/15/25 07:35 Resp 20 05/15/25 07:35 BP 123/59 L 05/15/25 07:35 Pulse Ox 94 05/15/25 07:35 O2 Del Method Room Air 05/15/25 07:35 Pertinent Lab Results Pertinent Lab Results: Laboratory Tests 05/10/25 05/10/25 05/10/25 07:12 09:11 10:51 WBC 15.7 H RBC 4.42 Hgb 14.6 Hct 39.0 MCV 88.2 MCH 33.0 MCHC 37.4 H RDW 12.8 Plt Count 161 MPV 10.8 Immature Gran % (Auto) 0.4 Neut % (Auto) 86.2 H Lymph % (Auto) 7.0 L [place] % (Auto) 6.3 Eos % (Auto) 0.0 Baso % (Auto) 0.1 Lymph # (Auto) 1.1 L [place] # (Auto) 1.0 Eos # (Auto) 0.0 Baso # (Auto) 0.0 Abs Immat Gran (auto) 0.07 H Absolute Neuts (auto) 13.5 H Absolute Nucleated RBC 0.000 Nucleated RBC % (auto) 0.0 Smear Tech's Comments Hold Purple Top PT 11.4 INR 1.0 Sodium 141 Potassium 3.7 Chloride 103 Carbon Dioxide 25 Anion Gap 17 BUN 20 H Creatinine 0.83 Estim Creat Clear Calc 50.1 Estimated GFR > 60 Random Glucose 155 H Lactic Acid Calcium 9.4 Magnesium 1.8 Total Bilirubin 3.9 H Direct Bilirubin 2.4 H AST 1505 H ALT 1376 H Alkaline Phosphatase 313 H Ammonia Troponin I High Sens 5.3 Total Protein 8.2 H Albumin 4.2 Lipase 113 H Urine Color Dark Yellow Urine Appearance Clear Urine pH 6.0 Ur Specific [place] >= 1.030 H Urine Protein Trace Urine Glucose (UA) Negative Urine Ketones Negative Urine Blood Negative Urine Nitrite Negative Ur Leukocyte Esterase Negative Random Vancomycin COVID-19 (ANDREW) Negative COVID-19 Clin Com See Note Hepatitis A IgM Ab Nonreactive Hep Bs Antigen Negative Hep Bs Antibody NONREACTIVE Hep B Core Total Ab Nonreactive Hepatitis C Ab (EIA) Nonreactive Influenza Type A (DUNCAN) Negative Influenza Type B (DUNCAN) Negative Influenza A & B Note See Note 05/10/25 05/11/25 05/11/25 19:07 05:25 23:44 WBC 15.6 H RBC 3.33 L D Hgb 10.9 L D Hct 29.8 L D MCV 89.5 MCH 32.7 MCHC 36.6 H RDW 13.7 Plt Count 80 L D MPV 11.8 Immature Gran % (Auto) 1.0 H Neut % (Auto) 79.9 H Lymph % (Auto) 11.2 L [place] % (Auto) 7.2 Eos % (Auto) 0.6 Baso % (Auto) 0.1 Lymph # (Auto) 1.8 [place] # (Auto) 1.1 Eos # (Auto) 0.1 Baso # (Auto) 0.0 Abs Immat Gran (auto) 0.15 H Absolute Neuts (auto) 12.4 H Absolute Nucleated RBC 0.000 Nucleated RBC % (auto) 0.0 Smear Tech's Comments Hold Purple Top PT 13.3 H 16.5 H D 16.5 H INR 1.2 H 1.4 H 1.4 H Sodium 139 Potassium 4.1 Chloride 106 Carbon Dioxide 25 Anion Gap 12 BUN 19 H Creatinine 1.06 Estim Creat Clear Calc 39.4 Estimated GFR 50 Random Glucose 67 Lactic Acid Calcium 7.8 L D Magnesium 1.7 Total Bilirubin 6.1 H Direct Bilirubin 4.9 H AST 394 H ALT 708 H Alkaline Phosphatase 221 H Ammonia Troponin I High Sens Total Protein 5.5 L Albumin 2.8 L Lipase 35 Urine Color Urine Appearance Urine pH Ur Specific [place] Urine Protein Urine Glucose (UA) Urine Ketones Urine Blood Urine Nitrite Ur Leukocyte Esterase Random Vancomycin COVID-19 (ANDREW) COVID-19 Clin Com Hepatitis A IgM Ab Hep Bs Antigen Hep Bs Antibody Hep B Core Total Ab Hepatitis C Ab (EIA) Influenza Type A (DUNCAN) Influenza Type B (DUNCAN) Influenza A & B Note 05/12/25 05/12/25 05/12/25 05:42 08:44 17:52 WBC 9.0 RBC 3.37 L Hgb 11.1 L Hct 30.6 L MCV 90.8 MCH 32.9 MCHC 36.3 H RDW 13.7 Plt Count 67 L MPV 12.0 Immature Gran % (Auto) 1.0 H Neut % (Auto) 75.6 H Lymph % (Auto) 12.2 L [place] % (Auto) 8.8 Eos % (Auto) 2.3 Baso % (Auto) 0.1 Lymph # (Auto) 1.1 L [place] # (Auto) 0.8 Eos # (Auto) 0.2 Baso # (Auto) 0.0 Abs Immat Gran (auto) 0.09 H Absolute Neuts (auto) 6.8 Absolute Nucleated RBC 0.000 Nucleated RBC % (auto) 0.0 Smear Tech's Comments VERIFIED Hold Purple Top PT 14.1 H INR 1.2 H Sodium 140 Potassium 3.1 L D Chloride 108 Carbon Dioxide 25 Anion Gap 10 L BUN 13 Creatinine 0.81 Estim Creat Clear Calc 51.6 Estimated GFR > 60 Random Glucose 74 Lactic Acid Calcium 8.3 L D Magnesium Total Bilirubin 8.9 H Direct Bilirubin AST 156 H ALT 410 H Alkaline Phosphatase 211 H Ammonia 26 Troponin I High Sens Total Protein 5.5 L Albumin 2.7 L Lipase Urine Color Urine Appearance Urine pH Ur Specific [place] Urine Protein Urine Glucose (UA) Urine Ketones Urine Blood Urine Nitrite Ur Leukocyte Esterase Random Vancomycin 3.4 L COVID-19 (ANDREW) COVID-19 Clin Com Hepatitis A IgM Ab Hep Bs Antigen Hep Bs Antibody Hep B Core Total Ab Hepatitis C Ab (EIA) Influenza Type A (DUNCAN) Influenza Type B (DUNCAN) Influenza A & B Note 05/13/25 05/14/25 05/14/25 05:45 06:25 16:21 WBC 8.2 10.1 10.7 RBC 3.74 L 3.47 L 3.33 L Hgb 12.4 11.4 L 11.2 L Hct 33.6 L 30.5 L 29.2 L MCV 89.8 87.9 87.7 MCH 33.2 H 32.9 33.6 H MCHC 36.9 H 37.4 H 38.4 H RDW 13.6 13.4 13.7 Plt Count 72 L 67 L 76 L MPV 12.1 12.1 13.3 H Immature Gran % (Auto) 2.4 H 1.2 H 1.1 H Neut % (Auto) 75.0 H 72.3 68.7 Lymph % (Auto) 10.0 L 12.1 L 14.6 L [place] % (Auto) 10.6 12.6 H 13.6 H Eos % (Auto) 1.9 1.5 1.6 Baso % (Auto) 0.1 0.3 0.4 Lymph # (Auto) 0.8 L 1.2 1.6 [place] # (Auto) 0.9 1.3 H 1.5 H Eos # (Auto) 0.2 0.2 0.2 Baso # (Auto) 0.0 0.0 0.0 Abs Immat Gran (auto) 0.20 H 0.12 H 0.12 H Absolute Neuts (auto) 6.2 7.3 7.4 Absolute Nucleated RBC 0.000 0.000 0.020 H Nucleated RBC % (auto) 0.0 0.0 0.2 Smear charming charlie's Comments Hold Purple Top SEE NOTE PT 12.7 H 13.8 H INR 1.1 1.2 H Sodium 137 133 L 131 L Potassium 3.3 2.6 L* D 4.4 D Chloride 105 100 103 Carbon Dioxide 24 25 20 L Anion Gap 11 L 11 L 12 BUN 7 L 8 L 8 L Creatinine 0.67 0.67 0.70 Estim Creat Clear Calc 62.3 62.3 59.7 Estimated GFR > 60 > 60 > 60 Random Glucose 170 H 113 112 Lactic Acid 1.2 Calcium 8.2 L 8.1 L 8.2 L Magnesium Total Bilirubin 11.6 H 11.2 H 10.1 H Direct Bilirubin 8.2 H 8.0 H AST 86 H 52 H 48 H ALT 289 H 179 H 158 H Alkaline Phosphatase 238 H 203 H 207 H Ammonia Troponin I High Sens Total Protein 6.2 L 5.9 L 6.0 L Albumin 3.0 L 2.8 L 2.9 L Lipase Urine Color Urine Appearance Urine pH Ur Specific [place] Urine Protein Urine Glucose (UA) Urine Ketones Urine Blood Urine Nitrite Ur Leukocyte Esterase Random Vancomycin COVID-19 (ANDREW) COVID-19 Clin Com Hepatitis A IgM Ab Hep Bs Antigen Hep Bs Antibody Hep B Core Total Ab Hepatitis C Ab (EIA) Influenza Type A (DUNCAN) Influenza Type B (DUNCAN) Influenza A & B Note 05/14/25 05/15/25 18:23 05:35 WBC 10.9 H RBC 3.22 L Hgb 10.6 L Hct 29.0 L MCV 90.1 MCH 32.9 MCHC 36.6 H RDW 13.3 Plt Count 77 L MPV 11.8 Immature Gran % (Auto) 1.8 H Neut % (Auto) 73.5 H Lymph % (Auto) 12.4 L [place] % (Auto) 10.2 Eos % (Auto) 1.6 Baso % (Auto) 0.5 Lymph # (Auto) 1.4 [place] # (Auto) 1.1 Eos # (Auto) 0.2 Baso # (Auto) 0.1 Abs Immat Gran (auto) 0.20 H Absolute Neuts (auto) 8.0 Absolute Nucleated RBC 0.020 H Nucleated RBC % (auto) 0.2 Smear Tech's Comments Hold Purple Top PT 14.2 H INR 1.2 H Sodium 132 L Potassium 3.7 Chloride 103 Carbon Dioxide 22 Anion Gap 11 L BUN 9 Creatinine 0.72 Estim Creat Clear Calc 58.0 Estimated GFR > 60 Random Glucose 100 Lactic Acid Calcium 7.9 L Magnesium Total Bilirubin 8.2 H Direct Bilirubin 5.9 H AST 47 H ALT 127 H Alkaline Phosphatase 200 H Ammonia Troponin I High Sens Total Protein 5.8 L Albumin 2.7 L Lipase Urine Color Dark Yellow Urine Appearance Clear Urine pH 7.5 Ur Specific [place] <= 1.005 Urine Protein Negative Urine Glucose (UA) Negative Urine Ketones Negative Urine Blood Negative Urine Nitrite Negative Ur Leukocyte Esterase Negative Random Vancomycin COVID-19 (ANDREW) COVID-19 Clin Com Hepatitis A IgM Ab Hep Bs Antigen Hep Bs Antibody Hep B Core Total Ab Hepatitis C Ab (EIA) Influenza Type A (DUNCAN) Influenza Type B (DUNCAN) Influenza A & B Note Narrative Narrative: EKG 05/10/25 Vent. Rate : 111 BPM Atrial Rate : 111 BPM P-R Int : 200 ms QRS Dur : 78 ms QT Int : 326 ms P-R-T Axes : 47 -22 37 degrees QTcB Int : 443 ms Sinus tachycardia with Premature atrial complexes Minimal voltage criteria for LVH, may be normal variant ( R in aVL ) Inferior infarct , age undetermined Possible Anterior infarct , age undetermined Abnormal ECG When compared with ECG of 10-May-2025 07:14, Increase in ventricular rate Assessment and Plan Final Anesthetic Review Family History of Problems with Anesthesia: No History of Problems with Anesthesia: No Documented by User: Liliane Gunderson MD 05/15/25 13:29 [facility] Past Medical History Medical History Glaucoma Chronic idiopathic thrombocytopenia Left ACL tear Depression HTN (hypertension) Right leg DVT Family History Family History Mother Heart disease HTN (hypertension) Diabetes Maternal Aunt H/O heart bypass surgery HTN (hypertension) Diabetes Brother S/P triple vessel bypass Stroke Surgical History Surgical History Hx of tonsillectomy Hx of cataract extraction Social History Social History Household Members: None Housing: Condominium Do you presently have visiting nurse or other home services: No Alcohol intake: current Alcohol intake frequency: holidays/special occasions only Alcohol type: hard liquor Patient Tobacco Use Status: Never used Tobacco Advance Directives Date on File: 05/10/25 service: No Current occupational status: retired Meds Allergies Allergy/AdvReac Type Severity Reaction Status Date / Time ibuprofen (IBUPROFEN) Allergy Unknown HIVES Verified 05/10/25 07:06 Home Medications ?Medication ?Instructions ?Recorded ?Confirmed ?Last Taken ?Type bupropion HCl 300 mg 24 hr tablet, 600 mg PO DAILY 08/30/20 05/10/25 05/09/25 History extended release cholecalciferol (vitamin D3) 25 25 mcg PO DAILY 08/30/20 05/10/25 05/09/25 History mcg (1,000 unit) tablet (Vitamin D3) timolol maleate 0.5 % eye drops 1 drp ophthalmic (eye) DAILY 08/30/20 05/10/25 05/09/25 History vitamin B complex 1 cap PO DAILY 08/30/20 05/10/25 05/09/25 History amlodipine 2.5 mg tablet 2.5 mg PO DAILY 05/10/25 05/10/25 05/09/25 History bismuth subsalicylate 262 mg/15 mL 524 mg PO Q30M PRN Abdominal 05/10/25 05/10/25 Unknown History oral suspension (Pepto-Bismol) Discomfort gabapentin 100 mg capsule 100 mg PO BEDTIME 05/10/25 05/10/25 05/09/25 History lisinopril 10 mg tablet 10 mg PO BID 05/10/25 05/10/25 05/09/25 History magnesium oxide 250 mg PO DAILY 05/10/25 05/10/25 05/09/25 History omeprazole 20 mg capsule,delayed 20 mg PO DAILY@0630 05/10/25 05/10/25 05/09/25 History release Exam Airway Mallampati Class: II (2 implants laterally) TM Dist: >3cm Neck ROM: Full Heart: rrr Lungs: cta Assessment and Plan Final Anesthetic Review NPO: Yes ASA Class: III Final Preanesthetic Review: No Changes in Pt Med Stat, Meds/Allgs Chart Reviewed and Consent Obtained/Reviewed Patient Risk: Intermediate Procedure Risk: Low Anesthetic Plan Anesthetic Plan: GA Disposition: Standard PACU
--- NOTE | 2025-05-15 08:38 | P.PNGS_ITS ---
Subjective Subjective Date of Service: 05/15/25 Interval history: Patient reports no abdominal pain this morning. She was anxious to proceed with cholecystectomy. She is hungry and denies any nausea or vomiting. Physical Exam 2 Vital Signs: Vital Signs: Last Vital Signs Temp 97.3 F 05/15/25 07:35 Pulse 72 05/15/25 07:35 Resp 20 05/15/25 07:35 BP 123/59 L 05/15/25 07:35 Pulse Ox 94 05/15/25 07:35 O2 Del Method Room Air 05/15/25 07:35 BMI result Body Mass Index 27.7 Const: General: no acute distress Nutritional Appearance: well nourished Orientation/consciousness: patient oriented x3 Resp: Effort & Inspection: normal respiratory effort, no audible wheezes, no cough and no respiratory distress GI: Inspection: Yes normal to inspection and No distended Palpation (GI): S oft to palpation, nontender, no guarding and not rigid Percussion: Yes normal to percussion Rectal Exam - Female: deferred Neuro: General: patient oriented x3 Extrem: General: Yes no pedal edema Objective Data Active Medications Acetaminophen (Acetaminophen 325 Mg Tablet) 650 mg PO Q6H PRN PRN Reason: Pain, Mild 1-3,fever,headache Last Admin: 05/14/25 15:50 Dose: 650 mg Documented By: GEOFFREY Acetaminophen/Butalbital/Caffeine (Butalb/Acetamin/Caff 50/325/40 Tablet) 1 tab PO Q4H PRN PRN Reason: Headache Amlodipine Besylate (Amlodipine Besylate 2.5 Mg Tablet) 7.5 mg PO BEDTIME [facility]; Protocol Last Admin: 05/14/25 21:54 Dose: 7.5 mg Documented By: BRIDGET Bupropion HCl (Bupropion Hcl Xl 300 Mg Tab.Er.24h) 600 mg PO DAILY JENNA Last Admin: 05/15/25 07:56 Dose: Not Given Documented By: SAGE Non-Admin Reason: NPO Gabapentin (Gabapentin 100 Mg Capsule) 100 mg PO BEDTIME JENNA Last Admin: 05/14/25 21:54 Dose: 100 mg Documented By: BRIDGET Hydromorphone HCl (Hydromorphone Hcl 0.5 Mg/0.5 Ml Syringe) 0.5 mg IVPUSH Q3H PRN; Protocol PRN Reason: Pain, Severe (Pain Scale 7-10) Last Admin: 05/10/25 16:10 Dose: 0.5 mg Documented By: MILTON Lactated Ringer's (Lr) 1,000 mls @ 50 mls/hr IVCONT .Q20H JENNA On Hold: 05/12/25 19:55 Last Admin: 05/12/25 07:01 Dose: Not Given Documented By: MARÍA Non-Admin Reason: IV Running Piperacillin Sod/Tazobactam (Sod 3.375 gm/ Sodium Chloride) 50 mls @ 100 mls/hr IV Q6H [facility] Last Infusion: 05/15/25 05:38 Dose: Infused Documented By: BRIDGET Naloxone HCl (Naloxone Hcl 0.4 Mg/Ml Vial) 0.04 mg IVPUSH Q5M PRN PRN Reason: Excessive sedation or RR < 8 Omeprazole (Omeprazole 20 Mg Capsule.Dr) 20 mg PO DAILY@0630 [facility] Last Admin: 05/15/25 06:30 Dose: Not Given Documented By: BRIDGET Non-Admin Reason: NPO Ondansetron HCl (Ondansetron Hcl 4 Mg/2 Ml Vial) 4 mg IVPUSH Q8H PRN PRN Reason: Nausea and Vomiting Last Admin: 05/13/25 14:21 Dose: 4 mg Documented By: CAROLYNN Oxycodone HCl (Oxycodone Hcl Immed Release 5 Mg Tablet) 5 mg PO Q4H PRN PRN Reason: Pain, Moderate(Pain Scale 4-6) Timolol Maleate (Timolol Maleate 0.5 % Oph Sarita 5 Ml Drbtl) 1 drop EYE-BOTH DAILY [facility] Last Admin: 05/14/25 08:45 Dose: 1 drop Documented By: GEOFFREY Labs 05/15/25 05:35 05/15/25 05:35 Labs: Laboratory Results - last 24 hr 05/14/25 05/14/25 05/14/25 06:25 16:21 18:23 MCV 87.7 MCH 33.6 H MCHC 38.4 H RDW 13.7 Plt Count 76 L MPV 13.3 H Immature Gran % (Auto) 1.1 H Neut % (Auto) 68.7 Lymph % (Auto) 14.6 L [place] % (Auto) 13.6 H Eos % (Auto) 1.6 Baso % (Auto) 0.4 Lymph # (Auto) 1.6 [place] # (Auto) 1.5 H Eos # (Auto) 0.2 Baso # (Auto) 0.0 Abs Immat Gran (auto) 0.12 H Absolute Neuts (auto) 7.4 Absolute Nucleated RBC 0.020 H Nucleated RBC % (auto) 0.2 Hold Purple Top SEE NOTE PT INR Anion Gap 11 L 12 Estim Creat Clear Calc 62.3 59.7 Estimated GFR > 60 > 60 Random Glucose 113 112 Lactic Acid 1.2 Calcium 8.1 L 8.2 L Total Bilirubin 11.2 H 10.1 H Direct Bilirubin 8.0 H AST 52 H 48 H ALT 179 H 158 H Alkaline Phosphatase 203 H 207 H Total Protein 5.9 L 6.0 L Albumin 2.8 L 2.9 L Urine Color Dark Yellow Urine Appearance Clear Urine pH 7.5 Ur Specific [place] <= 1.005 Urine Protein Negative Urine Glucose (UA) Negative Urine Ketones Negative Urine Blood Negative Urine Nitrite Negative Ur Leukocyte Esterase Negative 05/15/25 05:35 MCV 90.1 MCH 32.9 MCHC 36.6 H RDW 13.3 Plt Count 77 L MPV 11.8 Immature Gran % (Auto) 1.8 H Neut % (Auto) 73.5 H Lymph % (Auto) 12.4 L [place] % (Auto) 10.2 Eos % (Auto) 1.6 Baso % (Auto) 0.5 Lymph # (Auto) 1.4 [place] # (Auto) 1.1 Eos # (Auto) 0.2 Baso # (Auto) 0.1 Abs Immat Gran (auto) 0.20 H Absolute Neuts (auto) 8.0 Absolute Nucleated RBC 0.020 H Nucleated RBC % (auto) 0.2 Hold Purple Top PT 14.2 H INR 1.2 H Anion Gap 11 L Estim Creat Clear Calc 58.0 Estimated GFR > 60 Random Glucose 100 Lactic Acid Calcium 7.9 L Total Bilirubin 8.2 H Direct Bilirubin 5.9 H AST 47 H ALT 127 H Alkaline Phosphatase 200 H Total Protein 5.8 L Albumin 2.7 L Urine Color Urine Appearance Urine pH Ur Specific [place] Urine Protein Urine Glucose (UA) Urine Ketones Urine Blood Urine Nitrite Ur Leukocyte Esterase Procedures Date of Service Date of Service: 05/15/25 Progress Note: A&P Assessment and plan (1) Gallstone pancreatitis: Status: Acute Plan 74-year-old female patient presenting with gallstone pancreatitis with a previous history of DVT, ITP found to have common bile duct stone. She underwent ERCP with sphincterotomy. LFTs initially were elevated over the weekend however subsequent MRCP showed improvement in the common bile duct dilatation and no common duct stone. Patient is eager to proceed with cholecystectomy. I reviewed the procedure, risks (bleeding, infection, poor wound healing, CBD leak) and benefits, she consents to the laparoscopic or possible open cholecystectomy. Time Spent With Patient Time: Total time managing care of this patient today ____ minutes. Quality Stroke Does the patient have a stroke diagnosis?: No VTE Prior VTE?: No VTE Risk Level:: Medical - moderate - high VTE Device Contraindication: N/A - Device Ordered VTE Drug Contraindication: Treatment Not Indicated
[2025-05-15 08:41] LABS: Chlamydia pneumoniae PCR Not Detected (Not Detect.); Coronavirus 229E PCR Not Detected (Not Detect.); Coronavirus HKU1 PCR Not Detected (Not Detect.); Coronavirus NL63 PCR Not Detected (Not Detect.); Coronavirus OC43 PCR Not Detected (Not Detect.); RSV PCR Not Detected (Not Detect.); Rhino/Enterovirus PCR Not Detected (Not Detect.)
[2025-05-15] MEDS: timoloL maleate 0.5 % Oph Sol 5 ML DRBTL 1 DROP EYE-BOTH (09:14)
[2025-05-15 09:35] LABS: Influenza A H1 PCR Not Detected (Not Detect.); Influenza A H1-2009 PCR Not Detected (Not Detect.); Influenza A H3 PCR Not Detected (Not Detect.); SARS-CoV-2 PCR Not Detected (Not Detect.)
[2025-05-15] MEDS: Lactated Ringers 1,000 ML 80 ML IVCONT (10:24)
--- NOTE | 2025-05-15 12:09 | MHC.CM.PN ---
PT rec STR. Discussed with patient who declined, but is agreeable to home services via [facility]. [facility] following and updated. CM will continue to follow.
[2025-05-15 12:13] LABS: MRSA Nasal PCR NEGATIVE (Negative); SA Nasal PCR NEGATIVE (Negative)
[2025-05-15] MEDS: cefoTEtan disodium 2 GM VIAL IVPUSH (14:47)
--- NOTE | 2025-05-15 15:45 | P.OP_ITS ---
Operative Note Operative Note Date of Service: 05/15/25 Narrative: Preoperative diagnosis: Gallstone pancreatitis Postoperative diagnosis: Same Procedure: Laparoscopic cholecystectomy Surgeon: Michele Wilhelm MD Technical Project Manager: Lissette Monique PA-C; Jl Robles PA-C, KEYSHA Scott Anesthesia: General endotracheal Indications for procedure: 74-year-old female patient presenting with a obstructive jaundice found to have a common bile duct stone and subsequent jaundice. The patient underwent MRCP for an followed by ERCP with stone removal. She presents now for laparoscopic or possible open cholecystectomy. Operative findings: Mildly inflamed gallbladder, obstructed, hydropic Specimen: gallbladder Estimated blood loss: 5 mL Complications: None Procedure details: Patient was brought to the OR and placed in a supine position. After administering general anesthesia the patient's abdomen was prepped with ChloraPrep and draped in a sterile fashion. A surgical time-out was called the consent confirmed. Patient received preoperative antibiotics and Venodyne boots were in place. Local anesthesia consisting of 0.5% Sensorcaine without epinephrine was infiltrated in a periumbilical region. A 5 mm incision was made above the umbilicus in a transverse fashion. The Veress needle was inserted however a positive drop test could not be obtained therefore this was converted to an open insertion of a Xiong port. An incision was made down to fascia the fascia was opened peritoneum entered. The Xiong port was placed under direct vision. This was secured to the skin using 0 Polysorb sutures. The abdomen was then insufflated to a pressure 15 mmHg. The camera was inserted in the abdomen explored. A 12 mm trocar was then placed in the epigastrium. Two 5 mm trocars placed in the right upper quadrant by the perinatal breastfeeding assistant. The patient was placed in reverse Trendelenburg positioning and rotated to the left. The gallbladder was grasped with the fundus and retracted cephalad by the perinatal breastfeeding assistant. The infundibulum was then grasped and retracted away from the liver bed, also by the perinatal breastfeeding assistant. The Dolphin dissected was then used by the surgeon to dissect the peritoneum off the infundibulum to reveal the junction with the cystic duct. Cystic artery was noted slightly medial and posterior to the cystic duct. After obtaining a critical view the cystic duct was doubly clipped and divided. The cystic artery was then doubly clipped and divided. The gallbladder was then dissected off the liver bed using electrocautery with an L hook. Hemostasis was assured all times using the electrocautery. When the gallbladder is completely dissected off the liver bed was placed in an Endo-Catch bag and brought out through the epigastric incision. The gallbladder was sent to pathology for further examination. The abdomen was then re-examined. The liver bed was irrigated and suctioned dry. No bleeding or bile leak could be identified. CO2 was then evacuated and all trocars removed. Fascia was closed at the epigastric incision using a fig [id number] 0 Polysorb suture. Skin was closed in all incisions using a subcuticular 4 0 Polysorb suture by both the surgeon and perinatal breastfeeding assistant. Sterile dressings consisting of Steri-Strips, 2 x 2 gauze, and Tegaderm were then applied. The patient tolerated the procedure well. Sponge instrument and needle counts reported as correct. The patient was transferred to PACU in stable condition.
[2025-05-16] MEDS: Lactated Ringers 1,000 ML 80 ML IVCONT (02:31)
[2025-05-16 03:14] VITALS: BP 127/62; PULSE 61; RESP 16; TEMP 36.1; O2SAT 97
[2025-05-16 06:23] LABS: INTERNATIONAL NORM RATIO 1.1 (0.9-1.1); Prothrombin Time 12.5 SEC (10.9-12.4)
[2025-05-16 06:24] LABS: Hematocrit 32.0 % (37.0-47.0); Hemoglobin 11.5 g/dl (12.0-16.0); Imm Gran Abs Auto 0.18 X10*3/uL (0.00-0.03); Imm Gran Pct Auto 2.1 % (0.0-0.4); Lymphocytes Absolute Auto 1.4 X10*3/uL (1.2-4.9); MANUAL DIFF FLAG SCAN; Mean Corpuscular HGB Conc 35.9 g/dl (31.0-35.0); Mean Corpuscular Hemoglobin 33.1 pg (27.0-33.0); Mean Corpuscular Volume 92.2 fL (80.0-98.0); NRBC Abs Auto 0.000 X10*3/uL (0.0-0.012); NRBC Pct Auto 0.0 /100WBC (0.0-0.2); Platelet Count 104 X10*3/uL (160-400); Red Blood Count 3.47 X10*6/uL (4.20-5.50); SCAN SMEAR FLAG 1; White Blood Count 8.4 X10*3/uL (4.8-10.8)
--- NOTE | 2025-05-16 06:24 | P.PNGS_ITS ---
Subjective Subjective Date of Service: 05/16/25 <Ginna Chin - Last Filed: 05/16/25 07:09> 05/16/25 <Lissette Monique PA-C - Last Filed: 05/16/25 07:37> 05/16/25 <Michele Wilhelm MD - Last Filed: 05/16/25 08:17> Interval history: Patient is a 74 year old female s/p laparoscopic cholecystectomy POD#1. No acute events overnight. She slept well. She felt hungry after her surgery yesterday and tolerated solids well without nausea or vomiting. Has not had bowel movement since surgery yesterday but has been passing gas. Urinating without issue. Ambulating OOB with 1 assist with some concern for her balance, feels nervous going home due to history of falls at baseline. Takes Gabapentin for neuropathy in her feet, she plans to continue seeing outpatient neurologist, as she believes this contributes to her chronic balance issues. Has been feeling weaker than her baseline when getting up and ambulating to bathroom since admission. This AM she stated she may feel more amenable towards d/c to short term rehab. Denies fevers, chills, shortness of breath, chest pain, or any other symptoms. <Ginna Chin Last Filed: 05/16/25 07:09> Physical Exam 2 Vital Signs: Vital Signs: Last Vital Signs Temp 96.9 F 05/16/25 03:14 Pulse 61 05/16/25 03:14 Resp 16 05/16/25 03:14 BP 127/62 05/16/25 03:14 Pulse Ox 97 05/16/25 03:14 O2 Del Method Room Air 05/16/25 03:14 O2 Flow Rate 6 05/15/25 16:00 BMI result Body Mass Index 27.7 <Ginna Chin - Last Filed: 05/16/25 07:09> Const: Other: Patient sitting up in bed, comfortable appearing, in no acute distress. <Ginna Chin Last Filed: 05/16/25 07:09> Resp: Effort & Inspection: normal respiratory effort and able to speak in complete sentences <Ginna Chin Last Filed: 05/16/25 07:09> GI: Palpation (GI): Soft to palpation, not firm, nontender, no guarding and not rigid <Ginna Chin - Last Filed: 05/16/25 07:09> Skin: Other: Jaundiced <gopal [facility] Last Filed: 05/16/25 07:09> General skin exam: no rashes or lesions noted <Ginna [place] Last Filed: 05/16/25 07:09> Psych: Other: Alert and oriented x3. <Ginna [facility] Last Filed: 05/16/25 07:09> Objective Data Active Medications Acetaminophen (Acetaminophen 325 Mg Tablet) 650 mg PO Q6H PRN PRN Reason: Pain, Mild 1-3,fever,headache Last Admin: 05/14/25 15:50 Dose: 650 mg Documented By: GEOFFREY Acetaminophen/Butalbital/Caffeine (Butalb/Acetamin/Caff 50/325/40 Tablet) 1 tab PO Q4H PRN PRN Reason: Headache Amlodipine Besylate (Amlodipine Besylate 2.5 Mg Tablet) 7.5 mg PO BEDTIME [facility]; Protocol Last Admin: 05/15/25 20:29 Dose: 7.5 mg Documented By: SUZY Bupropion HCl (Bupropion Hcl Xl 300 Mg Tab.Er.24h) 600 mg PO DAILY [facility] Last Admin: 05/15/25 07:56 Dose: Not Given Documented By: ASGE Non-Admin Reason: NPO Gabapentin (Gabapentin 100 Mg Capsule) 100 mg PO BEDTIME [facility] Last Admin: 05/15/25 20:30 Dose: 100 mg Documented By: SUZY Hydromorphone HCl (Hydromorphone Hcl 0.5 Mg/0.5 Ml Syringe) 0.5 mg IVPUSH Q3H PRN; Protocol PRN Reason: Pain, Severe (Pain Scale 7-10) Last Admin: 05/10/25 16:10 Dose: 0.5 mg Documented By: MILTON Lactated Ringer's (Lr) 1,000 mls @ 80 mls/hr IVCONT .[id number] [facility] Last Admin: 05/16/25 02:31 Dose: 80 mls/hr Documented By: SUZY Omeprazole (Omeprazole 20 Mg Capsule.) 20 mg PO DAILY@0630 [facility] Last Admin: 05/16/25 05:44 Dose: 20 mg Documented By: SUZY Ondansetron HCl (Ondansetron Hcl 4 Mg/2 Ml Vial) 4 mg IVPUSH Q8H PRN PRN Reason: Nausea and Vomiting Last Admin: 05/13/25 14:21 Dose: 4 mg Documented By: CAROLYNN Oxycodone HCl (Oxycodone Hcl Immed Release 5 Mg Tablet) 5 mg PO Q4H PRN PRN Reason: Pain, Moderate(Pain Scale 4-6) Timolol Maleate (Timolol Maleate 0.5 % Oph Sarita 5 Ml Drbtl) 1 drop EYE-BOTH DAILY JENNA Last Admin: 05/15/25 09:14 Dose: 1 drop Documented By: SAGE <Ginna Chin - Last Filed: 05/16/25 07:09> Labs CBC & Chem 7: 05/16/25 05:46 05/16/25 05:46 <Ginna Chin - Last Filed: 05/16/25 07:09> Labs: Laboratory Results - last 24 hr 05/14/25 05/15/25 05/16/25 17:02 05:35 05:46 PT 14.2 H 12.5 H INR 1.2 H 1.1 Nasal Screen MRSA (PCR) NEGATIVE Nasal S. aureus Screen NEGATIVE Nasal MRSA/S.aureus Interp SEE NOTE Respiratory Panel Lockhart See Note Adenovirus (Rapid PCR) Not Detected B.pert (TEM-PCR) Not Detected B.parapertussis DNA PCR Not Detected C. pneumoniae DNA (PCR) Not Detected Coronavirus OC43 (PCR) Not Detected Coronavirus HKU1 (PCR) Not Detected Coronavirus 229E (PCR) Not Detected Coronavirus NL63 (PCR) Not Detected Human Metapneumovir PCR Not Detected Influenza A (RT-PCR) Not Detected Influenza A (H1) PCR Not Detected Influ A (H1/09) PCR Not Detected Influenza A (H3) PCR Not Detected Influenza B (RT-PCR) Not Detected M. pneumoniae (PCR) Not Detected Parainfluenza 1 (PCR) Not Detected Parainfluenza 2 (PCR) Not Detected Parainfluenza 3 (PCR) Not Detected Parainfluenza 4 (PCR) Not Detected RSV (PCR) Not Detected Entero/Rhino (PCR) Not Detected SARS-CoV-2 RNA (RT-PCR) Not Detected <Ginna Chin - Last Filed: 05/16/25 07:09> Microbiology Microbiology Results: Microbiology 05/14/25 16:21 Blood Culture - Preliminary Blood - Venous No growth after 24 hours. Blood Culture - Preliminary No growth after 24 hours. 05/14/25 16:21 Blood Culture - Preliminary Blood - Venous No growth after 24 hours. <Ginna Chin - Last Filed: 05/16/25 07:09> Procedures Date of Service Date of Service: 05/16/25 <Ginna Chin - Last Filed: 05/16/25 07:09> 05/16/25 <Lissette Monique PA-C - Last Filed: 05/16/25 07:37> 05/16/25 <Michele Wilhelm MD - Last Filed: 05/16/25 08:17> Progress Note: A&P Assessment and plan (1) S/P laparoscopic cholecystectomy: Status: Acute <Ginna Carrillo Last Filed: 05/16/25 07:09> Assessment and Plan: Patient is a 74 year old female s/p laparoscopic cholecystectomy POD#1, with PMHx of chronic ITP, HTN, history of DVT not currently anticoagulanted, who presented to ER on 05/10/25 with 1 day history of nausea, vomiting, and epigastric ABD pain and subsequently admitted for acute gallstone pancreatitis and cholecystitis on 05/10. 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 Tbili has since been downtrending, improved to 4.4 this AM. Abdomen remains benign, though jaundiced, alert and oriented x3. Admission has been complicated by significant jaundice with agitation and low-grade fever over the weekend, self-administration of Excedrin, and patient threatening to leave AMA since admission. However patient clinically appears to be doing well postoperatively, tolerating solids, pain is 1/10 only when ambulating and has not needed IV pain medications. Continue to monitor CMP and CBC. Per physical therapy, has significant distress when walking regarding her balance, deconditioned due to admission, would likely benefit from discharge to short term rehab but she may be more comfortable with d/c home with VNA services. < Ginna Chin - Last Filed: 05/16/25 07:09> Patient is a 74 year old female s/p laparoscopic cholecystectomy POD#1, with PMHx of chronic ITP, HTN, history of DVT not currently anticoagulanted, who presented to ER on 05/10/25 with 1 day history of nausea, vomiting, and epigastric ABD pain and subsequently admitted for acute gallstone pancreatitis and cholecystitis on 05/10. 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 Tbili has since been downtrending, improved to 4.4 this AM. Abdomen remains benign, though jaundiced, alert and oriented x3. Admission has been complicated by significant jaundice with agitation and low-grade fever over the weekend, self-administration of Excedrin, and patient threatening to leave AMA since admission. However patient clinically appears to be doing well postoperatively, tolerating solids, pain is 1/10 only when ambulating and has not needed IV pain medications. Continue to monitor CMP and CBC. Per physical therapy, has significant distress when walking regarding her balance, deconditioned due to admission, would likely benefit from discharge to short term rehab but she may be more comfortable with d/c home with VNA services. Agree with above assessment and plan by Giuseppe CHOPRA. POD #1 s/p lap shaheen. Patient is doing well today, minimal pain, tolerated solid diet. MAYCOL drain scant serosanguineous. Abd very benign with clean and intact dressings, appropriate post op tenderness. Bili improved today, plt increased and stable. Patient doing well from a surgical standpoint and is surgically ready for dc when medically cleared. Will remove MAYCOL drain prior. F/u in office in 1 week from dc. Patient comfortable with plan. <Lissette Monique PA-C - Last Filed: 05/16/25 07:37> Time Spent With Patient Time: Total time managing care of this patient today ____ minutes. <Ginna Carrillo Last Filed: 05/16/25 07:09> Quality Stroke Does the patient have a stroke diagnosis?: No <Ginna Carrillo Last Filed: 05/16/25 07:09> VTE Prior VTE?: No <Ginna Carrillo Last Filed: 05/16/25 07:09> VTE Risk Level:: Medical - moderate - high <Ginna Chin Filed: 05/16/25 07:09> VTE Device Contraindication: N/A - Device Ordered <Ginna Chin Filed: 05/16/25 07:09> VTE Drug Contraindication: Treatment Not Indicated <Ginna Chin Filed: 05/16/25 07:09>
[2025-05-16 06:47] LABS: Alanine Aminotransferase 111 U/L (0-31); Albumin Level 2.8 g/dL (3.5-5.0); Alkaline Phosphatase 201 U/L (39-117); Anion Gap 12 (12-20); Aspartate Amino Transferase 54 U/L (5-31); Blood Urea Nitrogen 13 mg/dL (9-16); Calcium 8.7 mg/dL (8.4-10.2); Carbon Dioxide 26 mmol/L (22-29); Chloride 104 mmol/L (96-108); Creatinine Clr Calc Pharmacy 55.7; Estimated Glomerular Filt Rate > 60; Potassium 4.7 mmol/L (3.3-5.1); Sodium 137 mmol/L (135-145); Total Protein 6.6 g/dL (6.5-8.0)
[2025-05-16 07:39] VITALS: BP 119/59; PULSE 63; RESP 15; TEMP 36.1; O2SAT 97
[2025-05-16] MEDS: timoloL maleate 0.5 % Oph Sol 5 ML DRBTL 1 DROP EYE-BOTH (08:07)
[2025-05-16] MEDS: buPROPion HCl XL 300 MG TAB.ER.24H 600 MG PO (08:07)
--- NOTE | 2025-05-16 08:27 | HO.POSTANES ---
Post Anesthesia Evaluation Post Anesthesia Evaluation Date of Service: 05/16/25 Vital Signs: Vital Signs Temp Pulse Resp BP Pulse Ox O2 Del Method 05/16/25 07:39 96.9 F 63 15 119/59 L 97 Room Air 05/16/25 03:14 96.9 F 61 16 127/62 97 Room Air 05/15/25 23:36 96.8 F 63 15 125/58 L 97 Room Air Anesthesia: General Mental Status: Awake Pain Control: Satisfactory Nausea/Vomiting: None Hydration: Adequate Anesthesia-Related Issues: No Anes. Related Issues
--- NOTE | 2025-05-16 10:48 | P.DS_ITS ---
DS: Providers Provider Date of Service: 05/16/25 Date of admission: 05/10/25 13:21 Date of discharge: 05/16/25 Primary care physician: Hernan Cheek MD Consults: 05/10/25 15:05 Consult to Gastroenterology Routine Consulting Provider: [facility] Jerry Traore Reason for consultation: Gallstone pancreatitis 05/11/25 23:27 Consult to Wound Care Routine Reason for consultation: skin tear to left cheek, swelling and bruising to upper lip 05/14/25 15:48 Consult to General Surgery Stat Consulting Provider: [facility] [place] [facility] Reason for consultation: needs cholecystectomy DS: Diagnosis Discharge Diagnosis (1) S/P laparoscopic cholecystectomy: Status: Acute DS: Summary Hospital Course Hospital Course: History of Present Illness 05/10: 74-year-old woman with a history of chronic abdominal pain presented to the ER with upper abdominal pain, nausea, and vomiting after eating chicken salad. She reported multiple non-watery bowel movements, denied fever, chills, chest pain, or shortness of breath. Labs revealed elevated total bilirubin (3.9), AST (1505), ALT (1376), alk phos (313), and lipase (113). Abdominal ultrasound showed possible cholecystitis with a dilated bile duct (8 mm). She was treated with IV fluids, antiemetics, and analgesics in the ER and admitted for management of gallstone pancreatitis. Hospital Course: * 05/11:?Underwent ERCP. Cholangiogram showed questionable distal CBD filling defects and mild extrahepatic bile duct dilation. Sphincterotomy performed with good drainage; duct swept with 12mm balloon, no definite stones removed. Follow-up cholangiograms were negative for filling defects, and the CBD was decompressed. Impression: likely passed CBD stone. Lipase normalised 113 to 35 from prior day * 05/15:?Underwent laparoscopic cholecystectomy with GAMALIEL drain placement. Postoperatively, she was started on a low fat diet, which she tolerated well. Discharge Condition: Stable, tolerating regular diet, pain controlled, GAMALIEL drain in place. Discharge Medications: * oxycodone for pain, colace to prevent constipation * resume home meds Discharge Instructions: * Continue low fat diet as tolerated. * Care for GAMALIEL drain as instructed; monitor for signs of infection or increased drainage. * Take prescribed medications as directed. * Monitor for fever, worsening abdominal pain, jaundice, or other concerning symptoms. * Avoid heavy lifting or strenuous activity until cleared by surgery * other instruction per surgery Follow-Up: * Follow up with surgery clinic for GAMALIEL drain management and post-operative care. Procedures: * ERCP with sphincterotomy and duct sweep (05/11/2025) * Laparoscopic cholecystectomy with GAMALIEL drain placement (05/15/2025) Summary: Admitted for choledocholithiasis with mild pancreatitis and jaundice. Treated with ERCP and subsequent laparoscopic cholecystectomy. Discharged home in stable condition with GAMALIEL drain in place and surgical follow-up arranged and Home health servicew [facility] diagnoses: choledocholithiasis with mild pancreatitis and jaundice Time Attestation Discharge Coordination Time (in mins): 40 Quality: Safe Use of Opioids Does Pt have an Active Cancer Diagnosis on the Problem List?: No Quality: Stroke Does the patient have a stroke diagnosis?: No Physical Exam Exam: Exam: General: AO X 3, no acute distress Resp: CTA bilateral CVS: S1,S2,RRR GI: +BS, NT, no distention Skin: No rash, incision area d/c/i, gamaliel drain in place Neuro: motor grossly intact Psych: appropriate affect Vital Signs: Vital Signs: Last Vital Signs Temp 96.9 F 05/16/25 07:39 Pulse 63 05/16/25 07:39 Resp 15 05/16/25 07:39 BP 119/59 L 05/16/25 07:39 Pulse Ox 97 05/16/25 07:39 O2 Del Method Room Air 05/16/25 07:39 O2 Flow Rate 6 05/15/25 16:00 BMI result Body Mass Index 27.7 DS: Data Data Completed and Pending Pending studies at discharge: Pending at discharge 05/15/25 15:16 Surgical [PTH] Routine Labs on day of discharge: Laboratory Results - last 24 hr 05/14/25 05/16/25 17:02 05:46 WBC 8.4 RBC 3.47 L Hgb 11.5 L Hct 32.0 L MCV 92.2 MCH 33.1 H MCHC 35.9 H RDW 14.3 Plt Count 104 L D MPV 12.2 Immature Gran % (Auto) 2.1 H Neut % (Auto) 75.7 H Lymph % (Auto) 16.0 L Dickenson % (Auto) 5.8 Eos % (Auto) 0.0 Baso % (Auto) 0.4 Lymph # (Auto) 1.4 Dickenson # (Auto) 0.5 Eos # (Auto) 0.0 Baso # (Auto) 0.0 Abs Immat Gran (auto) 0.18 H Absolute Neuts (auto) 6.4 Absolute Nucleated RBC 0.000 Nucleated RBC % (auto) 0.0 Smear Tech's Comments VERIFIED PT 12.5 H INR 1.1 Sodium 137 Potassium 4.7 D Chloride 104 Carbon Dioxide 26 Anion Gap 12 BUN 13 Creatinine 0.75 Estim Creat Clear Calc 55.7 Estimated GFR > 60 Random Glucose 140 H Calcium 8.7 D Total Bilirubin 4.4 H AST 54 H ALT 111 H Alkaline Phosphatase 201 H Total Protein 6.6 Albumin 2.8 L Nasal Screen MRSA (PCR) NEGATIVE Nasal S. aureus Screen NEGATIVE Nasal MRSA/S.aureus Interp SEE NOTE Preliminary micro results at discharge 05/14/25 16:21 Blood Culture - Preliminary Blood - Venous No growth after 24 hours. Blood Culture - Preliminary No growth after 24 hours. 05/14/25 16:21 Blood Culture - Preliminary Blood - Venous No growth after 24 hours. Discharge Plan Discharge Anticipated Discharge Date/Time: 05/16/25 10:39 Patient Disposition: Home Health Service Discharge Diagnosis: Gallstone pancreatitis, Referrals: Hernan Cheek MD [Primary Care Provider, Internal Medicine] - 1 Week Michele Wilhelm MD [Physician, General Surgery] - 1 Week Discharge Medications: New oxycodone 5 mg tablet 5 mg PO Q4H PRN (Reason: pain (scale score 7-10)) Qty: 20 0RF Rx Instructions: Partial Fill upon patient request. docusate sodium [Colace] 100 mg capsule 100 mg PO BID PRN (Reason: constipation) Qty: 30 0RF Continued timolol maleate 0.5 % drops 1 drp ophthalmic (eye) DAILY vitamin B complex Capsule 1 cap PO DAILY bupropion HCl 300 mg tablet extended release 24 hr 600 mg PO DAILY Rx Instructions: 300 mg tab + 150 mg tab = 450 mg total dose cholecalciferol (vitamin D3) [Vitamin D3] 25 mcg (1,000 unit) Tablet 25 mcg PO DAILY amlodipine 2.5 mg tablet 2.5 mg PO DAILY lisinopril 10 mg tablet 10 mg PO BID omeprazole 20 mg capsule,delayed release(DR/EC) 20 mg PO DAILY@0630 gabapentin 100 mg capsule 100 mg PO BEDTIME bismuth subsalicylate [Pepto-Bismol] 262 mg/15 mL Suspension 524 mg PO Q30M MDD 8 PRN (Reason: Abdominal Discomfort) Rx Instructions: do not exceed 8 doses in a 24 hour period magnesium oxide 250 mg magnesium Tablet 250 mg PO DAILY Discharge Orders: Discharge Order (Routine); Ordered 05/16/25 Ordered By: Panda Dill Diet: Low fat, low cholesterol Activity on Discharge: No heavy lifting Stand Alone Forms: Patient Portal Discharge page Print Language: Faroese Activity Restrictions/Additional Instructions: If the incision area is tender, you may apply an ice pack for short intervals (No more than 20 minutes on, followed by at least 20 minutes off). Do not apply heat. Do not use creams, lotions, or topical antibiotics. Ok to shower. Remove clear dressings 3 days following your procedure. You have steri strips (small white strips) covering your incision- these will fall off ~1 week. GAMALIEL drain care- empty drain BID and as needed. Record output. Bring record to follow up appointment. No heavy lifting (>10lbs) or strenuous activity! Take Tylenol 1-2 tabs every 8 hours for the first day, then as needed. Oxycodone every 6-8 hours as needed for pain. Colace 100 mg twice a day as needed for constipation. Follow up in office with Dr. Wilhelm in 1 week. ([phone]) Call Your Doctor If: -Your temperature exceeds 101.5? F -You experience excessive pain or swelling -You have an unexpected reaction to medication -You have excessive bleeding -You experience continued vomiting/nausea -Your incision begins to separate -Your incision shows signs of infection such as increased redness, swelling, excessive pain, drainage (light blood or clear fluid is normal) or heat Left and right cheek: routine cleansing apply thin layer of vaseline, Apply 3-4 times a day. Lips: routine oral care with lip moisturizer Care Plan Goals: Recovery from gallstone pancreatitis and gallbladder surgery Health Concerns: Gallstones, pancreatitis Plan of Treatment: See above and follow-up with surgery Assessment: See above
--- NOTE | 2025-05-16 11:04 | HO.WOUND ---
Wound Consult: Follow up 74 yr old female admitted to [facility] – [place] on 05/10/25- See progress notes and H&P for detailed history. Wound consult follow up for upper lip and left cheek. Patient agreeable to assessment and photo documentation. Patient with recent endoscopic procedure with intubation <1 hour. Patient noted with bruising and skin tear after procedure. Left cheek 05/12/25 Left Cheek - Right Cheek 05/16/25 Etiology: skin tear, MARSI (medical adhesive related injury) Measurements: 1cm x 1.2cm x 0.1cm Wound Bed: dry stable scab Drainage / Odor: None Edges: ? attached Edith wound: ?mild erythema No Induration, Fluctuance or Warmth noted Pain: none Goals of Treatment: ?vaseline applicaiton 3-4 times a day Upper Lip 05/12/25 05/16/25 Etiology: resolved bruising/swelling over top lip, irregular with diffuse edges not typical pressure presentation - likely top down injury in the setting of increased PT/INR and decreased platelets with intubation and endoscopic procedure. Wound Bed: intact Drainage / Odor: none Edith wound: ? No Induration, Fluctuance or Warmth noted Pain: none Goals of Treatment: ? moisturizer and continued routine oral care of note, patient with other scattered areas of bruising and purpura to body. Recommendations: 1. Turn and Reposition every 2 hours and as needed for patient comfort. Use pillows or wedges to support off loading positions. 2. Off Load all bony prominences with use of pillows and heel boots if needed. Apply Preventative foams where needed. 3. Monitor for incontinence and moisture control, use barrier creams when needed for prevention and treatment. 4. Provide adequate and supplemental nutrition. 5. Order or Continue low air loss mattress. 6. When applicable maintain blood glucose levels per Providers order. Left cheek: routine cleansing apply thin layer of vaseline, Apply 3-4 times a day. Lips: routine oral care with lip moisturizer Re-consult wound care Nurse for wound deterioration or wound changes.
--- NOTE | 2025-05-16 11:21 | MHC.CM.PN ---
Addendum entered by Kely Ferraro RN 05/16/25 11:29: Will dc w/ MAYCOL drain in place and feels comfortable managing this. Is aware SN visits are not daily. Original Note: Patient medically cleared for dc. She continues to decline STR, but has accepted [facility] for SN/PT services. Patient also requesting [facility] [employer] [employer] services while recovering from hospital stay. Message sent to [facility]. Referral also sent to [facility]. She is aware [facility] services are not immediate. Her brother can provide assistance PRN and will transport home. IMM delivered.
[2025-05-16 14:21] VITALS: BP 120/57; PULSE 73; RESP 12; TEMP 36.1; O2SAT 96
--- NOTE | 2025-05-18 10:19 | P.F2F_ITS ---
Service Date Service Date: 05/18/25 Encounter Date of encounter: 05/16/25 Reasons for Services Signs and symptoms assessed: gallbladder surgery with drain in place Reason for long-term: neurological assessment, central line care and other (MAYCOL drain management) Homebound: Leaving the home is medically contraindicated at this time without the asist of a device and/or another person due th the listed conditions above and below. Reason homebound: pain with ambulation, weakness related to hospital stay and unable to drive (after surgery) Homebound supporting statement: homebound due to recent hospitalizatation from jaundice, gallstone that required surgery for stone removal, has MAYCOL drain, weakness related to hospitalization and therefore needs the assistance of another person Certification: Based on the above findings, I certify that this patient is confined to the home and needs intermittent long-term care, physical therapy and/or speech therapy, or continues to need occupational therapy. The patient is under my care, and I have initiated the establishment of the plan of care. The patient will be followed by a physician who will periodically review the plan of care. Time Spent With Patient Time: Total time managing care of this patient today ____ minutes.
== END 2025-05-16 15:28 | disposition home health service (06) | DRG 417 ==
LOC: HO.ED 12:55 → HO.EDOVER 13:44 → HO.S3 14:47
PROVIDERS: Internal Medicine; Registered Nurse Emergency; Student in an Organized Health Care Education/Training Program; Surgery; Admitting Provider Nurse Practitioner Acute Care; Emergency Provider Emergency Medicine; PCP Internal Medicine; Visit Provider Internal Medicine
PROC: 0F798ZZ Dilation of Common Bile Duct, Via Natural or Artificial Opening Endoscopic (ICD-10-PCS; CPT 43260; principal; 2025-05-11 16:10)
PROC: 0FT44ZZ Resection of Gallbladder, Percutaneous Endoscopic Approach (ICD-10-PCS; CPT 47562; principal; 2025-05-15 13:30)
DX: K85.10 Biliary acute pancreatitis without necrosis or infection (principal); K72.00 Acute and subacute hepatic failure without coma; D69.3 Immune thrombocytopenic purpura; I10 Essential (primary) hypertension; H40.9 Unspecified glaucoma; K21.9 Gastro-esophageal reflux disease without esophagitis; Z91.148 Patient's other noncompliance with medication regimen for other reason; Z86.718 Personal history of other venous thrombosis and embolism; Z20.822 Contact with and (suspected) exposure to COVID-19; Z79.899 Other long term (current) drug therapy
CPT/HCPCS: 36415; 71045; 74018; 74177; 74181; 76705; 80053; 80202; 81003; 82140; 82248; 83605; 83690; 83735; 84484; 85025; 85610; 86704; 86706; 86709; 86803; 87040; 87340; 87502; 87633; 87635; 87640; 87641; 88304; 93005; 97162; 97165; 99285; C1748; C1769; J0131; J0525; J0696; J1100; J1171; J1610; J2003; J2270; J2371; J2405; J2543; J2704; J3010; J3374; J3430; J3480; J7120; Q9967

== ENCOUNTER → 2025-05-10 07:03 | Outpatient (BNV) | payer MEDICARE, SELFPAY | PROVIDERS: Admitting Provider Nurse Practitioner Acute Care; Emergency Provider Emergency Medicine; PCP Internal Medicine; Visit Provider Internal Medicine | DX: R94.31 Abnormal electrocardiogram [ECG] [EKG] (principal); R10.10 Upper abdominal pain, unspecified | CPT/HCPCS: 93010 ==

== ENCOUNTER → 2025-05-10 07:42 | Outpatient (BNV) | payer MEDICARE, SELFPAY | PROVIDERS: Emergency Provider Emergency Medicine; PCP Internal Medicine; Visit Provider Radiology Diagnostic Radiology | DX: K80.20 Calculus of gallbladder without cholecystitis without obstruction (principal); K82.8 Other specified diseases of gallbladder; K83.8 Other specified diseases of biliary tract | CPT/HCPCS: 74177; 74181; 76705 ==

== ENCOUNTER 2025-05-10 13:21 | Outpatient (BNV) | payer MEDICARE, SELFPAY | END 2025-05-13 16:11 | PROVIDERS: Admitting Provider Nurse Practitioner Acute Care; Emergency Provider Emergency Medicine; PCP Internal Medicine; Visit Provider Radiology Diagnostic Radiology | DX: K85.90 Acute pancreatitis without necrosis or infection, unspecified (principal) | CPT/HCPCS: 74181 ==

== ENCOUNTER 2025-05-10 13:21 | Outpatient (BNV) | payer MEDICARE, SELFPAY | END 2025-05-14 16:00 | PROVIDERS: Admitting Provider Nurse Practitioner Acute Care; Emergency Provider Emergency Medicine; PCP Internal Medicine; Visit Provider Radiology Diagnostic Radiology | DX: A41.9 Sepsis, unspecified organism (principal); R50.9 Fever, unspecified | CPT/HCPCS: 71045; 74018 ==

== ENCOUNTER → 2025-05-10 13:21 | Outpatient (BNV) | payer MEDICARE, SELFPAY | PROVIDERS: Admitting Provider Nurse Practitioner Acute Care; Emergency Provider Emergency Medicine; PCP Internal Medicine; Visit Provider Physician Assistant Surgical | DX: K85.10 Biliary acute pancreatitis without necrosis or infection (principal) | CPT/HCPCS: 99222; 99232 ==

== ENCOUNTER → 2025-05-10 13:21 | Outpatient (BNV) | payer MEDICARE, SELFPAY | PROVIDERS: Admitting Provider Nurse Practitioner Acute Care; Emergency Provider Emergency Medicine; PCP Internal Medicine; Visit Provider Nurse Practitioner Acute Care | DX: K85.10 Biliary acute pancreatitis without necrosis or infection (principal) | CPT/HCPCS: 99222; 99232; 99233 ==

== ENCOUNTER 2025-05-18 13:30 | Emergency (ER) | payer MEDICARE, SELFPAY ==
[2025-05-18 13:40] VITALS: BP 124/57; BP 128/72; PULSE 71; PULSE 73; RESP 14; TEMP 36.9; O2SAT 98; O2SAT 99; BMI 26.3
--- NOTE | 2025-05-18 13:49 | ECG_ITS ---
Test Reason : weakness Blood Pressure : */* mmHG Vent. Rate : 75 BPM Atrial Rate : 75 BPM P-R Int : 178 ms QRS Dur : 86 ms QT Int : 404 ms P-R-T Axes : 61 -20 -5 degrees QTcB Int : 451 ms Sinus rhythm with Premature supraventricular complexes Minimal voltage criteria for LVH, may be normal variant ( R in aVL ) Borderline ECG When compared with ECG of 10-May-2025 18:36, Inverted T waves have replaced nonspecific T wave abnormality in Inferior leads Referred By: Generic ED Physician Electronically Signed By: TEREZA BOCANEGRA MD
--- NOTE | 2025-05-18 14:04 | MHC.CM.ED ---
Received notification from Kevin THOMPSON that patient is active with their agency. Patient was recently [place] [facility] [place] at that [place]. Patient declined. Returned to ER looking for placement. Continue to monitor for d/c needs.
[2025-05-18 14:26] LABS: COVID-19 Test Negative (Negative); IDNOW Serial# 08D9AD1C
[2025-05-18 14:31] LABS: Alanine Aminotransferase 71 U/L (0-31); Albumin Level 2.7 g/dL (3.5-5.0); Alkaline Phosphatase 202 U/L (39-117); Anion Gap 13 (12-20); Aspartate Amino Transferase 65 U/L (5-31); Blood Urea Nitrogen 9 mg/dL (9-16); Calcium 8.5 mg/dL (8.4-10.2); Carbon Dioxide 22 mmol/L (22-29); Chloride 104 mmol/L (96-108); Creatinine Clr Calc Pharmacy 54.4; Estimated Glomerular Filt Rate > 60; Lipase 76 U/L (8-78); Potassium 4.2 mmol/L (3.3-5.1); Sodium 135 mmol/L (135-145); Total Protein 6.9 g/dL (6.5-8.0)
[2025-05-18 14:50] LABS: Troponin-I High Sensitivity 2.9 ng/L (<3.5-17.0)
[2025-05-18 15:07] VITALS: BP 131/70; PULSE 75; RESP 18; O2SAT 98
[2025-05-18 15:18] LABS: Hematocrit 37.8 % (37.0-47.0); Hemoglobin 12.8 g/dl (12.0-16.0); Imm Gran Abs Auto 0.12 X10*3/uL (0.00-0.03); Imm Gran Pct Auto 1.7 % (0.0-0.4); Lymphocytes Absolute Auto 1.3 X10*3/uL (1.2-4.9); Mean Corpuscular HGB Conc 33.9 g/dl (31.0-35.0); Mean Corpuscular Hemoglobin 32.4 pg (27.0-33.0); Mean Corpuscular Volume 95.7 fL (80.0-98.0); NRBC Abs Auto 0.000 X10*3/uL (0.0-0.012); NRBC Pct Auto 0.0 /100WBC (0.0-0.2); Platelet Count 125 X10*3/uL (160-400); Red Blood Count 3.95 X10*6/uL (4.20-5.50); White Blood Count 7.3 X10*3/uL (4.8-10.8)
[2025-05-18 15:20] LABS: MANUAL DIFF FLAG NO
--- NOTE | 2025-05-18 15:45 | PC.NURSE ---
pt a&ox3 person/place, rr equal/non labored, bulb drain patient and draining small amount serosanguinous fluid, she denies pain/discomfort, ekg performed, labs obtained, youth nutritional monitor applied- nsr on monitor, pt awaiting provider, call rodrigues within reach, plan of care ongoing
--- NOTE | 2025-05-18 16:55 | ED.GENADULT ---
HPI - General Adult General Chief complaint: General Medical Stated complaint: WEAKNESS Time Seen by Provider: 05/18/25 16:05 Source: patient, RN notes reviewed and old records reviewed Mode of arrival: EMS Limitations: no limitations History of Present Illness ED Provider: Debbie HPI narrative: 74-year-old female with a past medical history significant for gallstone pancreatitis, status post recent cholecystectomy and placement of a MAYCOL drain. The patient has been home with [facility] for the last few days since her discharge on 05/16/2025. Her visiting nurse felt the patient is not thriving at home. The patient called EMS 3 separate times today for various complaints pain The patient reports falling yesterday She has a history of unsteady gait and appears that her discharge she expressed concerns about frequent falls. Her [facility] felt the patient would need a higher level of care and she would not be home by herself. It was recommended that the patient come to the hospital for placement in a [facility] facility. The patient offers no pain, she reports that she is hungry pain Denies any fevers, chills, cough, shortness of breath Her MAYCOL drain is changed twice daily and has bilious drainage in the drain. Related Data Home Medications ?Medication ?Instructions ?Recorded ?Confirmed bupropion HCl 300 mg 24 hr tablet, 600 mg PO DAILY 08/30/20 05/19/25 extended release cholecalciferol (vitamin D3) 25 25 mcg PO DAILY 08/30/20 05/19/25 mcg (1,000 unit) tablet (Vitamin D3) timolol maleate 0.5 % eye drops 1 drp ophthalmic (eye) DAILY 08/30/20 05/19/25 vitamin B complex 1 cap PO DAILY 08/30/20 05/19/25 amlodipine 2.5 mg tablet 2.5 mg PO DAILY 05/10/25 05/19/25 gabapentin 100 mg capsule 100 mg PO BEDTIME 05/10/25 05/19/25 lisinopril 10 mg tablet 10 mg PO BID 05/10/25 05/19/25 magnesium oxide 250 mg PO DAILY 05/10/25 05/19/25 omeprazole 20 mg capsule,delayed 20 mg PO DAILY@0630 05/10/25 05/19/25 release Previous Rx's ?Medication ?Instructions ?Recorded oxycodone 5 mg tablet 5 mg PO Q4H PRN pain (scale score 05/16/25 7-10) #20 tabs Allergies Allergy/AdvReac Type Severity Reaction Status Date / Time ibuprofen (IBUPROFEN) Allergy Unknown HIVES Verified 05/18/25 13:45 Review of Systems Constitutional: Constitutional: Denies body ache(s), Denies chills, Reports frequent falls, Denies headache(s), Denies weakness and Denies weight loss Eyes: Eyes: Denies blurry vision ENT: Denies dizziness and Denies headache(s) Cardiovascular: Cardiovascular: Denies chest pain and Denies dyspnea on exertion Respiratory: Respiratory: Denies cough and Denies dyspnea on exertion Gastrointestinal: Gastrointestinal: Denies abdominal pain, Denies nausea and Denies vomiting Musculoskeletal: Musculoskeletal: Denies back pain Integumentary/Breasts: Skin/Breast: Denies rash Neurologic: Denies dizziness, Reports frequent falls, Denies headache(s) and Denies weakness PMFSH Past Medical History Medical History (Updated 05/19/25 @ 16:57 by SAMIRA Gould) Glaucoma Chronic idiopathic thrombocytopenia Left ACL tear Depression HTN (hypertension) Right leg DVT Surgical History Hx laparoscopic cholecystectomy (05/15/25) Hx of tonsillectomy Hx of cataract extraction Family History Family History Mother Heart disease HTN (hypertension) Diabetes Maternal Aunt H/O heart bypass surgery HTN (hypertension) Diabetes Brother S/P triple vessel bypass Stroke Social History Social History Household Members: None Housing: Condominium Do you presently have visiting nurse or other home services: No Alcohol intake: current Alcohol intake frequency: holidays/special occasions only Alcohol type: hard liquor Patient Tobacco Use Status: Never used Tobacco Advance Directives Date on File: 05/10/25 service: No Current occupational status: retired Physical Exam ED Vital Signs: Vital Signs - 24 hr 05/18/25 22:39 05/19/25 00:18 05/19/25 08:07 Temperature 100.3 F 97.5 F Pulse Rate 84 87 71 Respiratory Rate 16 16 18 Blood Pressure 146/60 H 105/56 L Pulse Oximetry 97 96 Oxygen Delivery Method Room Air Room Air 05/19/25 14:19 05/19/25 17:03 Temperature 98.6 F 98.6 F Pulse Rate 82 82 Respiratory Rate 12 12 Blood Pressure 136/64 136/64 Pulse Oximetry 100 100 Oxygen Delivery Method Room Air Room Air BMI result Body Mass Index 26.3 Const General: healthy appearing, comfortable, no acute distress, alert and awake Nutritional Appearance: well nourished Orientation/consciousness: patient oriented x3 HENMT Head: Yes normocephalic and Yes atraumatic Eyes Eyelids: Yes eyelids normal Conjunctivae: conjunctivae normal Sclerae: sclerae normal Corneas: corneas normal Pupils: Equal, round and reactive pupils present EOM: EOMs intact bilaterally Neck Neck: Yes full ROM Resp Effort & Inspection: normal respiratory effort, able to speak in complete sentences and not labored Cardio Rate: regular rate Rhythm: regular rhythm GI Other: MAYCOL drain in the right upper quadrant Inspection: No distended Palpation (GI): Soft to palpation, not firm, nontender, no guarding and not rigid Skin General skin exam: elasticity normal Neuro General: patient oriented x3 Cranial nerves: Yes CN's II-XII intact bilaterally, Yes Equal, round and reactive pupils present and Yes Bilaterally intact EOM present Cognition (Neuro): normal cognition Extrem Other: Moving all extremities well without any obvious deformities Course Course Course Narrative: Time: 08:32 Date: 05/19/25 Provider: SAMIRA Gould Patient in physician observation for case management needs. No acute events reported overnight.? No current issues or complaints. VS stable. Patient is pending placement at facility. Will continue to monitor. Time: 16:55 Date: 05/19/25 Provider: SAMIRA Gould Physician observation ended at 1655. Patient to be placed at a rehab facility. [facility] Medications Administered Discontinued Medications Generic Name Dose Route Start Last Admin Trade Name Freq PRN Reason Stop Dose Admin Acetaminophen 975 mg 05/19/25 00:45 05/19/25 01:03 Acetaminophen 325 Mg Tablet PO 05/19/25 00:46 975 mg ONCE ONE Administration Medical Decision Making Medical Decision Making MDM Narrative: 74-year-old female with a past medical history as above presents for evaluation of failure to thrive. She is apparently not doing well at home. The patient offers no somatic complaints, she is well-appearing, vital signs are stable. [facility]NA recommended placement in his [facility] facility. Basic labs were obtained, the patient has no leukocytosis, no significant anemia, no left shift. She has an elevated total bilirubin to 3.1 but down trending from her recent admission. Plan for case management consultation and physical therapy evaluation for likely rehab placement. She does not appear to have any injuries from her reported fall yesterday. Differential Diagnosis Differential Diagnoses: The differential diagnosis associated with the presentation includes Failure to thrive CBD obstruction Cholecystitis Intra-abdominal abscess less likely Obstructive jaundice Admission/Observation Consideration of admission/observation: Escalation of care including admission/observation considered Lab Data MDM Lab Attestation statement: I reviewed the patient's lab results. No leukocytosis or significant anemia. Mild thrombocytopenia. Electrolytes within normal limits, renal function at baseline. Mild transaminitis that appears to be consistent with a baseline. A total bilirubin is decreasing down to 3.1 from 4.43 days ago. AST, ALT and alk phos are all slightly elevated consistent with a baseline 05/18/25 15:08 05/18/25 14:03 Labs: Lab Results 05/18/25 05/18/25 05/18/25 Range/Units 14:03 15:08 17:10 WBC 7.3 (4.8-10.8) X10*3/uL RBC 3.95 L (4.20-5.50) X10*6/uL Hgb 12.8 (12.0-16.0) g/dl Hct 37.8 (37.0-47.0) % MCV 95.7 (80.0-98.0) fL MCH 32.4 (27.0-33.0) pg MCHC 33.9 (31.0-35.0) g/dl RDW 14.6 (11.0-16.0) % Plt Count 125 L (160-400) X10*3/uL MPV 10.7 (9.4-12.3) fL Immature Gran % (Auto) 1.7 H (0.0-0.4) % Neut % (Auto) 69.0 (45-73) % Lymph % (Auto) 18.2 L (20-40) % [place] % (Auto) 10.0 (2-11) % Eos % (Auto) 0.7 (0-4) % Baso % (Auto) 0.4 (0-2) % Lymph # (Auto) 1.3 (1.2-4.9) X10*3/uL [place] # (Auto) 0.7 (0.1-1.2) X10*3/uL Eos # (Auto) 0.1 (0.0-0.4) X10*3/uL Baso # (Auto) 0.0 (0.0-0.2) X10*3/uL Abs Immat Gran (auto) 0.12 H (0.00-0.03) X10*3/uL Absolute Neuts (auto) 5.0 (2.0-8.3) x10*3/uL Absolute Nucleated RBC 0.000 (0.0-0.012) X10*3/uL Nucleated RBC % (auto) 0.0 (0.0-0.2) /100WBC Sodium 135 (135-145) mmol/L Potassium 4.2 (3.3-5.1) mmol/L Chloride 104 (96-108) mmol/L Carbon Dioxide 22 (22-29) mmol/L Anion Gap 13 (12-20) BUN 9 (9-16) mg/dL Creatinine 0.78 (0.5-1.4) mg/dL Estim Creat Clear Calc 54.4 Estimated GFR > 60 Random Glucose 112 (60-115) mg/dL Calcium 8.5 (8.4-10.2) mg/dL Total Bilirubin 3.1 H (0.0-1.0) mg/dL Direct Bilirubin 1.8 H (0.0-0.5) mg/dL AST 65 H (5-31) U/L ALT 71 H (0-31) U/L Alkaline Phosphatase 202 H (39-117) U/L Troponin I High Sens 2.9 (<3.5-17.0) ng/L Total Protein 6.9 (6.5-8.0) g/dL Albumin 2.7 L (3.5-5.0) g/dL Lipase 76 (8-78) U/L Urine Color Yellow Urine Appearance Clear Urine pH 7.0 (5.0-9.0) Ur Specific [place] 1.010 (1.005-1.025) Urine Protein Trace (Neg-Trace) mg/dL Urine Glucose (UA) Negative (Negative) mg/dL Urine Ketones Negative (Negative) mg/dL Urine Blood Negative (Negative) Urine Nitrite Negative (Negative) Ur Leukocyte Esterase Negative (Negative) Urine RBC 0-2 (0-2) /HPF Urine WBC 0-5 (0-5) /HPF Ur Squamous Epith Cells 0-2 (0-2) /HPF Urine Bacteria None Seen (None Seen) Hyaline Casts 0-2 (0-2) /LPF COVID-19 (ANDREW) Negative (Negative) COVID-19 Clin Com See Note Independent Interpretation I performed an independent interpretation of an: EKG Interpretation: Sinus rhythm with premature supraventricular complexes. No ST segment elevation or depression. No arrhythmia Discharge Plan Discharge Clinical Impression: Adult failure to thrive Patient Disposition: Xfer SNF Transfer Details: [facility] Instructions: Failure to Thrive in Older Adults (ED) Additional Instructions: Your drain was removed today. You may have continued drainage from the site while it remains open and you can keep a dressing over it while it continues to do so. Change daily and as needed. Continue home prescribed medications Prescriptions: No Action timolol maleate 0.5 % drops 1 drp ophthalmic (eye) DAILY vitamin B complex Capsule 1 cap PO DAILY bupropion HCl 300 mg tablet extended release 24 hr 600 mg PO DAILY cholecalciferol (vitamin D3) [Vitamin D3] 25 mcg (1,000 unit) Tablet 25 mcg PO DAILY amlodipine 2.5 mg tablet 2.5 mg PO DAILY lisinopril 10 mg tablet 10 mg PO BID omeprazole 20 mg capsule,delayed release(DR/EC) 20 mg PO DAILY@0630 gabapentin 100 mg capsule 100 mg PO BEDTIME magnesium oxide 250 mg magnesium Tablet 250 mg PO DAILY oxycodone 5 mg tablet 5 mg PO Q4H PRN (Reason: pain (scale score 7-10)) Qty: 20 0RF Rx Instructions: Partial Fill upon patient request. Referrals: [facility] [Outside] Hernan Cheek MD [Primary Care Provider, Internal Medicine] Interventions: ED Discharge Assessment Last Done: 05/19/25 17:03 Discharge Date/Time: 05/19/25 17:04 Print Language: Sammarinese
[2025-05-18 17:21] LABS: Appearance Urine Clear; Glucose Urine UA Negative (Negative); PH 7.0 (5.0-9.0); Specific Gravity - Urine 1.010 (1.005-1.025)
[2025-05-18 22:39] VITALS: PULSE 84; RESP 16
--- NOTE | 2025-05-18 22:54 | MHC.EDTECH ---
pt asking if she can call her brother to pepper picker. Confused if she can leave and come back. stating the iv will be removed on Thursday. I did mention to the Rn Seems she forgetful she didnt recongized who i was, When i have been her asign tech assisting her since her arrival to the ed.
[2025-05-19 00:18] VITALS: BP 146/60; PULSE 87; RESP 16; TEMP 37.9; O2SAT 97
[2025-05-19 08:07] VITALS: BP 105/56; PULSE 71; RESP 18; TEMP 36.4; O2SAT 96
--- NOTE | 2025-05-19 08:10 | PC.NURSE ---
patient a&ox3 rr equal/non labored- lungs diminished/clear, vss, bulb drain drained 20ml of serosanguineous fluid, pt requesting the dressing around drain to be changed- provider notified surgery to assess- they are currently at bedside doing so. pt was oob with assist- placed on inpt bed, fall precautions intact/bed alarm on. pt currently has no complaints of pain/discomfort, call rodrigues within reach, plan of care ongoing
--- NOTE | 2025-05-19 08:25 | PM.CNGS ---
History of Present Illness Consult details Consult date: 05/19/25 Requesting physician: Rigoberto Pacheco Narrative: Audrey Minor is a 74 year old female with PMH of ITP, hx of DVT with recent admission to [facility] on 05/10/25 for gallstone pancreatitis/choledocolithiasis requiring ERCP with sphincterotomy on 05/11/25. Her bilirubin increased following this without obvious pathology on imaging and thought secondary to cholestasis. It began to stabilize and downtrend. She therefore underwent laparoscopic cholecystectomy on 05/15/25. MAYCOL drain was placed intraoperatively. She was doing well on 05/16/25 with continued improvement in her bilirubin. She was seen by PT who recommended STR but the patient refused and she was therefore discharged to home with [facility] services with her MAYCOL drain in place. Apparently the patient fell yesterday. [facility] felt the patient would need a higher level of care and it was recommended that the patient come to the hospital for placement in a long-term facility. Work up in the ED included CBC, BMP, LFTs. Her liver functions continue to improve and direct bilirubin is almost normalized. General surgery was asked to change the drain dressing. She reports tolerating a solid diet without nausea or vomiting. She denies any abdominal pain, fevers, chills, diarrhea, dizziness, chest pain, difficulty breathing. She brought her drain output records which has been scant and has been emptied once or twice a day with around 10-15cc of drainage each time. Review of Systems Review of Systems: Yes all other systems are reviewed and are negative [facility] Past Medical History Medical History Glaucoma Chronic idiopathic thrombocytopenia Left ACL tear Depression HTN (hypertension) Right leg DVT Family History Family History Mother Heart disease HTN (hypertension) Diabetes Maternal Aunt H/O heart bypass surgery HTN (hypertension) Diabetes Brother S/P triple vessel bypass Stroke Surgical History Surgical History (Updated 05/18/25 @ 15:25 by PARKER Echeverria) Hx laparoscopic cholecystectomy (05/15/25) Hx of tonsillectomy Hx of cataract extraction Social History Social History Household Members: None Housing: Condominium Do you presently have visiting nurse or other home services: No Alcohol intake: current Alcohol intake frequency: holidays/special occasions only Alcohol type: hard liquor Patient Tobacco Use Status: Never used Tobacco Smoked in Last 30 Days: No Use of substances other than those prescribed or required for medical reasons: No Advance Directives: Yes Advance Directives on File: Yes Advance Directives Date on File: 05/10/25 Do you have a plan to hurt others: No Plan service: No Current occupational status: retired Meds Allergies Allergy/AdvReac Type Severity Reaction Status Date / Time ibuprofen (IBUPROFEN) Allergy Unknown HIVES Verified 05/18/25 13:45 Home Medications ?Medication ?Instructions ?Recorded ?Confirmed ?Last Taken ?Type bupropion HCl 300 mg 24 hr tablet, 600 mg PO DAILY 08/30/20 05/10/25 05/09/25 History extended release cholecalciferol (vitamin D3) 25 25 mcg PO DAILY 08/30/20 05/10/25 05/09/25 History mcg (1,000 unit) tablet (Vitamin D3) timolol maleate 0.5 % eye drops 1 drp ophthalmic (eye) DAILY 08/30/20 05/10/25 05/09/25 History vitamin B complex 1 cap PO DAILY 08/30/20 05/10/25 05/09/25 History amlodipine 2.5 mg tablet 2.5 mg PO DAILY 05/10/25 05/10/25 05/09/25 History gabapentin 100 mg capsule 100 mg PO BEDTIME 05/10/25 05/10/25 05/09/25 History lisinopril 10 mg tablet 10 mg PO BID 05/10/25 05/10/25 05/09/25 History magnesium oxide 250 mg PO DAILY 05/10/25 05/10/25 05/09/25 History omeprazole 20 mg capsule,delayed 20 mg PO DAILY@0630 05/10/25 05/10/25 05/09/25 History release Physical Exam Vital Signs: Vital Signs: Last Vital Signs Temp 97.5 F 05/19/25 08:07 Pulse 71 05/19/25 08:07 Resp 18 05/19/25 08:07 BP 105/56 L 05/19/25 08:07 Pulse Ox 96 05/19/25 08:07 O2 Del Method Room Air 05/19/25 08:07 BMI result Body Mass Index 26.3 Const: General: comfortable, no acute distress and alert Orientation/consciousness: patient oriented x3 Resp: Effort & Inspection: normal respiratory effort, able to speak in complete sentences and not tachypneic GI: Other: abdomen soft, nondistended dressings remained in place which were removed, steri strips intact, no surrounding erythema MAYCOL drain in place with serosanguineous output, scant Inspection: No distended Palpation (GI): Soft to palpation, nontender and no guarding Percussion: Yes normal to percussion Skin: General skin exam: jaundice (significantly improved ) Neuro: General: patient oriented x3 and moves all extremities Results Labs 05/18/25 15:08 05/18/25 14:03 Labs: Abnormal lab results 05/18/25 05/18/25 Range/Units 14:03 15:08 RBC 3.95 L (4.20-5.50) X10*6/uL Plt Count 125 L (160-400) X10*3/uL Immature Gran % (Auto) 1.7 H (0.0-0.4) % Lymph % (Auto) 18.2 L (20-40) % Abs Immat Gran (auto) 0.12 H (0.00-0.03) X10*3/uL Total Bilirubin 3.1 H (0.0-1.0) mg/dL Direct Bilirubin 1.8 H (0.0-0.5) mg/dL AST 65 H (5-31) U/L ALT 71 H (0-31) U/L Alkaline Phosphatase 202 H (39-117) U/L Albumin 2.7 L (3.5-5.0) g/dL Short CBC 05/18/25 Range/Units 15:08 WBC 7.3 (4.8-10.8) X10*3/uL Hgb 12.8 (12.0-16.0) g/dl Hct 37.8 (37.0-47.0) % Plt Count 125 L (160-400) X10*3/uL BMP 05/18/25 14:03 Sodium 135 Potassium 4.2 Chloride 104 Carbon Dioxide 22 BUN 9 Creatinine 0.78 Calcium 8.5 Liver Function 05/18/25 Range/Units 14:03 Total Bilirubin 3.1 H (0.0-1.0) mg/dL Direct Bilirubin 1.8 H (0.0-0.5) mg/dL AST 65 H (5-31) U/L ALT 71 H (0-31) U/L Alkaline Phosphatase 202 H (39-117) U/L Albumin 2.7 L (3.5-5.0) g/dL Urine 05/18/25 Range/Units 17:10 Urine Color Yellow Urine Appearance Clear Urine pH 7.0 (5.0-9.0) Ur Specific [place] 1.010 (1.005-1.025) Urine Protein Trace (Neg-Trace) mg/dL Urine Glucose (UA) Negative (Negative) mg/dL All other labs normal. Imaging Additional studies: labs reviewed Assessment and Plan (1) S/P laparoscopic cholecystectomy: Status: Acute Plan 74 year old female with PMH of ITP, hx of DVT with recent admission to [facility] for gallstone pancreatitis/choledocolithiasis requiring ERCP followed by laparoscopic cholecystectomy. She was discharged to home on 05/16/25 after refusing STR and returned yesterday falling a fall at home. She is being transferred to a [facility]. She is overall doing well from a surgical standpoint and tolerating a solid diet, no abd pain with continued improvement in her liver function tests. Her MAYCOL has low serosanguineous output and was therefore removed in the ED today. Dry sterile dressing placed. It was discussed with the patient she may have some drainage while the old drain site remains open and draining and to keep a dressing over it drains. She has a follow up appointment with Dr. Wilhelm on 05/23/25 in the office which she should keep. Procedures Date of Service Date of Service: 05/19/25
--- NOTE | 2025-05-19 09:49 | PHA.MEDREC ---
Addendum entered by Vinnie Garcia, PharmD 05/19/25 10:05: ED REC CHECKED BY [facility] Original Note: Pharmacy Consult ? Medication Reconciliation Pharmacy has completed the medication reconciliation. Spoke with pt and she confirmed her medications. Pt confirmed her medications.
--- NOTE | 2025-05-19 12:43 | MHC.CM.ED ---
Patient remains in ER. Physical therapy rec STR. Choices: 1) [facility] 2) [facility] 3) [facility]. [facility] does not have a bed. [facility] has a bed and is in the process of obtaining ins auth. Patient and Vanessa GORDILLO aware. Continue to monitor for d/c needs.
[2025-05-19 14:19] VITALS: BP 136/64; PULSE 82; RESP 12; TEMP 37; O2SAT 100
--- NOTE | 2025-05-19 15:25 | MHC.CM.ED ---
Insurance auth has been obtained by [place]. Augusto MCDONNELLS booked for 430pm. Med nec with chart. Patient, Milagro BRICENO and Sierra HOGAN aware. Continue to monitor for d/c needs.
--- NOTE | 2025-05-19 16:17 | PC.NURSE ---
report called to Indira at [facility].
[2025-05-19 17:03] VITALS: BP 136/64; PULSE 82; RESP 12; TEMP 37; O2SAT 100
== END 2025-05-19 17:04 | disposition skilled nursing facility (03) ==
PROVIDERS: Physician Assistant; Emergency Provider Emergency Medicine; PCP Internal Medicine
DX: R62.7 Adult failure to thrive (principal); R53.1 Weakness; I10 Essential (primary) hypertension; Z68.26 Body mass index [BMI] 26.0-26.9, adult; Z97.8 Presence of other specified devices; Z79.899 Other long term (current) drug therapy; Z86.718 Personal history of other venous thrombosis and embolism; Z90.49 Acquired absence of other specified parts of digestive tract
CPT/HCPCS: 36415; 80048; 80076; 81001; 83690; 84484; 85025; 87635; 93005; 97162; 99284; 99285

== ENCOUNTER → 2025-05-18 13:49 | Outpatient (BNV) | payer MEDICARE, SELFPAY | PROVIDERS: Emergency Provider Emergency Medicine; PCP Internal Medicine; Visit Provider Internal Medicine Cardiovascular Disease | DX: I49.3 Ventricular premature depolarization (principal) | CPT/HCPCS: 93010 ==

== ENCOUNTER → 2025-05-18 14:21 | Outpatient (BNV) | payer MEDICARE, SELFPAY | PROVIDERS: Emergency Provider Emergency Medicine; PCP Internal Medicine; Visit Provider Physician Assistant Surgical | DX: Z90.49 Acquired absence of other specified parts of digestive tract (principal) | CPT/HCPCS: 99024 ==

== ENCOUNTER 2025-05-31 12:36 | Outpatient (AMB) | payer MEDICARE, SELFPAY ==
--- OUTSIDE RECORDS SUMMARY | 2024-05-19 09:35 | XMS_ITS ---
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 Name Role Phone Ham TAVERAS, Hernan Primary Care Provider Lenin Duggan Jr [phone] REASON FOR VISIT Patient presents today for vomitting Encounters Encounter Location Date Provider Diagnosis [facility] [address] [place] [phone] 05/19/2024 Lenin Doyle Jr Plan Of Treatment No Information Progress Notes * CRISTINAANTMENDOZA NAQVI CDOB: (74 yo F)Acc No.[id number]:05/19/2024 Progress Notes Patient: MENDOZA FLORES Provider: Ashley Doyle MD :1950 A ge:73 Y S ex:Female Date:05/19/2024 Address:[address] [place] [address], [id number] Pcp:Hernan Cheek MD Subjective: * Chief Complaints: [...] MD Date: Generated for Printi ng/Faxing/eTransmitting on: 05:25 PM EDT
--- OUTSIDE RECORDS SUMMARY | 2024-09-05 06:40 | XMS_ITS ---
Author Organization [facility] Address [address] [place] [address] Care Team Providers Care Brick Unloader Tender Name Role Phone Ham TAVERAS, Hernan Primary Care Provider Lenin Duggan Jr REASON FOR VISIT Patient presents today for epigastric pain Encounters Encounter Location Date Provider Diagnosis [facility] [address] [place] [address] 09/05/2024 Lenin Doyle Jr Plan Of Treatment No Information Progress Notes * MENDOZA YUN CDOB: (74 yo F)Acc No.[id number]:09/05/2024 Progress Notes Patient: MENDOZA FLORES Provider: Ashley Doyle MD :1950 A ge:74 Y S ex:Female Date:09/05/2024 Address:[address] [place] [address], [id number] Pcp:Hernan Cheek MD Subjective: * Chief Complaints: * 1 . Patient presents today for epigastric pain. * Medical History: Objective: * Vitals: Assessment: Plan: * Treatment: * * The named appointment provid er may or may not be the originator of this progress note, and it is not deemed complete until electronically signed by the appointment provider. Sign off status: Pending * Provider: Ashley Doyle MD Date: 0 09/05/2024 Generated for Anaya devi/Juliana/eTransmitting on: 05:25 PM EDT
--- NOTE | 2025-05-31 12:38 | MHC.OFFVIS ---
Vital Signs 05/31/25 12:48 Weight 144 lb BP 101/62 Blood Pressure Location Rt radial Position Sitting Pulse 81 Intake Visit Reasons: s/p lap shaheen Intake Note: Patient here s/p Laparoscopic cholecystectomy. Patient c/o: no concerns. Reports incisions healed well. Denies oozing, pain. Surgery (): 05-15-2025 [facility] Required: No Accompanied by: Self / Same As Patient Allergies ibuprofen (IBUPROFEN) Allergy (Unknown, Verified 05/31/25 12:47) HIVES HPI HPI s/p lap shaheen: Details: Reports from a surgical standpoint that she is doing very well. She remains NSR due to dizziness difficulty ambulating. But states she is working this up with providers of different specialties. She denies nausea or vomiting. Denies abdominal pain. Denies any drainage from incision sites. Denies fevers at home. Reports her appetite and bowel function are at baseline. She has questions about dietary restrictions, returning to activity. She has no concerns from our standpoint [facility] Medical History (Updated 05/24/25 @ 00:02 by Background Daemon) Chronic ITP (idiopathic thrombocytopenia) Glaucoma Chronic idiopathic thrombocytopenia Left ACL tear Depression HTN (hypertension) Right leg DVT Surgical History (Updated 05/24/25 @ 00:02 by Background Daemon) Hx laparoscopic cholecystectomy (05/15/25) Hx of tonsillectomy Hx of cataract extraction Family History Mother Heart disease HTN (hypertension) Diabetes Maternal Aunt H/O heart bypass surgery HTN (hypertension) Diabetes Brother S/P triple vessel bypass Stroke Social History Household Members: None Housing: Condominium Do you presently have visiting nurse or other home services: No Alcohol intake: current Alcohol intake frequency: holidays/special occasions only Alcohol type: hard liquor Patient Tobacco Use Status: Never used Tobacco Advance Directives Date on File: 05/10/25 service: No Current occupational status: retired Physical Exam Vital Signs: Last Vital Signs Pulse 81 05/31/25 12:48 BP 101/62 05/31/25 12:48 Const General: comfortable and no acute distress Orientation/consciousness: patient oriented x3 Limitations: ambulation with walker Resp Effort & Inspection: normal respiratory effort and able to speak in complete sentences GI Other: Incision sites clean dry and intact, no erythema, edema, warmth, tenderness, fluctuance, drainage Palpation (GI): Soft to palpation and nontender Neuro General: patient oriented x3 Assessment & Plan Assessment & Plan (1) S/P laparoscopic cholecystectomy: Code(s): Z90.49 - Acquired absence of other specified parts of digestive tract Category: Medical Plan 74-year-old female s/p laparoscopic cholecystectomy on 05/15/[address] Wilhelm returning to the office for routine follow up. To note patient was seen in the hospital after discharge and her drain was removed during that consultation. She reports she is doing well, remains a SP R for dizziness and weakness. She reports this is frustrating but she is working through this with her other medical providers. States from a surgical standpoint she is doing very well. Denies abdominal pain. Denies nausea or vomiting, appetite and bowel function are at baseline. On exam there abdomen is soft benign the incision sites are healing well, no concern for infection. She has questions about dietary restrictions, I recommended that she continue with a low-fat diet and avoid high fat or processed foods. In regards to her questions about returning to activity. At this point she does not have any restrictions and can increase her activity level as tolerated, I recommended that she start slow and increased towards her baseline activity level has been decreased quite some time now. Also recommended she do this with the assistance given her dizziness and difficulty with ambulation, she states that she sees a physical therapist who wanted to make sure that it was okay to introduce some weights. At this point this is okay. At this point patient no longer requiring routine follow up. Can follow up as needed with any concerns in the future Coding Level of Care Code Global (46600) Diagnoses S/P laparoscopic cholecystectomy Z90.49
[2025-05-31 12:48] VITALS: BP 101/62; PULSE 81
--- OUTSIDE RECORDS SUMMARY | 2025-05-31 17:25 | XMS_ITS | Clinical Summary ---
Author Organization [facility] Address [address] [place] [address] Care Team Providers Care Commercial Property Administrator Name Role Phone Unavailable Primary Care Provider [...] Vaccine (1 of 2) 1998 RSV Vaccine 50 years and older and Patients (1 - 1-dose 75+ series) 2023 COVID-19 Vaccine (3 - 2024-2 6 season) 2025 11/01/2020, 10/04/2020 Hepatitis B Vaccines Aged Out No long er eligible based on patient's age to complete this topic
--- OUTSIDE RECORDS SUMMARY | 2025-05-31 17:25 | XMS_ITS | Patient Health Record ---
Author Organization [facility] Address [address] [place] [address] Care Team Providers Care Seo Marketing Specialist Name Role Phone Hernan Cheek MD Primary Care Provider Lenin Duggan Jr Unavailable Allergies Allergen (clinical drug ingredient) Drug/Non Drug Allergy documented on EMR Reaction Allergy Type Onset Date Status ibuprofen Ibuprofen hives Drug Allergy Active Results Component Value Reference Range Notes Complete Blood Count Auto Di ff Reviewed date:05/13/2025 10:45:51 PM Interpretation: Performing Lab:[facility], [address] [place] [phone] Notes/Report: White Blood Count 15.6 4.8-10.8 X10*3/uL Red Blood Count 3.33 4.20-5.50 X10*6/uL Hemoglobin 10.9 12.0-16.0 g/dl Hematocrit 29.8 37.0-47.0 % Mean Corpuscular Volume 89.5 80.0-98.0 fL Mean Corpuscular Hemoglobin 32.7 27.0-33.0 pg Mean Corpuscular HGB Conc 36.6 31.0-35.0 g/dl Red Cell Distribution Width 13.7 11.0-16.0 % Platelet Count 80 160-400 X10*3/uL Mean Platelet Volume 11.8 9.4-12.3 fL Neutrophils Percent Auto 79.9 45-73 % Imm Gran Pct Auto 1.0 0.0-0.4 % Lymphocytes Percent Auto 11.2 20-40 % Monocytes Percent Auto 7.2 2-11 % Eosinophils Percent Auto 0.6 0-4 % Basophils Percent Auto 0.1 0-2 % NRBC Pct Auto 0.0 0.0-0.2 /100WBC Neutrophils Absolute Auto 12.4 2.0-8.3 x10*3/u L Imm Gran Abs Auto 0.15 0.00-0.03 X10*3/uL Lymphocytes Absolute Auto 1.8 1.2-4.9 X10*3/u L Monocytes Absolute Auto 1.1 0.1-1.2 X10*3/uL Eosinophils Absolute Auto 0.1 0.0-0.4 X10*3/u L Basophils Absolute Auto 0.0 0.0-0.2 X10*3/uL NRBC Abs Auto 0.000 0.0-0.012 X10*3/uL Prothrombin Time INR Reviewed date:05/13/2025 10:45:41 PM Interpretation: Performing Lab:[address] [phone] Notes/Report: Prothrombin Time 16.5 10.9-12.4 SEC INTERNATIONAL NORM RATIO 1.4 0.9-1.1 INTERNATIONAL NORMALIZED RATIO (INR) REFERENCE RANGES Reference Range For patients not on anticoagulant therapy: 0.9 - 1.1 INR ranges for oral anticoagulant therapy: For prevention and treatment of venous thrombosis and pulmonary embolism: 2.0 - 3.0 For acute myocardial infarction with aspirin therapy: 2.0 - 3.0 For acute myocardial infarction without aspirin therapy: 3.0 - 4.0 For patients with mechanical prosthetic heart valves: 2.5 - 3.5 Comprehensive Met. Panel Reviewed date:05/13/2025 10:45:30 PM Interpretation: Performing Lab:[address] [phone] Notes/Report: Sodium 139 135-145 mmol/L Potassium 4.1 3.3-5.1 mmol/L Chloride 106 96-108 mmol/L Carbon Dioxide 25 22-29 mmol/L Anion Gap 12 12-20 Blood Urea Nitrogen 19 9-16 mg/dL Creatinine 1.06 0.5-1.4 mg/dL Mild Icterus.I nterpret result with caution. Creatinine Clr Calc Pharmacy 39.4 Provided height and weight: 154.94 cm, 66.6 kg. eGFR (calculated from the MDRD study equation) and eCrCl (calculated from the Cockcroft-Gault equation) are based on different parameters and may not yield comparable results. If eCrCl result is absurd, please check patient's height/weight. Estimated Glomerular Filt Rate 50 Chronic Kidney Disease: Estimated GFR < 60 mL/min/1.73m2 Severe Kidney Disease: Estimated GFR < 15 mL/min/1.73m2 Glucose Random 67 60-115 mg/dL Calcium 7.8 8.4-10.2 mg/dL Bilirubin Total 6.1 0.0-1.0 mg/dL Mild Icteru s. Aspartate Amino Transferase 394 5-31 U/L Alanine Aminotransferase 708 0-31 U/L Total Protein 5.5 6.5-8.0 g/dL Albumin Level 2.8 3.5-5.0 g/dL Alkaline Phosphatase 221 39-117 U/L Liver Panel Reviewed date:05/13/2025 10:45:13 PM Interpretation: Performing Lab:[facility], [address] [place] [phone] Notes/Report: Bilirubin Direct 4.9 0.0-0.5 mg/dL Mild Icter us. Magnesium Reviewed date:05/13/2025 10:45:05 PM Interpretation: Performing Lab:[facility], [address] [place] [phone] Notes/Report: Magnesium 1.7 1.6-2.6 mg/dL Lipase Reviewed date:05/13/2025 10:42:32 PM Interpretation: Performing Lab:[facility], [address] [place] [phone] Notes/Report: Lipase 35 8-78 U/L FL guidance in OR Reviewed date:05/13/2025 10:42:25 PM Interpretation: Performing Lab: Notes/Report: [address] [place] [address] Fluoroscopy Report Signed Patient: Mendoza Yun MR#: [id number] : 1950 Acct:[id number] Age/Sex: 74 / F ADM Date: 05/10/25 Loc: HO.S3 378-[address]: Maral Barragan MD Ordering Physician: Cecil Rodriguez MD Date of Service: 05/11/25 Procedure(s): FL guidance in OR Accession Number(s): [id number] cc: Hernan Cheek MD; Cecil Rodriguez MD Reason for Exam: ercp EXAMINATION: FL GUIDANCE ONLY HISTORY: ERCP COMPARISON: Correlation is made with an MRCP dated 05/10/2025. TECHNIQUE: Fluoroscopy time: 3 minutes, 20.7 seconds. Cumulative Dose: 41.204 mGy. DAP: 17.923 Gycm2 Images: 12. FINDINGS: Fluoroscopic spot films from an ERCP demonstrate a normal caliber common bile duct. No definite filling defects are identified. Multiple balloon sweeps were made. FL/FL guidance in OR IMPRESSION: Fluoroscopy during procedure. Please see procedure report for additional information. Electronically signed by: Cecil Barbosa MD 05/12/2025 07:14 AM EDT Dictated By: Cecil Barbosa MD Signed By: <Electronically signed by Cecil Barbosa MD in OV> 05/12/2514 DD/ 17 TD/TT: 05/11/252014 Senior Telecommunications Specialist: Prothrombin Time INR Reviewed date:05/13/2025 10:15:43 PM Interpretation: Performing Lab:[facility], [address] [place] [phone] Notes/Report: Missed x2 BEECHEC 2125 Patient wants a little break ask to come back later will relay this to 3rd shift DELGAAI Prothrombin Time 16.5 10.9-12.4 SEC INTERNATIONAL NORM RATIO 1.4 0.9-1.1 INTERNATIONAL NORMALIZED RATIO (INR) REFERENCE RANGES Reference Range For patients not on anticoagulant therapy: 0.9 - 1.1 INR ranges for oral anticoagulant therapy: For prevention and treatment of venous thrombosis and pulmonary embolism: 2.0 - 3.0 For acute myocardial infarction with aspirin therapy: 2.0 - 3.0 For acute myocardial infarction without aspirin therapy: 3.0 - 4.0 For patients with mechanical prosthetic heart valves: 2.5 - 3.5 Complete Blood Count Auto Di ff Reviewed date:05/13/2025 10:09:08 PM Interpretation: Performing Lab:[facility], [address] [place] [phone] Notes/Report: White Blood Count 8.2 4.8-10.8 X10*3/uL Red Blood Count 3.74 4.20-5.50 X10*6/uL Hemoglobin 12.4 12.0-16.0 g/dl Hematocrit 33.6 37.0-47.0 % Mean Corpuscular Volume 89.8 80.0-98.0 fL Mean Corpuscular Hemoglobin 33.2 27.0-33.0 pg Mean Corpuscular HGB Conc 36.9 31.0-35.0 g/dl Red Cell Distribution Width 13.6 11.0-16.0 % Platelet Count 72 160-400 X10*3/uL Mean Platelet Volume 12.1 9.4-12.3 fL Neutrophils Percent Auto 75.0 45-73 % Imm Gran Pct Auto 2.4 0.0-0.4 % Lymphocytes Percent Auto 10.0 20-40 % Monocytes Percent Auto 10.6 2-11 % Eosinophils Percent Auto 1.9 0-4 % Basophils Percent Auto 0.1 0-2 % NRBC Pct Auto 0.0 0.0-0.2 /100WBC Neutrophils Absolute Auto 6.2 2.0-8.3 x10*3/u L Imm Gran Abs Auto 0.20 0.00-0.03 X10*3/uL Lymphocytes Absolute Auto 0.8 1.2-4.9 X10*3/u L Monocytes Absolute Auto 0.9 0.1-1.2 X10*3/uL Eosinophils Absolute Auto 0.2 0.0-0.4 X10*3/u L Basophils Absolute Auto 0.0 0.0-0.2 X10*3/uL NRBC Abs Auto 0.000 0.0-0.012 X10*3/uL Comprehensive Met. Panel Reviewed date:05/13/2025 10:08:56 PM Interpretation: Performing Lab:[facility], [address] [place] [phone] Notes/Report: Sodium 137 135-145 mmol/L Potassium 3.3 3.3-5.1 mmol/L Slight Hemoly sis.Interpret result with caution. Chloride 105 96-108 mmol/L Carbon Dioxide 24 22-29 mmol/L Anion Gap 11 12-20 Blood Urea Nitrogen 7 9-16 mg/dL Creatinine 0.67 0.5-1.4 mg/dL Mild Icterus.I nterpret result with caution. Creatinine Clr Calc Pharmacy 62.3 Provided height and weight: 154.94 cm, 66.6 kg. eGFR (calculated from the MDRD study equation) and eCrCl (calculated from the Cockcroft-Gault equation) are based on different parameters and may not yield comparable results. If eCrCl result is absurd, please check patient's height/weight. Estimated Glomerular Filt Rate > 60 Chronic Kidney Disease: Estimated GFR < 60 mL/min/1.73m2 Severe Kidney Disease: Estimated GFR < 15 mL/min/1.73m2 Glucose Random 170 60-115 mg/dL Calcium 8.2 8.4-10.2 mg/dL Bilirubin Total 11.6 0.0-1.0 mg/dL Mild Icteru s. Aspartate Amino Transferase 86 5-31 U/L Slight Hemolysis.Interpret result with caution. Alanine Aminotransferase 289 0-31 U/L Total Protein 6.2 6.5-8.0 g/dL Albumin Level 3.0 3.5-5.0 g/dL Alkaline Phosphatase 238 39-117 U/L Liver Panel Reviewed date:05/13/2025 10:08:47 PM Interpretation: Performing Lab:[facility], [address] [place] [phone] Notes/Report: Bilirubin Direct 8.2 0.0-0.5 mg/dL Mild Icter us. MR MRCP Reviewed date:05/13/2025 10:08:34 PM Interpretation: Performing Lab: Notes/Report: [address] [address] Magnetic Resonance Report Signed Patient: Mendoza Yun MR#: [id number] : 1950 Acct:[id number] Age/Sex: 74 / F ADM Date: 05/10/25 Loc: HO.S3 378-[address]: Maral Barragan MD Ordering Physician: Cecil Rodriguez MD Date of Service: 05/13/25 Procedure(s): MR MRCP Accession Number(s): [id number] cc: Hernan Cheek MD; Cecil Rodriguez MD Reason for Exam: Worsening jaundice after ERCP, R/O CBD stone CLINICAL HISTORY: Worsening jaundice after ERCP, R O CBD stone MR abdomen without contrast MR MRCP Comparison: 05/10/2025 Findings: Interval resolution of common bile duct dilatation. There is new pneumobilia including gas within the common bile duct. There is no residual common bile duct stone or common bile duct dilatation. There are multiple gallstones within the gallbladder. There is gas within the gallbladder lumen. Gallbladder is poorly distended. There is prominence of the gallbladder wall. There is no pericholecystic fluid. There is edema of the pancreatic mesentery. No associated fluid collection or pancreatic duct dilatation. Unremarkable liver, spleen, adrenal glands and kidneys. No bowel edema or dilatation. No focal bone lesion. Impression: 1. There is pneumobilia, compatible with recent ERCP. 2. No biliary dilatation or choledocholithiasis. 3. There is edema of the pancreatic mesentery suggesting a mild degree of pancreatitis. 4. There is cholelithiasis. There is associated thickening of the gallbladder wall which may be on the basis of underdistention but acute cholecystitis is also considered. This document has been electronically signed by: Lyubov Ortiz MD on 05/13/2025 18:31:44 Dictated By: Lyubov Ortiz MD Signed By: <Electronically signed by Lyubov Ortiz MD in OV> 05/13/251831 DD/ 30 TD/TT: 05/13/251830 Senior Telecommunications Specialist: Complete Blood Count Auto Di ff Reviewed date:05/14/2025 10:13:29 PM Interpretation: Performing Lab:[facility], [address] [place] [phone] Notes/Report: White Blood Count 10.1 4.8-10.8 X10*3/uL Red Blood Count 3.47 4.20-5.50 X10*6/uL Hemoglobin 11.4 12.0-16.0 g/dl Hematocrit 30.5 37.0-47.0 % Mean Corpuscular Volume 87.9 80.0-98.0 fL Mean Corpuscular Hemoglobin 32.9 27.0-33.0 pg Mean Corpuscular HGB Conc 37.4 31.0-35.0 g/dl Red Cell Distribution Width 13.4 11.0-16.0 % Platelet Count 67 160-400 X10*3/uL Mean Platelet Volume 12.1 9.4-12.3 fL Neutrophils Percent Auto 72.3 45-73 % Imm Gran Pct Auto 1.2 0.0-0.4 % Lymphocytes Percent Auto 12.1 20-40 % Monocytes Percent Auto 12.6 2-11 % Eosinophils Percent Auto 1.5 0-4 % Basophils Percent Auto 0.3 0-2 % NRBC Pct Auto 0.0 0.0-0.2 /100WBC Neutrophils Absolute Auto 7.3 2.0-8.3 x10*3/u L Imm Gran Abs Auto 0.12 0.00-0.03 X10*3/uL Lymphocytes Absolute Auto 1.2 1.2-4.9 X10*3/u L Monocytes Absolute Auto 1.3 0.1-1.2 X10*3/uL Eosinophils Absolute Auto 0.2 0.0-0.4 X10*3/u L Basophils Absolute Auto 0.0 0.0-0.2 X10*3/uL NRBC Abs Auto 0.000 0.0-0.012 X10*3/uL Comprehensive Met. Panel Reviewed date:05/14/2025 10:13:06 PM Interpretation: Performing Lab:[facility], [address] [place] [phone] Notes/Report: Sodium 133 135-145 mmol/L Potassium 2.6 3.3-5.1 mmol/L Critical [K] sent by a secure message and confirmed by (DR MARAL BARRAGAN AT 08:35 ON 05/14/2025) Tech:SULLIVV Chloride 100 96-108 mmol/L Carbon Dioxide 25 22-29 mmol/L Anion Gap 11 12-20 Blood Urea Nitrogen 8 9-16 mg/dL Creatinine 0.67 0.5-1.4 mg/dL Mild Icterus.I nterpret result with caution. Creatinine Clr Calc Pharmacy 62.3 Provided height and weight: 154.94 cm, 66.6 kg. eGFR (calculated from the MDRD study equation) and eCrCl (calculated from the Cockcroft-Gault equation) are based on different parameters and may not yield comparable results. If eCrCl result is absurd, please check patient's height/weight. Estimated Glomerular Filt Rate > 60 Chronic Kidney Disease: Estimated GFR < 60 mL/min/1.73m2 Severe Kidney Disease: Estimated GFR < 15 mL/min/1.73m2 Glucose Random 113 60-115 mg/dL Calcium 8.1 8.4-10.2 mg/dL Bilirubin Total 11.2 0.0-1.0 mg/dL Mild Icteru s. Aspartate Amino Transferase 52 5-31 U/L Alanine Aminotransferase 179 0-31 U/L Total Protein 5.9 6.5-8.0 g/dL Albumin Level 2.8 3.5-5.0 g/dL Alkaline Phosphatase 203 39-117 U/L Liver Panel Reviewed date:05/14/2025 10:12:51 PM Interpretation: Performing Lab:[facility], [address] [place] [phone] Notes/Report: Bilirubin Direct 8.0 0.0-0.5 mg/dL Mild Icter us. Complete Blood Count Auto Di ff Reviewed date:05/15/2025 11:23:16 PM Interpretation: Performing Lab:[facility], [address] [place] [phone] Notes/Report: White Blood Count 10.9 4.8-10.8 X10*3/uL Red Blood Count 3.22 4.20-5.50 X10*6/uL Hemoglobin 10.6 12.0-16.0 g/dl Hematocrit 29.0 37.0-47.0 % Mean Corpuscular Volume 90.1 80.0-98.0 fL Mean Corpuscular Hemoglobin 32.9 27.0-33.0 pg Mean Corpuscular HGB Conc 36.6 31.0-35.0 g/dl Red Cell Distribution Width 13.3 11.0-16.0 % Platelet Count 77 160-400 X10*3/uL Mean Platelet Volume 11.8 9.4-12.3 fL Neutrophils Percent Auto 73.5 45-73 % Imm Gran Pct Auto 1.8 0.0-0.4 % Lymphocytes Percent Auto 12.4 20-40 % Monocytes Percent Auto 10.2 2-11 % Eosinophils Percent Auto 1.6 0-4 % Basophils Percent Auto 0.5 0-2 % NRBC Pct Auto 0.2 0.0-0.2 /100WBC Neutrophils Absolute Auto 8.0 2.0-8.3 x10*3/u L Imm Gran Abs Auto 0.20 0.00-0.03 X10*3/uL Lymphocytes Absolute Auto 1.4 1.2-4.9 X10*3/u L Monocytes Absolute Auto 1.1 0.1-1.2 X10*3/uL Eosinophils Absolute Auto 0.2 0.0-0.4 X10*3/u L Basophils Absolute Auto 0.1 0.0-0.2 X10*3/uL NRBC Abs Auto 0.020 0.0-0.012 X10*3/uL Comprehensive Met. Panel Reviewed date:05/15/2025 11:22:48 PM Interpretation: Performing Lab:[facility], [address] [place] [phone] Notes/Report: Sodium 132 135-145 mmol/L Potassium 3.7 3.3-5.1 mmol/L Chloride 103 96-108 mmol/L Carbon Dioxide 22 22-29 mmol/L Anion Gap 11 12-20 Blood Urea Nitrogen 9 9-16 mg/dL Creatinine 0.72 0.5-1.4 mg/dL Mild Icterus.I nterpret result with caution. Creatinine Clr Calc Pharmacy 58.0 Provided height and weight: 154.94 cm, 66.6 kg. eGFR (calculated from the MDRD study equation) and eCrCl (calculated from the Cockcroft-Gault equation) are based on different parameters and may not yield comparable results. If eCrCl result is absurd, please check patient's height/weight. Estimated Glomerular Filt Rate > 60 Chronic Kidney Disease: Estimated GFR < 60 mL/min/1.73m2 Severe Kidney Disease: Estimated GFR < 15 mL/min/1.73m2 Glucose Random 100 60-115 mg/dL Calcium 7.9 8.4-10.2 mg/dL Bilirubin Total 8.2 0.0-1.0 mg/dL Mild Icteru s. Aspartate Amino Transferase 47 5-31 U/L Alanine Aminotransferase 127 0-31 U/L Total Protein 5.8 6.5-8.0 g/dL Albumin Level 2.7 3.5-5.0 g/dL Alkaline Phosphatase 200 39-117 U/L Liver Panel Reviewed date:05/15/2025 11:22:41 PM Interpretation: Performing Lab:[facility], [address] [place] [address] Notes/Report: Bilirubin Direct 5.9 0.0-0.5 mg/dL Mild Icter us. Reason For Referral No Information Medications Medication SIG (Take, Route, Frequency, Duration) [...] MG 1 capsule Orally Onc e a day; Duration: 30 day(s) 02/17/2023 Active Vitamin D 1000 UNIT 1 tablet Orally Once a day; Duration: 30 day(s) Active Vitamin B Complex - as directed Orally o nce a day Active Pantoprazole Sodium 40 MG 1 tablet Orall y Once a day; Duration: 30 day(s) 11/14/2022 Active Magnesium 500 MG 1 tablet with a meal Orally Once a day; Duration: 30 day(s) Active BuSpar Active Immunizations Vaccine [...] Problem Status W/U Status Risk Notes Problem Colon cancer screening (708589157) Colon cancer screening (Z12.11) Active confirmed Problem Epigastric pain (50015531) Epigastric pain (R10.13) Active confirmed Problem Gastroesophageal reflux disease with esophagitis (808906834) Gastroesophageal reflux disease with esophagitis (K21.0) Active confirmed Encounters Encounter Location Date Provider Diagnosis [facility] [address] [place] [address] 09/05/2024 Lenin Doyle Jr Plan Of Treatment Future Test Test Name Order Date COLONOSCOPY 06/07/2014 UPPER GI ENDOSCOPY 11/10/2018 Insurance Providers Payer Name Payer Address Payer Phone Subscriber Number Group Number Insured Name Patient Relationship to Insured Coverage Start Date Coverage End Date [employer] [address] [place] [address] [phone] [id number] MENDOZA GROVE Self - patient is the insured Medical (General) History Medical History History ICD Code hypertension depression 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
== END 2025-05-31 13:04 | disposition home or self-care (01) ==
LOC: HO.HGS 12:36
PROVIDERS: PCP Internal Medicine
DX: Z90.49 Acquired absence of other specified parts of digestive tract (principal)
CPT/HCPCS: 99024

== ENCOUNTER → 2025-05-31 12:36 | Outpatient (BNVA) | payer MEDICARE, SELFPAY | PROVIDERS: PCP Internal Medicine | DX: R42 Dizziness and giddiness (principal); Z98.890 Other specified postprocedural states; Z90.49 Acquired absence of other specified parts of digestive tract | CPT/HCPCS: 99212 ==

== ENCOUNTER 2025-07-24 12:49 | Outpatient (REF) | payer MEDICARE, SELFPAY ==
--- OUTSIDE RECORDS SUMMARY | 2024-05-19 08:35 | XMS_ITS ---
Author Organization [facility] Address [address] [place] [id number] Care Team Providers Care Mechanical Detailer Name Role Phone Ham TAVERAS, Hernan Primary Care Provider Lenin Duggan Jr REASON FOR VISIT Patient presents today for vomitting Encounters Encounter Location Date Provider Diagnosis [facility] [address] [place] [id number] 05/19/2024 Lenin Doyle Jr Plan Of Treatment No Information Progress Notes * MENDOZA YUN CDOB: (75 yo F)Acc No.[id number]:05/19/2024 Progress Notes Patient: MENDOZA FLORES Provider: Ashley Doyle MD :[id number] A ge:73 Y S ex:Female Date:05/19/2024 Address:[address] [place] [address], Fermín ramirez [id number] Pcp:Hernan Cheek MD Subjective: * Chief Complaints: * P atient presents today for vomitting Billing Information: * Procedure Codes: * The named appointment provid er may or may not be the originator of this progress note, and it is not deemed complete until electronically signed by the appointment provider. Sign off status: Pending * Provider: Ashley Doyle MD Date: Generated for Printi ng/Faxing/eTransmitting on: 09/24/2024 06:35 PM EST
--- OUTSIDE RECORDS SUMMARY | 2024-09-05 05:40 | XMS_ITS ---
Author Organization [facility] Address [address] [place] [address] Care Team Providers Care Clinical Radiologist Name Role Phone Ham TAVERAS, eHrnan Primary Care Provider Lenin Duggan Jr REASON FOR VISIT Patient presents today for epigastric pain Encounters Encounter Location Date Provider Diagnosis [facility] [address] [place] [address] 09/05/2024 Lenin Doyle Jr Plan Of Treatment No Information Progress Notes * MENDOZA YUN CDOB: (75 yo F)Acc No.[id number]:09/05/2024 Progress Notes Patient: MENDOZA FLORES Provider: Ashley Doyle MD :1950 A ge:74 Y S ex:Female Date:09/05/2024 Address:[address] [place] [address], [id number] Pcp:Hernan Cheek MD Subjective: * Chief Complaints: * P atient presents today for epigastric pain Billing Information: * Procedure Codes: * The named appointment provid er may or may not be the originator of this progress note, and it is not deemed complete until electronically signed by the appointment provider. Sign off status: Pending * Provider: Ashley Doyle MD Date: 0 09/05/2024 Generated for Printi ng/Faxing/eTransmitting on: 1 09/24/2024 06:34 PM EST
[2025-07-24 13:01] LABS: MANUAL DIFF FLAG NO
[2025-07-24 13:28] LABS: Hematocrit 39.6 % (37.0-47.0); Hemoglobin 13.6 g/dl (12.0-16.0); Imm Gran Abs Auto 0.01 X10*3/uL (0.00-0.03); Imm Gran Pct Auto 0.2 % (0.0-0.4); Lymphocytes Absolute Auto 2.6 X10*3/uL (1.2-4.9); Mean Corpuscular HGB Conc 34.3 g/dl (31.0-35.0); Mean Corpuscular Hemoglobin 32.3 pg (27.0-33.0); Mean Corpuscular Volume 94.1 fL (80.0-98.0); NRBC Abs Auto 0.000 X10*3/uL (0.0-0.012); NRBC Pct Auto 0.0 /100WBC (0.0-0.2); Platelet Count 132 X10*3/uL (160-400); Red Blood Count 4.21 X10*6/uL (4.20-5.50); White Blood Count 5.2 X10*3/uL (4.8-10.8)
[2025-07-24 14:02] LABS: Alanine Aminotransferase 26 U/L (0-31); Albumin Level 4.1 g/dL (3.5-5.0); Alkaline Phosphatase 151 U/L (39-117); Anion Gap 12 (12-20); Aspartate Amino Transferase 36 U/L (5-31); Blood Urea Nitrogen 21 mg/dL (9-16); Calcium 9.1 mg/dL (8.4-10.2); Carbon Dioxide 30 mmol/L (22-29); Chloride 105 mmol/L (96-108); Estimated Glomerular Filt Rate 42; Iron 91 mcg/dL (30-160); Percent Iron Saturation 38 % (15-50); Potassium 4.0 mmol/L (3.3-5.1); Sodium 143 mmol/L (135-145); Total Iron Binding Capacity 237 mcg/dL (228-428); Total Protein 7.8 g/dL (6.5-8.0); Unsaturated Iron Binding 146 ug/dL
[2025-07-24 14:10] LABS: Ferritin 380 ng/mL (10-250)
--- OUTSIDE RECORDS SUMMARY | 2025-07-24 18:35 | XMS_ITS | Encounter Summary ---
Author Organization [facility] Address [address] [facility] [address] [place] [address] Phone Care Team Providers Care Piece Dye Worker Name Role Phone Hernan Cheek MD Primary Care Provider [phone] Sydni Parr MD Unavailable Enmanuel Abel MD Unavailable [phone] Ros Joseph MD Unavailable Rod Kowalski MD Unavailable Encounter Details Date Type Department Care Team (Late st Contact Info) Description 08/18/2024 Procedure Pass Non-Invasive Cardiology [address] [place] [address] Social History Tobacco Use Types Packs/Day Years [...] Care Team (Late st Contact Info) Description 08/11/2025 2:30 PM EST Office Visit [facility] Internal Medicine [address] [place] [address] Hernan Cheek MD [address] [place] [address] [email or web address] 09/01/2025 11:00 AM EST Office Visit [facility] [address] [place] [address] 3rd [facility], [address] [place] [address] Jl Acuña DO [address] [place] [address] [place] [address] [email or web address] 09/20/2025 11:00 AM EST Office Visit [facility] Otoneurology [address] [place] [address] Jeff Viramontes MD [address] [place] [id number] [email or web address] documented as of this encounter Visit Diagnoses Not on filedocumented in this encounter Additional Health Concerns Assessment Noted Time PHQ-2 Depression Total Score: 0 10/23/19 24 9:43 AM EDT documented as of this encounter Care Teams Piece Dye Worker Relationship Specialty Start Date End Date Hernan Cheek MD [address] [place] [address] [email or web address] PCP - General Internal Medicine 05/24/20 Sydni Parr MD [address] [place] [address] Ophthalmology 07/30/20 Enmanuel Abel MD [address] [place] [address] Ophthalmology 07/30/20 Ros Joseph MD [address] [place] [address] Internal Medicine 07/30/20 Rod Kowalski MD [address] [place] [address], [facility] [address] [place] [address] [email or web address] Psychiatry 07/30/20 documented as of this encounter Additional Source Comments The information contained in this document represents components of the legal health record. It is not the complete legal health record.[facility]
--- OUTSIDE RECORDS SUMMARY | 2025-07-24 18:35 | XMS_ITS | Encounter Summary ---
Author Organization [facility] Address [address] [place] [address] Phone Care Team Providers Care Industrial Workers Name Role Phone Hernan Cheek MD Primary Care Provider [phone] Sydni Parr MD Unavailable Enmanuel Abel MD Unavailable Ros Joseph MD Unavailable Rod Kowalski MD Unavailable Reason for Visit * Reason Onset Date Comments TCM Visit 06/05/2025 Encounter Details Date Type Department Care Team (Late st Contact Info) Description 06/05/2025 Telephone Alejandre [facility] [address] [place] [address] [email or web address] TCM Visit Social History Tobacco Use Types Packs/Day Years [...] on file documented as of this encounter Progress Notes * Jia Fatima - 06/08/2025 10:00 AM EDT [facility] notes scanned into chart * Jia Fatima - 06/08/2025 8:56 AM EDT Spoke with Jaz at [facility] she states she is sending over the discharge paperwork. * Lis Avery RN - 06/06/2025 10:22 AM EDT Post Discharge Summary: Spoke to Audrey and reviewed meds/confirmed appointment. The changed Wellbutrin was decreased to 300 mg daily because they thought it might be contributing to her dizziness. New order for midodrine 5 mg 3 times a day-hold for sbp greater 140 She is checking BP at home Lisinopril and amlodipine were discontinued Post discharge call documentation: Is a post discharge call required?: Yes Please indicate post discharge status: Patient reached - post discharge complete Patient eligible for TCM billing (reached or two unsuccessful attempts within two business days post discharge)?: Yes General: Discharge information: Discharge date: 06/05/25 Discharge from: [facility] Reason for hospitalization: s/p GB removal Discharge disposition: home How is the patient feeling since discharge (pain level and other considerations)?: Stable/no change Safety and self care: Does the patient/caregiver have any safety concerns (falls, transfers, stairs, abuse, etc.)?: No Is the patient/caregiver able to take care of post discharge needs at home (wound care, medication(s), etc)?: Yes Assistive devices/equipment and home services: Was the patient sent home with any assistive devicesor equipment?: No Was the patient sent home with home services?: Yes Select all that apply: VNA Has the patient/caregiver been contacted by home services?: No Comments: she was referred to [facility] and had requested [place] [facility] so that is currently in process Medication review: Were you able to review the medication list with the patient/caregiver?: Yes Were there any medication changes while the patient was in the hospital (such as anticoagulant dosechanges, insulin, etc)?: Yes What changes?: see notes/med list Were there any discrepancies during medication review?: No Was the patient/caregiver able to picker packer all new prescriptions?: Yes Does the patient need any other medications renewed/refilled?: No Does the patient/caregiver have questions regarding their medications or side effects?: No Follow up/conclusion: Was a follow up appointment scheduled with the patient's PCP office?: Yes Date of next appointment with the PCP: 06/09/25 * Cici Parr - 06/06/2025 9:57 AM EDT Pt called in returning a call to triage. Please contact and advise. Central Support [employer] (Please do not reply to this user; this inbox is not monitored.) Thank you. * Mary Jo Woodson RN - 06/06/2025 9:53 AM EDT Post Discharge Summary: Post discharge call documentation: Is a post discharge call required?: Yes Please indicate post discharge status: 1st attempt not reached General: Discharge information: Discharge date: 06/05/25 Discharge from: [facility] Reason for hospitalization: s/p GB removal Safety and self care: Assistive devices/equipment and home services: Medication review: Follow up/conclusion: Was a follow up appointment scheduled with the patient's PCP office?: Yes Date of next appointment with the PCP: 06/09/25 LVM for Audrey to call back. * iJa Fatima - 06/05/2025 3:51 PM EDT Patient is scheduled for TCM with Rubén Goodrich 06/09/2025. Yulissa is sending over Discharge paper EDITA * vEa Griffin - 06/05/2025 3:32 PM EDT [facility] [employer] Smart Phrases: Transitional Care Management New Patient: YES/NO: no Hospitalization Name: [facility] Discharge Date: 06/05 Reason for Visit+ Diagnosis: post gallbladder surgery + cholecystomy Is the discharge summary in patient chart:YES/NO: no If not did you inform the patient/patient advocate to fax it to the office: YES/NO: yes Please inform the patient/patient advocate to fax and bring a copy to the appt. Appointment Date: N/A Is the appt: N/A Awareness: Appt need to be schedule with in 2 to 14 calendar days from discharge date Additional Note (if applicable): [facility] Call Center CSS Agent (Please do not reply to this user, as this inbox is not monitored. Thank you.) Thank you. documented in this encounter Plan of Treatment Upcoming Encounters Date Type Department Care Team (Late st Contact Info) Description 08/11/2025 2:30 PM EST Office Visit [facility] Internal Medicine [address] [place] [address] Hernan Cheek MD [address] [place] [address] 09/01/2025 11:00 AM EST Office Visit [facility] [address] [facility] [address] Floor, [address] [place] [address] Jl Acuña DO [address] [facility] [address] [place] [address] 09/20/2025 11:00 AM EST Office Visit [facility] Otoneurology [address] [address] Jeff Viramontes MD [address] [place] [id number] [email or web address] documented as of this encounter Visit Diagnoses Not on filedocumented in this encounter Additional Health Concerns Assessment Noted Time PHQ-2 Depression Total Score: 0 10/23/19 24 9:43 AM EDT documented as of this encounter Care Teams Industrial Workers Relationship Specialty Start Date End Date Hernan Cheek MD [address] [place] [address] PCP - General Internal Medicine 05/24/20 Sydni Parr MD [address] [place] [address] Ophthalmology 07/30/20 Enmanuel Abel MD [address] [place] [address] Ophthalmology 07/30/20 Ros Joseph MD [address] [place] [address] Internal Medicine 07/30/20 Rod Kowalski MD [address] [place] [address], [facility] [address] [place] [address] [email or web address] Psychiatry 07/30/20 documented as of this encounter Additional Source Comments The information contained in this document represents components of the legal health record. It is not the complete legal health record.[facility]
--- OUTSIDE RECORDS SUMMARY | 2025-07-24 18:35 | XMS_ITS | Encounter Summary ---
Author Organization [facility] Address [address] [place] [address] Phone Care Team Providers Care Ankle Patch Molder Name Role Phone Hernan Cheek MD Primary Care Provider [phone] Sydni Parr MD Unavailable Enmanuel Abel MD Unavailable Ros Joseph MD Unavailable [phone] Rod Kowalski MD Unavailable [phone] Reason for Visit * Reason Onset Date Comments message for appt today 06/09/2025 Encounter Details Date Type Department Care Team ([facility] st Contact Info) Description 06/09/2025 Telephone [facility] [address] [place] [address] Rosales Sanders RN [phone] [place] [address] [email or web address] message for appt today Social History Tobacco Use Types Packs/Day Years [...] as of this encounter Progress Notes * Lacie Goodrich PA-C - 06/09/2025 12:46 PM EDT Noted. * Rosales Sanders RN - 06/09/2025 12:30 PM EDT Pt left a message, states that she is aware that she has appt today, wanted to share this prior to appt. states she came across message from - Gall bladder surgeon, states that this providerrequested pt to have another mri due to labs for jaundice being high, states that she is not sure why hospital or rehab did not give her the message, ?'s if she need to another referral to Dr. Kuo for the MRI. Spoke with pt, advised to reach out to Dr. Diego's office to clarify the need for the order, advised it would be best to get this info form them directly, states that she will call their office, and will speak with provider at visit today. Fyi to [place] documented in this encounter Plan of Treatment Upcoming Encounters Date Type Department Care Team (Late st Contact Info) Description 08/11/2025 2:30 PM EST Office Visit [facility] Internal Medicine [address] [place] [address] Hernan Cheek MD [address] [place] [address] 09/01/2025 11:00 AM EST Office Visit [facility] [address] [facility] 3rd Floor, [address] [place], [place] [id number] Jl Acuña DO [address] [facility] [address] [place] [id number] 09/20/2025 11:00 AM EST Office Visit [facility] [place] [address] [place] [address] Jeff Viramontes MD [address] [place] [phone] [email or web address] documented as of this encounter Visit Diagnoses Not on filedocumented in this encounter Additional Health Concerns Assessment Noted Time PHQ-2 Depression Total Score: 0 10/23/19 24 9:43 AM EDT documented as of this encounter Care Teams Ankle Patch Molder Relationship Specialty Start Date End Date Hernan Cheek MD [address] [place] [address] PCP - General Internal Medicine 05/24/20 Sydni Parr MD [address] [place] [address] Ophthalmology 07/30/20 Enmanuel Abel MD [address] [place] [address] [place] [address] Ophthalmology 07/30/20 Ros Joseph MD [address] [place] [phone] Internal Medicine 07/30/20 Rod Kowalski MD [address] [place] [address], [address] [place] [address] [email or web address] Psychiatry 07/30/20 documented as of this encounter Additional Source Comments The information contained in this document represents components of the legal health record. It is not the complete legal health record.[facility]
--- OUTSIDE RECORDS SUMMARY | 2025-07-24 18:35 | XMS_ITS | Patient Health Record ---
Author Organization [facility] Address [address] [place] [address] Care Team Providers Care Astrochemist Name Role Phone Hernan Cheek MD Primary Care Provider Lenin Duggan Jr Unavailable Allergies Allergen (clinical drug ingredient) Drug/Non Drug Allergy documented on EMR Reaction Allergy Type Onset Date Status ibuprofen Ibuprofen hives Drug Allergy Active Results Component Value Reference Range Flag Notes Complete Blood Count Auto Di ff Reviewed date:05/13/2025 10:45:51 PM Interpretation: Performing Lab:[facility], [address] [place] [phone] Notes/Report: White Blood Count 15.6 4.8-10.8 X10*3/uL H Red Blood Count 3.33 4.20-5.50 X10*6/uL L Hemoglobin 10.9 12.0-16.0 g/dl L Hematocrit 29.8 37.0-47.0 % L Mean Corpuscular Volume 89.5 80.0-98.0 fL N Mean Corpuscular Hemoglobin 32.7 27.0-33.0 pg N Mean Corpuscular HGB Conc 36.6 31.0-35.0 g/dl H Red Cell Distribution Width 13.7 11.0-16.0 % N Platelet Count 80 160-400 X10*3/uL L Mean Platelet Volume 11.8 9.4-12.3 fL N Neutrophils Percent Auto 79.9 45-73 % H Imm Gran Pct Auto 1.0 0.0-0.4 % H Lymphocytes Percent Auto 11.2 20-40 % L Monocytes Percent Auto 7.2 2-11 % N Eosinophils Percent Auto 0.6 0-4 % N Basophils Percent Auto 0.1 0-2 % N NRBC Pct Auto 0.0 0.0-0.2 /100WBC N Neutrophils Absolute Auto 12.4 2.0-8.3 x10*3/uL H Imm Gran Abs Auto 0.15 0.00-0.03 X10*3/uL H Lymphocytes Absolute Auto 1.8 1.2-4.9 X10*3/uL N Monocytes Absolute Auto 1.1 0.1-1.2 X10*3/uL N Eosinophils Absolute Auto 0.1 0.0-0.4 X10*3/uL N Basophils Absolute Auto 0.0 0.0-0.2 X10*3/uL N NRBC Abs Auto 0.000 0.0-0.012 X10*3/uL N Prothrombin Time INR Reviewed date:05/13/2025 10:45:41 PM Interpretation: Performing Lab:[address] [address] Notes/Report: Prothrombin Time 16.5 10.9-12.4 SEC H INTERNATIONAL NORM RATIO 1.4 0.9-1.1 H INTERNATIONAL NORMALIZED RATIO (INR) REFERENCE RANGES Reference [...] Panel Reviewed date:05/13/2025 10:45:30 PM Interpretation: Performing Lab:[facility], [address] [place] [phone] Notes/Report: Sodium 139 135-145 mmol/L N Potassium 4.1 3.3-5.1 mmol/L N Chloride 106 96-108 mmol/L N Carbon Dioxide 25 22-29 mmol/L N Anion Gap 12 12-20 N Blood Urea Nitrogen 19 9-16 mg/dL H Creatinine 1.06 0.5-1.4 mg/dL N Mild Icteru s.Interpret result with caution. Creatinine Clr Calc Pharmacy [...] 15 mL/min/1.73m2 Glucose Random 67 60-115 mg/dL N Calcium 7.8 8.4-10.2 mg/dL L Bilirubin Total 6.1 0.0-1.0 mg/dL H Mild I cterus. Aspartate Amino Transferase 394 5-31 U/L H Alanine Aminotransferase 708 0-31 U/L H Total Protein 5.5 6.5-8.0 g/dL L Albumin Level 2.8 3.5-5.0 g/dL L Alkaline Phosphatase 221 39-117 U/L H Liver Panel Reviewed date:05/13/2025 10:45:13 PM Interpretation: Performing Lab:[address] [address] Notes/Report: Bilirubin Direct 4.9 0.0-0.5 mg/dL H Mild Icterus. Magnesium Reviewed date:05/13/2025 10:45:05 PM Interpretation: Performing Lab:[address] [address] Notes/Report: Magnesium 1.7 1.6-2.6 mg/dL N Lipase Reviewed date:05/13/2025 10:42:32 PM Interpretation: Performing Lab:[address] [address] Notes/Report: Lipase 35 8-78 U/L N FL guidance in OR Reviewed date:05/13/2025 10:42:25 PM Interpretation: Performing Lab: Notes/Report: [address] [address] Fluoroscopy Report Signed Patient: Mendoza Yun MR#: [id number] : 1950 Acct:[id number] Age/Sex: 74 / F ADM Date: 05/10/25 Loc: HO.S3 378-[address]: Maral Barragan MD Ordering Physician: Cecil Rodriguez MD Date of Service: 05/11/25 Procedure(s): FL guidance in OR Accession Number(s): [id number] cc: Hernan Cheek MD; Cecil Rodriguez MD [...] signed by Cecil Barbosa MD in OV> 05/12/25 0714 DD/ 17 TD/TT: 05/11/252014 Senior Storage Administrator: Prothrombin Time INR Reviewed date:05/13/2025 10:15:43 PM Interpretation: Performing Lab:[facility], [address] [place] [phone] Notes/Report: Missed x2 [facility] 2125 Patient wants a little break ask to come back later will relay this to 3rd shift AVANI Prothrombin Time 16.5 10.9-12.4 SEC H INTERNATIONAL NORM RATIO 1.4 0.9-1.1 H INTERNATIONAL NORMALIZED RATIO (INR) REFERENCE RANGES Reference [...] ff Reviewed date:05/13/2025 10:09:08 PM Interpretation: Performing Lab:[facility], [address] [place] [phone] Notes/Report: White Blood Count 8.2 4.8-10.8 X10*3/uL N Red Blood Count 3.74 4.20-5.50 X10*6/uL L Hemoglobin 12.4 12.0-16.0 g/dl N Hematocrit 33.6 37.0-47.0 % L Mean Corpuscular Volume 89.8 80.0-98.0 fL N Mean Corpuscular Hemoglobin 33.2 27.0-33.0 pg H Mean Corpuscular HGB Conc 36.9 31.0-35.0 g/dl H Red Cell Distribution Width 13.6 11.0-16.0 % N Platelet Count 72 160-400 X10*3/uL L Mean Platelet Volume 12.1 9.4-12.3 fL N Neutrophils Percent Auto 75.0 45-73 % H Imm Gran Pct Auto 2.4 0.0-0.4 % H Lymphocytes Percent Auto 10.0 20-40 % L Monocytes Percent Auto 10.6 2-11 % N Eosinophils Percent Auto 1.9 0-4 % N Basophils Percent Auto 0.1 0-2 % N NRBC Pct Auto 0.0 0.0-0.2 /100WBC N Neutrophils Absolute Auto 6.2 2.0-8.3 x10*3/uL N Imm Gran Abs Auto 0.20 0.00-0.03 X10*3/uL H Lymphocytes Absolute Auto 0.8 1.2-4.9 X10*3/uL L Monocytes Absolute Auto 0.9 0.1-1.2 X10*3/uL N Eosinophils Absolute Auto 0.2 0.0-0.4 X10*3/uL N Basophils Absolute Auto 0.0 0.0-0.2 X10*3/uL N NRBC Abs Auto 0.000 0.0-0.012 X10*3/uL N Comprehensive Met. Panel Reviewed date:05/13/2025 10:08:56 PM Interpretation: Performing Lab:[facility], [address] [place] [phone] Notes/Report: Sodium 137 135-145 mmol/L N Potassium 3.3 3.3-5.1 mmol/L N Slight Hemolysis.Interpret result with caution. Chloride 105 96-108 mmol/L N Carbon Dioxide 24 22-29 mmol/L N Anion Gap 11 12-20 L Blood Urea Nitrogen 7 9-16 mg/dL L Creatinine 0.67 0.5-1.4 mg/dL N Mild Icteru s.Interpret result with caution. Creatinine Clr Calc Pharmacy [...] 15 mL/min/1.73m2 Glucose Random 170 60-115 mg/dL H Calcium 8.2 8.4-10.2 mg/dL L Bilirubin Total 11.6 0.0-1.0 mg/dL H Mild I cterus. Aspartate Amino Transferase 86 5-31 U/L H Slight Hemolysis.Interpret result with caution. Alanine Aminotransferase 289 0-31 U/L H Total Protein 6.2 6.5-8.0 g/dL L Albumin Level 3.0 3.5-5.0 g/dL L Alkaline Phosphatase 238 39-117 U/L H Liver Panel Reviewed date:05/13/2025 10:08:47 PM Interpretation: Performing Lab:[facility], [address] [place] [phone] Notes/Report: Bilirubin Direct 8.2 0.0-0.5 mg/dL H Mild Icterus. MR MRCP Reviewed date:05/13/2025 10:08:34 PM Interpretation: Performing Lab: Notes/Report: [address] [address] Magnetic Resonance Report Signed Patient: Mendoza Yun MR#: [id number] : 1950 Acct:[id number] Age/Sex: 74 / F ADM Date: 05/10/25 Loc: [facility] 378-[address]: Maral Barragan MD Ordering Physician: Cecil Rodriguez MD Date of Service: 05/13/25 Procedure(s): MR MRCP Accession Number(s): [id number] cc: Hernan Cheek MD; Cecil Rodriguez MD [...] OV> 05/13/251831 DD/ 30 TD/TT: 05/13/251830 Senior Storage Administrator: Complete Blood Count Auto Di ff Reviewed date:05/14/2025 10:13:29 PM Interpretation: Performing Lab:[facility], [address] [place] [phone] Notes/Report: White Blood Count 10.1 4.8-10.8 X10*3/uL N Red Blood Count 3.47 4.20-5.50 X10*6/uL L Hemoglobin 11.4 12.0-16.0 g/dl L Hematocrit 30.5 37.0-47.0 % L Mean Corpuscular Volume 87.9 80.0-98.0 fL N Mean Corpuscular Hemoglobin 32.9 27.0-33.0 pg N Mean Corpuscular HGB Conc 37.4 31.0-35.0 g/dl H Red Cell Distribution Width 13.4 11.0-16.0 % N Platelet Count 67 160-400 X10*3/uL L Mean Platelet Volume 12.1 9.4-12.3 fL N Neutrophils Percent Auto 72.3 45-73 % N Imm Gran Pct Auto 1.2 0.0-0.4 % H Lymphocytes Percent Auto 12.1 20-40 % L Monocytes Percent Auto 12.6 2-11 % H Eosinophils Percent Auto 1.5 0-4 % N Basophils Percent Auto 0.3 0-2 % N NRBC Pct Auto 0.0 0.0-0.2 /100WBC N Neutrophils Absolute Auto 7.3 2.0-8.3 x10*3/uL N Imm Gran Abs Auto 0.12 0.00-0.03 X10*3/uL H Lymphocytes Absolute Auto 1.2 1.2-4.9 X10*3/uL N Monocytes Absolute Auto 1.3 0.1-1.2 X10*3/uL H Eosinophils Absolute Auto 0.2 0.0-0.4 X10*3/uL N Basophils Absolute Auto 0.0 0.0-0.2 X10*3/uL N NRBC Abs Auto 0.000 0.0-0.012 X10*3/uL N Comprehensive Met. Panel Reviewed date:05/14/2025 10:13:06 PM Interpretation: Performing Lab:[facility], [address] [place] [phone] Notes/Report: Sodium 133 135-145 mmol/L L Potassium 2.6 3.3-5.1 mmol/L LL Critical [K] sent by a secure message and confirmed by (DR MARAL BARRAGAN AT 08:35 ON 05/14/2025) Tech:SULLIVV Chloride 100 96-108 mmol/L N Carbon Dioxide 25 22-29 mmol/L N Anion Gap 11 12-20 L Blood Urea Nitrogen 8 9-16 mg/dL L Creatinine 0.67 0.5-1.4 mg/dL N Mild Icteru s.Interpret result with caution. Creatinine Clr Calc Pharmacy [...] 15 mL/min/1.73m2 Glucose Random 113 60-115 mg/dL N Calcium 8.1 8.4-10.2 mg/dL L Bilirubin Total 11.2 0.0-1.0 mg/dL H Mild I cterus. Aspartate Amino Transferase 52 5-31 U/L H Alanine Aminotransferase 179 0-31 U/L H Total Protein 5.9 6.5-8.0 g/dL L Albumin Level 2.8 3.5-5.0 g/dL L Alkaline Phosphatase 203 39-117 U/L H Liver Panel Reviewed date:05/14/2025 10:12:51 PM Interpretation: Performing Lab:[facility], [address] [place] [phone] Notes/Report: Bilirubin Direct 8.0 0.0-0.5 mg/dL H Mild Icterus. Complete Blood Count Auto Di ff Reviewed date:05/15/2025 11:23:16 PM Interpretation: Performing Lab:[facility], [address] [place] [phone] Notes/Report: White Blood Count 10.9 4.8-10.8 X10*3/uL H Red Blood Count 3.22 4.20-5.50 X10*6/uL L Hemoglobin 10.6 12.0-16.0 g/dl L Hematocrit 29.0 37.0-47.0 % L Mean Corpuscular Volume 90.1 80.0-98.0 fL N Mean Corpuscular Hemoglobin 32.9 27.0-33.0 pg N Mean Corpuscular HGB Conc 36.6 31.0-35.0 g/dl H Red Cell Distribution Width 13.3 11.0-16.0 % N Platelet Count 77 160-400 X10*3/uL L Mean Platelet Volume 11.8 9.4-12.3 fL N Neutrophils Percent Auto 73.5 45-73 % H Imm Gran Pct Auto 1.8 0.0-0.4 % H Lymphocytes Percent Auto 12.4 20-40 % L Monocytes Percent Auto 10.2 2-11 % N Eosinophils Percent Auto 1.6 0-4 % N Basophils Percent Auto 0.5 0-2 % N NRBC Pct Auto 0.2 0.0-0.2 /100WBC N Neutrophils Absolute Auto 8.0 2.0-8.3 x10*3/uL N Imm Gran Abs Auto 0.20 0.00-0.03 X10*3/uL H Lymphocytes Absolute Auto 1.4 1.2-4.9 X10*3/uL N Monocytes Absolute Auto 1.1 0.1-1.2 X10*3/uL N Eosinophils Absolute Auto 0.2 0.0-0.4 X10*3/uL N Basophils Absolute Auto 0.1 0.0-0.2 X10*3/uL N NRBC Abs Auto 0.020 0.0-0.012 X10*3/uL H Comprehensive Met. Panel Reviewed date:05/15/2025 11:22:48 PM Interpretation: Performing Lab:[facility], [address] [place] [phone] Notes/Report: Sodium 132 135-145 mmol/L L Potassium 3.7 3.3-5.1 mmol/L N Chloride 103 96-108 mmol/L N Carbon Dioxide 22 22-29 mmol/L N Anion Gap 11 12-20 L Blood Urea Nitrogen 9 9-16 mg/dL N Creatinine 0.72 0.5-1.4 mg/dL N Mild Icteru s.Interpret result with caution. Creatinine Clr Calc Pharmacy [...] 15 mL/min/1.73m2 Glucose Random 100 60-115 mg/dL N Calcium 7.9 8.4-10.2 mg/dL L Bilirubin Total 8.2 0.0-1.0 mg/dL H Mild I cterus. Aspartate Amino Transferase 47 5-31 U/L H Alanine Aminotransferase 127 0-31 U/L H Total Protein 5.8 6.5-8.0 g/dL L Albumin Level 2.7 3.5-5.0 g/dL L Alkaline Phosphatase 200 39-117 U/L H Liver Panel Reviewed date:05/15/2025 11:22:41 PM Interpretation: Performing Lab:[facility], [address] [place] [phone] Notes/Report: Bilirubin Direct 5.9 0.0-0.5 mg/dL H Mild Icterus. Reason For Referral No Information Medications Medication SIG (Take, Route, Frequency, Duration) Notes Start Date End Date Status buPROPion HCl ER (XL) 450 MG Tablet Extended Release 24 Hour 1 tablet Orally Once a day Active Lisinopril 20 MG Tablet 1 tablet Orally Once a day Active Xarelto 10 MG Tablet 1 tablet with food Orally Once a day Active Vitamin C 500 MG Capsule as directed Ora lly Once a day Active NexIUM 40 MG Capsule Delayed Release 1 capsule Orally Once a day; Duration: 30 day(s) 02/17/2023 Active Vitamin D 1000 UNIT Tablet 1 tablet Oral ly Once a day; Duration: 30 day(s) Active Vitamin B Complex - Tablet as directed O rally once a day Active Pantoprazole Sodium 40 MG Tablet Delayed Release 1 tablet Orally Once a day; Duration: 30 day(s) 11/14/2022 Active Magnesium 500 MG Tablet 1 tablet with a meal Orally Once a day; Duration: 30 day(s) Active BuSpar Active Immunizations Vaccine Route Administration Date Status Comme nts Influenza Unknown 11/10/2018 Refused Influenza Unknown 05/25/2019 Refused Influenza Unknown 11/23/2019 Refused Influenza Unknown 07/14/2022 Refused Social History Tobacco Use: Social History Observation Description Date Details (start date - stop date) Never Smoker NA - NA Social History Drugs/Alcohol: Social Info Question Answer Notes Alcohol Screen Did you have a drink containing alcohol in the past year? Yes How often did you have a drink containing alcohol in the past year? 4 or more times a week (4 points) How many drinks did you have on a typical day when you were drinking in the past year? 1 or 2 drinks (0 point) How often did you have 6 or more drinks on one occasion in the past year? 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 Problems Problem Type SNOMED Code ICD Code Onset Dates Problem Status W/U Status Risk Notes Problem Colon cancer screening (658892483) Colon cancer screening (Z12.11) Active confirmed Problem Epigastric pain (36621481) Epigastric pain (R10.13) Active confirmed Problem Gastroesophageal reflux disease with esophagitis (042979511) Gastroesophageal reflux disease with esophagitis (K21.0) Active confirmed Encounters Encounter Location Date Provider Diagnosis [facility] [address] [facility] [address] [place] [address] 09/05/2024 Lenin Doyle Jr Plan Of Treatment Future Test Test Name Order Date COLONOSCOPY 06/07/2014 UPPER GI ENDOSCOPY 11/10/2018 Insurance Providers Payer Name Payer Address Payer Phone Subscriber Number Group Number Insured Name Patient Relationship to Insured Coverage Start Date Coverage End Date [employer] PREFERRED [address] [place] [address] [id number] [place] Self - patient is the insured Medical (General) History Medical History History ICD Code hypertension depression 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
--- OUTSIDE RECORDS SUMMARY | 2025-07-24 18:35 | XMS_ITS | Encounter Summary ---
Author Organization [facility] Address [address] [place] [address] Phone Care Team Providers Care Table Games Dual Rate Supervisor Name Role Phone Hernan Cheek MD Primary Care Provider Kaiser Hernandez Unavailable Hernan Cheek MD Unavailable Brice Thibodeaux MD Unavailable [phone] Cha Thomas DOCKMASTER Unavailable Delmy Russell DOCKMASTER Unavailable [phone] Miguel Martinez MD Unavailable Hernan Cheek MD Primary Care Provider Sydni Parr MD Unavailable Enmanuel Abel MD Unavailable Ros Joseph MD Unavailable Rod Kowalski MD Unavailable Encounter Details Date Type Department Care Team (Latest Contact Info) Description 09/29/2017 Transcribe Orders [facility] [address] [place] [address] Toby Antoine MD [address] [address], [address] [place] [address] [email or web address] Interstitial lung disease (Primary Dx) Social [...] Description 08/11/2025 2:30 PM EST Office Visit [facility] Internal Medicine [address] [place] [address] Hernan Cheek MD [address] [place] [address] [email or web address] 09/01/2025 11:00 AM EST Office Visit [facility] [address] [place] [address] [address] [facility], [address] [place] [address] Jl Acuña DO [address] [place] [address] [place] [address] 09/20/2025 11:00 AM EST Office Visit [facility] Otoneurology [address] [place] [address] Jeff Viramontes MD [address] [place] [address] [email or web address] documented as of this encounter Visit Diagnoses Diagnosis Interstitial lung disease- Primary Postinflammatory pulmonary fibrosis documented in this encounter Additional Health Concerns Infection Onset Date Last Indicated Resolved Time CoV-Risk 04/09/2021 04/09/2021 04/19/2021 1:24 AM EDT CoV-Presumed 05/14/2022 05/14/2022 06/04/2022 1:23 AM EDT Assessment Noted Time PHQ-2 Depression Total Score: 0 08/28/19 18 3:32 PM EST documented as of this encounter Care Teams Table Games Dual Rate Supervisor Relationship Specialty Start Date End Date Hernan Cheek MD [address] [place] [address] PCP - General 05/26/17 05/23/20 Hernan Cheek MD [address] [place] [address] PCP - General Internal Medicine 05/24/20 Kaiser Hernandez PA [address] [place] [address] Historical LMR Provider 05/28/17 Hernan Cheek MD [address] [place] [address] Historical LMR Provider 05/28/17 02/28/19 Brice Thibodeaux MD [address] [place] [address] Historical LMR Provider 05/28/1704/08 Cha Thomas NP [address] [place] [address] Historical LMR Provider 05/28/17 Delmy Russell NP [address] [place] [address] Historical LMR Provider 05/28/17 02/28/19 Miguel Martinez MD [address] [facility] [address] [email or web address] Historical LMR Provider 05/28/17 1 Sydni Parr MD [address] [place] [address] Ophthalmology 07/30/20 Enmanuel Abel MD [address] [place] [address] Ophthalmology 07/30/20 Ros Joseph MD [address] [place] [address] Internal Medicine 07/30/20 Rod Kowalski MD [address] [place] [address], [facility] [address] [place] [address] [email or web address] Psychiatry 07/30/20 documented as of this encounter Additional Source Comments The information contained in this document represents components of the legal health record. It is not the complete legal health record.[facility]
--- OUTSIDE RECORDS SUMMARY | 2025-07-24 18:35 | XMS_ITS | Data Portability ---
Author Organization [place] [facility], All[facility] Address [address] [place] [address] Care Team Providers Care Early Childhood Services Coordinator Name Role Phone RADHA NAIK Primary Care Provider [phone] Assessment Encounter Date Assessment Date Assessment LastModified [...] lower extremity strengthening and improve her balance. [email or web address] Not available 12/21/2024 10:52:55 Plan of Treatment [...] contr ast No observ ation record ed. [email or web address] Not Available 12/08 10:58:21 12/22/19 25 audio gram No observ ation record ed. BARCODE Not Available 2024 12:04:23 Result Notes None recorded. Problems Name Problem SNOMED Code Status Onset Date Resolution Date Notes Provider Name and Address Organization Details Recorded Time Impacted cerumen in right ear 4468337278423 103 Active 2024 BRET HERNANDEZ MD [address] [facility] [place] [facility] [place], [place], [address], [facility] 10:19:32 Unsteady when walking 63941122 Active 2024 BRET HERNANDEZ MD [address] [facility], [facility] [place] [facility] [place], [place], [address], [place] - [facility] 10:22:13 Sensorineur al hearing loss of bilateral ears 103989122 Active 2024 CHRISTIAN RICHTER [address] [facility] [place] [facility] [place], [place], [address], [place] [facility] 10:27:06 Bilateral tinnitus 1640235730793 Active 2024 BRET HERNANDEZ MD [address] [facility] [place] [facility] [place], [place], [address], [place] [facility] 10:47:46 Problem Notes None recorded. Procedures Surgical History Date Name Laterality Status Provider Name and Address Organization Details Recorded Time Comp Audio with Tymps - 39476 & 86805 completed CHRISTIAN RICHTER [address] [facility] [address], [place], [address], [facility] - [facility] 12/21/2024 10:26:54 Cerumen removal with microscope right completed BRET HERNANDEZ MD [address] [facility] [address], [place], [address], [facility] - [facility] 12/21/2024 10:19:23 Imaging Results None recorded. Procedure [...] Details Last Updated DateTime 12/21/2024 157.48 cm 66246 g Demi Butcher [place] [facility] 12/21/2024 10:02:19 Social History None recorded. [...] ICD10 Code Diagnosis IMO Codes Diagnosis Note 23100 BRET HERNANDEZ MD [facility] [address] [address] 12/21/2024 08:39:50 12/21/2024 11:38:46 Impacted cerumen in right ear 8480961749 916768 H61.21 4200366 Excess cerumen disimpacte d from the right ear canal. Unsteady when walking 22 185856 R26.81 [id number] Sensorineu ral hearing loss of bilateral ears 163739498 H90.3 86860089 Audiologic al evaluation results: Mild to moderate [...] for amplificat ion bilaterall y. Bilateral tinnitus 36228 10725 102 H93.13 [id number] Today we discussed the pathophysi ology of [...] Juarez Member ID Guarantor Name 01/23/2025 1 [facility] - MEDICARE PREFERRED (MEDICARE REPLACEMENT HMO) ALMITA Garcia Guadalupeantonino [id number] Audrey Garcia Iván Notes Date Note Type Note Provider Name and Address Organization Details Recorded Time 12/21/2024 text/html Patient referred for evaluation of balance disturbance. Patient has been evaluated at [facility] in the past for vestibular [...] consistent with her age. BRET HERNANDEZ MD [address] [place] [address], [address], [place] [facility] 12/21/2024 10:53:40 OBGyn Episode No OBEpisode recorded.
--- OUTSIDE RECORDS SUMMARY | 2025-07-24 18:35 | XMS_ITS | Encounter Summary ---
Author Organization [facility] Address [address] [facility] [address] [place] [address] Phone Care Team Providers Care Manager Mountain Name Role Phone Hernan Cheek MD Primary Care Provider Sydni Parr MD Unavailable Enmanuel Abel MD Unavailable [phone] Ros Joseph MD Unavailable [phone] Rod Kowalski MD Unavailable Encounter Details Date Type Department Care Team (Late st Contact Info) Description 04/19/2024 Procedure Pass [facility], [address] [address] Social History Tobacco Use Types Packs/Day Years [...] Description 08/11/2025 2:30 PM EST Office Visit [facility] Internal Medicine [address] [place] [address] Hernan Cheek MD [address] [place] [address] 09/01/2025 11:00 AM EST Office Visit [facility] [address] [place] [address] 3rd Floor, [address] [place] [address] Jl Acuña DO [address] [address] 09/20/2025 11:00 AM EST Office Visit [facility] Otoneurology [address] [place] [address] Jeff Viramontes MD [address] [place] [phone] [email or web address] documented as of this encounter Visit Diagnoses Not on filedocumented in this encounter Additional Health Concerns Assessment Noted Time PHQ-2 Depression Total Score: 0 10/23/19 24 9:43 AM EDT documented as of this encounter Care Teams Manager Mountain Relationship Specialty Start Date End Date Hernan Cheek MD [address] [place] [address] [email or web address] PCP - General Internal Medicine 05/24/20 Sydni Parr MD [address] [place] [address] Ophthalmology 07/30/20 Enmanuel Abel MD [address] [place] [address] Ophthalmology 07/30/20 Ros Joseph MD [address] [place] [address] Internal Medicine 07/30/20 Rod Kowalski MD [address] [place] [address], [address] [place] [address] [email or web address] Psychiatry 07/30/20 documented as of this encounter Additional Source Comments The information contained in this document represents components of the legal health record. It is not the complete legal health record.[facility]
--- OUTSIDE RECORDS SUMMARY | 2025-07-24 18:36 | XMS_ITS | Encounter Summary ---
Author Organization [facility] Address [address] [facility] [address] [place] [address] Phone Care Team Providers Care Intravenous Therapy Nurse Name Role Phone Hernan Cheek MD Primary Care Provider Sydni Parr MD Unavailable Enmanuel Abel MD Unavailable Ros Joseph MD Unavailable Rod Kowalski MD Unavailable Reason for Visit * Reason Onset Date Comments Labs 07/20/2025 Encounter Details Date Type Department Care Team (Late st Contact Info) Description 07/20/2025 Telephone [facility] Internal Medicine [address] [place], [place] [phone] Hernan Cheek MD 40 [place] [address] [email or web address] Social History Tobacco Use Types Packs/Day Years Used Date Smoking Tobacco: Never Smokeless Tobacco: Never Alcohol Use Standard Drinks/Week Comments Not Currently 0 (1 standard drink = 0.6 oz pur e alcohol) occasionally [employer] Answer Date Recorded Are you interested [...] as of this encounter Progress Notes * Lis Avery RN - 07/20/2025 10:13 AM EST Audrey states Dr. Cheek referred her to Dr. Romo and she called to schedule an appointment. She was told the most recent labs they had were from 07/07/25 but she had labs done here in July so is asking that we fax those to [phone] ATTN: Sharifa Faxed documented in this encounter Plan of Treatment Upcoming Encounters Date Type Department Care Team (Late st Contact Info) Description 08/11/2025 2:30 PM EST Office Visit [facility] Internal Medicine [address] [place] [address] Hernan Cheek MD 40 [place] [address] 09/01/2025 11:00 AM EST Office Visit [facility] [address] 3rd Floor, [address] [place] [address] Jl Acuña DO 22 [facility] [address] [place] [address] [email or web address] 09/20/2025 11:00 AM EST Office Visit [facility] Otoneurology [address] [place] [address] Jeff Viramontes MD [address] [place] [address] [email or web address] documented as of this encounter Visit Diagnoses Not on filedocumented in this encounter Additional Health Concerns Assessment Noted Time PHQ-2 Depression Total Score: 0 07/07/20 25 11:34 AM EST documented as of this encounter Care Teams Intravenous Therapy Nurse Relationship Specialty Start Date End Date Hernan Cheek MD 40 [place] [address] [email or web address] PCP - General Internal Medicine 05/24/20 Sydni Parr MD [address] [place] [address] Ophthalmology 07/30/20 Enmanuel Abel MD [address] [place] [address] Ophthalmology 07/30/20 Ros Joseph MD [address] [place] [address] Internal Medicine 07/30/20 Rod Kowalski MD [address] [place] [address], [address] [place] [address] [email or web address] Psychiatry 07/30/20 documented as of this encounter Additional Source Comments The information contained in this document represents components of the legal health record. It is not the complete legal health record.[facility]
--- OUTSIDE RECORDS SUMMARY | 2025-07-24 18:36 | XMS_ITS | Encounter Summary ---
Author Organization [facility] Address [address] [facility] [address] [place] [address] Phone Care Team Providers Care Fiberglass Model Maker Name Role Phone Hernan Cheek MD Primary Care Provider Sydni Parr MD Unavailable Enmanuel Abel MD Unavailable Ros Joseph MD Unavailable [phone] Rod Kowalski MD Unavailable [phone] Encounter Details Date Type Department Care Team (Late st Contact Info) Description 10/27/2024 Procedure Pass [facility] [address] [place] [address] Social History Tobacco Use Types Packs/Day Years [...] Description 08/11/2025 2:30 PM EST Office Visit [facility] Internal Medicine 40 [place] [address] Hernan Cheek MD 40 [place] [address] [email or web address] 09/01/2025 11:00 AM EST Office Visit [facility] [address] [place] [address] 3rd [facility], [address] [place] [address] Jl Acuña DO [address] [place] [address] [place] [address] 09/20/2025 11:00 AM EST Office Visit [facility] Otoneurology [address] [place] [address] Jeff Viramontes MD [address] [place] [phone] [email or web address] documented as of this encounter Visit Diagnoses Not on filedocumented in this encounter Additional Health Concerns Assessment Noted Time PHQ-2 Depression Total Score: 0 10/23/19 24 9:43 AM EDT documented as of this encounter Care Teams Fiberglass Model Maker Relationship Specialty Start Date End Date Hernan Cheek MD 40 [place] [address] [email or web address] PCP - General Internal Medicine 05/24/20 Sydni Parr MD [address] [place] [address] Ophthalmology 07/30/20 Enmanuel Abel MD [address] [place] [address] Ophthalmology 07/30/20 Ros Joseph MD [address] [place] [address] Internal Medicine 07/30/20 Rod Kowalski MD [address] [place] [address], [facility] [address] [place] [address] [email or web address] Psychiatry 07/30/20 documented as of this encounter Additional Source Comments The information contained in this document represents components of the legal health record. It is not the complete legal health record.[facility]
--- OUTSIDE RECORDS SUMMARY | 2025-07-24 18:36 | XMS_ITS | Encounter Summary ---
Author Organization [facility] Address [address] [facility] [address] [place] [address] Phone Care Team Providers Care Patternmaker Apprentice Metal Name Role Phone Hernan Cheek MD Primary Care Provider [phone] Sydni Parr MD Unavailable Enmanuel Abel MD Unavailable Ros Joseph MD Unavailable Rod Kowalski MD Unavailable [phone] Encounter Details Date Type Department Care Team (Late st Contact Info) Description 12/08/2022 Procedure Pass [facility] Scan - [address] [address] Social History Tobacco Use Types Packs/Day Years [...] Office Visit [facility] Internal Medicine 40 [place], [place] [phone] Hernan Cheek MD 40 [place] [address] 09/01/2025 11:00 AM EST Office Visit [facility] [address] [facility] 3rd Floor, [address] [place] [address] Jl Acuña DO 22 [facility] [address] [place] [address] 09/20/2025 11:00 AM EST Office Visit [facility] Otoneurology [address] [place] [address] Jeff Viramontes MD [address] [place] [address] [email or web address] documented as of this encounter Visit Diagnoses Not on filedocumented in this encounter Additional Health Concerns Assessment Noted Time PHQ-2 Depression Total Score: 0 09/01/19 23 9:06 AM EST documented as of this encounter Care Teams Patternmaker Apprentice Metal Relationship Specialty Start Date End Date Hernan Cheek MD [address] [place] [address] PCP - General Internal Medicine 05/24/20 Sydni Parr MD [address] [place] [address] Ophthalmology 07/30/20 Enmanuel Abel MD [address] [place] [phone] Ophthalmology 07/30/20 Ros Joseph MD [address] [place] [address] Internal Medicine 07/30/20 Rod Kowalski MD [address] [place] [address], [address] [place] [address] [email or web address] Psychiatry 07/30/20 documented as of this encounter Additional Source Comments The information contained in this document represents components of the legal health record. It is not the complete legal health record.[facility]
--- OUTSIDE RECORDS SUMMARY | 2025-07-24 18:36 | XMS_ITS | Encounter Summary ---
Author Organization [facility] Address [address] [facility] [address] [place] [address] Phone Care Team Providers Care Stagecraft Teacher Name Role Phone Hernan Cheek MD Primary Care Provider Sydni Parr MD Unavailable Enmanuel Abel MD Unavailable Ros Joseph MD Unavailable Rod Kowalski MD Unavailable Encounter Details Date Type Department Care Team (Late st Contact Info) Description 07/13/2023 Transcribe Orders [facility] PFT Lab [address] [place] [address] Ricardo Thompson MD [address] [place] [phone] [email or web address] Social History Tobacco Use Types Packs/Day Years [...] Description 08/11/2025 2:30 PM EST Office Visit [facility] Internal Medicine 40 [place], [place] [phone] Hernan Cheek MD [address] [place], [place] [phone] 09/01/2025 11:00 AM EST Office Visit [facility] 22 [facility] 3rd Floor, [address] [place] [address] Jl Acuña DO [address] [address] 09/20/2025 11:00 AM EST Office Visit [facility] Otoneurology [address] [place] [address] Jeff Viramontes MD [address] [place] [address] [email or web address] documented as of this encounter Visit Diagnoses Not on filedocumented in this encounter Additional Health Concerns Assessment Noted Time PHQ-2 Depression Total Score: 0 09/01/19 9:06 AM EST documented as of this encounter Care Teams Stagecraft Teacher Relationship Specialty Start Date End Date Hernan Cheek MD [address] [place] [address] PCP - General Internal Medicine 05/24/20 Sydni Parr MD [address] [place] [address] Ophthalmology 07/30/20 Enmanuel Abel MD [address] [place] [address] Ophthalmology 07/30/20 Ros Joseph MD [address] [place] [address] Internal Medicine 07/30/20 Rod Kowalski MD [address] [place] [address], [facility] [address] [place] [address] [email or web address] Psychiatry 07/30/20 documented as of this encounter Additional Source Comments The information contained in this document represents components of the legal health record. It is not the complete legal health record.[facility]
--- OUTSIDE RECORDS SUMMARY | 2025-07-24 18:36 | XMS_ITS | Clinical Summary ---
Author Organization [facility] Address [address] [facility] [address] [place] [phone] Phone Care Team Providers Care Acetaldehyde Converter Operator Name Role Phone Hernan Cheek MD Primary Care Provider [phone] Sydni Parr MD Unavailable Enmanuel Abel MD Unavailable Ros Joseph MD Unavailable [phone] Rod Kowalski MD Unavailable Allergies Active Allergy Reactions Criticality Noted Date Comments Ibuprofen Hives 08/27/2017 Medications b complex vitamins capsule Take 1 capsule by mouth daily. Active timolol (TIMOPTIC) 0.5 % ophthalmic solutionIndicati ons:malignant glaucoma Place 1 drop into each eye daily. 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 Active magnesium citrate 125 mg Cap Take 250 mg by mouth daily. Active omeprazole (PRILOSEC) 20 MG tablet Take 20 mg by mouth every morning. Active gabapentin (NEURONTIN) 100 MG capsule Take 100 mg by mouth nightly at bedtime. 5 Active buPROPion (WELLBUTRIN XL) 300 MG ER 24 hr tablet Take 300 mg by mouth daily. Active midodrine (PROAMATINE) 5 MG tablet Take 5 mg by mouth 3 (three) times a day. Hold for SBP greater than 125 Active omeprazole (PRILOSEC) 20 MG capsuleIndicatio ns:Gastroesophag eal reflux disease TAKE ONE CAPSULE BY MOUTH 30-60 MINUTES BEFORE MORNING MEAL 30 capsule 3 5 Active lisinopril (PRINIVIL,ZESTRI L) 20 MG tabletIndication s:Essential hypertension Take 1 tablet (20 mg total) by mouth daily. 90 tablet 3 4 Discontin ued(Dose adjustmen t) Active Problems Problem Noted Date Diagnosed Date Gallstone pancreatitis 06/09/2025 Assessment & Plan (06/09/2025 3:18 PM EDT): History of gallstone pancreatitis status postcholecystectomy, patient went to short-term rehab for PT/OT rehabilitation. From a abdomen and gallbladder standpoint, she is doing great. She did receive a call during her rehab stay from Dr. Rodriguez noting elevated jaundice values and they recommended an urgent MRI, however when she called their office they had no recollection of this information. Patient does not appear jaundiced on exam today and she has no abdominal pain. Will obtain a CMP to assess electrolyte and liver functions to see if there are any abnormal values. History of cholecystectomy 06/09/2025 Assessment & Plan (06/09/2025 3:18 PM EDT): History of gallstone pancreatitis status postcholecystectomy, patient went to short-term rehab for PT/OT rehabilitation. From a abdomen and gallbladder standpoint, she is doing great. She did receive a call during her rehab stay from Dr. Rodriguez noting elevated jaundice values and they recommended an urgent MRI, however when she called their office they had no recollection of this information. Patient does not appear jaundiced on exam today and she has no abdominal pain. Will obtain a CMP to assess electrolyte and liver functions to see if there are any abnormal values. Orthostatic hypotension 06/09/2025 Assessment & Plan (06/09/2025 3:18 PM EDT): Hospital stay was complicated by dizziness in the setting of orthostatic hypotension for which her amlodipine and lisinopril were discontinued and she was started on midodrine. She is currently taking midodrine 5 mg 3 times daily and blood pressure levels at home have been normal, averaging in the 120s over 80s. At this time, patient should continue on midodrine 5 mg 3 times daily. She should also continue with OT and PT at home, advised safe walking and ambulation techniques and the use of a walker. Also advised the use of compression stockings. Discussed obtaining a life alert necklace/bracelet to be worn for emergency situations. Her bupropion was also decreased to 300 mg daily due to the orthostatic hypotension, advised patient should consult psychiatry who is prescribed the medication. She is interested to see if her Adderall medication could be used to help with the dizziness and fatigue, advise she should consult her psychiatrist. Postmenopausal 03/30/2025 Assessment & Plan (03/30/2025 10:37 [...] day. Now orthostatic- she will go to [facility] ER via Ambulance Falling 05/19/2024 Assessment & [...] will go to ER via ambulance to [facility] Dizzy 05/19/2024 Assessment & Plan (05/19/2024 1:58 PM EDT): She is orthostatic and falling at home- was previously healthy and well living alone in the community. Sending via ambulance to ED, [facility] to R/O for acute CVA, IVF and [...] Encounters Date Type Department Care Team Description 07/20/2025 Refill [facility] [address] [place] [address] Jerome Kathleen MD Medication Refill 07/20/2025 Telephone [facility] Internal Medicine [address] [facility] [place] [address] Hernan Cheek MD Labs 07/18/2025 Orders Only [facility] [address] [facility] [address] [facility] 1[address] [place] [address] Jaz Ferrer PT Dizziness and giddiness (Primary Dx) 07/07/2025 2:30 PM EST Office Visit [facility] Internal [facility] [address] [place] [address] Hernan Cheek MD Essential hypertension (Primary Dx); Impaired fasting glucose; Gastroesophageal reflux disease without esophagitis; Cervicalgia; Dizzy; Elevated ferritin 07/03/2025 Orders Only [facility] Internal [facility] [address] [place] [address] ProviderAdry MD 06/27/2025 Telephone [facility] Internal [facility] [address] [place] [address] Hernan Cheek MD Report of fall 06/09/2025 3:22 PM EDT - 06/09/2025 11:59 PM EDT Hospital Encounter [facility] [address] [place] [address] Hernan Cheek MD Discharge Disposition: Home or Self Care 06/09/2025 2:40 PM EDT Office Visit [facility] Internal [facility] [address] [place] [address] Lacie Goodrich PA-C Gallstone pancreatitis (Primary Dx); History of cholecystectomy; Orthostatic hypotension 06/09/2025 Telephone [facility] [address] [place] [address] Rosales Sanders, KAITY message for appt today 06/07/2025 Telephone [facility] [address] [place] [address] Mary Jo Woodson, KAITY 06/06/2025 Telephone [facility] [address] [place], [place] [id number] Mary Jo Woodson, turpentine distiller 06/05/2025 Telephone [facility] [address] [place] [address] Eva Griffin TCM Visit 05/18/2025 Orders Only [facility] [address] [place] [address] Adry Su MD 05/16/2025 Telephone [facility] [address] [place] [address] Mary Jo Woodson, net developer programmer 05/15/2025 Orders Only [facility] [address] [place] [address] Adry Su MD 05/12/2025 Orders Only [facility] [address] [place], [place] [id number] Adry Su MD 05/11/2025 Orders Only [facility] [address] [place] [address] Adry Su MD 05/01/2025 4:30 PM EDT Office Visit [facility] [address] [place] [address] Hernan Cheek MD Essential hypertension (Primary Dx); Impaired fasting glucose; Gastroesophageal reflux disease without esophagitis 05/01/2025 3:37 PM EDT - 05/01/2025 11:59 PM EDT Hospital Encounter [facility] [address] [place] [address] Hernan Cheek MD Discharge Disposition: Home or Self Care 04/30/2025 Refill [facility] [address] [place] [address] Hernan Cheek MD Medication Refill 04/28/2025 Orders Only [facility] [address] [place] [address] Adry Su MD 04/26/2025 Telephone [facility] [address] [facility] [place] [address] Hernan Cheek MD Referral (Ophthalmology ) 04/25/2025 Telephone [facility] [address] [facility] [place] [address] Mary Jo Woodson, KAITY memory problems 04/24/2025 Telephone [facility] [address] [facility] [place] [address] Mary Jo Woodson, KAITY Dizziness; off balance from Last 3 Months Immunizations Immunization Administration [...] Sign Reading Time Taken Comments Blood Pressure 158/78 07/07/2025 8:28 PM EST Pulse 75 07/07/2025 2:56 PM EST Temperature 37.4 C (99.3 F) 06/09/2025 2:38 PM EDT Respiratory Rate 21 07/07/2025 2:47 PM EST Oxygen Saturation 99% 07/07/2025 2:47 PM EST Inhaled Oxygen Concentration - - Weight 67.2 kg (148 lb 3.2 oz) 07/07/2025 2:47 P M EST Height 152.4 cm (5') 07/07/2025 2:47 PM EST Body Mass Index 28.94 07/07/2025 2:47 PM EST Plan of Treatment Upcoming Encounters Date Type Department Care Team (Late st Contact Info) Description 08/11/2025 2:30 PM EST Office Visit [facility] [address] [place] [address] Hernan Cheek MD [address] [place] [address] 09/01/2025 11:00 AM EST Office Visit [facility] [address] [facility] 3rd Floor, [address] [place] [address] Jl Acuña DO [address] [facility] [address] [place] [address] 09/20/2025 11:00 AM EST Office Visit [facility] Otoneurology [facility] [address] [facility] 2nd [place] [address] Jeff Viramontes MD [address] [place] [id number] [email or web address] Maintenance Due Date Last Done Comments COVID-19 VACCINE ( season) 2025 11/20/2022, 06/11/2021, 11/01/2020, Additional history exists BLOOD PRESSURE 01/04/2026 07/07/2025 CREATININE LEVEL 07/07/2026 07/07/2025, , 10/27/2024, Additional history exists DEPRESSION SCREENING 07/07/2026 07/07/2025 POTASSIUM LEVEL 07/07/2026 07/07/2025, 05/12, 10/27/2024, Additional history exists LIPID PANEL 10/22/2028 10/23/2023, 08/11, 02/13/2022, Additional history exists FOLLOW UP BONE DENSITY TESTING 03/17/2030 03/17/2025, 02/26/2021, 08/21/1999 Adult Td,Tdap Booster 09/15/2032 09/15/2022, 012 PNEUMOCOCCAL VACCINES (50+ years) Completed 09/08/2016, 09/27/2014 HEPATITIS C SCREENING Completed 07/24/2020, 018 ZOSTER VACCINES Completed 06/25/2023, 04/10, 11/18/2011 RSV VACCINE Completed 10/26/2023 OSTEOPOROSIS SCREENING INITIAL (ONE-TIME) Completed 03/17/2025, 02/26/2021, 08/21/1999 SMOKING STATUS SCREENING (Once After 26 Yrs) Completed 07/07/2025 HEPATITIS A VACCINES Aged Out No long [...] Procedure Name Priority Date/Time Associated Diagnosis Comments IRON AND IRON BINDING CAPACITY Routine 07/18/2025 3:38 PM EST Elevated ferritin CBC AND DIFFERENTIAL Routine 07/07/2025 3:54 PM EST Essential hypertension Dizzy FERRITIN Routine 07/07/2025 3:54 PM EST Essential hypertension Elevated ferritin MAGNESIUM Routine 07/07/2025 3:54 PM EST Essential hypertension Dizzy TSH WITH REFLEX Routine 07/07/2025 3:54 PM EST Essential hypertension Dizzy CBC AND DIFFERENTIAL Routine 07/07/2025 3:54 PM EST Essential hypertension Dizzy COMPREHENSIVE METABOLIC PANEL (CMP) Routine 07/07/2025 3:54 PM EST Essential hypertension Dizzy OUTSIDE PROCEDURE Routine 07/03/2025 7:5 9 AM EST VITAMIN B12 Routine 06/09/2025 3:18 PM EDT Dizziness and giddiness Falls Anemia, unspecified type FERRITIN Routine 06/09/2025 3:18 PM EDT Anemia, unspecified type IRON AND IRON BINDING CAPACITY Routine 06/09/2025 3:18 PM EDT Anemia, unspecified type TSH WITH REFLEX Routine 06/09/2025 3:18 PM EDT Benign essential hypertension Dizziness and giddiness CBC AND DIFFERENTIAL Routine 06/09/2025 3:18 PM EDT Benign essential hypertension Dizziness and giddiness COMPREHENSIVE METABOLIC PANEL (CMP) Routine 06/09/2025 3:18 PM EDT Gallstone pancreatitis History of cholecystectomy OUTSIDE IMAGING Routine 05/18/2025 12:14 PM EDT OUTSIDE PATHOLOGY Routine 05/18/2025 12: 11 PM EDT OUTSIDE IMAGING Routine 05/18/2025 12:10 PM EDT OUTSIDE IMAGING Routine 05/18/2025 12:09 PM EDT OUTSIDE PROCEDURE Routine 05/18/2025 12: 07 PM EDT OUTSIDE IMAGING Routine 05/18/2025 12:06 PM EDT OUTSIDE IMAGING Routine 05/18/2025 12:04 PM EDT OUTSIDE PROCEDURE Routine 05/18/2025 11: 59 AM EDT OUTSIDE IMAGING Routine 05/11/2025 4:40 PM EDT OUTSIDE MR IMAGING REPORT ONLY Routine 05/10/2025 3:41 PM EDT OUTSIDE IMAGING Routine 05/10/2025 3:31 PM EDT OUTSIDE MR IMAGING REPORT ONLY Routine 05/10/2025 3:[address] IMAGING REPORT ONLY Routine 05/10/2025 3:23 PM EDT OUTSIDE XR IMAGING REPORT ONLY Routine 05/10/2025 3:19 PM EDT OUTSIDE MR IMAGING REPORT ONLY Routine 05/10/2025 3:02 PM EDT LYME SCREEN WITH REFLEX TO WESTERN BLOT, BLOOD Routine 05/01/2025 3:38 PM EDT Dizziness Pain in joints OUTSIDE XR SPINE REPORT ONLY Routine 04/25/2025 1:52 PM EDT BD DXA SCREENING Routine 03/17/2025 7:16 PM EDT Postmenopausal estrogen deficiency LIPID PANEL Routine 10/23/2023 11:44 AM EDT Essential hypertension HEPATITIS C ANTIBODY, QUALITATIVE Routine 07/24/2020 8:27 AM EST Need for hepatitis C screening test from Last 3 Months or Most Recently Relevant to Health Maintenance Results * Iron and Total Iron Binding Capacity (Iron/TIBC) (07/18/2025 3:38 PM EST) Only the most recent of2 resultswithin the time period is included. Iron 85 28 - 170 ug/dL 07/18/2025 8:43 PM EST [facility] Total Iron-Binding Capacity (TIBC) 242 220 - 460 ug/dL 07/18/2025 8:43 PM [facility] Transferrin Saturation 35 14 - 50 % 07/18/2025 8:43 PM [facility] Blood (Blood) Venipuncture / Unknown 07/18/2025 3:38 PM EST 07/18/2025 3:38 PM EST us Hernan Cheek MD LAB BLOOD BKR ORDERABLES Daija zepeda Result [address] [address] * (ABNORMAL) Comprehensive Metabolic Panel (CMP) (07/07/2025 3:54 PM EST) Only the most recent of2 resultswithin the time period is included. Sodium 141 136 - 145 mmol/L 07/07/2025 9:00 PM [facility] Potassium 4.5 3.4 - 5.1 mmol/L 07/07/2025 9:00 PM [facility] Chloride 106 98 - 107 mmol/L 07/07/2025 9:00 PM [facility] CO2 28 20 - 31 mmol/L 07/07/2025 9:00 PM [facility] Anion Gap 7 3 - 17 mmol/L 07/07/2025 9:00 PM [facility] BUN 20 6 - 23 mg/dL 07/07/2025 9:00 PM [facility] Creatinine 1.00 0.50 - 1.00 mg/dL 07/07/2025 9:00 PM [facility] eGFR 58(L) >59 mL/min/1.7 3m2 07/07/2025 9:00 PM [facility] Comment:Estimated glomerular filtration rate calculated using the CKD-EPI refit equation. Glucose 99 70 - 99 mg/dL 07/07/2025 9:00 PM [facility] Calcium 8.9 8.5 - 10.5 mg/dL 07/07/2025 9:00 PM [facility] AST 30 <33 U/L 07/07/2025 9:00 PM [facility] ALT 18 <34 U/L 07/07/2025 9:00 PM [facility] Alkaline Phosphatase 141(H) 40 - 130 U/L 07/07/2025 9:00 PM [facility] Bilirubin, Total 0.4 0.0 - 1.2 mg/dL 07/07/2025 9:00 PM [facility] Total Protein 7.3 6.4 - 8.3 g/dL 07/07/2025 9:00 PM [facility] Albumin 3.7 3.5 - 5.2 g/dL 07/07/2025 9:00 PM [facility] Globulin 3.6 1.9 - 4.1 g/dL 07/07/2025 9:00 PM [facility] Blood (Blood) Venipuncture / Unknown 07/07/2025 3:54 PM EST 07/07/2025 3:54 PM EST us Hernan Cheek MD LAB BLOOD BKR ORDERABLES Daija zepeda Result Performing Organization Address City/State/[facility] Co de Phone Number [address] [address] * (ABNORMAL) CBC and Differential (07/07/2025 3:54 PM EST) WBC 6.27 4.00 - 11.00 K/uL 07/07/2025 8:33 PM [facility] RBC 3.95(L) 4.00 - 5.20 M/uL 07/07/2025 8:33 PM [facility] Hemoglobin 12.8 12.0 - 16.0 g/dL 07/07/2025 8:33 PM [facility] Hematocrit 37.8 36.0 - 46.0 % 07/07/2025 8:33 PM [facility] MCV 95.7 80.0 - 100.0 fL 07/07/2025 8:33 PM [facility] MCH 32.4(H) 27.0 - 31.0 pg 07/07/2025 8:33 PM [facility] MCHC 33.9 32.0 - 36.0 g/dL 07/07/2025 8:33 PM [facility] MPV 11.7 8.4 - 12.0 fL 07/07/2025 8:33 PM [facility] RDW-CV 13.0 11.5 - 14.5 % 07/07/2025 8:33 PM [facility] PLT 131(L) 150 - 450 K/uL 07/07/2025 8:33 PM [facility] Neutrophils 51.0 % 07/07/2025 8:33 PM [facility] Lymphocytes 40.2 % 07/07/2025 8:33 PM [facility] Monocytes 6.7 % 07/07/2025 8:33 PM [facility] Eosinophils 1.4 % 07/07/2025 8:33 PM [facility] Basophils 0.5 % 07/07/2025 8:33 PM [facility] Imm Grans 0.2 % 07/07/2025 8:33 PM [facility] NRBC 0.0 <=0.0 /100 WBCs 07/07/2025 8:33 PM [facility] Absolute Neutrophils 3.20 1.92 - 7.60 K/uL 07/07/2025 8:33 PM [facility] Absolute Lymphocytes 2.52 0.72 - 4.10 K/uL 07/07/2025 8:33 PM [facility] Absolute Monocytes 0.42 0.16 - 1.10 K/uL 07/07/2025 8:33 PM [facility] Absolute Eosinophils 0.09 0.00 - 0.50 K/uL 07/07/2025 8:33 PM [facility] Absolute Basophils 0.03 0.00 - 0.15 K/uL 07/07/2025 8:33 PM [facility] Absolute Imm Grans 0.01 0.00 - 0.09 K/uL 07/07/2025 8:33 PM [facility] Absolute NRBC 0.00 <=0.00 K cells/uL 07/07/2025 8:33 PM [facility] Absolute Neutrophils 3.20 1.92 - 7.60 K/uL 07/07/2025 8:33 PM [facility] Comment:Automated cell count . Manual ANC may differ if performed. Diff Type Auto 07/07/2025 8:33 PM [facility] Blood (Blood) Venipuncture / Unknown 07/07/2025 3:54 PM EST 07/07/2025 3:54 PM EST Hernan Cheek MD LAB BLOOD BKR ORDERABLES Daija l Result Performing Organization Address City/[facility]/ZIP Co de Phone Number [address] [address] * Thyroid Stimulating Hormone (TSH), with Reflex (07/07/2025 3:54 PM EST) Only the most recent of2 resultswithin the time period is included. TSH 2.78 0.40 - 5.90 uIU/mL 07/07/2025 9:00 PM EST [facility] Blood (Blood) Venipuncture / Unknown 07/07/2025 3:54 PM EST 07/07/2025 3:54 PM EST Hernan Cheek MD LAB BLOOD BKR ORDERABLES Daija l Result Performing Organization Address [facility] Co de Phone Number [address] [address] * Magnesium (07/07/2025 3:54 PM EST) Magnesium 1.9 1.7 - 2.6 mg/dL 07/07/2025 9:00 PM EST [facility] Blood (Blood) Venipuncture / Unknown 07/07/2025 3:54 PM EST 07/07/2025 3:54 PM EST Hernan Cheek MD LAB BLOOD BKR ORDERABLES Daija l Result Performing Organization Address City/[facility]/ZIP Co de Phone Number [address] [address] * (ABNORMAL) Ferritin (07/07/2025 3:54 PM EST) Only the most recent of2 resultswithin the time period is included. Ferritin 454(H) 30 - 150 ug/L 07/07/2025 9:00 PM EST [facility] Blood (Blood) Venipuncture / Unknown 07/07/2025 3:54 PM EST 07/07/2025 3:54 PM EST us Hernan Cheek MD LAB BLOOD BKR ORDERABLES Daija l Result [address] [address] * Outside Procedure (07/03/2025 7:59 AM EST) us Historical Provider MD PROCEDURE/MINOR SURGICAL PERFORMABLES Final Result * (ABNORMAL) CBC and differential (06/09/2025 3:18 PM EDT) WBC 6.03 4.00 - 11.00 K/uL [facility] RBC 3.85(L) 4.00 - 5.20 M/uL [facility] HGB 12.5 12.0 - 16.0 g/dL [facility] HCT 37.0 36.0 - 46.0 % [facility] PLT 161 150 - 450 K/uL [facility] MCV 96.1 80.0 - 100.0 fL [facility] MCH 32.5(H) 27.0 - 31.0 pg [facility] MCHC 33.8 32.0 - 36.0 g/dL [facility] RDW 13.8 11.5 - 14.5 % [facility] MPV 11.7 8.4 - 12.0 fL [facility] NRBC 0.00 0.00 /100 WBCs [facility] ABSOLUTE NRBC 0.00 0.00 K/uL [facility] DIFF METHOD Auto [facility] NEUTS 36.6(L) 48.0 - 76.0 % [facility] LYMPHS 51.6(H) 18.0 - 41.0 % [facility] MONOS 9.5 4.0 - 11.0 % [facility] EOS 1.7 0.0 - 5.0 % [facility] BASOS 0.3 0.0 - 1.5 % [facility] Granulocytes, immature (%) 0.3 0.0 - 0.9 % [facility] ABSOLUTE NEUTS 2.21 1.92 - 7.60 K/uL [facility] ABSOLUTE LYMPHS 3.11 0.72 - 4.10 K/uL [facility] ABSOLUTE MONOS 0.57 0.16 - 1.10 K/uL [facility] ABSOLUTE EOS 0.10 0.00 - 0.50 K/uL [facility] ABSOLUTE BASOS 0.02 0.00 - 0.15 K/uL [facility] Granulocytes, immature 0.02 0.00 - 0.09 K/uL [facility] Blood 06/09/2025 3:18 PM EDT 06/09/2025 3:22 PM EDT Hernan Cheek MD LAB BLOOD BKR ORDERABLES Daija l Result Performing Organization Address City/[facility]/ZIP Co de Phone Number [address] [address] * (ABNORMAL) Vitamin B12 (06/09/2025 3:18 PM EDT) VITAMIN B12 >2000(H) 232 - 1245 pg/mL [facility] Blood 06/09/2025 3:18 PM EDT 06/09/2025 3:22 PM EDT Hernan Cheek MD LAB BLOOD BKR ORDERABLES Daija l Result [address] [address] * Outside Imaging Report Only (05/18/2025 12:14 PM EDT) Historical Provider IMG XR CHEST Final Res ult * Outside Pathology (05/18/2025 12:11 PM EDT) Historical Provider PATHOLOGY ORDERABLES Daija l Result * Outside Imaging Report Only (05/18/2025 12:10 PM EDT) Historical Provider IMG XR CHEST Final Res ult * Outside Imaging Report Only (05/18/2025 12:09 PM EDT) [facility] Provider IMG XR CHEST Final Res ult * Outside Procedure (05/18/2025 12:07 PM EDT) [facility] Provider PROCEDURE/MINOR SURGICAL PERFORMABLES Final Result * Outside Imaging Report Only (05/18/2025 12:06 PM EDT) [facility] Provider IMG XR CHEST Final Res ult * Outside Imaging Report Only (05/18/2025 12:04 PM EDT) [facility] Provider IMG XR CHEST Final Res ult * Outside Procedure (05/18/2025 11:59 AM EDT) [facility] Provider PROCEDURE/MINOR SURGICAL PERFORMABLES Final Result * Outside Imaging Report Only (05/11/2025 4:40 PM EDT) [facility] Provider IMG XR CHEST Final Res ult * Outside MR Imaging Report Only (05/10/2025 3:41 PM EDT) Historical Provider IMG MR Final Res ult * Outside Imaging Report Only (05/10/2025 3:31 PM EDT) Historical Provider IMG XR CHEST Final Res ult * Outside MR Imaging Report Only (05/10/2025 3:25 PM EDT) [facility] Provider IMG MR Final Res ult * Outside CT Imaging Report Only (05/10/2025 3:23 PM EDT) Historical Provider IMG CT Final Res ult * Outside XR Imaging Report Only (05/10/2025 3:19 PM EDT) Historical Provider IMG XR CHEST Final Res ult * Outside MR Imaging Report Only (05/10/2025 3:02 PM EDT) Historical Provider IMG MR Final Res ult * Lyme Screen with Reflex to Immunoblot, Blood (05/01/2025 3:38 PM EDT) Pathologist [facility] Lyme AB IgG Negative Negative [facility] Lyme AB IgM Negative Negative [facility] Blood 05/01/2025 3:38 PM EDT 05/01/2025 3:40 PM EDT Result [facility] Hernan Cheek MD LAB BLOOD BKR ORDERABLES Daija zepeda Result [address] [address] * Outside XR Spine Report Only (04/25/2025 1:52 PM EDT) Result [facility] Provider IMG XR SPINE Final Res ult * (ABNORMAL) Lipid panel (10/23/2023 11:44 AM EDT) Pathologist [facility] HDL 58 mg/dL [facility] Comment: Interpretation <40 mg/dL: Low HDL cholesterol (major risk factor for CHD) Greater than or equal to 60 mg/dL: High HDL cholesterol ( negative risk factor for CHD) HDL - cholesterol is affected by a number of factors, e.g. smoking, excerise, hormones, sex and age. CHOLESTEROL 175 0 - 240 mg/dL [facility] TRIGLYCERIDES 112 30 - 160 mg/dL [facility] LDL 95 50 - 129 mg/dL [facility] Comment: LDL levels in terms of risk for coronary heart disease: <100 mg/dL: Optimal 100-129 mg/dL: Near or above optimal 130-159 mg/dL: Borderline high 160-189 mg/dL: High >190 mg/dL: Very High CARDIAC RISK RATIO 3.0(L) 3.3 - 4.4 C [facility] Blood 10/23/2023 11:4 4 AM EDT 10/23/2023 11:46 AM EDT Hernan Cheek MD LAB BLOOD BKR ORDERABLES Daija l Result Performing Organization Address [facility] de Phone Number [address] [address] * DXA Screening (02/26/2021) Anatomical Region Laterality Modality Bone Density Bone Density Hernan Cheek MD IMG BD BONE DENSITY DEXA Edit ed Result - Final * Hepatitis C antibody, qualitative (07/24/2020 8:27 AM EST) HCV NON-REACTIV E NON-REACTI VE [facility] Blood 07/24/2020 8:27 AM EST 07/24/2020 8:31 AM EST Hernan Cheek MD LAB BLOOD BKR ORDERABLES Daija l Result Performing Organization Address [facility] Co de Phone Number [address] [address] from Last 3 Months or Most Recently Relevant to Health Maintenance Insurance [employer] Advance Directives For more information, please contact: [phone] (9AM - 5PM [facility], Thursday-Thursday) Documents on File Type Date Recorded Patient Processing Clerk Expl anation Healthcare Proxy 06/07/2025 [facility] Health Care Proxy Form scan 06/07/2025 Care Teams Acetaldehyde Converter Operator Relationship Specialty Start Date End Date Hernan Cheek MD [address] [place] [address] [email or web address] PCP - General Internal Medicine 05/24/20 Sydni Parr MD [address] [place] [address] Ophthalmology 07/30/20 Enmanuel Abel MD [address] [place] [address] Ophthalmology 07/30/20 Ros Joseph MD [address] [place] [address] Internal Medicine 07/30/20 Rod Kowalski MD [address] [place] [address], [facility] [address] [place] [address] [email or web address] Psychiatry 07/30/20 Additional Source Comments The information contained in this document represents components of the legal health record. It is not the complete legal health record.[facility]
--- OUTSIDE RECORDS SUMMARY | 2025-07-24 18:36 | XMS_ITS | Encounter Summary ---
Author Organization [facility] Address [address] [employer] [facility] [address] [place] [address] Phone Care Team Providers Care Chair Frame Builder Name Role Phone Hernan Cheek MD Primary Care Provider [phone] Sydni Parr MD Unavailable Enmanuel Abel MD Unavailable Ros Joseph MD Unavailable Rod Kowalski MD Unavailable [phone] Encounter Details Date Type Department Care Team (Late st Contact Info) Description 01/31/2025 Procedure Pass [facility], [address] [address] Social History Tobacco Use Types Packs/Day Years [...] Description 08/11/2025 2:30 PM EST Office Visit [facility] Internal Medicine [address] [place] [address] Hernan Cheek MD [address] [place] [address] 09/01/2025 11:00 AM EST Office Visit [facility] [address] [place] [address] 3rd Floor, [address] [place] [address] Jl Acuña DO 22 [facility] [address] [place] [address] 09/20/2025 11:00 AM EST Office Visit [facility] Otoneurology [address] [place] [address] Jeff Viramontes MD [address] [place] [address] [email or web address] documented as of this encounter Visit Diagnoses Not on filedocumented in this encounter Additional Health Concerns Assessment Noted Time PHQ-2 Depression Total Score: 0 10/23/19 24 9:43 AM EDT documented as of this encounter Care Teams Chair Frame Builder Relationship Specialty Start Date End Date Hernan Cheek MD [address] [place] [address] [email or web address] PCP - General Internal Medicine 05/24/20 Sydni Parr MD [address] [place] [address] Ophthalmology 07/30/20 Enmanuel Abel MD [address] [place] [address] Ophthalmology 07/30/20 Ros Joseph MD [address] [place] [address] Internal Medicine 07/30/20 Rod Kowalski MD [address] [place] [address], [facility] [address] [place] [address] [email or web address] Psychiatry 07/30/20 documented as of this encounter Additional Source Comments The information contained in this document represents components of the legal health record. It is not the complete legal health record.[facility]
--- OUTSIDE RECORDS SUMMARY | 2025-07-24 18:36 | XMS_ITS | Encounter Summary ---
Author Organization [facility] Address [address] [facility] [address] [place] [address] Phone Care Team Providers Care Trailers [employer] Salesperson Name Role Phone Hernan Cheek MD Primary Care Provider Sydni Parr MD Unavailable Enmanuel Abel MD Unavailable [phone] Ros Joseph MD Unavailable Rod Kowalski MD Unavailable Encounter Details Date Type Department Care Team (Late st Contact Info) Description 01/16/2025 Procedure Pass [facility] Admitting Dept Virtual Department [address] [place] [address] Social History Tobacco Use Types Packs/Day Years [...] Description 08/11/2025 2:30 PM EST Office Visit [facility] Internal Medicine 40 [place] [address] Hernan Cheek MD 40 [place] [address] 09/01/2025 11:00 AM EST Office Visit [facility] [address] [place] [address] 3rd Floor, [address] [place] [address] Jl Acuña DO 22 [facility] [address] [place] [address] 09/20/2025 11:00 AM EST Office Visit [facility] Otoneurology [address] [place] [address] Jeff Viramontes MD [address] [place] [address] [email or web address] documented as of this encounter Visit Diagnoses Not on filedocumented in this encounter Additional Health Concerns Assessment Noted Time PHQ-2 Depression Total Score: 0 10/23/19 24 9:43 AM EDT documented as of this encounter Care Teams [employer] Salesperson Relationship Specialty Start Date End Date Hernan Cheek MD [address] [place] [address] [email or web address] PCP - General Internal Medicine 05/24/20 Sydni Parr MD [address] [place] [address] Ophthalmology 07/30/20 Enmanuel Abel MD [address] [place] [address] Ophthalmology 07/30/20 Ros Joseph MD [address] [place] [address] Internal Medicine 07/30/20 Rod Kowalski MD [address] [place] [address], [facility] 203 [place] [address] [email or web address] Psychiatry 07/30/20 documented as of this encounter Additional Source Comments The information contained in this document represents components of the legal health record. It is not the complete legal health record.[facility]
--- OUTSIDE RECORDS SUMMARY | 2025-07-24 18:36 | XMS_ITS | Encounter Summary ---
Author Organization [facility] Address [address] [facility] [address] [place] [address] Phone Care Team Providers Care Automotive Salesperson Name Role Phone Hernan Cheek MD Primary Care Provider Sydni Parr MD Unavailable Enmanuel Abel MD Unavailable Ros Joseph MD Unavailable [phone] Rod Kowalski MD Unavailable Reason for Visit * Reason Comments Medication Refill Encounter Details Date Type Department Care Team ([facility] st Contact Info) Description 07/20/2025 Refill [facility] [address] [place] [address] Jerome Kathleen MD [address] [place] [address] [email or web address] Medication Refill Social History Tobacco Use Types Packs/Day Years [...] as of this encounter Progress Notes * Mónica Jara - 07/20/2025 2:40 PM EST IMPORTANT - At least one Rx mismatch identified. Original(s) may be discontinued, , or different strength/form. Review required. Rx Care Gap Status - Instructions for Clinical Staff (prescriber discretion applies): > Mismatch review guide > At least one request does not meet full criteria. Specifics below. > No recent or future appts: Please review request for appropriateness. Visit Info Last visit: 01/10/25 > Requested f/u: Not specified Upcoming visit: None ACTIONS TAKEN BY Mónica Jara - Criteria met. Gastrointestinal Rx Protocol (H2 blockers, PPIs, stool softeners, laxatives) - omeprazole Rx mismatch - Original discontinued, , or different strength/form. Criteria for reference: Visit in the past 24 months: yes Patient's last visit was in an external electronic medical record The following is not assessed by Rx Protocols; Rx duration at prescriber discretion Date of last visit: 01/10/25 EGD 01/16/25 Dispense History: OMEPRAZOLE DR 20 MG CPDR Dispensed: 06/09/2025 12:00 AM Written: 02/17/2025 Unit strength: 20 mg Days supply: 30 Quantity: 30 capsule Pharmacy: [id number] - [facility] [place], [place] - [address] [address] Authorizing provider: Jerome Kathleen MD [address] [address] documented in this encounter Plan of Treatment Upcoming Encounters Date Type Department Care Team (Late st Contact Info) Description 08/11/2025 2:30 PM EST Office Visit [facility] Internal Medicine 40 [place] [address] Hernan Cheek MD [address] [place] [address] 09/01/2025 11:00 AM EST Office Visit [facility] [address] [place] [address], [address] [place] [address] Jl Acuña DO [address] [place] [address] [email or web address] 09/20/2025 11:00 AM EST Office Visit [facility] Otoneurology [address] [place] [address] Jeff Viramontes MD [address] [place] [phone] [email or web address] documented as of this encounter Visit Diagnoses Diagnosis Gastroesophageal reflux disease- Primary Esophageal reflux documented in this encounter Additional Health Concerns Assessment Noted Time PHQ-2 Depression Total Score: 0 07/07/20 11:34 AM EST documented as of this encounter Care Teams Automotive Salesperson Relationship Specialty Start Date End Date Hernan Cheek MD [address] [place] [address] PCP - General Internal Medicine 05/24/20 Sydni Parr MD [address] [place] [address] Ophthalmology 07/30/20 Enmanuel Abel MD [address] [place] [address] Ophthalmology 07/30/20 Ros Joseph MD [address] [place] [address] Internal Medicine 07/30/20 Rod Kowalski MD [address] [place] [address], [facility] [address] [place] [address] Psychiatry 07/30/20 documented as of this encounter Additional Source Comments The information contained in this document represents components of the legal health record. It is not the complete legal health record.[facility]
--- OUTSIDE RECORDS SUMMARY | 2025-07-24 18:36 | XMS_ITS | Encounter Summary ---
Author Organization [facility] Address [address] [facility] [address] [place] [address] Phone Care Team Providers Care Guest Experience Captain Name Role Phone Hernan Cheek MD Primary Care Provider [phone] Sydni Parr MD Unavailable Enmanuel Abel MD Unavailable Ros Joseph MD Unavailable Rod Kowalski MD Unavailable Encounter Details Date Type Department Care Team (Late st Contact Info) Description 07/03/2025 Orders Only [facility] Internal Medicine [address] [place] [address] Provider, MD Adry [address] [place] [address] Social History Tobacco Use Types Packs/Day [...] Description 08/11/2025 2:30 PM EST Office Visit [facility] Internal Medicine [address] [place] [address] Hernan Cheek MD [address] [place] [address] 09/01/2025 11:00 AM EST Office Visit [facility] [address] [place] [address], [address] [place] [address] Jl Acuña DO [address] [place] [address] 09/20/2025 11:00 AM EST Office Visit [facility] Otoneurology [address] [address] Jeff Viramontes MD [address] [place] [phone] [email or web address] documented as of this encounter Procedures Procedure Name Priority Date/Time Associated Diagnosis Comments OUTSIDE PROCEDURE Routine 07/03/2025 7:5 9 AM EST documented in this encounter Results * Outside Procedure (07/03/2025 7:59 AM EST) us Historical Provider PROCEDURE/MINOR SURGICAL PERFORMABLES Final Result documented in this encounter Visit Diagnoses Not on filedocumented in this encounter Additional Health Concerns Assessment Noted Time PHQ-2 Depression Total Score: 0 10/23/19 24 9:43 AM EDT documented as of this encounter Care Teams Guest Experience Captain Relationship Specialty Start Date End Date Hernan Cheek MD [address] [place] [address] [email or web address] PCP - General Internal Medicine 05/24/20 Sydni Parr MD [address] [place] [address] Ophthalmology 07/30/20 Enmanuel Abel MD [address] [place] [address] Ophthalmology 07/30/20 Ros Joseph MD [address] [place] [address] Internal Medicine 07/30/20 Rod Kowalski MD [address] [place] [address], [address] [place] [address] [email or web address] Psychiatry 07/30/20 documented as of this encounter Additional Source Comments The information contained in this document represents components of the legal health record. It is not the complete legal health record.[facility]
== END 2025-07-24 12:50 | disposition home or self-care (01) ==
LOC: HO.LAB 12:49
PROVIDERS: PCP Internal Medicine; Visit Provider Internal Medicine Medical Oncology
DX: R79.89 Other specified abnormal findings of blood chemistry (principal)
CPT/HCPCS: 36415; 80053; 82728; 83540; 85025